=== PATIENT | female | born 1925 | race Caucasian/White ===

== ENCOUNTER 2016-03-25 05:05 | Emergency (ER) | payer MEDICARE, OTHER ==
[~2016-03-25 05:05] MED LIST: /ADVA50050; /ADVA50050 INH; /TIOT18INH; /TIOT18INH INH; ADV250INH INH; ALBU17IN2 INH; ASPI1TAB PO; ASPI1TAB5 PO; ASPI81TA83; ASPI81TA83 PO; BACT800T PO; CENTRUM SILVER PO; CETI10TA; FISH1000 PO; FLON0.05; HYDR-727 PO; HYDR25TA6; HYDR25TAB PO; IMOD2TAB16 PO; LIDO1DIS2 TOP; LIPI20TA; LIPI20TA PO; LISI20TA5 PO; LISI40TA; LOPR50TA; MAGN400C2 PO; METO25TAB PO; METOPROLOL TARTRATE PO; Metoprolol PO; NORV5TAB PO; OMEP20TA7 PO; OMEP40CA2 PO; PAIN325T; PAIN325T PO; PRED1TAB32 PO; PRED20TA PO; PREDPOW10 PO; SPIR1CAP INH; THERGRAN; TOPR25TA PO; TYLE325T5 PO; VITA10002 PO; VITA100066 PO; VITA500T88 PO; VITA50TA43 PO; [UNRECOGNIZED DRUG - OTHER]; doxycycline PO; meto; nasonex; singulair; vit c PO; vitamin b6 PO; vitamin d3 PO
[2016-03-25 05:53] LABS: BASO # 0.1 K/mm3 (0.0-0.2); BASO % 1.7 % (0.0-1.0); EOS # 0.6 K/mm3 (0.0-0.50); EOS % 7.9 % (0.0-3.0); LARGE UNSTAINED CELL # 0.1 K/mm3 (0.0-0.4); LARGE UNSTAINED CELL % 1.7 % (0.0-4.0); LYMPH # 1.6 K/mm3 (1.5-4.5); LYMPH % 20.9 % (24.0-44.0); MEAN CORPUSCULAR HEMOGLOBIN 30.5 pg (27.0-33.0); MEAN CORPUSCULAR HGB CONC 33.5 g/dl (32.0-36.5); MEAN CORPUSCULAR VOLUME 90.9 fl (80.0-96.0); MONO # 0.5 K/mm3 (0.0-0.8); MONO % 7.2 % (0.0-5.0); NEUTROPHILS # 4.4 K/mm3 (1.8-7.7); NEUTROPHILS % 60.5 % (36.0-66.0); PLATELET COUNT, AUTOMATED 226 k/mm3 (150-450); RED CELL DISTRIBUTION WIDTH 13.5 % (11.5-14.5); WHITE BLOOD COUNT 7.2 K/mm3 (4.0-10.0)
[2016-03-25 06:09] LABS: ALBUMIN 3.3 GM/DL (3.2-5.2); ALBUMIN/GLOBULIN RATIO 0.94 (1.00-1.93); ALKALINE PHOSPHATASE 85 U/L (45-117); ALT/SGPT 24 U/L (12-78); AMYLASE 33 U/L (25-115); ANION GAP 8 MEQ/L (8-16); AST/SGOT 18 U/L (15-37); BILIRUBIN,DIRECT < 0.1 MG/DL (0.0-0.2); BILIRUBIN,TOTAL 0.2 MG/DL (0.2-1.0); BLOOD UREA NITROGEN 25 MG/DL (7-18); CALCIUM LEVEL 8.8 MG/DL (8.8-10.2); CARBON DIOXIDE LEVEL 26 MEQ/L (21-32); CHLORIDE LEVEL 108 MEQ/L (98-107); CREATININE FOR GFR 1.01 MG/DL (0.55-1.02); GLOMERULAR FILTRATION RATE 55.1 (>32); GLUCOSE, FASTING 120 MG/DL (83-110); POTASSIUM SERUM 4.3 MEQ/L (3.5-5.1); SODIUM LEVEL 142 MEQ/L (136-145); TOTAL PROTEIN 6.8 GM/DL (6.4-8.2)
--- NOTE | 2016-03-25 06:28 | EDDOCDS ---
Physician Documentation [facility] Name: Nancy Nicolas Age: 89 yrs Sex: Female : 1925 Arrival Date: 03/25/2016 Time: 05:05 Bed 12 Private MD: Laura Posey DO Disposition: 03/25/16 06:12 Discharged to Home/Self Care. Impression: Other fecal abnormalities. - Condition is Stable. - Medication Reconciliation, Local Pharmacy Hours form. - Follow up: Laura Posey; When: Call to arrange an appointment; Reason: Recheck today's complaints. - Problem is new. - Symptoms are unchanged. Historical: - Allergies: Bees; PENICILLINS; seafood; - Home Meds: 1. Advair Diskus 250-50 mcg/dose Inhl dsdv 1 puff 2 times per day 2. Imodium A-D oral as needed 3. Norvasc 5 mg Oral tab 1 tab once daily 4. omeprazole 40 mg Oral cpDR 1 cap once daily 5. Spiriva with HandiHaler 18 mcg Inhl CpDv 1 cap once daily 6. Vitamin B6 Unknown daily 7. Vitamin C Oral 500 mg daily 8. Vitamin D3 1,000 unit oral tab daily - PMHx: Cancer, Colon; COPD; GERD; Gout; Hypertension; Lyme Disease; - PSHx: Appendectomy; Colonoscopy; Hysterectomy; Pacemaker Insertion; - Social history: Smoking status: Patient states former smoker of tobacco. No barriers to communication noted, The patient speaks fluent Yi, Speaks appropriately for age. - Family history: Not pertinent. - : The pt / caregiver states he / she is not on anticoagulants. Home medication list is obtained from [employer] import data. - Exposure Risk Screening:: None identified. Vital Signs: 03/25 05:16 Pulse 92; Resp 16; Temp 97.8; Pulse Ox 97% on R/A; Weight 56.7 kg / 125 lbs; Height 5 cz ft. 3 in. (160.02 cm); 05:25 BP 168 / 77 (auto/); mlc 05:28 Pulse 80 MON; Pulse Ox 97% ; mlc 05:34 BP 164 / 69 (auto/); mlc 05:35 Pulse 76 MON; Pulse Ox 97% ; mlc 05:41 BP 164 / 69; mlc 05:49 BP 151 / 71 (auto/); mlc 05:50 Pulse 74 MON; Pulse Ox 96% ; mlc 06:10 BP 181 / 79 Supine; Pulse 75; mlc 06:10 BP 180 / 84 Sitting; Pulse 76; mlc 06:10 BP 201 / 83 Standing; Pulse 83; mlc 06:26 BP 148 / 66; Pulse 73; Resp 18; Temp 99.6; Pulse Ox 97% ; Pain 0/10; mlc 05:16 Body Mass Index 22.14 (56.70 kg, 160.02 cm) cz MDM: 05:42 Undress patient appropriately for examination ordered. mar 05:42 IV Saline Lock ordered. mar 05:42 Mill Control Operator/Pulse Ox/q 15 min VS ordered. mar 05:42 Type & Screen Ordered. EDMS 05:42 NOTHING BY MOUTH+DIET ordered. EDMS 05:43 Amylase Ordered. EDMS 05:43 Basic Metabolic Profile Ordered. EDMS 05:43 CBC with Diff Ordered. EDMS 05:43 Lipase Ordered. EDMS 05:43 Liver Profile Ordered. EDMS 06:03 CBC with Diff Reviewed. cs11 06:03 Orthostatic VS ordered. cs11 Signatures: Dispatcher [employer] EDMS Angelina Rowan RN RN jan Zecher, Calvin, RN Edgar Hsu, DO DO cs11 Ana Cristina Marquis,[address] [facility] The chart was reviewed and I authenticate all verbal orders and agree with the evaluation and treatment provided.Corrections: (The following items were deleted from the chart) 06:23 05:43 URINALYSIS+LAB ordered. EDMS EDMS 06:24 05:43 URINE CULTURE+CIPRIANO ordered. EDMS EDMS MTDD
--- NOTE | 2016-03-25 06:28 | EDDOCDS ---
Nurse's Notes [facility] Name: Nancy Nicolas Age: 89 yrs Sex: Female : 1925 Arrival Date: 03/25/2016 Time: 05:05 Bed 12 Private MD: Laura Posey DO Diagnosis: Other fecal abnormalities Presentation: 03/25 05:09 Presenting complaint: Patient states: that around 0200 had 3 black tarry stools pt cz states has had same this past week. Adult Sepsis Screening: The patient does not have new or worsening altered mentation. Patient's respiratory rate is less than 22. Systolic blood pressure is greater than 100. Patient has a qSOFA score of 0- Negative Sepsis Screen. Suicide/Homicide risk assessment- the patient denies having any suicidal and/or homicidal ideations and does not present with any other emotional, behavioral or mental health complaints. Status: Patient is not a dental service technician or dependent. Transition of care: patient was not received from another setting of care. 05:09 Acuity: HARPER Level 3 cz 05:09 Method Of Arrival: Walkin/Carried/Asstd cz Triage Assessment: 05:16 General: Appears in no apparent distress. Pain: Denies pain. cz Historical: - Allergies: Bees; PENICILLINS; seafood; - Home Meds: 1. Advair Diskus 250-50 mcg/dose Inhl dsdv 1 puff 2 times per day 2. Imodium A-D oral as needed 3. Norvasc 5 mg Oral tab 1 tab once daily 4. omeprazole 40 mg Oral cpDR 1 cap once daily 5. Spiriva with HandiHaler 18 mcg Inhl CpDv 1 cap once daily 6. Vitamin B6 Unknown daily 7. Vitamin C Oral 500 mg daily 8. Vitamin D3 1,000 unit oral tab daily - PMHx: Cancer, Colon; COPD; GERD; Gout; Hypertension; Lyme Disease; - PSHx: Appendectomy; Colonoscopy; Hysterectomy; Pacemaker Insertion; - Social history: Smoking status: Patient states former smoker of tobacco. No barriers to communication noted, The patient speaks fluent Arabic, Speaks appropriately for age. - Family history: Not pertinent. - : The pt / caregiver states he / she is not on anticoagulants. Home medication list is obtained from [employer] import data. - Exposure Risk Screening:: None identified. Screenin:41 Screening information is obtained from the patient. Fall risk: No risks identified. mlc Assistance ADL's: requires no assistance with activities of daily living. Abuse/DV Screen: The patient / caregiver reports he/she is: not in a situation that causes fear, pain or injury. Nutritional screening: No deficits noted. Nutritional screening: No deficits noted. Advance Directives: Currently, there is a health care proxy, gentry Olvera . There is an active DNR order but there is no copy available at this time. There is an active Power of Amusement Park Entertainer, gentry Olvera. home support is adequate. Assessment: 05:41 General: Appears in no apparent distress, comfortable, Behavior is appropriate for age, mlc cooperative, pleasant. General: pt reports feeling "sore" in her abdomen. . Pain: Location: diaphragm. Neurological: Level of Consciousness is awake, alert, obeys commands, Oriented to person, place, time. Respiratory: Airway is patent Respiratory effort is even, unlabored, Respiratory pattern is regular. GI: Abdomen is non- distended Bowel sounds present X 4 quads. Abd is soft and non tender X 4 quads. Reports black stools nausea. Derm: Skin is normal. 06:10 Reassessment: orthostatic vital signs complete. pt reports dizziness while standing. pt mlc steady on feet, resp easy/unlabored. . 06:26 General: Appears in no apparent distress, comfortable, Behavior is cooperative. mlc Neurological: Level of Consciousness is awake, alert, Oriented to person, place, time. Respiratory: Airway is patent Respiratory effort is even, unlabored, Respiratory pattern is regular. Vital Signs: 05:16 Pulse 92; Resp 16; Temp 97.8; Pulse Ox 97% on R/A; Weight 56.7 kg; Height 5 ft. 3 in. cz (160.02 cm); 05:25 BP 168 / 77 (auto/); mlc 05:28 Pulse 80 MON; Pulse Ox 97% ; mlc 05:34 BP 164 / 69 (auto/); mlc 05:35 Pulse 76 MON; Pulse Ox 97% ; mlc 05:41 BP 164 / 69; mlc 05:49 BP 151 / 71 (auto/); mlc 05:50 Pulse 74 MON; Pulse Ox 96% ; mlc 06:10 BP 181 / 79 Supine; Pulse 75; mlc 06:10 BP 180 / 84 Sitting; Pulse 76; mlc 06:10 BP 201 / 83 Standing; Pulse 83; mlc 06:26 BP 148 / 66; Pulse 73; Resp 18; Temp 99.6; Pulse Ox 97% ; Pain 0/10; mlc 05:16 Body Mass Index 22.14 (56.70 kg, 160.02 cm) Vitals: 05:16 Log In Time: March 25, 2016 at 05:05. ED Course: 05:07 Patient visited by Sheng Davenport Reg. pm4 05:07 Laura Posey is Private Physician. pm4 05:07 Patient moved to Waiting pm4 05:13 Triage Initiated cz 05:18 Ana Cristina Marquis,LANE is Primary Nurse. cz 05:18 Patient moved to 12 cz 05:41 monitor tech on. Pulse ox on. NIBP on. mlc 05:41 Inserted saline lock: 20 gauge in left antecubital area and blood collected. The [facility] [place] patient tolerated the procedure well. 05:45 Amylase Sent. mlc 05:45 Basic Metabolic Profile Sent. mlc 05:45 CBC with Diff Sent. mlc 05:45 Lipase Sent. mlc 05:45 Liver Profile Sent. mlc 05:45 Type & Screen Sent. mlc 05:53 Edgar Nowak DO is Attending Physician. cs11 05:53 Patient visited by Edgar Nowak DO. cs11 06:11 Patient visited by Ana Cristina Marquis RN. mlc 06:11 Laura Posey is Referral Physician. cs11 06:26 The patient / caregiver is instructed regarding the plan of care and ED course. mlc 06:26 Discontinued IV lock intact, bleeding controlled, pressure dressing applied, No mlc redness/swelling at site. No procedures done that require assistance. Order Results: Lab Order: Amylase; SPEC'M 03/25/16 05:35 Test: AMYLASE; Value: 33; Range: 25-115; Units: U/L; Status: F Lab Order: Basic Metabolic Profile; SPEC'M 03/25/16 05:35 Test: GLUCOSE, FASTING; Value: 120; Range: 83-110; Abnormal: Above high normal; Units: MG/DL; Status: F Test: BLOOD UREA NITROGEN; Value: 25; Range: 7-18; Abnormal: Above high normal; Units: MG/DL; Status: F Test: CREATININE FOR GFR; Value: 1.01; Range: 0.55-1.02; Units: MG/DL; Status: F Test: GLOMERULAR FILTRATION RATE; Value: 55.1; Range: >32; Status: F Test: SODIUM LEVEL; Value: 142; Range: 136-145; Units: MEQ/L; Status: F Test: POTASSIUM SERUM; Value: 4.3; Range: 3.5-5.1; Units: MEQ/L; Status: F Test: CHLORIDE LEVEL; Value: 108; Range: 98-107; Abnormal: Above high normal; Units: MEQ/L; Status: F Test: CARBON DIOXIDE LEVEL; Value: 26; Range: 21-32; Units: MEQ/L; Status: F Test: ANION GAP; Value: 8; Range: 8-16; Units: MEQ/L; Status: F Test: CALCIUM LEVEL; Value: 8.8; Range: 8.8-10.2; Units: MG/DL; Status: F Test Note: ; Units are mL/min/1.73 m2 Chronic Kidney Disease Staging per NKF: Stage I & II GFR >=60 Normal to Mildly Decreased Stage III GFR 30-59 Moderately Decreased Stage IV GFR 15-29 Severely Decreased Stage V GFR <15 Very Little GFR Left ESRD GFR <15 on DRAWING HAND Lab Order: CBC with Diff; SPEC'M 03/25/16 05:35 Test: WHITE BLOOD COUNT; Value: 7.2; Range: 4.0-10.0; Units: K/mm3; Status: F Test: RED BLOOD COUNT; Value: 4.45; Range: 4.00-5.40; Units: M/mm3; Status: F Test: HEMOGLOBIN; Value: 13.6; Range: 12.0-16.0; Units: g/dl; Status: F Test: HEMATOCRIT; Value: 40.4; Range: 36.0-47.0; Units: %; Status: F Test: MEAN CORPUSCULAR VOLUME; Value: 90.9; Range: 80.0-96.0; Units: fl; Status: F Test: MEAN CORPUSCULAR HEMOGLOBIN; Value: 30.5; Range: 27.0-33.0; Units: pg; Status: F Test: MEAN CORPUSCULAR HGB CONC; Value: 33.5; Range: 32.0-36.5; Units: g/dl; Status: F Test: RED CELL DISTRIBUTION WIDTH; Value: 13.5; Range: 11.5-14.5; Units: %; Status: F Test: PLATELET COUNT, AUTOMATED; Value: 226; Range: 150-450; Units: k/mm3; Status: F Test: NEUTROPHILS %; Value: 60.5; Range: 36.0-66.0; Units: %; Status: F Test: LYMPH %; Value: 20.9; Range: 24.0-44.0; Abnormal: Below low normal; Units: %; Status: F Test: MONO %; Value: 7.2; Range: 0.0-5.0; Abnormal: Above high normal; Units: %; Status: F Test: EOS %; Value: 7.9; Range: 0.0-3.0; Abnormal: Above high normal; Units: %; Status: F Test: BASO %; Value: 1.7; Range: 0.0-1.0; Abnormal: Above high normal; Units: %; Status: F Test: LARGE UNSTAINED CELL %; Value: 1.7; Range: 0.0-4.0; Units: %; Status: F Test: NEUTROPHILS #; Value: 4.4; Range: 1.8-7.7; Units: K/mm3; Status: F Test: LYMPH #; Value: 1.6; Range: 1.5-4.5; Units: K/mm3; Status: F Test: MONO #; Value: 0.5; Range: 0.0-0.8; Units: K/mm3; Status: F Test: EOS #; Value: 0.6; Range: 0.0-0.50; Abnormal: Above high normal; Units: K/mm3; Status: F Test: BASO #; Value: 0.1; Range: 0.0-0.2; Units: K/mm3; Status: F Test: LARGE UNSTAINED CELL #; Value: 0.1; Range: 0.0-0.4; Units: K/mm3; Status: F Lab Order: Lipase; SPEC'M 03/25/16 05:35 Test: LIPASE; Value: 111; Range: 73-393; Units: U/L; Status: F Lab Order: Liver Profile; SPEC'M 03/25/16 05:35 Test: AST/SGOT; Value: 18; Range: 15-37; Units: U/L; Status: F Test: ALT/SGPT; Value: 24; Range: 12-78; Units: U/L; Status: F Test: ALKALINE PHOSPHATASE; Value: 85; Range: 45-117; Units: U/L; Status: F Test: BILIRUBIN,TOTAL; Value: 0.2; Range: 0.2-1.0; Units: MG/DL; Status: F Test: BILIRUBIN,DIRECT; Value: < 0.1; Range: 0.0-0.2; Units: MG/DL; Status: F Test: TOTAL PROTEIN; Value: 6.8; Range: 6.4-8.2; Units: GM/DL; Status: F Test: ALBUMIN; Value: 3.3; Range: 3.2-5.2; Units: GM/DL; Status: F Test: ALBUMIN/GLOBULIN RATIO; Value: 0.94; Range: 1.00-1.93; Abnormal: Below low normal; Status: F Lab Order: Type & Screen; SPEC'M 03/25/16 05:35 Test: BLOOD TYPE; Value: A POS; Status: F Test: AB SCREEN (INDIRECT MIRA)GEL; Value: NEGATIVE; Status: F Outcome: 06:12 Discharge ordered by Provider. cs11 06:26 Discharge Assessment: Patient awake, alert and oriented x 3. No cognitive and/or mlc functional deficits noted. Patient verbalized understanding of disposition instructions. patient administered narcotics - no. The following High Risk Discharge criteria are identified: None. Discharged to home ambulatory. Condition: good Condition: stable. Discharge instructions given to patient, Instructed on discharge instructions, Demonstrated understanding of instructions, Pt was receptive of discharge instructions/ teaching. No special radiology studies were completed. Property sent home with patient. 06:27 Patient left the ED. [facility] [place] Signatures: Unruly Solis RN RN cz Schiff, Craig, DO DO cs11 Ana Cristina Marquis RN RN mlc Montondo, Paul, Reg Reg pm4 MTDD
--- NOTE | 2016-03-27 07:28 | EDDOCDS ---
Physician Documentation [facility] Name: Nancy Nicolas Age: 89 yrs Sex: Female : 1925 Arrival Date: 03/25/2016 Time: 05:05 Bed 12 Private MD: Laura Posey DO Disposition: 03/25/16 06:12 Discharged to Home/Self Care. Impression: Other fecal abnormalities. - Condition is Stable. - Medication Reconciliation, Local Pharmacy Hours form. - Follow up: Laura Posey; When: Call to arrange an appointment; Reason: Recheck today's complaints. - Problem is new. - Symptoms are unchanged. Historical: - Allergies: Bees; PENICILLINS; seafood; - Home Meds: 1. Advair Diskus 250-50 mcg/dose Inhl dsdv 1 puff 2 times per day 2. Imodium A-D oral as needed 3. Norvasc 5 mg Oral tab 1 tab once daily 4. omeprazole 40 mg Oral cpDR 1 cap once daily 5. Spiriva with HandiHaler 18 mcg Inhl CpDv 1 cap once daily 6. Vitamin B6 Unknown daily 7. Vitamin C Oral 500 mg daily 8. Vitamin D3 1,000 unit oral tab daily - PMHx: Cancer, Colon; COPD; GERD; Gout; Hypertension; Lyme Disease; - PSHx: Appendectomy; Colonoscopy; Hysterectomy; Pacemaker Insertion; - Social history: Smoking status: Patient states former smoker of tobacco. No barriers to communication noted, The patient speaks fluent Upper Sorbian, Speaks appropriately for age. - Family history: Not pertinent. - : The pt / caregiver states he / she is not on anticoagulants. Home medication list is obtained from [employer] import data. - Exposure Risk Screening:: None identified. Vital Signs: 03/25 05:16 Pulse 92; Resp 16; Temp 97.8; Pulse Ox 97% on R/A; Weight 56.7 kg / 125 lbs; Height 5 cz ft. 3 in. (160.02 cm); 05:25 BP 168 / 77 (auto/); mlc 05:28 Pulse 80 MON; Pulse Ox 97% ; mlc 05:34 BP 164 / 69 (auto/); mlc 05:35 Pulse 76 MON; Pulse Ox 97% ; mlc 05:41 BP 164 / 69; mlc 05:49 BP 151 / 71 (auto/); mlc 05:50 Pulse 74 MON; Pulse Ox 96% ; mlc 06:10 BP 181 / 79 Supine; Pulse 75; mlc 06:10 BP 180 / 84 Sitting; Pulse 76; mlc 06:10 BP 201 / 83 Standing; Pulse 83; mlc 06:26 BP 148 / 66; Pulse 73; Resp 18; Temp 99.6; Pulse Ox 97% ; Pain 0/10; mlc 05:16 Body Mass Index 22.14 (56.70 kg, 160.02 cm) MDM: 05:42 Undress patient appropriately for examination ordered. mar 05:42 IV Saline Lock ordered. mar 05:42 Welfare Interviewer/Pulse Ox/q 15 min VS ordered. mar 05:42 Type & Screen Ordered. EDMS 05:42 NOTHING BY MOUTH+DIET ordered. EDMS 05:43 Amylase Ordered. EDMS 05:43 Basic Metabolic Profile Ordered. EDMS 05:43 CBC with Diff Ordered. EDMS 05:43 Lipase Ordered. EDMS 05:43 Liver Profile Ordered. EDMS 06:03 CBC with Diff Reviewed. cs11 06:03 Orthostatic VS ordered. cs11 06:50 [facility] [place] Payment Agreement was scanned into [employer] and attached to record. pm4 07:43 Financial registration complete. mm15 14:12 T-Sheet-- Draft Copy was scanned into [employer] and attached to record. gb Signatures: Dispatcher [employer] EDNH Angelina Rowan RN RN jan Zecher, Calvin, RN RN Bhargavi Jauregui, Reg Reg gb Edgar Nowak, DO cs11 Evonne Doherty mm15 Ana Cristina Marquis RN RN [facility] Sheng Davenport, Reg Reg pm4 The chart was reviewed and I authenticate all verbal orders and agree with the evaluation and treatment provided.Corrections: (The following items were deleted from the chart) 06:23 05:43 URINALYSIS+LAB ordered. EDMS EDMS 06:24 05:43 URINE CULTURE+CIPRIANO ordered. EDMS EDMS Attachments: 06:50 [facility] [place] Payment Agreement pm4 14:12 T-Sheet-- Draft Copy gb Chart Complete MTDD
--- NOTE | 2016-03-27 07:28 | EDDOCDS ---
Nurse's Notes [facility] Name: Nancy Nicolas Age: 89 yrs Sex: Female : 1925 Arrival Date: 03/25/2016 Time: 05:05 Bed 12 Private MD: Laura Posey DO Diagnosis: Other fecal abnormalities Presentation: 03/25 05:09 Presenting complaint: Patient states: that around 0200 had 3 black tarry stools pt cz states has had same this past week. Adult Sepsis Screening: The patient does not have new or worsening altered mentation. Patient's respiratory rate is less than 22. Systolic blood pressure is greater than 100. Patient has a qSOFA score of 0- Negative Sepsis Screen. Suicide/Homicide risk assessment- the patient denies having any suicidal and/or homicidal ideations and does not present with any other emotional, behavioral or mental health complaints. Status: Patient is not a fiscal services director or dependent. Transition of care: patient was not received from another setting of care. 05:09 Acuity: HARPER Level 3 cz 05:09 Method Of Arrival: Walkin/Carried/Asstd cz Triage Assessment: 05:16 General: Appears in no apparent distress. Pain: Denies pain. cz Historical: - Allergies: Bees; PENICILLINS; seafood; - Home Meds: 1. Advair Diskus 250-50 mcg/dose Inhl dsdv 1 puff 2 times per day 2. Imodium A-D oral as needed 3. Norvasc 5 mg Oral tab 1 tab once daily 4. omeprazole 40 mg Oral cpDR 1 cap once daily 5. Spiriva with HandiHaler 18 mcg Inhl CpDv 1 cap once daily 6. Vitamin B6 Unknown daily 7. Vitamin C Oral 500 mg daily 8. Vitamin D3 1,000 unit oral tab daily - PMHx: Cancer, Colon; COPD; GERD; Gout; Hypertension; Lyme Disease; - PSHx: Appendectomy; Colonoscopy; Hysterectomy; Pacemaker Insertion; - Social history: Smoking status: Patient states former smoker of tobacco. No barriers to communication noted, The patient speaks fluent Japanese, Speaks appropriately for age. - Family history: Not pertinent. - : The pt / caregiver states he / she is not on anticoagulants. Home medication list is obtained from [employer] import data. - Exposure Risk Screening:: None identified. Screenin:41 Screening information is obtained from the patient. Fall risk: No risks identified. mlc Assistance ADL's: requires no assistance with activities of daily living. Abuse/DV Screen: The patient / caregiver reports he/she is: not in a situation that causes fear, pain or injury. Nutritional screening: No deficits noted. Nutritional screening: No deficits noted. Advance Directives: Currently, there is a health care proxy, gentry Olvera . There is an active DNR order but there is no copy available at this time. There is an active Power of Petrophysicist, gentry Olvera. home support is adequate. Assessment: 05:41 General: Appears in no apparent distress, comfortable, Behavior is appropriate for age, mlc cooperative, pleasant. General: pt reports feeling "sore" in her abdomen. . Pain: Location: diaphragm. Neurological: Level of Consciousness is awake, alert, obeys commands, Oriented to person, place, time. Respiratory: Airway is patent Respiratory effort is even, unlabored, Respiratory pattern is regular. GI: Abdomen is non- distended Bowel sounds present X 4 quads. Abd is soft and non tender X 4 quads. Reports black stools nausea. Derm: Skin is normal. 06:10 Reassessment: orthostatic vital signs complete. pt reports dizziness while standing. pt mlc steady on feet, resp easy/unlabored. . 06:26 General: Appears in no apparent distress, comfortable, Behavior is cooperative. mlc Neurological: Level of Consciousness is awake, alert, Oriented to person, place, time. Respiratory: Airway is patent Respiratory effort is even, unlabored, Respiratory pattern is regular. Vital Signs: 05:16 Pulse 92; Resp 16; Temp 97.8; Pulse Ox 97% on R/A; Weight 56.7 kg; Height 5 ft. 3 in. cz (160.02 cm); 05:25 BP 168 / 77 (auto/); mlc 05:28 Pulse 80 MON; Pulse Ox 97% ; mlc 05:34 BP 164 / 69 (auto/); mlc 05:35 Pulse 76 MON; Pulse Ox 97% ; mlc 05:41 BP 164 / 69; mlc 05:49 BP 151 / 71 (auto/); mlc 05:50 Pulse 74 MON; Pulse Ox 96% ; mlc 06:10 BP 181 / 79 Supine; Pulse 75; mlc 06:10 BP 180 / 84 Sitting; Pulse 76; mlc 06:10 BP 201 / 83 Standing; Pulse 83; mlc 06:26 BP 148 / 66; Pulse 73; Resp 18; Temp 99.6; Pulse Ox 97% ; Pain 0/10; mlc 05:16 Body Mass Index 22.14 (56.70 kg, 160.02 cm) Vitals: 05:16 Log In Time: March 25, 2016 at 05:05. ED Course: 05:07 Patient visited by Sheng Davenport Reg. pm4 05:07 Laura Posey is Private Physician. pm4 05:07 Patient moved to Waiting pm4 05:13 Triage Initiated cz 05:18 Ana Cristina Marquis,LANE is Primary Nurse. cz 05:18 Patient moved to 12 cz 05:41 tightener on. Pulse ox on. NIBP on. mlc 05:41 Inserted saline lock: 20 gauge in left antecubital area and blood collected. The [facility] [place] patient tolerated the procedure well. 05:45 Amylase Sent. mlc 05:45 Basic Metabolic Profile Sent. mlc 05:45 CBC with Diff Sent. mlc 05:45 Lipase Sent. mlc 05:45 Liver Profile Sent. mlc 05:45 Type & Screen Sent. mlc 05:53 Edgar Nowak DO is Attending Physician. cs11 05:53 Patient visited by Edgar Nowak DO. cs11 06:11 Patient visited by Ana Cristina Marquis RN. mlc 06:11 Laura Posey is Referral Physician. cs11 06:26 The patient / caregiver is instructed regarding the plan of care and ED course. mlc 06:26 Discontinued IV lock intact, bleeding controlled, pressure dressing applied, No mlc redness/swelling at site. No procedures done that require assistance. 06:50 [facility] [place] Agreement was scanned into [employer] and attached to record. pm4 14:12 T-Sheet-- Draft Copy was scanned into [employer] and attached to record. gb Order Results: Lab Order: Amylase; SPEC'M 03/25/16 05:35 Test: AMYLASE; Value: 33; Range: 25-115; Units: U/L; Status: F Lab Order: Basic Metabolic Profile; SPEC'M 03/25/16 05:35 Test: GLUCOSE, FASTING; Value: 120; Range: 83-110; Abnormal: Above high normal; Units: MG/DL; Status: F Test: BLOOD UREA NITROGEN; Value: 25; Range: 7-18; Abnormal: Above high normal; Units: MG/DL; Status: F Test: CREATININE FOR GFR; Value: 1.01; Range: 0.55-1.02; Units: MG/DL; Status: F Test: GLOMERULAR FILTRATION RATE; Value: 55.1; Range: >32; Status: F Test: SODIUM LEVEL; Value: 142; Range: 136-145; Units: MEQ/L; Status: F Test: POTASSIUM SERUM; Value: 4.3; Range: 3.5-5.1; Units: MEQ/L; Status: F Test: CHLORIDE LEVEL; Value: 108; Range: 98-107; Abnormal: Above high normal; Units: MEQ/L; Status: F Test: CARBON DIOXIDE LEVEL; Value: 26; Range: 21-32; Units: MEQ/L; Status: F Test: ANION GAP; Value: 8; Range: 8-16; Units: MEQ/L; Status: F Test: CALCIUM LEVEL; Value: 8.8; Range: 8.8-10.2; Units: MG/DL; Status: F Test Note: ; Units are mL/min/1.73 m2 Chronic Kidney Disease Staging per NKF: Stage I & II GFR >=60 Normal to Mildly Decreased Stage III GFR 30-59 Moderately Decreased Stage IV GFR 15-29 Severely Decreased Stage V GFR <15 Very Little GFR Left ESRD GFR <15 on BILINGUAL NANNY Lab Order: CBC with Diff; SPEC'M 03/25/16 05:35 Test: WHITE BLOOD COUNT; Value: 7.2; Range: 4.0-10.0; Units: K/mm3; Status: F Test: RED BLOOD COUNT; Value: 4.45; Range: 4.00-5.40; Units: M/mm3; Status: F Test: HEMOGLOBIN; Value: 13.6; Range: 12.0-16.0; Units: g/dl; Status: F Test: HEMATOCRIT; Value: 40.4; Range: 36.0-47.0; Units: %; Status: F Test: MEAN CORPUSCULAR VOLUME; Value: 90.9; Range: 80.0-96.0; Units: fl; Status: F Test: MEAN CORPUSCULAR HEMOGLOBIN; Value: 30.5; Range: 27.0-33.0; Units: pg; Status: F Test: MEAN CORPUSCULAR HGB CONC; Value: 33.5; Range: 32.0-36.5; Units: g/dl; Status: F Test: RED CELL DISTRIBUTION WIDTH; Value: 13.5; Range: 11.5-14.5; Units: %; Status: F Test: PLATELET COUNT, AUTOMATED; Value: 226; Range: 150-450; Units: k/mm3; Status: F Test: NEUTROPHILS %; Value: 60.5; Range: 36.0-66.0; Units: %; Status: F Test: LYMPH %; Value: 20.9; Range: 24.0-44.0; Abnormal: Below low normal; Units: %; Status: F Test: MONO %; Value: 7.2; Range: 0.0-5.0; Abnormal: Above high normal; Units: %; Status: F Test: EOS %; Value: 7.9; Range: 0.0-3.0; Abnormal: Above high normal; Units: %; Status: F Test: BASO %; Value: 1.7; Range: 0.0-1.0; Abnormal: Above high normal; Units: %; Status: F Test: LARGE UNSTAINED CELL %; Value: 1.7; Range: 0.0-4.0; Units: %; Status: F Test: NEUTROPHILS #; Value: 4.4; Range: 1.8-7.7; Units: K/mm3; Status: F Test: LYMPH #; Value: 1.6; Range: 1.5-4.5; Units: K/mm3; Status: F Test: MONO #; Value: 0.5; Range: 0.0-0.8; Units: K/mm3; Status: F Test: EOS #; Value: 0.6; Range: 0.0-0.50; Abnormal: Above high normal; Units: K/mm3; Status: F Test: BASO #; Value: 0.1; Range: 0.0-0.2; Units: K/mm3; Status: F Test: LARGE UNSTAINED CELL #; Value: 0.1; Range: 0.0-0.4; Units: K/mm3; Status: F Lab Order: Lipase; SPEC'M 03/25/16 05:35 Test: LIPASE; Value: 111; Range: 73-393; Units: U/L; Status: F Lab Order: Liver Profile; SPEC'M 03/25/16 05:35 Test: AST/SGOT; Value: 18; Range: 15-37; Units: U/L; Status: F Test: ALT/SGPT; Value: 24; Range: 12-78; Units: U/L; Status: F Test: ALKALINE PHOSPHATASE; Value: 85; Range: 45-117; Units: U/L; Status: F Test: BILIRUBIN,TOTAL; Value: 0.2; Range: 0.2-1.0; Units: MG/DL; Status: F Test: BILIRUBIN,DIRECT; Value: < 0.1; Range: 0.0-0.2; Units: MG/DL; Status: F Test: TOTAL PROTEIN; Value: 6.8; Range: 6.4-8.2; Units: GM/DL; Status: F Test: ALBUMIN; Value: 3.3; Range: 3.2-5.2; Units: GM/DL; Status: F Test: ALBUMIN/GLOBULIN RATIO; Value: 0.94; Range: 1.00-1.93; Abnormal: Below low normal; Status: F Lab Order: Type & Screen; SPECM 03/25/16 05:35 Test: BLOOD TYPE; Value: A POS; Status: F Test: AB SCREEN (INDIRECT MIRA)GEL; Value: NEGATIVE; Status: F Outcome: 06:12 Discharge ordered by Provider. 11 06:26 Discharge Assessment: Patient awake, alert and oriented x 3. No cognitive and/or mlc functional deficits noted. Patient verbalized understanding of disposition instructions. patient administered narcotics - no. The following High Risk Discharge criteria are identified: None. Discharged to home ambulatory. Condition: good Condition: stable. Discharge instructions given to patient, Instructed on discharge instructions, Demonstrated understanding of instructions, Pt was receptive of discharge instructions/ teaching. No special radiology studies were completed. Property sent home with patient. 06:27 Patient left the ED. [facility] [place] Signatures: Unruly Solis RN RN Bhargavi Jauregui, Reg Reg gb Edgar Nowak, DO cs11 Ana Cristina Marquis RN RN [facility] [place] Sheng Davenport, Reg Reg pm4 Chart Complete MTDD
--- NOTE | 2016-03-27 07:28 | EDDOCDS ---
Physician Documentation [facility] Name: Nancy Nicolas Age: 89 yrs Sex: Female : 1925 Arrival Date: 03/25/2016 Time: 05:05 Bed 12 Private MD: Laura Posey DO Disposition: 03/25/16 06:12 Discharged to Home/Self Care. Impression: Other fecal abnormalities. - Condition is Stable. - Medication Reconciliation, Local Pharmacy Hours form. - Follow up: Laura Posey; When: Call to arrange an appointment; Reason: Recheck today's complaints. - Problem is new. - Symptoms are unchanged. Historical: - Allergies: Bees; PENICILLINS; seafood; - Home Meds: 1. Advair Diskus 250-50 mcg/dose Inhl dsdv 1 puff 2 times per day 2. Imodium A-D oral as needed 3. Norvasc 5 mg Oral tab 1 tab once daily 4. omeprazole 40 mg Oral cpDR 1 cap once daily 5. Spiriva with HandiHaler 18 mcg Inhl CpDv 1 cap once daily 6. Vitamin B6 Unknown daily 7. Vitamin C Oral 500 mg daily 8. Vitamin D3 1,000 unit oral tab daily - PMHx: Cancer, Colon; COPD; GERD; Gout; Hypertension; Lyme Disease; - PSHx: Appendectomy; Colonoscopy; Hysterectomy; Pacemaker Insertion; - Social history: Smoking status: Patient states former smoker of tobacco. No barriers to communication noted, The patient speaks fluent Bengali, Speaks appropriately for age. - Family history: Not pertinent. - : The pt / caregiver states he / she is not on anticoagulants. Home medication list is obtained from [employer] import data. - Exposure Risk Screening:: None identified. Vital Signs: 03/25 05:16 Pulse 92; Resp 16; Temp 97.8; Pulse Ox 97% on R/A; Weight 56.7 kg / 125 lbs; Height 5 cz ft. 3 in. (160.02 cm); 05:25 BP 168 / 77 (auto/); mlc 05:28 Pulse 80 MON; Pulse Ox 97% ; mlc 05:34 BP 164 / 69 (auto/); mlc 05:35 Pulse 76 MON; Pulse Ox 97% ; mlc 05:41 BP 164 / 69; mlc 05:49 BP 151 / 71 (auto/); mlc 05:50 Pulse 74 MON; Pulse Ox 96% ; mlc 06:10 BP 181 / 79 Supine; Pulse 75; mlc 06:10 BP 180 / 84 Sitting; Pulse 76; mlc 06:10 BP 201 / 83 Standing; Pulse 83; mlc 06:26 BP 148 / 66; Pulse 73; Resp 18; Temp 99.6; Pulse Ox 97% ; Pain 0/10; mlc 05:16 Body Mass Index 22.14 (56.70 kg, 160.02 cm) MDM: 05:42 Undress patient appropriately for examination ordered. mar 05:42 IV Saline Lock ordered. 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 mar 05:42 Type & Screen Ordered. EDMS 05:42 NOTHING BY MOUTH+DIET ordered. EDMS 05:43 Amylase Ordered. EDMS 05:43 Basic Metabolic Profile Ordered. EDMS 05:43 CBC with Diff Ordered. EDMS 05:43 Lipase Ordered. EDMS 05:43 Liver Profile Ordered. EDMS 06:03 CBC with Diff Reviewed. cs11 06:03 Orthostatic VS ordered. cs11 06:50 [facility] Agreement was scanned into [employer] and attached to record. pm4 07:43 Financial registration complete. mm15 14:12 T-Sheet-- Draft Copy was scanned into [employer] and attached to record. gb Signatures: Dispatcher [employer] EDUT Angelina Rowan RN RN jan Zecher, Calvin, RN RN Bhargavi Jauregui, Reg Reg gb Edgar Nowak, DO cs11 Evonne Doherty mm15 Ana Cristina Marquis RN RN [facility] [place] Sheng Davenport, Reg Reg pm4 The chart was reviewed and I authenticate all verbal orders and agree with the evaluation and treatment provided.Corrections: (The following items were deleted from the chart) 06:23 05:43 URINALYSIS+LAB ordered. EDMS EDMS 06:24 05:43 URINE CULTURE+CIPRIANO ordered. EDMS EDMS Attachments: 06:50 [facility] [place] Agreement pm4 14:12 T-Sheet-- Draft Copy gb Chart Complete MTDD
== END 2016-03-25 06:27 | disposition home or self-care (01) ==
LOC: M ED 05:05
DX: R19.5 Other fecal abnormalities (principal); J44.9 Chronic obstructive pulmonary disease, unspecified; K21.9 Gastro-esophageal reflux disease without esophagitis; M10.9 Gout, unspecified; I10 Essential (primary) hypertension; A69.20 Lyme disease, unspecified; Z85.038 Personal history of other malignant neoplasm of large intestine; Z79.899 Other long term (current) drug therapy; Z91.030 Bee allergy status; Z88.0 Allergy status to penicillin; Z91.013 Allergy to seafood; Z87.891 Personal history of nicotine dependence

== ENCOUNTER → 2016-03-29 | Outpatient (REF) | payer MEDICARE, OTHER | END | disposition home or self-care (01) | LOC: M LAB REF 16:22 | PROVIDERS: ATTEND Nurse Practitioner Adult Health | DX: R19.7 Diarrhea, unspecified (principal) ==

== ENCOUNTER 2016-04-17 10:09 | Emergency (ER) | payer MEDICARE, OTHER ==
[2016-04-17 10:50] LABS: BASO % 0.4 % (0.0-1.0); EOS # 0.1 K/mm3 (0.0-0.50); EOS % 0.9 % (0.0-3.0); LARGE UNSTAINED CELL # 0.1 K/mm3 (0.0-0.4); LARGE UNSTAINED CELL % 0.7 % (0.0-4.0); LYMPH # 1.5 K/mm3 (1.5-4.5); LYMPH % 14.9 % (24.0-44.0); MEAN CORPUSCULAR HEMOGLOBIN 30.7 pg (27.0-33.0); MEAN CORPUSCULAR HGB CONC 33.2 g/dl (32.0-36.5); MEAN CORPUSCULAR VOLUME 92.3 fl (80.0-96.0); MONO # 0.5 K/mm3 (0.0-0.8); MONO % 5.1 % (0.0-5.0); NEUTROPHILS # 7.7 K/mm3 (1.8-7.7); PLATELET COUNT, AUTOMATED 247 k/mm3 (150-450); RED CELL DISTRIBUTION WIDTH 12.8 % (11.5-14.5); WHITE BLOOD COUNT 9.9 K/mm3 (4.0-10.0)
[2016-04-17 11:13] LABS: ALBUMIN 3.5 GM/DL (3.2-5.2); ALBUMIN/GLOBULIN RATIO 1.21 (1.00-1.93); ALKALINE PHOSPHATASE 70 U/L (45-117); ALT/SGPT 27 U/L (12-78); AMYLASE 35 U/L (25-115); ANION GAP 12 MEQ/L (8-16); AST/SGOT 18 U/L (15-37); BILIRUBIN,DIRECT < 0.1 MG/DL (0.0-0.2); BILIRUBIN,TOTAL 0.3 MG/DL (0.2-1.0); BLOOD UREA NITROGEN 25 MG/DL (7-18); CALCIUM LEVEL 8.8 MG/DL (8.8-10.2); CARBON DIOXIDE LEVEL 26 MEQ/L (21-32); CHLORIDE LEVEL 102 MEQ/L (98-107); GLOMERULAR FILTRATION RATE 49.9 (>32); GLUCOSE, FASTING 122 MG/DL (83-110); POTASSIUM SERUM 4.4 MEQ/L (3.5-5.1); SODIUM LEVEL 140 MEQ/L (136-145); TOTAL PROTEIN 6.4 GM/DL (6.4-8.2)
[2016-04-17] MEDS ORDERED: ONDANSETRON 4MG/2ML VIAL (J2405) As Ordered ONE (11:16)
--- NOTE | 2016-04-17 12:45 | EDDOCDS ---
Nurse's Notes [facility] Name: Nancy Nicolas Age: 89 yrs Sex: Female : 1925 Arrival Date: 04/17/2016 Time: 10:09 Bed 8 Private MD: Tiffany Martell Diagnosis: Nausea Presentation: 04/17 10:14 Presenting complaint: Patient states: has not felt well for over 1 month. Reports PCP kr3 tested stool and patient was told had blood in stool, no further testing was done. Reports nausea and no appetite for several weeks. Denies pain but feels weak. Adult Sepsis Screening: The patient does not have new or worsening altered mentation. Patient's respiratory rate is less than 22. Systolic blood pressure is greater than 100. Patient has a qSOFA score of 0- Negative Sepsis Screen. Suicide/Homicide risk assessment- the patient denies having any suicidal and/or homicidal ideations and does not present with any other emotional, behavioral or mental health complaints. Status: Patient is not a director of rehabilitative services or dependent. Transition of care: patient was not received from another setting of care. 10:14 Acuity: HARPER Level 3 kr3 10:14 Method Of Arrival: Walkin/Carried/Asstd kr3 Triage Assessment: 10:20 General: Appears distressed, Behavior is anxious, cooperative. General: Reports feeling kr3 ill for. Pain: Denies pain. Neurological: Level of Consciousness is awake, alert. Respiratory: Respiratory effort is even, unlabored. GI: Reports anorexia, nausea, Denies vomiting. Derm: Skin is normal. Historical: - Allergies: Bees; PENICILLINS; seafood; - Home Meds: 1. Advair Diskus 250-50 mcg/dose Inhl dsdv 1 puff 2 times per day 2. Norvasc 5 mg Oral tab 1 tab once daily 3. Spiriva with HandiHaler 18 mcg Inhl CpDv 1 cap once daily 4. Vitamin B6 Unknown daily 5. Vitamin C Oral 500 mg daily 6. Vitamin D3 1,000 unit oral tab daily 7. omeprazole 40 mg Oral cpDR 1 cap once daily 8. Imodium A-D oral as needed (Last dose: 04/16/2016) 9. Vitamin B-12 Oral daily 10. sucralfate 1 gram Oral tab 4 times per day 11. budesonide 3 mg oral CECX 3 caps once daily - PMHx: Cancer, Colon; COPD; GERD; Hypertension; Gout; Lyme Disease; - PSHx: Hysterectomy; Colon Resection; Pacemaker Insertion (May 2015); - Social history: Smoking status: Patient states former smoker of tobacco. No barriers to communication noted, The patient speaks fluent [place], Speaks appropriately for age. - Family history: Not pertinent. - : The pt / caregiver states he / she is not on anticoagulants. Home medication list is obtained from the patient, pill bottles. - Exposure Risk Screening:: None identified. Screenin:47 Screening information is obtained from the patient. Fall risk: No risks identified. pml Assistance ADL's: requires no assistance with activities of daily living. Abuse/DV Screen: The patient / caregiver reports he/she is: not in a situation that causes fear, pain or injury. Nutritional screening: No deficits noted. Advance Directives: Currently, there is no health care proxy. home support is adequate. Assessment: 10:47 General: Appears in no apparent distress, comfortable, Behavior is appropriate for age, pml cooperative. Pain: Denies pain. Neurological: Level of Consciousness is awake, alert, Oriented to person, place, time. Neurological: Reports dizziness, when standing. Cardiovascular: Capillary refill < 3 seconds. Respiratory: Airway is patent Respiratory effort is even, unlabored. GI: Abdomen is non- distended Bowel sounds present X 4 quads. Abd is soft and non tender X 4 quads. Reports nausea. Derm: Skin is pink, warm & dry. 11:20 General: resting on stretcher, no apparent distress. resps easy and unlabored, skin pml p/w/d. sinus rhythm on monitor without ectopy. IV infusing as ordered. 12:17 General: tolerated 8oz PO fluids, reports nausea persists, no emesis noted. pml 12:42 General: Appears in no apparent distress, Behavior is appropriate for age, cooperative. pml Pain: Denies pain. Neurological: Level of Consciousness is awake, alert, Oriented to person, place, time. Cardiovascular: Capillary refill < 3 seconds. Respiratory: Airway is patent Respiratory effort is even, unlabored. GI: Abdomen is non- distended. Derm: Skin is pink, warm & dry. Vital Signs: 10:10 BP 195 / 94; Pulse 75; Resp 20; Temp 99.2; Pulse Ox 100% ; Weight 55.79 kg; Height 5 [facility] ft. 3 in. (160.02 cm); Pain 0/10; 10:35 BP 125 / 81 (auto/); pml 10:38 Pulse 70 MON; Pulse Ox 98% ; pml 10:50 Pulse 70 MON; Pulse Ox 99% ; pml 10:50 BP 121 / 83 (auto/); pml 11:05 Pulse 72 MON; Pulse Ox 99% ; pml 11:05 BP 114 / 68 (auto/); pml 11:20 Pulse 70 MON; Pulse Ox 99% ; pml 11:20 BP 125 / 66 (auto/); pml 11:35 Pulse 74 MON; Pulse Ox 99% ; pml 11:35 BP 129 / 77 (auto/); pml 11:50 BP 134 / 82 (auto/); pml 11:51 Pulse 72 MON; Pulse Ox 99% ; pml 12:05 Pulse 76 MON; Pulse Ox 98% ; pml 12:05 BP 130 / 72 (auto/); pml 12:20 BP 130 / 71 (auto/); pml 12:21 Pulse 78 MON; Pulse Ox 98% ; pml 12:35 BP 136 / 74 (auto/); pml 12:36 Pulse 80 MON; Pulse Ox 99% ; pml 12:42 BP 143 / 68; Pulse 78; Resp 18; Temp 98.6; Pulse Ox 99% on R/A; Pain 0/10; pml 10:10 Body Mass Index 21.79 (55.79 kg, 160.02 cm) [facility] Vitals: 10:10 Log In Time: April 17, 2016 at 10:07. [facility] ED Course: 10:10 Patient visited by Jamilah Campbell PCA. jlf 10:10 Tiffany Martell is Private Physician. jlf 10:10 Patient moved to Waiting jlf 10:12 Patient visited by Jamilah Campbell PCA. jlf 10:12 Patient moved to Pre RCE jlf 10:17 Triage Initiated kr3 10:21 Leslie Weaver,RN is Primary Nurse. kr3 10:21 Patient moved to 8 kr3 10:28 Lynsey Ozuna MD is Attending Physician. sd1 10:28 Patient visited by Lynsey Ozuna MD. sd1 10:35 Discontinued lock intact, bleeding controlled, pressure dressing applied, No pml redness/swelling at site. No procedures done that require assistance. 10:47 The patient / caregiver is instructed regarding the plan of care and ED course. Patient pml has correct armband on for positive identification. Placed in gown. Bed in low position. Call light in reach. Side rails up X2. 10:47 Inserted peripheral IV: 20gauge IV in right antecubital area and blood collected. pml Patient tolerated the procedure well. 10:48 Patient visited by Leslie Weaver RN. pml 11:05 [facility] Payment Agreement was scanned into [employer] and attached to record. lg 11:21 Patient visited by Leslie Weaver RN. pml 11:38 Patient visited by Debbi Thomas. lr2 11:38 PO fluids given. lr2 12:17 Patient visited by Leslie Weaver RN. pml 12:35 Tiffany Martell is Referral Physician. sd1 12:36 Evelio Hill MD is Referral Physician. sd1 Administered Medications: 11:19 Drug: Ondansetron 4 mg [ondansetron HCl 2 mg/mL intravenous solution (2 mL)] Route: pml IVP; Site: right antecubital; 11:20 Drug: NS 0.9% 1000 ml [sodium chloride 0.9 % injection solution] Route: IV; Rate: 250 pml mL/hr; Site: right antecubital; 12:43 Follow up: IV Status: Infusion discontinued; IV Intake: 300ml pml Intake: 11:38 PO: 240.00ml (Soft Drink); Total: 240.00ml. lr2 12:43 IV: 300.00ml; Total: 540.00ml. pml Order Results: Lab Order: Amylase; SPEC'M 04/17/16 10:42 Test: AMYLASE; Value: 35; Range: 25-115; Units: U/L; Status: F Lab Order: Basic Metabolic Profile; SPEC'M 04/17/16 10:42 Test: GLUCOSE, FASTING; Value: 122; Range: 83-110; Abnormal: Above high normal; Units: MG/DL; Status: F Test: BLOOD UREA NITROGEN; Value: 25; Range: 7-18; Abnormal: Above high normal; Units: MG/DL; Status: F Test: CREATININE FOR GFR; Value: 1.10; Range: 0.55-1.02; Abnormal: Above high normal; Units: MG/DL; Status: F Test: GLOMERULAR FILTRATION RATE; Value: 49.9; Range: >32; Status: F Test: SODIUM LEVEL; Value: 140; Range: 136-145; Units: MEQ/L; Status: F Test: POTASSIUM SERUM; Value: 4.4; Range: 3.5-5.1; Units: MEQ/L; Status: F Test: CHLORIDE LEVEL; Value: 102; Range: 98-107; Units: MEQ/L; Status: F Test: CARBON DIOXIDE LEVEL; Value: 26; Range: 21-32; Units: MEQ/L; Status: F Test: ANION GAP; Value: 12; Range: 8-16; Units: MEQ/L; Status: F Test: CALCIUM LEVEL; Value: 8.8; Range: 8.8-10.2; Units: MG/DL; Status: F Test Note: ; Units are mL/min/1.73 m2 Chronic Kidney Disease Staging per NKF: Stage I & II GFR >=60 Normal to Mildly Decreased Stage III GFR 30-59 Moderately Decreased Stage IV GFR 15-29 Severely Decreased Stage V GFR <15 Very Little GFR Left ESRD GFR <15 on TRANSFER PUMPER Lab Order: CBC with Diff; SPEC'M 04/17/16 10:42 Test: WHITE BLOOD COUNT; Value: 9.9; Range: 4.0-10.0; Units: K/mm3; Status: F Test: RED BLOOD COUNT; Value: 4.40; Range: 4.00-5.40; Units: M/mm3; Status: F Test: HEMOGLOBIN; Value: 13.5; Range: 12.0-16.0; Units: g/dl; Status: F Test: HEMATOCRIT; Value: 40.6; Range: 36.0-47.0; Units: %; Status: F Test: MEAN CORPUSCULAR VOLUME; Value: 92.3; Range: 80.0-96.0; Units: fl; Status: F Test: MEAN CORPUSCULAR HEMOGLOBIN; Value: 30.7; Range: 27.0-33.0; Units: pg; Status: F Test: MEAN CORPUSCULAR HGB CONC; Value: 33.2; Range: 32.0-36.5; Units: g/dl; Status: F Test: RED CELL DISTRIBUTION WIDTH; Value: 12.8; Range: 11.5-14.5; Units: %; Status: F Test: PLATELET COUNT, AUTOMATED; Value: 247; Range: 150-450; Units: k/mm3; Status: F Test: NEUTROPHILS %; Value: 78.0; Range: 36.0-66.0; Abnormal: Above high normal; Units: %; Status: F Test: LYMPH %; Value: 14.9; Range: 24.0-44.0; Abnormal: Below low normal; Units: %; Status: F Test: MONO %; Value: 5.1; Range: 0.0-5.0; Abnormal: Above high normal; Units: %; Status: F Test: EOS %; Value: 0.9; Range: 0.0-3.0; Units: %; Status: F Test: BASO %; Value: 0.4; Range: 0.0-1.0; Units: %; Status: F Test: LARGE UNSTAINED CELL %; Value: 0.7; Range: 0.0-4.0; Units: %; Status: F Test: NEUTROPHILS #; Value: 7.7; Range: 1.8-7.7; Units: K/mm3; Status: F Test: LYMPH #; Value: 1.5; Range: 1.5-4.5; Units: K/mm3; Status: F Test: MONO #; Value: 0.5; Range: 0.0-0.8; Units: K/mm3; Status: F Test: EOS #; Value: 0.1; Range: 0.0-0.50; Units: K/mm3; Status: F Test: BASO #; Value: 0.0; Range: 0.0-0.2; Units: K/mm3; Status: F Test: LARGE UNSTAINED CELL #; Value: 0.1; Range: 0.0-0.4; Units: K/mm3; Status: F Lab Order: Lipase; SPEC'M 04/17/16 10:42 Test: LIPASE; Value: 86; Range: 73-393; Units: U/L; Status: F Lab Order: Liver Profile; SPEC'M 04/17/16 10:42 Test: AST/SGOT; Value: 18; Range: 15-37; Units: U/L; Status: F Test: ALT/SGPT; Value: 27; Range: 12-78; Units: U/L; Status: F Test: ALKALINE PHOSPHATASE; Value: 70; Range: 45-117; Units: U/L; Status: F Test: BILIRUBIN,TOTAL; Value: 0.3; Range: 0.2-1.0; Units: MG/DL; Status: F Test: BILIRUBIN,DIRECT; Value: < 0.1; Range: 0.0-0.2; Units: MG/DL; Status: F Test: TOTAL PROTEIN; Value: 6.4; Range: 6.4-8.2; Units: GM/DL; Status: F Test: ALBUMIN; Value: 3.5; Range: 3.2-5.2; Units: GM/DL; Status: F Test: ALBUMIN/GLOBULIN RATIO; Value: 1.21; Range: 1.00-1.93; Status: F Outcome: 10:35 Discharge Assessment: Patient awake, alert and oriented x 3. No cognitive and/or pml functional deficits noted. Patient verbalized understanding of disposition instructions. patient administered narcotics - no. The following High Risk Discharge criteria are identified: None. Discharged to home ambulatory. Condition: good Condition: stable. Discharge instructions given to patient, Instructed on discharge instructions, follow up and referral plans. medication usage, Demonstrated understanding of instructions, medications, Pt was receptive of discharge instructions/ teaching. Prescriptions given X 1. No special radiology studies were completed. Property sent home with patient. 12:36 Discharge ordered by Provider. sd1 12:44 Patient left the ED. pml Signatures: Lynsey Ozuna MD MD sd1 Anna Nuñez Reg Reg lg Robie, Kathleen,RN RN kr3 Leslie Weaver,RN RN Jamilah Benton, JEANNETTE WHE[employer]IGNMENT [employer]CH[employer]IC Debbi Martines DIONISIOD
--- NOTE | 2016-04-17 12:45 | EDDOCDS ---
Physician Documentation [facility] Name: Nancy Nicolas Age: 89 yrs Sex: Female : 1925 Arrival Date: 04/17/2016 Time: 10:09 Bed 8 Private MD: Tiffany Martell Disposition: 04/17/16 12:36 Discharged to Home/Self Care. Impression: Nausea. - Condition is Stable. - Discharge Instructions: Nausea and Vomiting, Nausea, Adult, Nausea and Vomiting, [id number]. - Prescriptions for ZOFRAN ODT 4 mg - dissolve 1 tablet by ORAL route 4 times per day As needed do not chew, do not swallow whole; 10 tablet. - Medication Reconciliation, Local Pharmacy Hours form. - Follow up: Tiffany Martell; When: Call to arrange an appointment. Follow up: Evelio Hill MD; When: Call to arrange an appointment. - Problem is an ongoing problem. - Symptoms are unchanged. Historical: - Allergies: Bees; PENICILLINS; seafood; - Home Meds: 1. Advair Diskus 250-50 mcg/dose Inhl dsdv 1 puff 2 times per day 2. Norvasc 5 mg Oral tab 1 tab once daily 3. Spiriva with HandiHaler 18 mcg Inhl CpDv 1 cap once daily 4. Vitamin B6 Unknown daily 5. Vitamin C Oral 500 mg daily 6. Vitamin D3 1,000 unit oral tab daily 7. omeprazole 40 mg Oral cpDR 1 cap once daily 8. Imodium A-D oral as needed (Last dose: 04/16/2016) 9. Vitamin B-12 Oral daily 10. sucralfate 1 gram Oral tab 4 times per day 11. budesonide 3 mg oral CECX 3 caps once daily - PMHx: Cancer, Colon; COPD; GERD; Hypertension; Gout; Lyme Disease; - PSHx: Hysterectomy; Colon Resection; Pacemaker Insertion (May 2015); - Social history: Smoking status: Patient states former smoker of tobacco. No barriers to communication noted, The patient speaks fluent Bengali, Speaks appropriately for age. - Family history: Not pertinent. - : The pt / caregiver states he / she is not on anticoagulants. Home medication list is obtained from the patient, pill bottles. - Exposure Risk Screening:: None identified. Vital Signs: 04/17 10:10 BP 195 / 94; Pulse 75; Resp 20; Temp 99.2; Pulse Ox 100% ; Weight 55.79 kg / 123 lbs; jlf Height 5 ft. 3 in. (160.02 cm); Pain 0/10; 10:35 BP 125 / 81 (auto/); pml 10:38 Pulse 70 MON; Pulse Ox 98% ; pml 10:50 Pulse 70 MON; Pulse Ox 99% ; pml 10:50 BP 121 / 83 (auto/); pml 11:05 Pulse 72 MON; Pulse Ox 99% ; pml 11:05 BP 114 / 68 (auto/); pml 11:20 Pulse 70 MON; Pulse Ox 99% ; pml 11:20 BP 125 / 66 (auto/); pml 11:35 Pulse 74 MON; Pulse Ox 99% ; pml 11:35 BP 129 / 77 (auto/); pml 11:50 BP 134 / 82 (auto/); pml 11:51 Pulse 72 MON; Pulse Ox 99% ; pml 12:05 Pulse 76 MON; Pulse Ox 98% ; pml 12:05 BP 130 / 72 (auto/); pml 12:20 BP 130 / 71 (auto/); pml 12:21 Pulse 78 MON; Pulse Ox 98% ; pml 12:35 BP 136 / 74 (auto/); pml 12:36 Pulse 80 MON; Pulse Ox 99% ; pml 12:42 BP 143 / 68; Pulse 78; Resp 18; Temp 98.6; Pulse Ox 99% on R/A; Pain 0/10; pml 10:10 Body Mass Index 21.79 (55.79 kg, 160.02 cm) [facility] MDM: 10:25 Undress patient appropriately for examination ordered. sd1 10:25 IV Saline Lock ordered. sd1 10:26 Amylase Ordered. EDMS 10:26 Basic Metabolic Profile Ordered. EDMS 10:26 CBC with Diff Ordered. EDMS 10:26 Lipase Ordered. EDMS 10:26 Liver Profile Ordered. EDMS 10:26 NOTHING BY MOUTH+DIET ordered. EDMS 10:48 Financial registration complete. lg 11:05 [facility] Payment Agreement was scanned into [employer] and attached to record. lg 11:10 NS 0.9% 1000 ml IV at 250 mL/hr continuous ordered. sd1 11:10 Ondansetron 4 mg IVP once ordered. sd1 11:11 CBC with Diff Reviewed. sd1 11:14 Basic Metabolic Profile Reviewed. sd1 11:14 Amylase Reviewed. sd1 11:14 Lipase Reviewed. sd1 11:14 Liver Profile Reviewed. sd1 11:15 Fluid Challenge ordered. sd1 Administered Medications: 11:19 Drug: Ondansetron 4 mg [ondansetron HCl 2 mg/mL intravenous solution (2 mL)] Route: pml IVP; Site: right antecubital; 11:20 Drug: NS 0.9% 1000 ml [sodium chloride 0.9 % injection solution] Route: IV; Rate: 250 pml mL/hr; Site: right antecubital; 12:43 Follow up: IV Status: Infusion discontinued; IV Intake: 300ml pml Signatures: Dispatcher [employer] EDMS Lynsey Ozuna MD MD sd1 Anna Nuñez, Woodrow Reg lg Edel Dickinson,RN RN kr3 Leslie Weaver RN RN pml The chart was reviewed and I authenticate all verbal orders and agree with the evaluation and treatment provided.Attachments: 11:05 [facility] Payment Agreement lg MTDD
[2016-04-18 13:43] LABS: CONTROL LINE HPYORI INT CTR LINE PRESENT
--- NOTE | 2016-04-19 13:45 | EDDOCDS ---
Physician Documentation [facility] Name: Nancy Nicolas Age: 89 yrs Sex: Female : 1925 Arrival Date: 04/17/2016 Time: 10:09 Bed 8 Private MD: Tiffany Martell Disposition: 04/17/16 12:36 Discharged to Home/Self Care. Impression: Nausea. - Condition is Stable. - Discharge Instructions: Nausea and Vomiting, Nausea, Adult, Nausea and Vomiting, [id number]. - Prescriptions for ZOFRAN ODT 4 mg - dissolve 1 tablet by ORAL route 4 times per day As needed do not chew, do not swallow whole; 10 tablet. - Medication Reconciliation, Local Pharmacy Hours form. - Follow up: Tiffany Martell; When: Call to arrange an appointment. Follow up: Evelio Hill MD; When: Call to arrange an appointment. - Problem is an ongoing problem. - Symptoms are unchanged. Historical: - Allergies: Bees; PENICILLINS; seafood; - Home Meds: 1. Advair Diskus 250-50 mcg/dose Inhl dsdv 1 puff 2 times per day 2. Norvasc 5 mg Oral tab 1 tab once daily 3. Spiriva with HandiHaler 18 mcg Inhl CpDv 1 cap once daily 4. Vitamin B6 Unknown daily 5. Vitamin C Oral 500 mg daily 6. Vitamin D3 1,000 unit oral tab daily 7. omeprazole 40 mg Oral cpDR 1 cap once daily 8. Imodium A-D oral as needed (Last dose: 04/16/2016) 9. Vitamin B-12 Oral daily 10. sucralfate 1 gram Oral tab 4 times per day 11. budesonide 3 mg oral CECX 3 caps once daily - PMHx: Cancer, Colon; COPD; GERD; Hypertension; Gout; Lyme Disease; - PSHx: Hysterectomy; Colon Resection; Pacemaker Insertion (May 2015); - Social history: Smoking status: Patient states former smoker of tobacco. No barriers to communication noted, The patient speaks fluent Czech, Speaks appropriately for age. - Family history: Not pertinent. - : The pt / caregiver states he / she is not on anticoagulants. Home medication list is obtained from the patient, pill bottles. - Exposure Risk Screening:: None identified. Vital Signs: 04/17 10:10 BP 195 / 94; Pulse 75; Resp 20; Temp 99.2; Pulse Ox 100% ; Weight 55.79 kg / 123 lbs; jlf Height 5 ft. 3 in. (160.02 cm); Pain 0/10; 10:35 BP 125 / 81 (auto/); pml 10:38 Pulse 70 MON; Pulse Ox 98% ; pml 10:50 Pulse 70 MON; Pulse Ox 99% ; pml 10:50 BP 121 / 83 (auto/); pml 11:05 Pulse 72 MON; Pulse Ox 99% ; pml 11:05 BP 114 / 68 (auto/); pml 11:20 Pulse 70 MON; Pulse Ox 99% ; pml 11:20 BP 125 / 66 (auto/); pml 11:35 Pulse 74 MON; Pulse Ox 99% ; pml 11:35 BP 129 / 77 (auto/); pml 11:50 BP 134 / 82 (auto/); pml 11:51 Pulse 72 MON; Pulse Ox 99% ; pml 12:05 Pulse 76 MON; Pulse Ox 98% ; pml 12:05 BP 130 / 72 (auto/); pml 12:20 BP 130 / 71 (auto/); pml 12:21 Pulse 78 MON; Pulse Ox 98% ; pml 12:35 BP 136 / 74 (auto/); pml 12:36 Pulse 80 MON; Pulse Ox 99% ; pml 12:42 BP 143 / 68; Pulse 78; Resp 18; Temp 98.6; Pulse Ox 99% on R/A; Pain 0/10; pml 10:10 Body Mass Index 21.79 (55.79 kg, 160.02 cm) [facility] MDM: 10:25 Undress patient appropriately for examination ordered. sd1 10:25 IV Saline Lock ordered. sd1 10:26 Amylase Ordered. EDMS 10:26 Basic Metabolic Profile Ordered. EDMS 10:26 CBC with Diff Ordered. EDMS 10:26 Lipase Ordered. EDMS 10:26 Liver Profile Ordered. EDMS 10:26 NOTHING BY MOUTH+DIET ordered. EDMS 10:48 Financial registration complete. lg 11:05 [facility] Payment Agreement was scanned into [employer] and attached to record. lg 11:10 NS 0.9% 1000 ml IV at 250 mL/hr continuous ordered. sd1 11:10 Ondansetron 4 mg IVP once ordered. sd1 11:11 CBC with Diff Reviewed. sd1 11:14 Basic Metabolic Profile Reviewed. sd1 11:14 Amylase Reviewed. sd1 11:14 Lipase Reviewed. sd1 11:14 Liver Profile Reviewed. sd1 11:15 Fluid Challenge ordered. sd1 13:49 T-Sheet-- Draft Copy was scanned into [employer] and attached to record. klr 04/18 12:56 H PYLORIC QUALITATIVE IGG Ordered. EDMS Administered Medications: 04/17 11:19 Drug: Ondansetron 4 mg [ondansetron HCl 2 mg/mL intravenous solution (2 mL)] Route: pml IVP; Site: right antecubital; 11:20 Drug: NS 0.9% 1000 ml [sodium chloride 0.9 % injection solution] Route: IV; Rate: 250 pml mL/hr; Site: right antecubital; 12:43 Follow up: IV Status: Infusion discontinued; IV Intake: 300ml pml Signatures: Dispatcher [employer] EDMS Lynsey Ozuna MD MD sd1 Anna Nuñez, Woodrow Troy lg Edel Dickinson RN RN kr3 Leslie Weaver RN RN pml Redder, Kathie klr The chart was reviewed and I authenticate all verbal orders and agree with the evaluation and treatment provided.Attachments: 11:05 [facility] Payment Agreement lg 13:49 T-Sheet-- Draft Copy klr Chart Complete MTDD
--- NOTE | 2016-04-19 13:45 | EDDOCDS ---
Physician Documentation [facility] Name: Nancy Nicolas Age: 89 yrs Sex: Female : 1925 Arrival Date: 04/17/2016 Time: 10:09 Bed 8 Private MD: Tiffany Martell Disposition: 04/17/16 12:36 Discharged to Home/Self Care. Impression: Nausea. - Condition is Stable. - Discharge Instructions: Nausea and Vomiting, Nausea, Adult, Nausea and Vomiting, [id number]. - Prescriptions for ZOFRAN ODT 4 mg - dissolve 1 tablet by ORAL route 4 times per day As needed do not chew, do not swallow whole; 10 tablet. - Medication Reconciliation, Local Pharmacy Hours form. - Follow up: Tiffany Martell; When: Call to arrange an appointment. Follow up: Evelio Hill MD; When: Call to arrange an appointment. - Problem is an ongoing problem. - Symptoms are unchanged. Historical: - Allergies: Bees; PENICILLINS; seafood; - Home Meds: 1. Advair Diskus 250-50 mcg/dose Inhl dsdv 1 puff 2 times per day 2. Norvasc 5 mg Oral tab 1 tab once daily 3. Spiriva with HandiHaler 18 mcg Inhl CpDv 1 cap once daily 4. Vitamin B6 Unknown daily 5. Vitamin C Oral 500 mg daily 6. Vitamin D3 1,000 unit oral tab daily 7. omeprazole 40 mg Oral cpDR 1 cap once daily 8. Imodium A-D oral as needed (Last dose: 04/16/2016) 9. Vitamin B-12 Oral daily 10. sucralfate 1 gram Oral tab 4 times per day 11. budesonide 3 mg oral CECX 3 caps once daily - PMHx: Cancer, Colon; COPD; GERD; Hypertension; Gout; Lyme Disease; - PSHx: Hysterectomy; Colon Resection; Pacemaker Insertion (May 2015); - Social history: Smoking status: Patient states former smoker of tobacco. No barriers to communication noted, The patient speaks fluent Arabic, Speaks appropriately for age. - Family history: Not pertinent. - : The pt / caregiver states he / she is not on anticoagulants. Home medication list is obtained from the patient, pill bottles. - Exposure Risk Screening:: None identified. Vital Signs: 04/17 10:10 BP 195 / 94; Pulse 75; Resp 20; Temp 99.2; Pulse Ox 100% ; Weight 55.79 kg / 123 lbs; jlf Height 5 ft. 3 in. (160.02 cm); Pain 0/10; 10:35 BP 125 / 81 (auto/); pml 10:38 Pulse 70 MON; Pulse Ox 98% ; pml 10:50 Pulse 70 MON; Pulse Ox 99% ; pml 10:50 BP 121 / 83 (auto/); pml 11:05 Pulse 72 MON; Pulse Ox 99% ; pml 11:05 BP 114 / 68 (auto/); pml 11:20 Pulse 70 MON; Pulse Ox 99% ; pml 11:20 BP 125 / 66 (auto/); pml 11:35 Pulse 74 MON; Pulse Ox 99% ; pml 11:35 BP 129 / 77 (auto/); pml 11:50 BP 134 / 82 (auto/); pml 11:51 Pulse 72 MON; Pulse Ox 99% ; pml 12:05 Pulse 76 MON; Pulse Ox 98% ; pml 12:05 BP 130 / 72 (auto/); pml 12:20 BP 130 / 71 (auto/); pml 12:21 Pulse 78 MON; Pulse Ox 98% ; pml 12:35 BP 136 / 74 (auto/); pml 12:36 Pulse 80 MON; Pulse Ox 99% ; pml 12:42 BP 143 / 68; Pulse 78; Resp 18; Temp 98.6; Pulse Ox 99% on R/A; Pain 0/10; pml 10:10 Body Mass Index 21.79 (55.79 kg, 160.02 cm) [facility] MDM: 10:25 Undress patient appropriately for examination ordered. sd1 10:25 IV Saline Lock ordered. sd1 10:26 Amylase Ordered. EDMS 10:26 Basic Metabolic Profile Ordered. EDMS 10:26 CBC with Diff Ordered. EDMS 10:26 Lipase Ordered. EDMS 10:26 Liver Profile Ordered. EDMS 10:26 NOTHING BY MOUTH+DIET ordered. EDMS 10:48 Financial registration complete. lg 11:05 [facility] Payment Agreement was scanned into [employer] and attached to record. lg 11:10 NS 0.9% 1000 ml IV at 250 mL/hr continuous ordered. sd1 11:10 Ondansetron 4 mg IVP once ordered. sd1 11:11 CBC with Diff Reviewed. sd1 11:14 Basic Metabolic Profile Reviewed. sd1 11:14 Amylase Reviewed. sd1 11:14 Lipase Reviewed. sd1 11:14 Liver Profile Reviewed. sd1 11:15 Fluid Challenge ordered. sd1 13:49 T-Sheet-- Draft Copy was scanned into [employer] and attached to record. klr 04/18 12:56 H PYLORIC QUALITATIVE IGG Ordered. EDMS Administered Medications: 04/17 11:19 Drug: Ondansetron 4 mg [ondansetron HCl 2 mg/mL intravenous solution (2 mL)] Route: pml IVP; Site: right antecubital; 11:20 Drug: NS 0.9% 1000 ml [sodium chloride 0.9 % injection solution] Route: IV; Rate: 250 pml mL/hr; Site: right antecubital; 12:43 Follow up: IV Status: Infusion discontinued; IV Intake: 300ml pml Signatures: Dispatcher [employer] EDMS Lynsey Ozuna MD MD sd1 Anna Nuñez, Woodrow Troy lg Edel Dickinson RN RN kr3 Leslie Weaver RN RN pml Redder, Kathie klr The chart was reviewed and I authenticate all verbal orders and agree with the evaluation and treatment provided.Attachments: 11:05 [facility] Payment Agreement lg 13:49 T-Sheet-- Draft Copy klr Chart Complete MTDD
--- NOTE | 2016-04-19 13:46 | EDDOCDS ---
[facility] Name: Nancy Nicolas Age: 89 yrs Sex: Female : 1925 Arrival Date: 04/17/2016 Time: 10:09 Bed 8 Private MD: Tiffany Martell Diagnosis: Nausea Presentation: 04/17 10:14 Presenting complaint: Patient states: has not felt well for over 1 month. Reports PCP kr3 tested stool and patient was told had blood in stool, no further testing was done. Reports nausea and no appetite for several weeks. Denies pain but feels weak. Adult Sepsis Screening: The patient does not have new or worsening altered mentation. Patient's respiratory rate is less than 22. Systolic blood pressure is greater than 100. Patient has a qSOFA score of 0- Negative Sepsis Screen. Suicide/Homicide risk assessment- the patient denies having any suicidal and/or homicidal ideations and does not present with any other emotional, behavioral or mental health complaints. 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 Transition of care: patient was not received from another setting of care. 10:14 Acuity: HARPER Level 3 kr3 10:14 Method Of Arrival: Walkin/Carried/Asstd kr3 Triage Assessment: 10:20 General: Appears distressed, Behavior is anxious, cooperative. General: Reports feeling kr3 ill for. Pain: Denies pain. Neurological: Level of Consciousness is awake, alert. Respiratory: Respiratory effort is even, unlabored. GI: Reports anorexia, nausea, Denies vomiting. Derm: Skin is normal. Historical: - Allergies: Bees; PENICILLINS; seafood; - Home Meds: 1. Advair Diskus 250-50 mcg/dose Inhl dsdv 1 puff 2 times per day 2. Norvasc 5 mg Oral tab 1 tab once daily 3. Spiriva with HandiHaler 18 mcg Inhl CpDv 1 cap once daily 4. Vitamin B6 Unknown daily 5. Vitamin C Oral 500 mg daily 6. Vitamin D3 1,000 unit oral tab daily 7. omeprazole 40 mg Oral cpDR 1 cap once daily 8. Imodium A-D oral as needed (Last dose: 04/16/2016) 9. Vitamin B-12 Oral daily 10. sucralfate 1 gram Oral tab 4 times per day 11. budesonide 3 mg oral CECX 3 caps once daily - PMHx: Cancer, Colon; COPD; GERD; Hypertension; Gout; Lyme Disease; - PSHx: Hysterectomy; Colon Resection; Pacemaker Insertion (May 2015); - Social history: Smoking status: Patient states former smoker of tobacco. No barriers to communication noted, The patient speaks fluent Tristanian, Speaks appropriately for age. - Family history: Not pertinent. - : The pt / caregiver states he / she is not on anticoagulants. Home medication list is obtained from the patient, pill bottles. - Exposure Risk Screening:: None identified. Screenin:47 Screening information is obtained from the patient. Fall risk: No risks identified. pml Assistance ADL's: requires no assistance with activities of daily living. Abuse/DV Screen: The patient / caregiver reports he/she is: not in a situation that causes fear, pain or injury. Nutritional screening: No deficits noted. Advance Directives: Currently, there is no health care proxy. home support is adequate. Assessment: 10:47 General: Appears in no apparent distress, comfortable, Behavior is appropriate for age, pml cooperative. Pain: Denies pain. Neurological: Level of Consciousness is awake, alert, Oriented to person, place, time. Neurological: Reports dizziness, when standing. Cardiovascular: Capillary refill < 3 seconds. Respiratory: Airway is patent Respiratory effort is even, unlabored. GI: Abdomen is non- distended Bowel sounds present X 4 quads. Abd is soft and non tender X 4 quads. Reports nausea. Derm: Skin is pink, warm & dry. 11:20 General: resting on stretcher, no apparent distress. resps easy and unlabored, skin pml p/w/d. sinus rhythm on monitor without ectopy. IV infusing as ordered. 12:17 General: tolerated 8oz PO fluids, reports nausea persists, no emesis noted. pml 12:42 General: Appears in no apparent distress, Behavior is appropriate for age, cooperative. pml Pain: Denies pain. Neurological: Level of Consciousness is awake, alert, Oriented to person, place, time. Cardiovascular: Capillary refill < 3 seconds. Respiratory: Airway is patent Respiratory effort is even, unlabored. GI: Abdomen is non- distended. Derm: Skin is pink, warm & dry. Vital Signs: 10:10 BP 195 / 94; Pulse 75; Resp 20; Temp 99.2; Pulse Ox 100% ; Weight 55.79 kg; Height 5 [facility] ft. 3 in. (160.02 cm); Pain 0/10; 10:35 BP 125 / 81 (auto/); pml 10:38 Pulse 70 MON; Pulse Ox 98% ; pml 10:50 Pulse 70 MON; Pulse Ox 99% ; pml 10:50 BP 121 / 83 (auto/); pml 11:05 Pulse 72 MON; Pulse Ox 99% ; pml 11:05 BP 114 / 68 (auto/); pml 11:20 Pulse 70 MON; Pulse Ox 99% ; pml 11:20 BP 125 / 66 (auto/); pml 11:35 Pulse 74 MON; Pulse Ox 99% ; pml 11:35 BP 129 / 77 (auto/); pml 11:50 BP 134 / 82 (auto/); pml 11:51 Pulse 72 MON; Pulse Ox 99% ; pml 12:05 Pulse 76 MON; Pulse Ox 98% ; pml 12:05 BP 130 / 72 (auto/); pml 12:20 BP 130 / 71 (auto/); pml 12:21 Pulse 78 MON; Pulse Ox 98% ; pml 12:35 BP 136 / 74 (auto/); pml 12:36 Pulse 80 MON; Pulse Ox 99% ; pml 12:42 BP 143 / 68; Pulse 78; Resp 18; Temp 98.6; Pulse Ox 99% on R/A; Pain 0/10; pml 10:10 Body Mass Index 21.79 (55.79 kg, 160.02 cm) [facility] Vitals: 10:10 Log In Time: April 17, 2016 at 10:07. [facility] ED Course: 10:10 Patient visited by Jamilah Campbell PCA. jlf 10:10 Tiffany Martell is Private Physician. jlf 10:10 Patient moved to Waiting jlf 10:12 Patient visited by Jamilah Campbell PCA. jlf 10:12 Patient moved to Pre RCE jlf 10:17 Triage Initiated kr3 10:21 Leslie Weaver,RN is Primary Nurse. kr3 10:21 Patient moved to 8 kr3 10:28 Lynsey Ozuna MD is Attending Physician. sd1 10:28 Patient visited by Lynsey Ozuna MD. sd1 10:35 Discontinued lock intact, bleeding controlled, pressure dressing applied, No pml redness/swelling at site. No procedures done that require assistance. 10:47 The patient / caregiver is instructed regarding the plan of care and ED course. Patient pml has correct armband on for positive identification. Placed in gown. Bed in low position. Call light in reach. Side rails up X2. 10:47 Inserted peripheral IV: 20gauge IV in right antecubital area and blood collected. pml Patient tolerated the procedure well. 10:48 Patient visited by Leslie Weaver RN. pml 11:05 [facility] Payment Agreement was scanned into [employer] and attached to record. lg 11:21 Patient visited by Leslie Weaver RN. pml 11:38 Patient visited by Debbi Thomas. lr2 11:38 PO fluids given. lr2 12:17 Patient visited by Leslie Weaver RN. pml 12:35 Tiffany Martell is Referral Physician. sd1 12:36 Evelio Hill MD is Referral Physician. sd1 13:49 T-Sheet-- Draft Copy was scanned into [employer] and attached to record. klr Administered Medications: 11:19 Drug: Ondansetron 4 mg [ondansetron HCl 2 mg/mL intravenous solution (2 mL)] Route: pml IVP; Site: right antecubital; 11:20 Drug: NS 0.9% 1000 ml [sodium chloride 0.9 % injection solution] Route: IV; Rate: 250 pml mL/hr; Site: right antecubital; 12:43 Follow up: IV Status: Infusion discontinued; IV Intake: 300ml pml Intake: 11:38 PO: 240.00ml (Soft Drink); Total: 240.00ml. lr2 12:43 IV: 300.00ml; Total: 540.00ml. pml Order Results: Lab Order: Amylase; SPEC'M 04/17/16 10:42 Test: AMYLASE; Value: 35; Range: 25-115; Units: U/L; Status: F Lab Order: Basic Metabolic Profile; SPEC'M 04/17/16 10:42 Test: GLUCOSE, FASTING; Value: 122; Range: 83-110; Abnormal: Above high normal; Units: MG/DL; Status: F Test: BLOOD UREA NITROGEN; Value: 25; Range: 7-18; Abnormal: Above high normal; Units: MG/DL; Status: F Test: CREATININE FOR GFR; Value: 1.10; Range: 0.55-1.02; Abnormal: Above high normal; Units: MG/DL; Status: F Test: GLOMERULAR FILTRATION RATE; Value: 49.9; Range: >32; Status: F Test: SODIUM LEVEL; Value: 140; Range: 136-145; Units: MEQ/L; Status: F Test: POTASSIUM SERUM; Value: 4.4; Range: 3.5-5.1; Units: MEQ/L; Status: F Test: CHLORIDE LEVEL; Value: 102; Range: 98-107; Units: MEQ/L; Status: F Test: CARBON DIOXIDE LEVEL; Value: 26; Range: 21-32; Units: MEQ/L; Status: F Test: ANION GAP; Value: 12; Range: 8-16; Units: MEQ/L; Status: F Test: CALCIUM LEVEL; Value: 8.8; Range: 8.8-10.2; Units: MG/DL; Status: F Test Note: ; Units are mL/min/1.73 m2 Chronic Kidney Disease Staging per NKF: Stage I & II GFR >=60 Normal to Mildly Decreased Stage III GFR 30-59 Moderately Decreased Stage IV GFR 15-29 Severely Decreased Stage V GFR <15 Very Little GFR Left ESRD GFR <15 on LEGAL TECHNICIAN Lab Order: CBC with Diff; SPEC'M 04/17/16 10:42 Test: WHITE BLOOD COUNT; Value: 9.9; Range: 4.0-10.0; Units: K/mm3; Status: F Test: RED BLOOD COUNT; Value: 4.40; Range: 4.00-5.40; Units: M/mm3; Status: F Test: HEMOGLOBIN; Value: 13.5; Range: 12.0-16.0; Units: g/dl; Status: F Test: HEMATOCRIT; Value: 40.6; Range: 36.0-47.0; Units: %; Status: F Test: MEAN CORPUSCULAR VOLUME; Value: 92.3; Range: 80.0-96.0; Units: fl; Status: F Test: MEAN CORPUSCULAR HEMOGLOBIN; Value: 30.7; Range: 27.0-33.0; Units: pg; Status: F Test: MEAN CORPUSCULAR HGB CONC; Value: 33.2; Range: 32.0-36.5; Units: g/dl; Status: F Test: RED CELL DISTRIBUTION WIDTH; Value: 12.8; Range: 11.5-14.5; Units: %; Status: F Test: PLATELET COUNT, AUTOMATED; Value: 247; Range: 150-450; Units: k/mm3; Status: F Test: NEUTROPHILS %; Value: 78.0; Range: 36.0-66.0; Abnormal: Above high normal; Units: %; Status: F Test: LYMPH %; Value: 14.9; Range: 24.0-44.0; Abnormal: Below low normal; Units: %; Status: F Test: MONO %; Value: 5.1; Range: 0.0-5.0; Abnormal: Above high normal; Units: %; Status: F Test: EOS %; Value: 0.9; Range: 0.0-3.0; Units: %; Status: F Test: BASO %; Value: 0.4; Range: 0.0-1.0; Units: %; Status: F Test: LARGE UNSTAINED CELL %; Value: 0.7; Range: 0.0-4.0; Units: %; Status: F Test: NEUTROPHILS #; Value: 7.7; Range: 1.8-7.7; Units: K/mm3; Status: F Test: LYMPH #; Value: 1.5; Range: 1.5-4.5; Units: K/mm3; Status: F Test: MONO #; Value: 0.5; Range: 0.0-0.8; Units: K/mm3; Status: F Test: EOS #; Value: 0.1; Range: 0.0-0.50; Units: K/mm3; Status: F Test: BASO #; Value: 0.0; Range: 0.0-0.2; Units: K/mm3; Status: F Test: LARGE UNSTAINED CELL #; Value: 0.1; Range: 0.0-0.4; Units: K/mm3; Status: F Lab Order: Lipase; SPEC'M 04/17/16 10:42 Test: LIPASE; Value: 86; Range: 73-393; Units: U/L; Status: F Lab Order: Liver Profile; SPEC'M 02/05/17 10:42 Test: AST/SGOT; Value: 18; Range: 15-37; Units: U/L; Status: F Test: ALT/SGPT; Value: 27; Range: 12-78; Units: U/L; Status: F Test: ALKALINE PHOSPHATASE; Value: 70; Range: 45-117; Units: U/L; Status: F Test: BILIRUBIN,TOTAL; Value: 0.3; Range: 0.2-1.0; Units: MG/DL; Status: F Test: BILIRUBIN,DIRECT; Value: < 0.1; Range: 0.0-0.2; Units: MG/DL; Status: F Test: TOTAL PROTEIN; Value: 6.4; Range: 6.4-8.2; Units: GM/DL; Status: F Test: ALBUMIN; Value: 3.5; Range: 3.2-5.2; Units: GM/DL; Status: F Test: ALBUMIN/GLOBULIN RATIO; Value: 1.21; Range: 1.00-1.93; Status: F Lab Order: H PYLORIC QUALITATIVE IGG; SPEC'M 04/17/16 10:42 Test: H PYLORI QUALITATIVE IgG; Value: NEGATIVE; Range: NEGATIVE; Status: F Test Note: ; SERUM SAMPLES OBTAINED TOO EARLY DURING INFECTION MAY NOT CONTAIN DETECTABLE ANTIBODIES. IF H. PYLORI INFECTION IS SUSPECTED WITH A "NEGATIVE" SERUM RESULT, A FOLLOW UP SPECIMEN IS RECOMMENDED IN 2-7 WEEKS. Outcome: 10:35 Discharge Assessment: Patient awake, alert and oriented x 3. No cognitive and/or pml functional deficits noted. Patient verbalized understanding of disposition instructions. patient administered narcotics - no. The following High Risk Discharge criteria are identified: None. Discharged to home ambulatory. Condition: good Condition: stable. Discharge instructions given to patient, Instructed on discharge instructions, follow up and referral plans. medication usage, Demonstrated understanding of instructions, medications, Pt was receptive of discharge instructions/ teaching. Prescriptions given X 1. No special radiology studies were completed. Property sent home with patient. 12:36 Discharge ordered by Provider. sd1 12:44 Patient left the ED. pml Signatures: Lynsey Ozuna MD MD sd1 Anna Nuñez, Edel Zaldivar lg,RN RN kr3 Leslie Weaver RN RN pml Jamilah Campbell, SKOOG PATCHING MACHINE OPERATOR SKOOG PATCHING MACHINE OPERATOR jlf Brenna Cox, Debbi lr2 Chart Complete MTDD
== END 2016-04-17 12:44 | disposition home or self-care (01) ==
LOC: M ED 10:09
DX: R11.0 Nausea (principal); R42 Dizziness and giddiness; I10 Essential (primary) hypertension; J44.9 Chronic obstructive pulmonary disease, unspecified; K21.9 Gastro-esophageal reflux disease without esophagitis; M10.9 Gout, unspecified; Z85.038 Personal history of other malignant neoplasm of large intestine; Z79.899 Other long term (current) drug therapy; Z79.51 Long term (current) use of inhaled steroids; Z88.0 Allergy status to penicillin; Z91.030 Bee allergy status; Z91.013 Allergy to seafood
CPT/HCPCS: 36415; 80048; 80076; 82150; 83690; 85025; 86677; 96361; 96374; 99284; J2405

== ENCOUNTER → 2016-04-19 | Outpatient (CLI) | payer MEDICARE, OTHER ==
--- NOTE | 2016-04-19 08:20 | REP ---
Abdominal right upper quadrant ultrasound, stat request: Comparison is 01/21/2007. There is a negative Tillman's sign to transducer pressure. The visualized portion of the pancreatic head is unremarkable. There is a 1.2 cm polyp versus adherent calculus along the posterior wall of the gallbladder, non mobile. There are no other gallbladder calculi . There is no gallbladder wall thickening or pericholecystic fluid. There is no intrahepatic or extrahepatic biliary duct dilatation, the common duct is 5.1 mm diameter. There is a somewhat curvilinear hyperechoic focus near the ivonne hepatis measuring 4.2 cm length by 1.7 cm x 0.7 cm, of uncertain significance. Atypical hemangioma is a possibility, however, neoplasm is not entirely excluded. Hepatic MRI is recommended for follow up. There is no ascites. Impression: Possible hyperechoic mass near the ivonne hepatis having a somewhat curvilinear configuration, neoplasm is not entirely excluded, hepatic MRI follow-up is recommended. Adherent calculus versus polyp along the gallbladder wall measuring up to 1.2 cm. Signed by Dat More MD 04/19/2016 08:11 A
== END | disposition home or self-care (01) ==
LOC: M RAD 07:14
PROVIDERS: ATTEND Nurse Practitioner Adult Health
DX: K80.20 Calculus of gallbladder without cholecystitis without obstruction (principal); R93.3 Abnormal findings on diagnostic imaging of other parts of digestive tract

== ENCOUNTER 2016-04-22 08:36 | Emergency (ER) | payer MEDICARE, OTHER ==
[2016-04-22 09:22] LABS: BASO % 0.3 % (0.0-1.0); EOS # 0.1 K/mm3 (0.0-0.50); LARGE UNSTAINED CELL # 0.1 K/mm3 (0.0-0.4); LARGE UNSTAINED CELL % 0.9 % (0.0-4.0); LYMPH # 1.3 K/mm3 (1.5-4.5); MEAN CORPUSCULAR HEMOGLOBIN 30.4 pg (27.0-33.0); MEAN CORPUSCULAR HGB CONC 32.7 g/dl (32.0-36.5); MEAN CORPUSCULAR VOLUME 93.1 fl (80.0-96.0); MONO # 0.4 K/mm3 (0.0-0.8); MONO % 3.5 % (0.0-5.0); NEUTROPHILS # 9.1 K/mm3 (1.8-7.7); NEUTROPHILS % 82.2 % (36.0-66.0); PLATELET COUNT, AUTOMATED 275 k/mm3 (150-450); RED CELL DISTRIBUTION WIDTH 12.6 % (11.5-14.5); WHITE BLOOD COUNT 11.1 K/mm3 (4.0-10.0)
[2016-04-22] MEDS ORDERED: MORPHINE 2 MG/ML 1ML SYRINGE As Ordered ONE (09:30)
[2016-04-22] MEDS ORDERED: ONDANSETRON 4MG/2ML VIAL (J2405) As Ordered ONE (09:30)
[2016-04-22 09:40] LABS: ALBUMIN 3.4 GM/DL (3.2-5.2); ALBUMIN/GLOBULIN RATIO 1.03 (1.00-1.93); ALKALINE PHOSPHATASE 77 U/L (45-117); ALT/SGPT 30 U/L (12-78); AMYLASE 34 U/L (25-115); ANION GAP 10 MEQ/L (8-16); AST/SGOT 19 U/L (15-37); BILIRUBIN,DIRECT < 0.1 MG/DL (0.0-0.2); BILIRUBIN,TOTAL 0.3 MG/DL (0.2-1.0); BLOOD UREA NITROGEN 29 MG/DL (7-18); CALCIUM LEVEL 9.1 MG/DL (8.8-10.2); CARBON DIOXIDE LEVEL 27 MEQ/L (21-32); CHLORIDE LEVEL 102 MEQ/L (98-107); GLOMERULAR FILTRATION RATE 41.2 (>32); GLUCOSE, FASTING 123 MG/DL (83-110); POTASSIUM SERUM 4.5 MEQ/L (3.5-5.1); SODIUM LEVEL 139 MEQ/L (136-145); TOTAL PROTEIN 6.7 GM/DL (6.4-8.2)
[2016-04-22] MEDS ORDERED: ISOVUE-370 76% 100ML VIAL (Q9967) As Ordered ONE (09:43)
--- NOTE | 2016-04-22 10:14 | REP ---
CT abdomen and pelvis with IV but without oral contrast: History: Abdomen pain. Comparison study: October 31, 2015. CT contrast dose: 100 ml of Isovue [address] findings: Preliminary digital wool broker radiograph demonstrates an unremarkable bowel gas pattern. There are multiple scattered surgical clips in the right abdomen. Axial CT images demonstrate linear fibrosis in the left lower lobe and lingula. Lung bases are otherwise clear. No pleural effusion is seen. The liver and spleen are normal in size and homogeneous in texture. No pancreatic lesion is seen. No adrenal lesion is observed on either side. The gallbladder contains one small radiopaque calculus in its dependent portion. The kidneys enhance symmetrically and appear mildly atrophic. No hydronephrosis, mass, or cyst is seen. No retroperitoneal mass or adenopathy is seen. A small hiatal hernia is noted. Stomach is contracted. Small and large intestinal bowel loops show no significant abnormality. The patient is status post right colectomy with ileocolic anastomosis. There is a right pelvic calcification again noted consistent with lymph node calcification. This is 2.8 cm in diameter. It is unchanged. No urinary bladder abnormality is seen. No abdominal wall defect is observed. Bone window settings show no bony destructive lesion. Impression: 1. Cholelithiasis. 2. Status post right colon resection. 3. No acute intra-abdominal abnormality seen. Signed by Eloy Lucero MD 04/22/2016 10:05 A
--- NOTE | 2016-04-22 11:48 | REP ---
Right upper quadrant sonography: History: Right lower quadrant pain. Comparison CT study is from this date. Comparison sonography is from April 19, 2016. Findings: Scanning through the right upper quadrant of the abdomen show some tenderness to scanning over the gallbladder. Gallbladder contains a shadowing gallstone and a small polyp. At the fundus, there is evidence of a Phrygian cap morphology with a septation. There is mild gallbladder wall thickening. Common bile duct is normal measuring 0.4 cm in greatest diameter. There is a 1.4 x 0.9 x 2.0 cm slightly hyperechoic area near the ivonne hepatis of the liver similar to the prior sonogram. This is not visible on today's CT study. Possibilities include isodense hemangioma and perhaps an area of fatty liver change. There is no mass lesion visible by CT. There is no evidence of ascites. No pancreatic abnormality is seen on limited pancreatic images. No significant right renal abnormality is noted. Right kidney measures 9.2 x 3.2 x 3.6 cm. No free fluid noted. Impression: 1. Cholelithiasis, mild gallbladder wall thickening and tenderness to scanning. 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 2. Small hemangioma versus focal fatty infiltration of the liver near the ivonne. No mass lesion seen on today's CT study. 3. Otherwise unremarkable right upper quadrant sonography. Signed by Eloy Lucero MD 04/22/2016 12:53 P
--- NOTE | 2016-04-22 13:29 | EDDOCDS ---
Nurse's Notes [facility] Name: Nancy Nicolas Age: 89 yrs Sex: Female : 1925 Arrival Date: 04/22/2016 Time: 08:36 Bed 11 Private MD: Laura Posey DO Diagnosis: Abdominal and pelvic pain Presentation: 04/22 08:56 Presenting complaint: Patient states: patient states RLQ pain x 6 months. Adult Sepsis ml6 Screening: The patient does not have new or worsening altered mentation. Patient's respiratory rate is less than 22. Systolic blood pressure is greater than 100. Patient has a qSOFA score of 0- Negative Sepsis Screen. Suicide/Homicide risk assessment- the patient denies having any suicidal and/or homicidal ideations and does not present with any other emotional, behavioral or mental health complaints. Status: Patient is not a support services tech or dependent. Transition of care: patient was not received from another setting of care. 08:56 Acuity: HARPER Level 3 ml6 08:56 Method Of Arrival: Ambulance ml6 Triage Assessment: 08:58 General: Appears in no apparent distress, Behavior is appropriate for age, cooperative. ml6 Pain: Location: right lower quadrant Pain currently is 2 out of 10 on a pain scale. Pain does not radiate. Quality of pain is described as crampy, Pain began 6 months TUBULAR RIVETER Is continuous Alleviated by nothing. Aggravated by increased activity. The patient is triaged at the bedside. See Assessment in Nurses Notes section of ED record. Neurological: No deficits noted. Level of Consciousness is awake, alert, Oriented to person, place, time. Cardiovascular: No deficits noted. Capillary refill < 3 seconds is brisk in bilateral fingers toes Heart tones S1 S2 present Edema is absent. Pulses are all present. GI: Abdomen is obese, Bowel sounds present X 4 quads. Abd is soft X 4 quads Abd is tender to palpation in right lower quadrant. Historical: - Allergies: Bees; PENICILLINS; seafood; - Home Meds: 1. Advair Diskus 250-50 mcg/dose Inhl dsdv 1 puff 2 times per day (Last dose: 04/22/2016 07:00) 2. budesonide 3 mg oral CECX 3 caps once daily (Last dose: 04/22/2016 07:00) 3. Imodium A-D oral 2 tabs as needed (Last dose: 04/22/2016 07:00) 4. Norvasc 5 mg Oral tab 1 tab once daily (Last dose: 04/22/2016 07:00) 5. omeprazole 40 mg Oral cpDR 1 cap once daily (Last dose: 04/22/2016 07:00) 6. Spiriva with HandiHaler 18 mcg Inhl CpDv 1 cap once daily (Last dose: 04/22/2016 07:00) 7. sucralfate 1 gram Oral tab 4 times per day (Last dose: 04/22/2016 07:00) 8. Vitamin B-12 Oral daily (Last dose: 04/22/2016 07:00) 9. Vitamin B6 Unknown daily (Last dose: 04/22/2016 07:00) 10. Vitamin C Oral 500 mg daily (Last dose: 04/22/2016 07:00) 11. Vitamin D3 1,000 unit oral tab daily (Last dose: 04/22/2016 07:00) - PMHx: Cancer, Colon; COPD; GERD; Gout; Hypertension; Lyme Disease; - PSHx: Hysterectomy; Colon Resection; Pacemaker Insertion (May 2015); - Social history: Smoking status: Patient states was never smoker of tobacco. No barriers to communication noted, Speaks appropriately for age. - Family history: Not pertinent. - : The pt / caregiver states he / she is not on anticoagulants. Home medication list is obtained from the patient, Unable to Verify Home Med List with the patient / caregiver. - Exposure Risk Screening:: None identified. Screenin:00 Screening information is obtained from the patient. Fall risk: No risks identified. ml6 Assistance ADL's: requires no assistance with activities of daily living. Abuse/DV Screen: The patient / caregiver reports he/she is: not in a situation that causes fear, pain or injury. Nutritional screening: No deficits noted. Advance Directives: Currently, there is no health care proxy. home support is adequate. Assessment: 08:59 General: see triage assessment. GI: Abdomen is flat, non- distended Bowel sounds ml6 present X 4 quads. Abd is soft X 4 quads Abd is tender to palpation in right lower quadrant. 09:45 General: Appears in no apparent distress, comfortable, Behavior is appropriate for age, kc3 cooperative. Pain: Location: abdomen. Neurological: Level of Consciousness is awake, alert, obeys commands, Oriented to person, place, time. Respiratory: Airway is patent Respiratory effort is even, unlabored. GI: Reports upper abdominal pain. Derm: Skin is pink, warm & dry. 10:40 General: Appears in no apparent distress, comfortable, Behavior is appropriate for age, kc3 cooperative. Pain: Location: abdomen. Neurological: Level of Consciousness is awake, alert, obeys commands, Oriented to person, place, time. Respiratory: Respiratory effort is even, unlabored. Derm: Skin is pink, warm & dry. 11:13 General: Appears in no apparent distress, comfortable, Behavior is appropriate for age, kc3 cooperative. Pain: Location: abdomen. Neurological: Level of Consciousness is awake, alert, obeys commands, Oriented to person, place, time. Respiratory: Respiratory effort is even, unlabored. Derm: Skin is pink, warm & dry. 11:35 General: Pt assisted to bedside commode and back to bed with no distress. 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 . 12:30 General: Appears in no apparent distress, comfortable, Behavior is appropriate for age, kc3 cooperative. Pain: Location: right lower quadrant. Neurological: Level of Consciousness is awake, alert, obeys commands, Oriented to person, place, time. Respiratory: Airway is patent Respiratory effort is even, unlabored. Derm: Skin is pink, warm & dry. 13:26 General: Appears in no apparent distress, comfortable, Behavior is appropriate for age, kc3 cooperative. Pain: Location: right lower quadrant. Neurological: Level of Consciousness is awake, alert, obeys commands, Oriented to person, place, time. Respiratory: Respiratory effort is even, unlabored. Derm: Skin is pink, warm & dry. Vital Signs: 08:47 BP 177 / 79; Pulse 75; Resp 18; Temp 98.1(O); Pulse Ox 96% on R/A; Weight 55.34 kg (R); dem1 Height 5 ft. 3 in. (160.02 cm); Pain 0/10; 09:15 Pulse 76 MON; Pulse Ox 96% ; kc3 09:16 BP 185 / 84 (auto/); kc3 09:18 BP 173 / 73 (auto/); kc3 09:18 Pulse 76 MON; Pulse Ox 96% ; kc3 09:59 Pulse 76 MON; Pulse Ox 97% ; kc3 10:00 BP 184 / 80 (auto/); kc3 10:16 BP 161 / 69 (auto/); kc3 10:16 Pulse 78 MON; Pulse Ox 95% ; kc3 10:46 BP 190 / 84 (auto/); kc3 10:46 Pulse 82 MON; Pulse Ox 98% ; kc3 13:28 BP 143 / 71; Pulse 71; Resp 18; Temp 99.9(TE); Pulse Ox 97% on R/A; kc3 08:47 Body Mass Index 21.61 (55.34 kg, 160.02 cm) dem1 Vitals: 08:47 Log In Time N/A - ambulance arrival. dem1 ED Course: 08:37 Patient visited by Dolores Boyer, Eeler. lbd 08:37 Patient moved to Waiting lbd 08:38 Laura Posey is Private Physician. lbd 08:38 Patient moved to 11 lbd 08:40 Candi Gardner MD is Attending Physician. fg 08:40 Patient visited by Candi Gardner MD. fg 08:48 Patient visited by Eliecer Garcia. dem1 08:57 Triage Initiated ml6 09:00 Inserted peripheral IV: 18gauge IV in left antecubital area and blood collected. ml6 Patient tolerated the procedure well. Labs drawn. (by ED staff). Sent per order to lab. 09:02 Amylase Sent. ml6 09:02 Basic Metabolic Profile Sent. ml6 09:02 CBC with Diff Sent. ml6 09:02 Lipase Sent. ml6 09:02 Liver Profile Sent. ml6 09:02 Troponin Sent. ml6 09:06 Tori Olsen,LANE is Primary Nurse. kc3 09:16 [facility] Payment Agreement was scanned into [employer] and attached to record. lg 09:19 Patient visited by Cassie Cruz PCA. ct3 09:26 The patient / caregiver is instructed regarding the plan of care and ED course. kc3 09:42 Patient visited by Eliecer Garcia. dem1 09:42 Assisted to bedside commode. dem1 09:42 Urinalysis Sent. dem1 09:42 Urine Culture Sent. dem1 10:14 CT ABD & PELVIS: IV Contrast Only Returned. EDMS 10:44 Patient visited by Tori OlsenLANE. kc3 10:48 Patient moved to Ultrasound hgl 11:12 Patient moved to 11 hgl 11:14 Patient visited by Tori Olsen RN. kc3 11:55 Patient visited by Tori Olsen RN. kc3 12:34 US Gallbladder Returned. EDMS 12:42 Patient visited by Tori Olsen RN. kc3 12:59 Yenni Jimenez is Referral Physician. fg 12:59 Evelio Hill MD is Referral Physician. fg 13:27 Discontinued IV lock intact, bleeding controlled, pressure dressing applied, No kc3 redness/swelling at site. No procedures done that require assistance. Administered Medications: 09:40 Drug: NS 0.9% 500 ml [sodium chloride 0.9 % intravenous solution] Route: IV; Rate: kc3 bolus; Site: left antecubital; 09:40 Drug: morphine 2 mg [morphine 2 mg/mL intravenous cartridge (1 mL)] Route: IVP; Site: kc3 left antecubital; 09:40 Drug: Ondansetron 4 mg [ondansetron HCl 2 mg/mL intravenous solution (2 mL)] Route: kc3 IVP; Site: left antecubital; Order Results: Lab Order: Amylase; SPEC'M 04/22/16 08:52 Test: AMYLASE; Value: 34; Range: 25-115; Units: U/L; Status: F Lab Order: Basic Metabolic Profile; SPEC'M 04/22/16 08:52 Test: GLUCOSE, FASTING; Value: 123; Range: 83-110; Abnormal: Above high normal; Units: MG/DL; Status: F Test: BLOOD UREA NITROGEN; Value: 29; Range: 7-18; Abnormal: Above high normal; Units: MG/DL; Status: F Test: CREATININE FOR GFR; Value: 1.30; Range: 0.55-1.02; Abnormal: Above high normal; Units: MG/DL; Status: F Test: GLOMERULAR FILTRATION RATE; Value: 41.2; Range: >32; Status: F Test: SODIUM LEVEL; Value: 139; Range: 136-145; Units: MEQ/L; Status: F Test: POTASSIUM SERUM; Value: 4.5; Range: 3.5-5.1; Units: MEQ/L; Status: F Test: CHLORIDE LEVEL; Value: 102; Range: 98-107; Units: MEQ/L; Status: F Test: CARBON DIOXIDE LEVEL; Value: 27; Range: 21-32; Units: MEQ/L; Status: F Test: ANION GAP; Value: 10; Range: 8-16; Units: MEQ/L; Status: F Test: CALCIUM LEVEL; Value: 9.1; Range: 8.8-10.2; Units: MG/DL; Status: F Test Note: ; Units are mL/min/1.73 m2 Chronic Kidney Disease Staging per NKF: Stage I & II GFR >=60 Normal to Mildly Decreased Stage III GFR 30-59 Moderately Decreased Stage IV GFR 15-29 Severely Decreased Stage V GFR <15 Very Little GFR Left ESRD GFR <15 on PREPRESS TECHNICIAN Lab Order: CBC with Diff; SPEC'M 04/22/16 08:52 Test: WHITE BLOOD COUNT; Value: 11.1; Range: 4.0-10.0; Abnormal: Above high normal; Units: K/mm3; Status: F Test: RED BLOOD COUNT; Value: 4.83; Range: 4.00-5.40; Units: M/mm3; Status: F Test: HEMOGLOBIN; Value: 14.7; Range: 12.0-16.0; Units: g/dl; Status: F Test: HEMATOCRIT; Value: 45.0; Range: 36.0-47.0; Units: %; Status: F Test: MEAN CORPUSCULAR VOLUME; Value: 93.1; Range: 80.0-96.0; Units: fl; Status: F Test: MEAN CORPUSCULAR HEMOGLOBIN; Value: 30.4; Range: 27.0-33.0; Units: pg; Status: F Test: MEAN CORPUSCULAR HGB CONC; Value: 32.7; Range: 32.0-36.5; Units: g/dl; Status: F Test: RED CELL DISTRIBUTION WIDTH; Value: 12.6; Range: 11.5-14.5; Units: %; Status: F Test: PLATELET COUNT, AUTOMATED; Value: 275; Range: 150-450; Units: k/mm3; Status: F Test: NEUTROPHILS %; Value: 82.2; Range: 36.0-66.0; Abnormal: Above high normal; Units: %; Status: F Test: LYMPH %; Value: 12.0; Range: 24.0-44.0; Abnormal: Below low normal; Units: %; Status: F Test: MONO %; Value: 3.5; Range: 0.0-5.0; Units: %; Status: F Test: EOS %; Value: 1.0; Range: 0.0-3.0; Units: %; Status: F Test: BASO %; Value: 0.3; Range: 0.0-1.0; Units: %; Status: F Test: LARGE UNSTAINED CELL %; Value: 0.9; Range: 0.0-4.0; Units: %; Status: F Test: NEUTROPHILS #; Value: 9.1; Range: 1.8-7.7; Abnormal: Above high normal; Units: K/mm3; Status: F Test: LYMPH #; Value: 1.3; Range: 1.5-4.5; Abnormal: Below low normal; Units: K/mm3; Status: F Test: MONO #; Value: 0.4; Range: 0.0-0.8; Units: K/mm3; Status: F Test: EOS #; Value: 0.1; Range: 0.0-0.50; Units: K/mm3; Status: F Test: BASO #; Value: 0.0; Range: 0.0-0.2; Units: K/mm3; Status: F Test: LARGE UNSTAINED CELL #; Value: 0.1; Range: 0.0-0.4; Units: K/mm3; Status: F Lab Order: Lipase; SPEC'M 04/22/16 08:52 Test: LIPASE; Value: 114; Range: 73-393; Units: U/L; Status: F Lab Order: Liver Profile; SPEC'M 04/22/16 08:52 Test: AST/SGOT; Value: 19; Range: 15-37; Units: U/L; Status: F Test: ALT/SGPT; Value: 30; Range: 12-78; Units: U/L; Status: F Test: ALKALINE PHOSPHATASE; Value: 77; Range: 45-117; Units: U/L; Status: F Test: BILIRUBIN,TOTAL; Value: 0.3; Range: 0.2-1.0; Units: MG/DL; Status: F Test: BILIRUBIN,DIRECT; Value: < 0.1; Range: 0.0-0.2; Units: MG/DL; Status: F Test: TOTAL PROTEIN; Value: 6.7; Range: 6.4-8.2; Units: GM/DL; Status: F Test: ALBUMIN; Value: 3.4; Range: 3.2-5.2; Units: GM/DL; Status: F Test: ALBUMIN/GLOBULIN RATIO; Value: 1.03; Range: 1.00-1.93; Status: F Lab Order: Troponin; SPEC'M 04/22/16 08:52 Test: TROPONIN I; Value: < 0.02; Range: < 0.10; Units: NG/ML; Status: F Test Note: ; Troponin I Reference Interval for [employer] LOCI: 99th Percentile= 0.00-0.045 ng/ml Risk Stratification: <= 0.10 ng/ml Decreased Risk for Adverse Clinical Events. 0.10-1.50 ng/ml Increased Risk for Adverse Clinical Events. Evaluation of additional criterion and/or repeat testing in 2-6 hours is suggested to rule out myocardial damage. >= 1.50 ng/ml Indicative of Myocardial Injury. Lab Order: Urinalysis; SPEC'M 04/22/16 09:40 Test: APPEARANCE, URINE; Value: CLEAR; Range: CLEAR; Status: F Test: COLOR, URINE; Value: YELLOW; Range: YELLOW; Status: F Test: PH,URINE; Value: 7.0; Range: 5.0-9.0; Units: UNITS; Status: F Test: SPECIFIC GRAVITY URINE AUTO; Value: 1.010; Range: 1.002-1.035; Status: F Test: PROTEIN, URINE AUTO; Value: NEGATIVE; Range: NEGATIVE; Units: mg/dL; Status: F Test: GLUCOSE, URINE (UA) AUTO; Value: NEGATIVE; Range: NEGATIVE; Units: mg/dL; Status: F Test: KETONE, URINE AUTO; Value: NEGATIVE; Range: NEGATIVE; Units: mg/dL; Status: F Test: UROBILINOGEN, URINE AUTO; Value: 0.2; Range: 0.0-2.0; Units: mg/dL; Status: F Test: BILIRUBIN, URINE AUTO; Value: NEGATIVE; Range: NEGATIVE; Status: F Test: NITRITE, URINE AUTO; Value: NEGATIVE; Range: NEGATIVE; Status: F Test: LEUKOCYTE ESTERASE, URINE AUTO; Value: NEGATIVE; Range: NEGATIVE; Status: F Test: BLOOD, URINE BLOOD; Value: NEGATIVE; Range: NEGATIVE; Status: F Test: WBC, URINE AUTO; Value: 0; Range: 0-3; Units: /HPF; Status: F Test: RBC, URINE AUTO; Value: 1; Range: 0-3; Units: /HPF; Status: F Test: BACTERIA, URINE AUTO; Value: NEGATIVE; Range: NEGATIVE; Status: F Test: SQUAMOUS EPITHELIAL CELL UR AU; Value: 0; Range: 0-6; Units: /HPF; Status: F Test: HYALINE CAST, URINE AUTO; Value: 0; Range: 0-1; Units: /LPF; Status: F Lab Order: Lactic Acid (Maynard tube on ice); SPEC'M 04/22/16 08:52 Test: LACTIC ACID SEPSIS PROTOCOL; Value: 1.6; Range: 0.4-2.0; Units: MMOL/L; Status: F Radiology Order: CT ABD & PELVIS: IV Contrast Only Test: CT ABD & PELVIS: IV Contrast Only REASON FOR EXAMINATION: Abdomen Pain; CT abdomen and pelvis with IV but without oral contrast:; ; History: Abdomen pain.; ; Comparison study: October 31, 2015.; ; CT contrast dose: 100 ml of Isovue 370 is administered intravenously.; ; CT findings: Preliminary digital soil biology teacher radiograph demonstrates an unremarkable; bowel gas pattern. There are multiple scattered surgical clips in the right; abdomen.; ; Axial CT images demonstrate linear fibrosis in the left lower lobe and lingula.; Lung bases are otherwise clear. No pleural effusion is seen. The liver and; spleen are normal in size and homogeneous in texture. No pancreatic lesion is; seen. No adrenal lesion is observed on either side. The gallbladder contains; one small radiopaque calculus in its dependent portion. The kidneys enhance; symmetrically and appear mildly atrophic. No hydronephrosis, mass, or cyst is; seen. No retroperitoneal mass or adenopathy is seen. A small hiatal hernia is; noted. Stomach is contracted. Small and large intestinal bowel loops show no; significant abnormality. The patient is status post right colectomy with; ileocolic anastomosis. There is a right pelvic calcification again noted; consistent with lymph node calcification. This is 2.8 cm in diameter. It is; unchanged. No urinary bladder abnormality is seen. No abdominal wall defect is; observed. Bone window settings show no bony destructive lesion.; ; Impression:; ; ; 1. Cholelithiasis.; 2. Status post right colon resection.; 3. No acute intra-abdominal abnormality seen.; ; ; Signed by; Eloy Lucero MD 04/22/2016 10:05 A; Radiology Order: US Gallbladder Test: US Gallbladder REASON FOR EXAMINATION: Abdomen Pain; Right upper quadrant sonography:; ; History: Right lower quadrant pain.; ; Comparison CT study is from this date. Comparison sonography is from April 192016.; ; Findings: Scanning through the right upper quadrant of the abdomen show some; tenderness to scanning over the gallbladder. Gallbladder contains a shadowing; gallstone and a small polyp. At the fundus, there is evidence of a Phrygian cap; morphology with a septation. There is mild gallbladder wall thickening. Common; bile duct is normal measuring 0.4 cm in greatest diameter. There is a 1.4 x 0.9; x 2.0 cm slightly hyperechoic area near the ivonne hepatis of the liver similar to; the prior sonogram. This is not visible on today's CT study. Possibilities; include isodense hemangioma and perhaps an area of fatty liver change. There is; no mass lesion visible by CT.; ; There is no evidence of ascites. No pancreatic abnormality is seen on limited; pancreatic images. No significant right renal abnormality is noted. Right; kidney measures 9.2 x 3.2 x 3.6 cm. No free fluid noted.; ; Impression:; ; 1. 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 Small hemangioma versus focal fatty infiltration of the liver near the ivonne.; No mass lesion seen on today's CT study.; ; 3. Otherwise unremarkable right upper quadrant sonography.; ; ; Signed by; Eloy Lucero MD 04/22/2016 12:53 P; Outcome: 10:04 CT Study completed. kc3 12:59 Discharge ordered by Provider. fg 13:27 Discharge Assessment: Patient awake, alert and oriented x 3. No cognitive and/or kc3 functional deficits noted. Patient verbalized understanding of disposition instructions. patient administered narcotics - yes. Pt provided with safe discharge. The following High Risk Discharge criteria are identified: None. Discharged to home ambulatory. Condition: stable. Discharge instructions given to patient, Instructed on discharge instructions, follow up and referral plans. Demonstrated understanding of instructions, Pt was receptive of discharge instructions/ teaching. Property :Personal belongings accompany Pt. 13:28 Patient left the ED. kc3 Signatures: Dispatcher [employer] EDMS Dolores Boyer, Eeler Unit lbd Anna Nuñez, Reg Reg lg Rell Garcia, RN RN ml6 Cassie Cruz, AUTO BODY ESTIMATOR AUTO BODY ESTIMATOR ct3 Eliecer Garcia dem1 Ly, Rubin hgl Candi Gardner MD MD fg Crane, Kelsi,RN RN kc3 MTDD
--- NOTE | 2016-04-22 13:29 | EDDOCDS ---
Physician Documentation [facility] Name: Nancy Nicolas Age: 89 yrs Sex: Female : 1925 Arrival Date: 04/22/2016 Time: 08:36 Bed 11 Private MD: Laura Posey DO Disposition: 04/22/16 12:59 Discharged to Home/Self Care. Impression: Abdominal and pelvic pain. - Condition is Stable. - Discharge Instructions: Abdominal Pain, Adult. - Medication Reconciliation, Local Pharmacy Hours form. - Follow up: Yenni Jimenez; When: Call to arrange an appointment; Reason: Continuance of care. Follow up: Evelio Hill MD; When: Call to arrange an appointment; Reason: Continuance of care. - Problem is new. - Symptoms have improved. - Notes: As discussed, please return to repeat abdominal examination in 12-24 hour is you are not feeling better. Please call your pcp and Dr. Hill for follow up as an outpatient. Historical: - Allergies: Bees; PENICILLINS; seafood; - Home Meds: 1. Advair Diskus 250-50 mcg/dose Inhl dsdv 1 puff 2 times per day (Last dose: 04/22/2016 07:00) 2. budesonide 3 mg oral CECX 3 caps once daily (Last dose: 04/22/2016 07:00) 3. Imodium A-D oral 2 tabs as needed (Last dose: 04/22/2016 07:00) 4. Norvasc 5 mg Oral tab 1 tab once daily (Last dose: 04/22/2016 07:00) 5. omeprazole 40 mg Oral cpDR 1 cap once daily (Last dose: 04/22/2016 07:00) 6. Spiriva with HandiHaler 18 mcg Inhl CpDv 1 cap once daily (Last dose: 04/22/2016 07:00) 7. sucralfate 1 gram Oral tab 4 times per day (Last dose: 04/22/2016 07:00) 8. Vitamin B-12 Oral daily (Last dose: 04/22/2016 07:00) 9. Vitamin B6 Unknown daily (Last dose: 04/22/2016 07:00) 10. Vitamin C Oral 500 mg daily (Last dose: 04/22/2016 07:00) 11. Vitamin D3 1,000 unit oral tab daily (Last dose: 04/22/2016 07:00) - PMHx: Cancer, Colon; COPD; GERD; Gout; Hypertension; Lyme Disease; - PSHx: Hysterectomy; Colon Resection; Pacemaker Insertion (May 2015); - Social history: Smoking status: Patient states was never smoker of tobacco. No barriers to communication noted, Speaks appropriately for age. - Family history: Not pertinent. - : The pt / caregiver states he / she is not on anticoagulants. Home medication list is obtained from the patient, Unable to Verify Home Med List with the patient / caregiver. - Exposure Risk Screening:: None identified. Vital Signs: 04/22 08:47 BP 177 / 79; Pulse 75; Resp 18; Temp 98.1(O); Pulse Ox 96% on R/A; Weight 55.34 kg / dem1 122 lbs (R); Height 5 ft. 3 in. (160.02 cm); Pain 0/10; 09:15 Pulse 76 MON; Pulse Ox 96% ; kc3 09:16 BP 185 / 84 (auto/); kc3 09:18 BP 173 / 73 (auto/); kc3 09:18 Pulse 76 MON; Pulse Ox 96% ; kc3 09:59 Pulse 76 MON; Pulse Ox 97% ; kc3 10:00 BP 184 / 80 (auto/); kc3 10:16 BP 161 / 69 (auto/); kc3 10:16 Pulse 78 MON; Pulse Ox 95% ; kc3 10:46 BP 190 / 84 (auto/); kc3 10:46 Pulse 82 MON; Pulse Ox 98% ; kc3 13:28 BP 143 / 71; Pulse 71; Resp 18; Temp 99.9(TE); Pulse Ox 97% on R/A; kc3 08:47 Body Mass Index 21.61 (55.34 kg, 160.02 cm) dem1 MDM: 08:41 Undress patient appropriately for examination ordered. fg 08:42 Amylase Ordered. EDMS 08:42 Basic Metabolic Profile Ordered. EDMS 08:42 CBC with Diff Ordered. EDMS 08:42 Lipase Ordered. EDMS 08:42 Liver Profile Ordered. EDMS 08:42 Troponin Ordered. EDMS 08:42 Urinalysis Ordered. EDMS 08:42 Urine Culture Ordered. EDMS 08:42 NOTHING BY MOUTH+DIET ordered. EDMS 09:09 Financial registration complete. lg 09:16 [facility] Payment Agreement was scanned into [employer] and attached to record. lg 09:23 IV Saline Lock ordered. fg 09:23 NS 0.9% 500 ml IV at bolus once ordered. fg 09:23 morphine 2 mg IVP once ordered. fg 09:23 Ondansetron 4 mg IVP once ordered. fg 09:24 Lactic Acid (Maynard tube on ice) Ordered. EDMS 09:24 CT ABD & PELVIS: IV Contrast Only Ordered. EDMS 10:25 US Gallbladder Ordered. EDMS Administered Medications: 09:40 Drug: NS 0.9% 500 ml [sodium chloride 0.9 % intravenous solution] Route: IV; Rate: kc3 bolus; Site: left antecubital; 09:40 Drug: morphine 2 mg [morphine 2 mg/mL intravenous cartridge (1 mL)] Route: IVP; Site: kc3 left antecubital; 09:40 Drug: Ondansetron 4 mg [ondansetron HCl 2 mg/mL intravenous solution (2 mL)] Route: kc3 IVP; Site: left antecubital; Signatures: Dispatcher [employer] EDMS Anna Nuñez, Woodrow Reg lg Rell Garcia, RN RN ml6 Candi Gardner MD MD Tori Olsen RN RN kc3 The chart was reviewed and I authenticate all verbal orders and agree with the evaluation and treatment provided.Attachments: 09:16 [facility] Payment Agreement lg MTDD
--- NOTE | 2016-04-22 14:23 | CR ---
DATE OF CONSULTATION: 04/22/2016 REQUESTING PROVIDER: Dr. Neel Gardner from the emergency room. REASON FOR CONSULTATION: Abdominal pain, possible cholecystitis. HISTORY OF PRESENT ILLNESS: Ms. Nicolas is an 89-year-old female who was brought by emergency services from her house for complaints of multiple loose black stools associated with abdominal pain. She reports she has been having problems with her bowel movements being loose, multiple loose bowel movements frequently up to seven or eight times a day and at times accompanied with crampy abdominal pain. This has been ongoing since September last year. She has seen her medical doctor for this. She takes occasionally Imodium when she has multiple loose stools, up to two tablets every three to four days when she gets loose stools to address her loose bowel movements. She also reports loss of appetite. Occasionally, feeling nauseated with the sight of food, as well as associated weight loss. She has a history of a right colon cancer status post right hemicolectomy, and she has had surveillance colonoscopies, the latest one that I could see was in 2013 where she had a surveillance colonoscopy by Dr. Hill. In the emergency room, she was noted by Dr. Gardner to have generalized abdominal pain. Included in her present workup was a CT of the abdomen and pelvis. No acute abnormalities were found. Gallstone was found in her gallbladder. Looking back, she has had gallstones done before. She had a recent ultrasound three days ago showing similar gallstones in her gallbladder. I was asked by Dr. Gardner to assess the patient for possibility of cholecystitis. She has already been seen by Dr. Hill's nurse and she is scheduled for a colonoscopy in two weeks' time. ALLERGIES: PENICILLIN. HOME MEDICATIONS: Reviewed. She takes: - acetaminophen - amlodipine - ascorbic acid - vitamin D - vitamin B12 - loperamide - magnesium - omeprazole - prednisone - Pyridoxine - salmeterol/fluticasone - tiotropium bromide/Spiriva PAST MEDICAL HISTORY: Includes: 1. Colon cancer. 2. Chronic obstructive pulmonary disease (COPD). 3. Gastroesophageal reflux disease (GERD). 4. History of Dave's esophagus. 5. Hypertension. 6. Gout. 7. Lyme disease. PAST SURGICAL HISTORY: Includes: 1. Hysterectomy. 2. Right colectomy. 3. insertion. SOCIAL HISTORY: The patient denies smoking, alcohol use, or recreational drug use. FAMILY HISTORY: Not pertinent. REVIEW OF SYSTEMS: The patient reports her symptoms to be ongoing since September last year. Reports associated weight loss. Denies any fevers or chills. Denies problems with vision or hearing. Denies any ongoing chest pain. Has a pacemaker. Has a remote history of myocardial infarction. Denies chest pain on effort. Denies paroxysmal nocturnal dyspnea. The patient has history of chronic obstructive pulmonary disease (COPD), not oxygen-dependent. Reports mild shortness of breath on effort. Gastrointestinal symptoms enumerated in history of present illness. The patient denies any dysuria, hematuria, nocturia. Denies leg swelling. Denies any bleeding. Reports previous history of blood clots in her legs remotely. She is not on any blood thinner at the moment. PHYSICAL EXAMINATION: The patient was seen in the emergency room, appears relatively comfortable and not in any acute distress. Appears anxious. Awake, alert and oriented. Skin is warm and moist. Mildly pale palpebral conjunctivae. Anicteric sclerae. Lips appear dry. No jugular venous distension. Lung sounds are clear to auscultation bilaterally. No wheezing appreciated. Heart rate and rhythm sounds regular. Abdomen is round, soft, mildly distended and slightly tympanitic. Nontender on palpation throughout her abdomen. Extremities did not reveal any edema. LABORATORY: White cell count 11.1, hemoglobin 14.7, hematocrit 45, platelet count is 275. Chemistry: Sodium is 139, potassium is 4.5, chloride is 102, CO2 is 27, BUN of 29, creatinine 1.3, glucose is 123. Liver function tests are all normal. Albumin is 3.4, amylase 34, lipase of 114. IMAGING STUDIES: CT of the abdomen and pelvis shows cholelithiasis, status post right colon resection. No acute intra-abdominal abnormality. Gallbladder ultrasound shows cholelithiasis, mild gallbladder wall thickening and tenderness to scanning. Phrygian cap morphology of the gallbladder and fundus. Small hemangioma versus focal fatty infiltration of the liver near the ivonne. IMPRESSION 1. Chronic diarrhea, possible mild GI bleeding with reports of black stool. 2. Cholelithiasis, unclear if she is symptomatic from this. PLAN: The patient, when she came in, was reported to have generalized abdominal tenderness. At the time that I saw the patient, she was no longer having any discomfort and she is nontender on my examination. She got a dose of morphine. She seems stable now. It seems to me that the patient has been having continued problems for awhile now and this was some exacerbation of chronic problem. The patient is already scheduled to undergo a colonoscopy. I will speak to Dr. Hill to maybe include an upper endoscopy during that time too. I do not detect any evidence for any acute surgical abnormality at this point. She does have cholelithiasis. I am not sure if she is symptomatic from this. From what she tells me, the pain is related to the bowel movements. I reviewed the previous studies that are available in the hospital and they did send a stool sample that was positive for lactoferrin, which could be some colitis. On talking to her, she reports a remote history of colitis when she was a teenager. Certainly, this can be further clarified with a colonoscopy. As to whether she had a gallbladder attack, it is unclear as her description of the occurrence of her pain seems more related to the bowel movement and the reason for her coming to the hospital through the ambulance was because she just feels her diarrhea has been going on for so long. I have also discussed with her that the Imodium may not be helping her as she thinks it does and it may be provoking the abdominal cramping if she continues to take it. She will think about not taking any more. She will followup with a primary care doctor regarding her chronic problems. I discussed the case with Dr. Gardner.
--- NOTE | 2016-04-24 14:30 | EDDOCDS ---
Physician Documentation [facility] Name: Nancy Nicolas Age: 89 yrs Sex: Female : 1925 Arrival Date: 04/22/2016 Time: 08:36 Bed 11 Private MD: Laura Posey DO Disposition: 04/22/16 12:59 Discharged to Home/Self Care. Impression: Abdominal and pelvic pain. - Condition is Stable. - Discharge Instructions: Abdominal Pain, Adult. - Medication Reconciliation, Local Pharmacy Hours form. - Follow up: Yenni Jimenez; When: Call to arrange an appointment; Reason: Continuance of care. Follow up: Evelio Hill MD; When: Call to arrange an appointment; Reason: Continuance of care. - Problem is new. - Symptoms have improved. - Notes: As discussed, please return to repeat abdominal examination in 12-24 hour is you are not feeling better. Please call your pcp and Dr. Hill for follow up as an outpatient. Historical: - Allergies: Bees; PENICILLINS; seafood; - Home Meds: 1. Advair Diskus 250-50 mcg/dose Inhl dsdv 1 puff 2 times per day (Last dose: 04/22/2016 07:00) 2. budesonide 3 mg oral CECX 3 caps once daily (Last dose: 04/22/2016 07:00) 3. Imodium A-D oral 2 tabs as needed (Last dose: 04/22/2016 07:00) 4. Norvasc 5 mg Oral tab 1 tab once daily (Last dose: 04/22/2016 07:00) 5. omeprazole 40 mg Oral cpDR 1 cap once daily (Last dose: 04/22/2016 07:00) 6. Spiriva with HandiHaler 18 mcg Inhl CpDv 1 cap once daily (Last dose: 04/22/2016 07:00) 7. sucralfate 1 gram Oral tab 4 times per day (Last dose: 04/22/2016 07:00) 8. Vitamin B-12 Oral daily (Last dose: 04/22/2016 07:00) 9. Vitamin B6 Unknown daily (Last dose: 04/22/2016 07:00) 10. Vitamin C Oral 500 mg daily (Last dose: 04/22/2016 07:00) 11. Vitamin D3 1,000 unit oral tab daily (Last dose: 04/22/2016 07:00) - PMHx: Cancer, Colon; COPD; GERD; Gout; Hypertension; Lyme Disease; - PSHx: Hysterectomy; Colon Resection; Pacemaker Insertion (May 2015); - Social history: Smoking status: Patient states was never smoker of tobacco. No barriers to communication noted, Speaks appropriately for age. - Family history: Not pertinent. - : The pt / caregiver states he / she is not on anticoagulants. Home medication list is obtained from the patient, Unable to Verify Home Med List with the patient / caregiver. - Exposure Risk Screening:: None identified. Vital Signs: 04/22 08:47 BP 177 / 79; Pulse 75; Resp 18; Temp 98.1(O); Pulse Ox 96% on R/A; Weight 55.34 kg / dem1 122 lbs (R); Height 5 ft. 3 in. (160.02 cm); Pain 0/10; 09:15 Pulse 76 MON; Pulse Ox 96% ; kc3 09:16 BP 185 / 84 (auto/); kc3 09:18 BP 173 / 73 (auto/); kc3 09:18 Pulse 76 MON; Pulse Ox 96% ; kc3 09:59 Pulse 76 MON; Pulse Ox 97% ; kc3 10:00 BP 184 / 80 (auto/); kc3 10:16 BP 161 / 69 (auto/); kc3 10:16 Pulse 78 MON; Pulse Ox 95% ; kc3 10:46 BP 190 / 84 (auto/); kc3 10:46 Pulse 82 MON; Pulse Ox 98% ; kc3 13:28 BP 143 / 71; Pulse 71; Resp 18; Temp 99.9(TE); Pulse Ox 97% on R/A; kc3 08:47 Body Mass Index 21.61 (55.34 kg, 160.02 cm) dem1 MDM: 08:41 Undress patient appropriately for examination ordered. fg 08:42 Amylase Ordered. EDMS 08:42 Basic Metabolic Profile Ordered. EDMS 08:42 CBC with Diff Ordered. EDMS 08:42 Lipase Ordered. EDMS 08:42 Liver Profile Ordered. EDMS 08:42 Troponin Ordered. EDMS 08:42 Urinalysis Ordered. EDMS 08:42 Urine Culture Ordered. EDMS 08:42 NOTHING BY MOUTH+DIET ordered. EDMS 09:09 Financial registration complete. lg 09:16 [facility] [place] was scanned into [employer] and attached to record. lg 09:23 IV Saline Lock ordered. fg 09:23 NS 0.9% 500 ml IV at bolus once ordered. fg 09:23 morphine 2 mg IVP once ordered. fg 09:23 Ondansetron 4 mg IVP once ordered. fg 09:24 Lactic Acid (Maynard tube on ice) Ordered. EDMS 09:24 CT ABD & PELVIS: IV Contrast Only Ordered. EDMS 10:25 US Gallbladder Ordered. EDMS 15:02 T-Sheet-- Draft Copy was scanned into [employer] and attached to record. gb 15:02 Radiology Report was scanned into [employer] and attached to record. gb 15:03 PCR was scanned into [employer] and attached to record. gb Administered Medications: 09:40 Drug: NS 0.9% 500 ml [sodium chloride 0.9 % intravenous solution] Route: IV; Rate: kc3 bolus; Site: left antecubital; 09:40 Drug: morphine 2 mg [morphine 2 mg/mL intravenous cartridge (1 mL)] Route: IVP; Site: kc3 left antecubital; 09:40 Drug: Ondansetron 4 mg [ondansetron HCl 2 mg/mL intravenous solution (2 mL)] Route: kc3 IVP; Site: left antecubital; Signatures: Dispatcher [employer] EDMS Bhargavi Jauregui, Reg Reg gb Anna Nuñez, Reg Reg lg Rell Garcia, RN RN ml6 Candi Gardner MD MD fg Crane, Kelsi,RN RN kc3 The chart was reviewed and I authenticate all verbal orders and agree with the evaluation and treatment provided.Attachments: 09:16 [facility] Payment Agreement lg 15:02 T-Sheet-- Draft Copy gb Chart Complete MTDD
--- NOTE | 2016-04-24 14:30 | EDDOCDS ---
Nurse's Notes [facility] Name: Nancy Nicolas Age: 89 yrs Sex: Female : 1925 Arrival Date: 04/22/2016 Time: 08:36 Bed 11 Private MD: Laura Posey DO Diagnosis: Abdominal and pelvic pain Presentation: 04/22 08:56 Presenting complaint: Patient states: patient states RLQ pain x 6 months. Adult Sepsis ml6 Screening: The patient does not have new or worsening altered mentation. Patient's respiratory rate is less than 22. Systolic blood pressure is greater than 100. Patient has a qSOFA score of 0- Negative Sepsis Screen. Suicide/Homicide risk assessment- the patient denies having any suicidal and/or homicidal ideations and does not present with any other emotional, behavioral or mental health complaints. Status: Patient is not a special services coordinator or dependent. Transition of care: patient was not received from another setting of care. 08:56 Acuity: HARPER Level 3 ml6 08:56 Method Of Arrival: Ambulance ml6 Triage Assessment: 08:58 General: Appears in no apparent distress, Behavior is appropriate for age, cooperative. ml6 Pain: Location: right lower quadrant Pain currently is 2 out of 10 on a pain scale. Pain does not radiate. 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 Aggravated by increased activity. The patient is triaged at the bedside. See Assessment in Nurses Notes section of ED record. Neurological: No deficits noted. Level of Consciousness is awake, alert, Oriented to person, place, time. Cardiovascular: No deficits noted. Capillary refill < 3 seconds is brisk in bilateral fingers toes Heart tones S1 S2 present Edema is absent. Pulses are all present. GI: Abdomen is obese, Bowel sounds present X 4 quads. Abd is soft X 4 quads Abd is tender to palpation in right lower quadrant. Historical: - Allergies: Bees; PENICILLINS; seafood; - Home Meds: 1. Advair Diskus 250-50 mcg/dose Inhl dsdv 1 puff 2 times per day (Last dose: 04/22/2016 07:00) 2. budesonide 3 mg oral CECX 3 caps once daily (Last dose: 04/22/2016 07:00) 3. Imodium A-D oral 2 tabs as needed (Last dose: 04/22/2016 07:00) 4. Norvasc 5 mg Oral tab 1 tab once daily (Last dose: 04/22/2016 07:00) 5. omeprazole 40 mg Oral cpDR 1 cap once daily (Last dose: 04/22/2016 07:00) 6. Spiriva with HandiHaler 18 mcg Inhl CpDv 1 cap once daily (Last dose: 04/22/2016 07:00) 7. sucralfate 1 gram Oral tab 4 times per day (Last dose: 04/22/2016 07:00) 8. Vitamin B-12 Oral daily (Last dose: 04/22/2016 07:00) 9. Vitamin B6 Unknown daily (Last dose: 04/22/2016 07:00) 10. Vitamin C Oral 500 mg daily (Last dose: 04/22/2016 07:00) 11. Vitamin D3 1,000 unit oral tab daily (Last dose: 04/22/2016 07:00) - PMHx: Cancer, Colon; COPD; GERD; Gout; Hypertension; Lyme Disease; - PSHx: Hysterectomy; Colon Resection; Pacemaker Insertion (May 2015); - Social history: Smoking status: Patient states was never smoker of tobacco. No barriers to communication noted, Speaks appropriately for age. - Family history: Not pertinent. - : The pt / caregiver states he / she is not on anticoagulants. Home medication list is obtained from the patient, Unable to Verify Home Med List with the patient / caregiver. - Exposure Risk Screening:: None identified. Screenin:00 Screening information is obtained from the patient. Fall risk: No risks identified. ml6 Assistance ADL's: requires no assistance with activities of daily living. Abuse/DV Screen: The patient / caregiver reports he/she is: not in a situation that causes fear, pain or injury. Nutritional screening: No deficits noted. Advance Directives: Currently, there is no health care proxy. home support is adequate. Assessment: 08:59 General: see triage assessment. GI: Abdomen is flat, non- distended Bowel sounds ml6 present X 4 quads. Abd is soft X 4 quads Abd is tender to palpation in right lower quadrant. 09:45 General: Appears in no apparent distress, comfortable, Behavior is appropriate for age, kc3 cooperative. Pain: Location: abdomen. Neurological: Level of Consciousness is awake, alert, obeys commands, Oriented to person, place, time. Respiratory: Airway is patent Respiratory effort is even, unlabored. GI: Reports upper abdominal pain. Derm: Skin is pink, warm & dry. 10:40 General: Appears in no apparent distress, comfortable, Behavior is appropriate for age, kc3 cooperative. Pain: Location: abdomen. Neurological: Level of Consciousness is awake, alert, obeys commands, Oriented to person, place, time. Respiratory: Respiratory effort is even, unlabored. Derm: Skin is pink, warm & dry. 11:13 General: Appears in no apparent distress, comfortable, Behavior is appropriate for age, kc3 cooperative. Pain: Location: abdomen. Neurological: Level of Consciousness is awake, alert, obeys commands, Oriented to person, place, time. Respiratory: Respiratory effort is even, unlabored. Derm: Skin is pink, warm & dry. 11:35 General: Pt assisted to bedside commode and back to bed with no distress. Denominational kc3 funnel setter at bedside. . 12:30 General: Appears in no apparent distress, comfortable, Behavior is appropriate for age, kc3 cooperative. Pain: Location: right lower quadrant. Neurological: Level of Consciousness is awake, alert, obeys commands, Oriented to person, place, time. Respiratory: Airway is patent Respiratory effort is even, unlabored. Derm: Skin is pink, warm & dry. 13:26 General: Appears in no apparent distress, comfortable, Behavior is appropriate for age, kc3 cooperative. Pain: Location: right lower quadrant. Neurological: Level of Consciousness is awake, alert, obeys commands, Oriented to person, place, time. Respiratory: Respiratory effort is even, unlabored. Derm: Skin is pink, warm & dry. Vital Signs: 08:47 BP 177 / 79; Pulse 75; Resp 18; Temp 98.1(O); Pulse Ox 96% on R/A; Weight 55.34 kg (R); dem1 Height 5 ft. 3 in. (160.02 cm); Pain 0/10; 09:15 Pulse 76 MON; Pulse Ox 96% ; kc3 09:16 BP 185 / 84 (auto/); kc3 09:18 BP 173 / 73 (auto/); kc3 09:18 Pulse 76 MON; Pulse Ox 96% ; kc3 09:59 Pulse 76 MON; Pulse Ox 97% ; kc3 10:00 BP 184 / 80 (auto/); kc3 10:16 BP 161 / 69 (auto/); kc3 10:16 Pulse 78 MON; Pulse Ox 95% ; kc3 10:46 BP 190 / 84 (auto/); kc3 10:46 Pulse 82 MON; Pulse Ox 98% ; kc3 13:28 BP 143 / 71; Pulse 71; Resp 18; Temp 99.9(TE); Pulse Ox 97% on R/A; kc3 08:47 Body Mass Index 21.61 (55.34 kg, 160.02 cm) dem1 Vitals: 08:47 Log In Time N/A - ambulance arrival. dem1 ED Course: 08:37 Patient visited by Dolores Boyer, Venetian Blind Cleaner And Repairer. lbd 08:37 Patient moved to Waiting lbd 08:38 Laura Posey is Private Physician. lbd 08:38 Patient moved to 11 lbd 08:40 Candi Gardner MD is Attending Physician. fg 08:40 Patient visited by Candi Gardner MD. fg 08:48 Patient visited by Eliecer Garica. dem1 08:57 Triage Initiated ml6 09:00 Inserted peripheral IV: 18gauge IV in left antecubital area and blood collected. ml6 Patient tolerated the procedure well. Labs drawn. (by ED staff). Sent per order to lab. 09:02 Amylase Sent. ml6 09:02 Basic Metabolic Profile Sent. ml6 09:02 CBC with Diff Sent. ml6 09:02 Lipase Sent. ml6 09:02 Liver Profile Sent. ml6 09:02 Troponin Sent. ml6 09:06 Tori Olsen,LANE is Primary Nurse. kc3 09:16 [facility] Payment Agreement was scanned into [employer] and attached to record. lg 09:19 Patient visited by Cassie Cruz PCA. ct3 09:26 The patient / caregiver is instructed regarding the plan of care and ED course. kc3 09:42 Patient visited by Eliecer Garcia. dem1 09:42 Assisted to bedside commode. dem1 09:42 Urinalysis Sent. dem1 09:42 Urine Culture Sent. dem1 10:14 CT ABD & PELVIS: IV Contrast Only Returned. EDMS 10:44 Patient visited by Tori OlsenLANE. kc3 10:48 Patient moved to Ultrasound hgl 11:12 Patient moved to 11 hgl 11:14 Patient visited by Tori Olsen RN. kc3 11:55 Patient visited by Tori Olsen RN. kc3 12:34 US Gallbladder Returned. EDMS 12:42 Patient visited by Tori Olsen RN. kc3 12:59 Yenni Jimenez is Referral Physician. fg 12:59 Evelio Hill MD is Referral Physician. fg 13:27 Discontinued IV lock intact, bleeding controlled, pressure dressing applied, No kc3 redness/swelling at site. No procedures done that require assistance. 15:02 T-Sheet-- Draft Copy was scanned into [employer] and attached to record. gb 15:02 Radiology Report was scanned into [employer] and attached to record. gb 15:03 PCR was scanned into [employer] and attached to record. gb Administered Medications: 09:40 Drug: NS 0.9% 500 ml [sodium chloride 0.9 % intravenous solution] Route: IV; Rate: kc3 bolus; Site: left antecubital; 09:40 Drug: morphine 2 mg [morphine 2 mg/mL intravenous cartridge (1 mL)] Route: IVP; Site: kc3 left antecubital; 09:40 Drug: Ondansetron 4 mg [ondansetron HCl 2 mg/mL intravenous solution (2 mL)] Route: kc3 IVP; Site: left antecubital; Order Results: Lab Order: Amylase; SPEC'M 04/22/16 08:52 Test: AMYLASE; Value: 34; Range: 25-115; Units: U/L; Status: F Lab Order: Basic Metabolic Profile; SPEC'M 04/22/16 08:52 Test: GLUCOSE, FASTING; Value: 123; Range: 83-110; Abnormal: Above high normal; Units: MG/DL; Status: F Test: BLOOD UREA NITROGEN; Value: 29; Range: 7-18; Abnormal: Above high normal; Units: MG/DL; Status: F Test: CREATININE FOR GFR; Value: 1.30; Range: 0.55-1.02; Abnormal: Above high normal; Units: MG/DL; Status: F Test: GLOMERULAR FILTRATION RATE; Value: 41.2; Range: >32; Status: F Test: SODIUM LEVEL; Value: 139; Range: 136-145; Units: MEQ/L; Status: F Test: POTASSIUM SERUM; Value: 4.5; Range: 3.5-5.1; Units: MEQ/L; Status: F Test: CHLORIDE LEVEL; Value: 102; Range: 98-107; Units: MEQ/L; Status: F Test: CARBON DIOXIDE LEVEL; Value: 27; Range: 21-32; Units: MEQ/L; Status: F Test: ANION GAP; Value: 10; Range: 8-16; Units: MEQ/L; Status: F Test: CALCIUM LEVEL; Value: 9.1; Range: 8.8-10.2; Units: MG/DL; Status: F Test Note: ; Units are mL/min/1.73 m2 Chronic Kidney Disease Staging per NKF: Stage I & II GFR >=60 Normal to Mildly Decreased Stage III GFR 30-59 Moderately Decreased Stage IV GFR 15-29 Severely Decreased Stage V GFR <15 Very Little GFR Left ESRD GFR <15 on CARE TAKER Lab Order: CBC with Diff; SPEC'M 04/22/16 08:52 Test: WHITE BLOOD COUNT; Value: 11.1; Range: 4.0-10.0; Abnormal: Above high normal; Units: K/mm3; Status: F Test: RED BLOOD COUNT; Value: 4.83; Range: 4.00-5.40; Units: M/mm3; Status: F Test: HEMOGLOBIN; Value: 14.7; Range: 12.0-16.0; Units: g/dl; Status: F Test: HEMATOCRIT; Value: 45.0; Range: 36.0-47.0; Units: %; Status: F Test: MEAN CORPUSCULAR VOLUME; Value: 93.1; Range: 80.0-96.0; Units: fl; Status: F Test: MEAN CORPUSCULAR HEMOGLOBIN; Value: 30.4; Range: 27.0-33.0; Units: pg; Status: F Test: MEAN CORPUSCULAR HGB CONC; Value: 32.7; Range: 32.0-36.5; Units: g/dl; Status: F Test: RED CELL DISTRIBUTION WIDTH; Value: 12.6; Range: 11.5-14.5; Units: %; Status: F Test: PLATELET COUNT, AUTOMATED; Value: 275; Range: 150-450; Units: k/mm3; Status: F Test: NEUTROPHILS %; Value: 82.2; Range: 36.0-66.0; Abnormal: Above high normal; Units: %; Status: F Test: LYMPH %; Value: 12.0; Range: 24.0-44.0; Abnormal: Below low normal; Units: %; Status: F Test: MONO %; Value: 3.5; Range: 0.0-5.0; Units: %; Status: F Test: EOS %; Value: 1.0; Range: 0.0-3.0; Units: %; Status: F Test: BASO %; Value: 0.3; Range: 0.0-1.0; Units: %; Status: F Test: LARGE UNSTAINED CELL %; Value: 0.9; Range: 0.0-4.0; Units: %; Status: F Test: NEUTROPHILS #; Value: 9.1; Range: 1.8-7.7; Abnormal: Above high normal; Units: K/mm3; Status: F Test: LYMPH #; Value: 1.3; Range: 1.5-4.5; Abnormal: Below low normal; Units: K/mm3; Status: F Test: MONO #; Value: 0.4; Range: 0.0-0.8; Units: K/mm3; Status: F Test: EOS #; Value: 0.1; Range: 0.0-0.50; Units: K/mm3; Status: F Test: BASO #; Value: 0.0; Range: 0.0-0.2; Units: K/mm3; Status: F Test: LARGE UNSTAINED CELL #; Value: 0.1; Range: 0.0-0.4; Units: K/mm3; Status: F Lab Order: Lipase; SPEC'M 04/22/16 08:52 Test: LIPASE; Value: 114; Range: 73-393; Units: U/L; Status: F Lab Order: Liver Profile; SPEC'04/22/16 08:52 Test: AST/SGOT; Value: 19; Range: 15-37; Units: U/L; Status: F Test: ALT/SGPT; Value: 30; Range: 12-78; Units: U/L; Status: F Test: ALKALINE PHOSPHATASE; Value: 77; Range: 45-117; Units: U/L; Status: F Test: BILIRUBIN,TOTAL; Value: 0.3; Range: 0.2-1.0; Units: MG/DL; Status: F Test: BILIRUBIN,DIRECT; Value: < 0.1; Range: 0.0-0.2; Units: MG/DL; Status: F Test: TOTAL PROTEIN; Value: 6.7; Range: 6.4-8.2; Units: GM/DL; Status: F Test: ALBUMIN; Value: 3.4; Range: 3.2-5.2; Units: GM/DL; Status: F Test: ALBUMIN/GLOBULIN RATIO; Value: 1.03; Range: 1.00-1.93; Status: F Lab Order: Troponin; SPEC'M 04/22/16 08:52 Test: TROPONIN I; Value: < 0.02; Range: < 0.10; Units: NG/ML; Status: F Test Note: ; Troponin I Reference Interval for [place] LOCI: 99th Percentile= 0.00-0.045 ng/ml Risk Stratification: <= 0.10 ng/ml Decreased Risk for Adverse Clinical Events. 0.10-1.50 ng/ml Increased Risk for Adverse Clinical Events. Evaluation of additional criterion and/or repeat testing in 2-6 hours is suggested to rule out myocardial damage. >= 1.50 ng/ml Indicative of Myocardial Injury. Lab Order: Urinalysis; SPEC'M 04/22/16 09:40 Test: APPEARANCE, URINE; Value: CLEAR; Range: CLEAR; Status: F Test: COLOR, URINE; Value: YELLOW; Range: YELLOW; Status: F Test: PH,URINE; Value: 7.0; Range: 5.0-9.0; Units: UNITS; Status: F Test: SPECIFIC GRAVITY URINE AUTO; Value: 1.010; Range: 1.002-1.035; Status: F Test: PROTEIN, URINE AUTO; Value: NEGATIVE; Range: NEGATIVE; Units: mg/dL; Status: F Test: GLUCOSE, URINE (UA) AUTO; Value: NEGATIVE; Range: NEGATIVE; Units: mg/dL; Status: F Test: KETONE, URINE AUTO; Value: NEGATIVE; Range: NEGATIVE; Units: mg/dL; Status: F Test: UROBILINOGEN, URINE AUTO; Value: 0.2; Range: 0.0-2.0; Units: mg/dL; Status: F Test: BILIRUBIN, URINE AUTO; Value: NEGATIVE; Range: NEGATIVE; Status: F Test: NITRITE, URINE AUTO; Value: NEGATIVE; Range: NEGATIVE; Status: F Test: LEUKOCYTE ESTERASE, URINE AUTO; Value: NEGATIVE; Range: NEGATIVE; Status: F Test: BLOOD, URINE BLOOD; Value: NEGATIVE; Range: NEGATIVE; Status: F Test: WBC, URINE AUTO; Value: 0; Range: 0-3; Units: /HPF; Status: F Test: RBC, URINE AUTO; Value: 1; Range: 0-3; Units: /HPF; Status: F Test: BACTERIA, URINE AUTO; Value: NEGATIVE; Range: NEGATIVE; Status: F Test: SQUAMOUS EPITHELIAL CELL UR AU; Value: 0; Range: 0-6; Units: /HPF; Status: F Test: HYALINE CAST, URINE AUTO; Value: 0; Range: 0-1; Units: /LPF; Status: F Lab Order: Urine Culture; SPEC'M 04/22/16 09:40 Test: URINE CULTURE; Value: <EXTERNAL COMMENT eCWMed> FULL REPORT IN LAB NOTES (eCW and Medent).; Status: F Test: URINE CULTURE; Value: URINE CULTURE RESULT; Status: F Test: URINE CULTURE; Value: NO GROWTH CLINICAL SIGNIFICANCE 2 OR MORE ORGANISMS; Status: F Lab Order: Lactic Acid (Maynard tube on ice); SPEC'M 04/22/16 08:52 Test: LACTIC ACID SEPSIS PROTOCOL; Value: 1.6; Range: 0.4-2.0; Units: MMOL/L; Status: F Radiology Order: CT ABD & PELVIS: IV Contrast Only Test: CT ABD & PELVIS: IV Contrast Only REASON FOR EXAMINATION: Abdomen Pain; CT abdomen and pelvis with IV but without oral contrast:; ; History: Abdomen pain.; ; Comparison study: October 31, 2015.; ; CT contrast dose: 100 ml of Isovue 370 is administered intravenously.; ; CT findings: Preliminary digital head machine feeder radiograph demonstrates an unremarkable; bowel gas pattern. There are multiple scattered surgical clips in the right; abdomen.; ; Axial CT images demonstrate linear fibrosis in the left lower lobe and lingula.; Lung bases are otherwise clear. No pleural effusion is seen. The liver and; spleen are normal in size and homogeneous in texture. No pancreatic lesion is; seen. No adrenal lesion is observed on either side. The gallbladder contains; one small radiopaque calculus in its dependent portion. The kidneys enhance; symmetrically and appear mildly atrophic. No hydronephrosis, mass, or cyst is; seen. No retroperitoneal mass or adenopathy is seen. A small hiatal hernia is; noted. Stomach is contracted. Small and large intestinal bowel loops show no; significant abnormality. The patient is status post right colectomy with; ileocolic anastomosis. There is a right pelvic calcification again noted; consistent with lymph node calcification. This is 2.8 cm in diameter. It is; unchanged. No urinary bladder abnormality is seen. No abdominal wall defect is; observed. Bone window settings show no bony destructive lesion.; ; Impression:; ; ; 1. Cholelithiasis.; 2. Status post right colon resection.; 3. No acute intra-abdominal abnormality seen.; ; ; Signed by; Eloy Lucero MD 04/22/2016 10:05 A; Radiology Order: US Gallbladder Test: US Gallbladder REASON FOR EXAMINATION: Abdomen Pain; Right upper quadrant sonography:; ; History: Right lower quadrant pain.; ; Comparison CT study is from this date. Comparison sonography is from April 192016.; ; Findings: Scanning through the right upper quadrant of the abdomen show some; tenderness to scanning over the gallbladder. Gallbladder contains a shadowing; gallstone and a small polyp. At the fundus, there is evidence of a Phrygian cap; morphology with a septation. There is mild gallbladder wall thickening. Common; bile duct is normal measuring 0.4 cm in greatest diameter. There is a 1.4 x 0.9; x 2.0 cm slightly hyperechoic area near the ivonne hepatis of the liver similar to; the prior sonogram. This is not visible on today's CT study. Possibilities; include isodense hemangioma and perhaps an area of fatty liver change. There is; no mass lesion visible by CT.; ; There is no evidence of ascites. No pancreatic abnormality is seen on limited; pancreatic images. No significant right renal abnormality is noted. Right; kidney measures 9.2 x 3.2 x 3.6 cm. No free fluid noted.; ; Impression:; ; 1. 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 Small hemangioma versus focal fatty infiltration of the liver near the ivonne.; No mass lesion seen on today's CT study.; ; 3. Otherwise unremarkable right upper quadrant sonography.; ; ; Signed by; Eloy Lucero MD 04/22/2016 12:53 P; Outcome: 10:04 CT Study completed. kc3 12:59 Discharge ordered by Provider. fg 13:27 Discharge Assessment: Patient awake, alert and oriented x 3. No cognitive and/or kc3 functional deficits noted. Patient verbalized understanding of disposition instructions. patient administered narcotics - yes. Pt provided with safe discharge. The following High Risk Discharge criteria are identified: None. Discharged to home ambulatory. Condition: stable. Discharge instructions given to patient, Instructed on discharge instructions, follow up and referral plans. Demonstrated understanding of instructions, Pt was receptive of discharge instructions/ teaching. Property :Personal belongings accompany Pt. 13:28 Patient left the ED. kc3 Signatures: Dispatcher [employer] EDMS Dolores Boyer, Venetian Blind Cleaner And Repairer Unit lbd Bhargavi Jauregui, Reg Reg gb Anna Nuñez, Reg Reg lg Rell Garcia, RN RN ml6 Cassie Cruz, WATCH GUARD GATE WATCH GUARD GATE ct3 Eliecer Garcia1 Rubin Alvarado Frances, MD MD fg Crane, Kelsi,RN RN kc3 Chart Complete MTDD
--- NOTE | 2016-04-24 14:30 | EDDOCDS ---
Physician Documentation [facility] Name: Nancy Nicolas Age: 89 yrs Sex: Female : 1925 Arrival Date: 04/22/2016 Time: 08:36 Bed 11 Private MD: Laura Posey DO Disposition: 04/22/16 12:59 Discharged to Home/Self Care. Impression: Abdominal and pelvic pain. - Condition is Stable. - Discharge Instructions: Abdominal Pain, Adult. - Medication Reconciliation, Local Pharmacy Hours form. - Follow up: Yenni Jimenez; When: Call to arrange an appointment; Reason: Continuance of care. Follow up: Evelio Hill MD; When: Call to arrange an appointment; Reason: Continuance of care. - Problem is new. - Symptoms have improved. - Notes: As discussed, please return to repeat abdominal examination in 12-24 hour is you are not feeling better. Please call your pcp and Dr. Hill for follow up as an outpatient. Historical: - Allergies: Bees; PENICILLINS; seafood; - Home Meds: 1. Advair Diskus 250-50 mcg/dose Inhl dsdv 1 puff 2 times per day (Last dose: 04/22/2016 07:00) 2. budesonide 3 mg oral CECX 3 caps once daily (Last dose: 04/22/2016 07:00) 3. Imodium A-D oral 2 tabs as needed (Last dose: 04/22/2016 07:00) 4. Norvasc 5 mg Oral tab 1 tab once daily (Last dose: 04/22/2016 07:00) 5. omeprazole 40 mg Oral cpDR 1 cap once daily (Last dose: 04/22/2016 07:00) 6. Spiriva with HandiHaler 18 mcg Inhl CpDv 1 cap once daily (Last dose: 04/22/2016 07:00) 7. sucralfate 1 gram Oral tab 4 times per day (Last dose: 04/22/2016 07:00) 8. Vitamin B-12 Oral daily (Last dose: 04/22/2016 07:00) 9. Vitamin B6 Unknown daily (Last dose: 04/22/2016 07:00) 10. Vitamin C Oral 500 mg daily (Last dose: 04/22/2016 07:00) 11. Vitamin D3 1,000 unit oral tab daily (Last dose: 04/22/2016 07:00) - PMHx: Cancer, Colon; COPD; GERD; Gout; Hypertension; Lyme Disease; - PSHx: Hysterectomy; Colon Resection; Pacemaker Insertion (May 2015); - Social history: Smoking status: Patient states was never smoker of tobacco. No barriers to communication noted, Speaks appropriately for age. - Family history: Not pertinent. - : The pt / caregiver states he / she is not on anticoagulants. Home medication list is obtained from the patient, Unable to Verify Home Med List with the patient / caregiver. - Exposure Risk Screening:: None identified. Vital Signs: 04/22 08:47 BP 177 / 79; Pulse 75; Resp 18; Temp 98.1(O); Pulse Ox 96% on R/A; Weight 55.34 kg / dem1 122 lbs (R); Height 5 ft. 3 in. (160.02 cm); Pain 0/10; 09:15 Pulse 76 MON; Pulse Ox 96% ; kc3 09:16 BP 185 / 84 (auto/); kc3 09:18 BP 173 / 73 (auto/); kc3 09:18 Pulse 76 MON; Pulse Ox 96% ; kc3 09:59 Pulse 76 MON; Pulse Ox 97% ; kc3 10:00 BP 184 / 80 (auto/); kc3 10:16 BP 161 / 69 (auto/); kc3 10:16 Pulse 78 MON; Pulse Ox 95% ; kc3 10:46 BP 190 / 84 (auto/); kc3 10:46 Pulse 82 MON; Pulse Ox 98% ; kc3 13:28 BP 143 / 71; Pulse 71; Resp 18; Temp 99.9(TE); Pulse Ox 97% on R/A; kc3 08:47 Body Mass Index 21.61 (55.34 kg, 160.02 cm) dem1 MDM: 08:41 Undress patient appropriately for examination ordered. fg 08:42 Amylase Ordered. EDMS 08:42 Basic Metabolic Profile Ordered. EDMS 08:42 CBC with Diff Ordered. EDMS 08:42 Lipase Ordered. EDMS 08:42 Liver Profile Ordered. EDMS 08:42 Troponin Ordered. EDMS 08:42 Urinalysis Ordered. EDMS 08:42 Urine Culture Ordered. EDMS 08:42 NOTHING BY MOUTH+DIET ordered. EDMS 09:09 Financial registration complete. lg 09:16 [facility] Payment Agreement was scanned into Jymob and attached to record. lg 09:23 IV Saline Lock ordered. fg 09:23 NS 0.9% 500 ml IV at bolus once ordered. fg 09:23 morphine 2 mg IVP once ordered. fg 09:23 Ondansetron 4 mg IVP once ordered. fg 09:24 Lactic Acid (Maynard tube on ice) Ordered. EDMS 09:24 CT ABD & PELVIS: IV Contrast Only Ordered. EDMS 10:25 US Gallbladder Ordered. EDMS 15:02 T-Sheet-- Draft Copy was scanned into Jymob and attached to record. gb 15:02 Radiology Report was scanned into Jymob and attached to record. gb 15:03 PCR was scanned into Jymob and attached to record. gb Administered Medications: 09:40 Drug: NS 0.9% 500 ml [sodium chloride 0.9 % intravenous solution] Route: IV; Rate: kc3 bolus; Site: left antecubital; 09:40 Drug: morphine 2 mg [morphine 2 mg/mL intravenous cartridge (1 mL)] Route: IVP; Site: kc3 left antecubital; 09:40 Drug: Ondansetron 4 mg [ondansetron HCl 2 mg/mL intravenous solution (2 mL)] Route: kc3 IVP; Site: left antecubital; Signatures: Dispatcher MedHost EDMS Bhargavi Jauregui, Reg Reg gb Anna Nuñez, Reg Reg lg Rell Garcia, RN RN ml6 Candi Gardner MD MD fg Crane, Kelsi,RN RN kc3 The chart was reviewed and I authenticate all verbal orders and agree with the evaluation and treatment provided.Attachments: 09:16 [facility] Payment Agreement lg 15:02 T-Sheet-- Draft Copy gb Chart Complete MTDD
[2016-04-27] MEDS ORDERED: HYDR12.55 PO (19:04)
== END 2016-04-22 13:28 | disposition home or self-care (01) ==
LOC: M ED 08:36
DX: R10.9 Unspecified abdominal pain (principal); R11.0 Nausea; J44.9 Chronic obstructive pulmonary disease, unspecified; K21.9 Gastro-esophageal reflux disease without esophagitis; M10.9 Gout, unspecified; I10 Essential (primary) hypertension; Z85.038 Personal history of other malignant neoplasm of large intestine; Z95.0 Presence of cardiac pacemaker; Z79.899 Other long term (current) drug therapy; Z88.0 Allergy status to penicillin; Z91.013 Allergy to seafood; Z91.030 Bee allergy status
CPT/HCPCS: 36415; 74177; 76705; 80048; 80076; 81001; 82150; 83605; 83690; 84484; 85025; 87086; 96374; 96375; 99284; J2405; Q9967

== ENCOUNTER 2016-04-23 17:06 | Emergency (ER) | payer MEDICARE, OTHER ==
[2016-04-23] MEDS ORDERED: ONDANSETRON 4MG/2ML VIAL (J2405) As Ordered ONE (17:37)
[2016-04-23] MEDS ORDERED: MORPHINE 2 MG/ML 1ML SYRINGE As Ordered ONE (17:37)
[2016-04-23 17:53] LABS: BASO # 0.1 K/mm3 (0.0-0.2); BASO % 0.7 % (0.0-1.0); EOS # 0.4 K/mm3 (0.0-0.50); EOS % 3.7 % (0.0-3.0); LARGE UNSTAINED CELL # 0.2 K/mm3 (0.0-0.4); LARGE UNSTAINED CELL % 2.1 % (0.0-4.0); LYMPH # 2.4 K/mm3 (1.5-4.5); MEAN CORPUSCULAR HEMOGLOBIN 30.7 pg (27.0-33.0); MEAN CORPUSCULAR HGB CONC 32.8 g/dl (32.0-36.5); MEAN CORPUSCULAR VOLUME 93.4 fl (80.0-96.0); MONO # 0.6 K/mm3 (0.0-0.8); MONO % 5.8 % (0.0-5.0); NEUTROPHILS # 6.2 K/mm3 (1.8-7.7); NEUTROPHILS % 63.8 % (36.0-66.0); PLATELET COUNT, AUTOMATED 280 k/mm3 (150-450); RED CELL DISTRIBUTION WIDTH 12.5 % (11.5-14.5); WHITE BLOOD COUNT 9.8 K/mm3 (4.0-10.0)
[2016-04-23 18:15] LABS: ALBUMIN 3.5 GM/DL (3.2-5.2); ALBUMIN/GLOBULIN RATIO 1.17 (1.00-1.93); ALKALINE PHOSPHATASE 77 U/L (45-117); ALT/SGPT 24 U/L (12-78); AMYLASE 34 U/L (25-115); ANION GAP 7 MEQ/L (8-16); AST/SGOT 17 U/L (15-37); BILIRUBIN,DIRECT < 0.1 MG/DL (0.0-0.2); BILIRUBIN,TOTAL 0.4 MG/DL (0.2-1.0); BLOOD UREA NITROGEN 26 MG/DL (7-18); CALCIUM LEVEL 9.1 MG/DL (8.8-10.2); CARBON DIOXIDE LEVEL 29 MEQ/L (21-32); CHLORIDE LEVEL 104 MEQ/L (98-107); GLOMERULAR FILTRATION RATE 41.2 (>32); GLUCOSE, FASTING 104 MG/DL (83-110); POTASSIUM SERUM 4.5 MEQ/L (3.5-5.1); SODIUM LEVEL 140 MEQ/L (136-145); TOTAL PROTEIN 6.5 GM/DL (6.4-8.2)
[2016-04-23] MEDS ORDERED: OXYCODONE/APAP 5MG/325MG(BULK) 1 TAB TAB As Ordered ONE (18:30)
--- NOTE | 2016-04-23 18:42 | EDDOCDS ---
Physician Documentation [facility] Name: Nancy Nicolas Age: 89 yrs Sex: Female : 1925 Arrival Date: 04/23/2016 Time: 17:06 Bed 10 Private MD: Tiffany Martell Disposition: 04/23/16 18:25 Discharged to Home/Self Care. Impression: Generalized abdominal pain, Cholelithiasis. - Condition is Stable. - Discharge Instructions: Abdominal Pain, Adult, Cholelithiasis. - Prescriptions for Percocet 5- 325 mg Oral Tablet - take 1 tablet by ORAL route every 8 hours As needed MDD: 4 tabs; 20 tablet. - Medication Reconciliation, Local Pharmacy Hours form. - Follow up: Tiffany Martell; When: 1 - 2 days. Follow up: Evelio Hill MD; When: 2 - 3 days. - Problem is new. - Symptoms have improved. - Notes: follow up wiht Drs. Hill and Tiffany Martell. Return if worsening symptoms Historical: - Allergies: Bees; PENICILLINS; seafood; - Home Meds: 1. Advair Diskus 250-50 mcg/dose Inhl dsdv 1 puff 2 times per day 2. budesonide 3 mg oral CECX 3 caps once daily 3. Imodium A-D oral 2 tabs as needed 4. Norvasc 5 mg Oral tab 1 tab once daily 5. omeprazole 40 mg Oral cpDR 1 cap once daily 6. Spiriva with HandiHaler 18 mcg Inhl CpDv 1 cap once daily 7. sucralfate 1 gram Oral tab 4 times per day 8. Vitamin B-12 Oral daily 9. Vitamin B6 Unknown daily 10. Vitamin C Oral 500 mg daily 11. Vitamin D3 1,000 unit oral tab daily - PMHx: Cancer, Colon; COPD; GERD; Gout; Hypertension; Lyme Disease; - PSHx: Hysterectomy; Colon Resection; Pacemaker Insertion (May 2015); - Social history: Smoking status: Patient states former smoker of tobacco. No barriers to communication noted, The patient speaks fluent Uzbek, Speaks appropriately for age. - Family history: Not pertinent. - : The pt / caregiver states he / she is not on anticoagulants. Home medication list is obtained from [employer] import data. - Exposure Risk Screening:: None identified. Vital Signs: 04/23 17:07 BP 173 / 85; Pulse 70; Resp 18; Temp 96.9(O); Pulse Ox 99% on R/A; Weight 55.34 kg / elp 122 lbs (R); Height 5 ft. 3 in. (160.02 cm) (R); 18:00 Pain 0/10; pml 18:40 BP 120 / 59; Pulse 66; Resp 18; Temp 97.2; Pulse Ox 96% on R/A; Pain 0/10; pml 17:07 Body Mass Index 21.61 (55.34 kg, 160.02 cm) elp MDM: 17:28 IV Saline Lock ordered. ml 17:28 Ondansetron 4 mg IVP once ordered. ml 17:29 morphine 2 mg IVP once ordered. ml 17:29 CBC with Diff Ordered. EDMS 17:29 MED Profile Ordered. EDMS 17:29 Liver Profile Ordered. EDMS 17:29 Lipase Ordered. EDMS 17:29 Amylase Ordered. EDMS 17:42 Financial registration complete. [facility] 18:21 [facility] Payment Agreement was scanned into [employer] and attached to record. [email or web address] 18:22 CBC with Diff Reviewed. ml 18:22 MED Profile Reviewed. ml 18:22 Liver Profile Reviewed. ml 18:22 Lipase Reviewed. ml 18:22 Amylase Reviewed. ml 18:24 oxyCODONE-acetaminophen 4 pack 5 mg-325 mg 1 packets PO once; Dispense with pt, take as ml per instruction on package ordered. Administered Medications: 17:41 Drug: Ondansetron 4 mg [ondansetron HCl 2 mg/mL intravenous solution (2 mL)] Route: pml IVP; Site: right antecubital; 18:00 Follow up: Pain 0/10 Adult; Response: Pain is decreased pml 17:41 Drug: morphine 2 mg [morphine 2 mg/mL intravenous cartridge (1 mL)] Route: IVP; Site: pml right antecubital; 18:39 Drug: oxyCODONE-acetaminophen 4 pack 1 packets [oxycodone-acetaminophen 5 mg-325 mg pml tablet (1 tabs)] {Co-Signature: kc3 (Tori Olsen RN).} Route: PO; 18:41 Follow up: Response: Med's dispensed home pml Signatures: Dispatcher [employer] EDMS Mitch Mcfarlane MD MD ml Barney, Michael B, RN RN mlb1 Leslie WeaverRN RN pml Karla Palm, Reg Reg [email or web address] Tori Olsen RN kc3 The chart was reviewed and I authenticate all verbal orders and agree with the evaluation and treatment provided.Attachments: 18:21 [facility] Payment Agreement [email or web address] MTDD
--- NOTE | 2016-04-23 18:43 | EDDOCDS ---
Nurse's Notes [facility] Name: Nancy Nicolas Age: 89 yrs Sex: Female : 1925 Arrival Date: 04/23/2016 Time: 17:06 Bed 10 Private MD: Tiffany Martell Diagnosis: Generalized abdominal pain;Cholelithiasis Presentation: 04/23 17:10 Presenting complaint: Presenting complaint: Patient states: RUQ pain began several mlb1 months ago worse in the last few days seen here last night for same. Adult Sepsis Screening: The patient does not have new or worsening altered mentation. Patient's respiratory rate is less than 22. Systolic blood pressure is greater than 100. Patient has a qSOFA score of 0- Negative Sepsis Screen. Suicide/Homicide risk assessment- the patient denies having any suicidal and/or homicidal ideations and does not present with any other emotional, behavioral or mental health complaints. 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 Transition of care: patient was not received from another setting of care. 17:10 Acuity: HARPER Level 3 mlb1 17:10 Method Of Arrival: Walkin/Carried/Asstd mlb1 Triage Assessment: 17:13 General: Appears distressed, Behavior is appropriate for age, cooperative. Pain: mlb1 Location: right upper quadrant Pain currently is 8 out of 10 on a pain scale. Historical: - Allergies: Bees; PENICILLINS; seafood; - Home Meds: 1. Advair Diskus 250-50 mcg/dose Inhl dsdv 1 puff 2 times per day 2. budesonide 3 mg oral CECX 3 caps once daily 3. Imodium A-D oral 2 tabs as needed 4. Norvasc 5 mg Oral tab 1 tab once daily 5. omeprazole 40 mg Oral cpDR 1 cap once daily 6. Spiriva with HandiHaler 18 mcg Inhl CpDv 1 cap once daily 7. sucralfate 1 gram Oral tab 4 times per day 8. Vitamin B-12 Oral daily 9. Vitamin B6 Unknown daily 10. Vitamin C Oral 500 mg daily 11. Vitamin D3 1,000 unit oral tab daily - PMHx: Cancer, Colon; COPD; GERD; Gout; Hypertension; Lyme Disease; - PSHx: Hysterectomy; Colon Resection; Pacemaker Insertion (May 2015); - Social history: Smoking status: Patient states former smoker of tobacco. No barriers to communication noted, The patient speaks fluent New Zealander, Speaks appropriately for age. - Family history: Not pertinent. - : The pt / caregiver states he / she is not on anticoagulants. Home medication list is obtained from [employer] import data. - Exposure Risk Screening:: None identified. Screenin:41 Screening information is obtained from the patient. Fall risk: No risks identified. pml Assistance ADL's: requires no assistance with activities of daily living. Abuse/DV Screen: The patient / caregiver reports he/she is: not in a situation that causes fear, pain or injury. Nutritional screening: No deficits noted. Advance Directives: Currently, there is no health care proxy. home support is adequate. Assessment: 17:41 General: Appears in no apparent distress, comfortable, Behavior is appropriate for age, pml cooperative. Pain: Location: right upper quadrant Pain currently is 7 out of 10 on a pain scale. Neurological: Level of Consciousness is awake, alert, Oriented to person, place, time. Cardiovascular: Capillary refill < 3 seconds. Respiratory: Airway is patent Respiratory effort is even, unlabored. GI: GI: Abdomen is non- distended Bowel sounds present X 4 quads. Abd is soft X 4 quads. Derm: Skin is pink, warm & dry. 18:40 General: Appears in no apparent distress, Behavior is appropriate for age, cooperative. pml Pain: Denies pain. Neurological: Level of Consciousness is awake, alert, Oriented to person, place, time. Cardiovascular: Capillary refill < 3 seconds. Respiratory: Airway is patent Respiratory effort is even, unlabored. Derm: Skin is pink, warm & dry. Vital Signs: 17:07 BP 173 / 85; Pulse 70; Resp 18; Temp 96.9(O); Pulse Ox 99% on R/A; Weight 55.34 kg (R); elp Height 5 ft. 3 in. (160.02 cm) (R); 18:00 Pain 0/10; pml 18:40 BP 120 / 59; Pulse 66; Resp 18; Temp 97.2; Pulse Ox 96% on R/A; Pain 0/10; pml 17:07 Body Mass Index 21.61 (55.34 kg, 160.02 cm) [facility] Vitals: 17:07 Log In Time: April 23, 2016 at 17:05. elp ED Course: 17:07 Patient visited by Ammy Jaimes PCA. elp 17:07 Tiffany Martell is Private Physician. elp 17:07 Patient moved to Waiting elp 17:08 Patient visited by Ammy Jaimes PCA. elp 17:08 Patient moved to Pre RCE elp 17:12 Triage Initiated mlb1 17:13 Patient visited by John Paul Basurto, LANE. mlb1 17:14 Leslie Weaver,LANE is Primary Nurse. mlb1 17:14 Patient moved to 10 mlb1 17:15 Mitch Mcfarlane MD is Attending Physician. ml 17:15 Patient visited by Mitch Mcfarlane MD. ml 17:41 The patient / caregiver is instructed regarding the plan of care and ED course. Patient pml has correct armband on for positive identification. Placed in gown. Bed in low position. Call light in reach. 17:41 Inserted peripheral IV: 20gauge IV in right antecubital area and blood collected. pml Patient tolerated the procedure well. 17:45 Patient visited by Leslie Weaver RN. pml 18:21 [facility] Payment Agreement was scanned into [employer] and attached to record. [email or web address] 18:24 Tiffany Martell is Referral Physician. ml 18:24 Evelio Hill MD is Referral Physician. ml 18:40 Discontinued lock intact, bleeding controlled, pressure dressing applied, No pml redness/swelling at site. No procedures done that require assistance. Administered Medications: 17:41 Drug: Ondansetron 4 mg [ondansetron HCl 2 mg/mL intravenous solution (2 mL)] Route: pml IVP; Site: right antecubital; 18:00 Follow up: Pain 0/10 Adult; Response: Pain is decreased pml 17:41 Drug: morphine 2 mg [morphine 2 mg/mL intravenous cartridge (1 mL)] Route: IVP; Site: pml right antecubital; 18:39 Drug: oxyCODONE-acetaminophen 4 pack 1 packets [oxycodone-acetaminophen 5 mg-325 mg pml tablet (1 tabs)] {Co-Signature: kc3 (Tori Olsen RN).} Route: PO; 18:41 Follow up: Response: Med's dispensed home pml Order Results: Lab Order: CBC with Diff; SPEC'M 04/23/16 17:34 Test: WHITE BLOOD COUNT; Value: 9.8; Range: 4.0-10.0; Units: K/mm3; Status: F Test: RED BLOOD COUNT; Value: 4.81; Range: 4.00-5.40; Units: M/mm3; Status: F Test: HEMOGLOBIN; Value: 14.7; Range: 12.0-16.0; Units: g/dl; Status: F Test: HEMATOCRIT; Value: 44.9; Range: 36.0-47.0; Units: %; Status: F Test: MEAN CORPUSCULAR VOLUME; Value: 93.4; Range: 80.0-96.0; Units: fl; Status: F Test: MEAN CORPUSCULAR HEMOGLOBIN; Value: 30.7; Range: 27.0-33.0; Units: pg; Status: F Test: MEAN CORPUSCULAR HGB CONC; Value: 32.8; Range: 32.0-36.5; Units: g/dl; Status: F Test: RED CELL DISTRIBUTION WIDTH; Value: 12.5; Range: 11.5-14.5; Units: %; Status: F Test: PLATELET COUNT, AUTOMATED; Value: 280; Range: 150-450; Units: k/mm3; Status: F Test: NEUTROPHILS %; Value: 63.8; Range: 36.0-66.0; Units: %; Status: F Test: LYMPH %; Value: 24.0; Range: 24.0-44.0; Units: %; Status: F Test: MONO %; Value: 5.8; Range: 0.0-5.0; Abnormal: Above high normal; Units: %; Status: F Test: EOS %; Value: 3.7; Range: 0.0-3.0; Abnormal: Above high normal; Units: %; Status: F Test: BASO %; Value: 0.7; Range: 0.0-1.0; Units: %; Status: F Test: LARGE UNSTAINED CELL %; Value: 2.1; Range: 0.0-4.0; Units: %; Status: F Test: NEUTROPHILS #; Value: 6.2; Range: 1.8-7.7; Units: K/mm3; Status: F Test: LYMPH #; Value: 2.4; Range: 1.5-4.5; Units: K/mm3; Status: F Test: MONO #; Value: 0.6; Range: 0.0-0.8; Units: K/mm3; Status: F Test: EOS #; Value: 0.4; Range: 0.0-0.50; Units: K/mm3; Status: F Test: BASO #; Value: 0.1; Range: 0.0-0.2; Units: K/mm3; Status: F Test: LARGE UNSTAINED CELL #; Value: 0.2; Range: 0.0-0.4; Units: K/mm3; Status: F Lab Order: MED Profile; SPEC'M 04/23/16 17:34 Test: GLUCOSE, FASTING; Value: 104; Range: 83-110; Units: MG/DL; Status: F Test: BLOOD UREA NITROGEN; Value: 26; Range: 7-18; Abnormal: Above high normal; Units: MG/DL; Status: F Test: CREATININE FOR GFR; Value: 1.30; Range: 0.55-1.02; Abnormal: Above high normal; Units: MG/DL; Status: F Test: GLOMERULAR FILTRATION RATE; Value: 41.2; Range: >32; Status: F Test: SODIUM LEVEL; Value: 140; Range: 136-145; Units: MEQ/L; Status: F Test: POTASSIUM SERUM; Value: 4.5; Range: 3.5-5.1; Units: MEQ/L; Status: F Test: CHLORIDE LEVEL; Value: 104; Range: 98-107; Units: MEQ/L; Status: F Test: CARBON DIOXIDE LEVEL; Value: 29; Range: 21-32; Units: MEQ/L; Status: F Test: ANION GAP; Value: 7; Range: 8-16; Abnormal: Below low normal; Units: MEQ/L; Status: F Test: CALCIUM LEVEL; Value: 9.1; Range: 8.8-10.2; Units: MG/DL; Status: F Test Note: ; Units are mL/min/1.73 m2 Chronic Kidney Disease Staging per NKF: Stage I & II GFR >=60 Normal to Mildly Decreased Stage III GFR 30-59 Moderately Decreased Stage IV GFR 15-29 Severely Decreased Stage V GFR <15 Very Little GFR Left ESRD GFR <15 on WELT RANDER Lab Order: Liver Profile; SPEC'M 04/23/16 17:34 Test: AST/SGOT; Value: 17; Range: 15-37; Units: U/L; Status: F Test: ALT/SGPT; Value: 24; Range: 12-78; Units: U/L; Status: F Test: ALKALINE PHOSPHATASE; Value: 77; Range: 45-117; Units: U/L; Status: F Test: BILIRUBIN,TOTAL; Value: 0.4; Range: 0.2-1.0; Units: MG/DL; Status: F Test: BILIRUBIN,DIRECT; Value: < 0.1; Range: 0.0-0.2; Units: MG/DL; Status: F Test: TOTAL PROTEIN; Value: 6.5; Range: 6.4-8.2; Units: GM/DL; Status: F Test: ALBUMIN; Value: 3.5; Range: 3.2-5.2; Units: GM/DL; Status: F Test: ALBUMIN/GLOBULIN RATIO; Value: 1.17; Range: 1.00-1.93; Status: F Lab Order: Lipase; SPEC'M 04/23/16 17:34 Test: LIPASE; Value: 92; Range: 73-393; Units: U/L; Status: F Lab Order: Amylase; SPEC'M 04/23/16 17:34 Test: AMYLASE; Value: 34; Range: 25-115; Units: U/L; Status: F Outcome: 18:25 Discharge ordered by Provider. ml 18:40 Discharge Assessment: Patient awake, alert and oriented x 3. No cognitive and/or pml functional deficits noted. Patient verbalized understanding of disposition instructions. patient administered narcotics - yes. Pt provided with safe discharge. The following High Risk Discharge criteria are identified: None. Discharged to home ambulatory, with friend. Condition: good Condition: stable. Discharge instructions given to patient, Instructed on discharge instructions, follow up and referral plans. medication usage, no driving heavy equipment, Demonstrated understanding of instructions, medications, Pt was receptive of discharge instructions/ teaching. Prescriptions given X 1. No special radiology studies were completed. Property sent home with patient. 18:42 Patient left the ED. pml Signatures: Mitch Mcfarlane MD MD John Paul Basurto RN RN mlLeslie Watson,RN RN pml Ammy Jaimes, STEEL [employer] FORM PLACING SUPERVISOR [employer] FORM PLACING SUPERVISOR aliciap Karla Palm, Reg Reg [email or web address] Tori Olsen RN kc3 MTDD
--- NOTE | 2016-04-25 19:43 | EDDOCDS ---
Nurse's Notes [facility] Name: Nancy Nicolas Age: 89 yrs Sex: Female : 1925 Arrival Date: 04/23/2016 Time: 17:06 Bed 10 Private MD: Tiffany Martell Diagnosis: Generalized abdominal pain;Cholelithiasis Presentation: 04/23 17:10 Presenting complaint: Presenting complaint: Patient states: RUQ pain began several mlb1 months ago worse in the last few days seen here last night for same. Adult Sepsis Screening: The patient does not have new or worsening altered mentation. Patient's respiratory rate is less than 22. Systolic blood pressure is greater than 100. Patient has a qSOFA score of 0- Negative Sepsis Screen. Suicide/Homicide risk assessment- the patient denies having any suicidal and/or homicidal ideations and does not present with any other emotional, behavioral or mental health complaints. Status: Patient is not a financial service representative or dependent. Transition of care: patient was not received from another setting of care. 17:10 Acuity: HARPER Level 3 mlb1 17:10 Method Of Arrival: Walkin/Carried/Asstd mlb1 Triage Assessment: 17:13 General: Appears distressed, Behavior is appropriate for age, cooperative. Pain: mlb1 Location: right upper quadrant Pain currently is 8 out of 10 on a pain scale. Historical: - Allergies: Bees; PENICILLINS; seafood; - Home Meds: 1. Advair Diskus 250-50 mcg/dose Inhl dsdv 1 puff 2 times per day 2. budesonide 3 mg oral CECX 3 caps once daily 3. Imodium A-D oral 2 tabs as needed 4. Norvasc 5 mg Oral tab 1 tab once daily 5. omeprazole 40 mg Oral cpDR 1 cap once daily 6. Spiriva with HandiHaler 18 mcg Inhl CpDv 1 cap once daily 7. sucralfate 1 gram Oral tab 4 times per day 8. Vitamin B-12 Oral daily 9. Vitamin B6 Unknown daily 10. Vitamin C Oral 500 mg daily 11. Vitamin D3 1,000 unit oral tab daily - PMHx: Cancer, Colon; COPD; GERD; Gout; Hypertension; Lyme Disease; - PSHx: Hysterectomy; Colon Resection; Pacemaker Insertion (May 2015); - Social history: Smoking status: Patient states former smoker of tobacco. No barriers to communication noted, The patient speaks fluent Brazilian, Speaks appropriately for age. - Family history: Not pertinent. - : The pt / caregiver states he / she is not on anticoagulants. Home medication list is obtained from [employer] import data. - Exposure Risk Screening:: None identified. Screenin:41 Screening information is obtained from the patient. Fall risk: No risks identified. pml Assistance ADL's: requires no assistance with activities of daily living. Abuse/DV Screen: The patient / caregiver reports he/she is: not in a situation that causes fear, pain or injury. Nutritional screening: No deficits noted. Advance Directives: Currently, there is no health care proxy. home support is adequate. Assessment: 17:41 General: Appears in no apparent distress, comfortable, Behavior is appropriate for age, pml cooperative. Pain: Location: right upper quadrant Pain currently is 7 out of 10 on a pain scale. Neurological: Level of Consciousness is awake, alert, Oriented to person, place, time. Cardiovascular: Capillary refill < 3 seconds. Respiratory: Airway is patent Respiratory effort is even, unlabored. GI: GI: Abdomen is non- distended Bowel sounds present X 4 quads. Abd is soft X 4 quads. Derm: Skin is pink, warm & dry. 18:40 General: Appears in no apparent distress, Behavior is appropriate for age, cooperative. pml Pain: Denies pain. Neurological: Level of Consciousness is awake, alert, Oriented to person, place, time. Cardiovascular: Capillary refill < 3 seconds. Respiratory: Airway is patent Respiratory effort is even, unlabored. Derm: Skin is pink, warm & dry. Vital Signs: 17:07 BP 173 / 85; Pulse 70; Resp 18; Temp 96.9(O); Pulse Ox 99% on R/A; Weight 55.34 kg (R); elp Height 5 ft. 3 in. (160.02 cm) (R); 18:00 Pain 0/10; pml 18:40 BP 120 / 59; Pulse 66; Resp 18; Temp 97.2; Pulse Ox 96% on R/A; Pain 0/10; pml 17:07 Body Mass Index 21.61 (55.34 kg, 160.02 cm) [facility] Vitals: 17:07 Log In Time: April 23, 2016 at 17:05. elp ED Course: 17:07 Patient visited by Ammy Jaimes PCA. elp 17:07 Tiffany Martell is Private Physician. elp 17:07 Patient moved to Waiting elp 17:08 Patient visited by Ammy Jaimes PCA. elp 17:08 Patient moved to Pre RCE elp 17:12 Triage Initiated mlb1 17:13 Patient visited by John Paul Basurto RN. mlb1 17:14 Leslie Weaver,LANE is Primary Nurse. mlb1 17:14 Patient moved to 10 mlb1 17:15 Mitch Mcfarlane MD is Attending Physician. ml 17:15 Patient visited by Mitch Mcfarlane MD. ml 17:41 The patient / caregiver is instructed regarding the plan of care and ED course. Patient pml has correct armband on for positive identification. Placed in gown. Bed in low position. Call light in reach. 17:41 Inserted peripheral IV: 20gauge IV in right antecubital area and blood collected. pml Patient tolerated the procedure well. 17:45 Patient visited by Leslie Weaver RN. pml 18:21 [facility] Payment Agreement was scanned into [employer] and attached to record. [email or web address] 18:24 Tiffany Martell is Referral Physician. ml 18:24 Evelio Hill MD is Referral Physician. ml 18:40 Discontinued lock intact, bleeding controlled, pressure dressing applied, No pml redness/swelling at site. No procedures done that require assistance. 21:26 T-Sheet-- Draft Copy was scanned into [employer] and attached to record. klr 04/25 15:29 PCR was scanned into [employer] and attached to record. gb Administered Medications: 04/23 17:41 Drug: Ondansetron 4 mg [ondansetron HCl 2 mg/mL intravenous solution (2 mL)] Route: pml IVP; Site: right antecubital; 18:00 Follow up: Pain 0/10 Adult; Response: Pain is decreased [facility] 17:41 Drug: morphine 2 mg [morphine 2 mg/mL intravenous cartridge (1 mL)] Route: IVP; Site: pml right antecubital; 18:39 Drug: oxyCODONE-acetaminophen 4 pack 1 packets [oxycodone-acetaminophen 5 mg-325 mg pml tablet (1 tabs)] {Co-Signature: kc3 (Tori Olsen RN).} Route: PO; 18:41 Follow up: Response: Med's dispensed home pml Order Results: Lab Order: CBC with Diff; SPEC'M 04/23/16 17:34 Test: WHITE BLOOD COUNT; Value: 9.8; Range: 4.0-10.0; Units: K/mm3; Status: F Test: RED BLOOD COUNT; Value: 4.81; Range: 4.00-5.40; Units: M/mm3; Status: F Test: HEMOGLOBIN; Value: 14.7; Range: 12.0-16.0; Units: g/dl; Status: F Test: HEMATOCRIT; Value: 44.9; Range: 36.0-47.0; Units: %; Status: F Test: MEAN CORPUSCULAR VOLUME; Value: 93.4; Range: 80.0-96.0; Units: fl; Status: F Test: MEAN CORPUSCULAR HEMOGLOBIN; Value: 30.7; Range: 27.0-33.0; Units: pg; Status: F Test: MEAN CORPUSCULAR HGB CONC; Value: 32.8; Range: 32.0-36.5; Units: g/dl; Status: F Test: RED CELL DISTRIBUTION WIDTH; Value: 12.5; Range: 11.5-14.5; Units: %; Status: F Test: PLATELET COUNT, AUTOMATED; Value: 280; Range: 150-450; Units: k/mm3; Status: F Test: NEUTROPHILS %; Value: 63.8; Range: 36.0-66.0; Units: %; Status: F Test: LYMPH %; Value: 24.0; Range: 24.0-44.0; Units: %; Status: F Test: MONO %; Value: 5.8; Range: 0.0-5.0; Abnormal: Above high normal; Units: %; Status: F Test: EOS %; Value: 3.7; Range: 0.0-3.0; Abnormal: Above high normal; Units: %; Status: F Test: BASO %; Value: 0.7; Range: 0.0-1.0; Units: %; Status: F Test: LARGE UNSTAINED CELL %; Value: 2.1; Range: 0.0-4.0; Units: %; Status: F Test: NEUTROPHILS #; Value: 6.2; Range: 1.8-7.7; Units: K/mm3; Status: F Test: LYMPH #; Value: 2.4; Range: 1.5-4.5; Units: K/mm3; Status: F Test: MONO #; Value: 0.6; Range: 0.0-0.8; Units: K/mm3; Status: F Test: EOS #; Value: 0.4; Range: 0.0-0.50; Units: K/mm3; Status: F Test: BASO #; Value: 0.1; Range: 0.0-0.2; Units: K/mm3; Status: F Test: LARGE UNSTAINED CELL #; Value: 0.2; Range: 0.0-0.4; Units: K/mm3; Status: F Lab Order: MED Profile; [facility] 04/23/16 17:34 Test: GLUCOSE, FASTING; Value: 104; Range: 83-110; Units: MG/DL; Status: F Test: BLOOD UREA NITROGEN; Value: 26; Range: 7-18; Abnormal: Above high normal; Units: MG/DL; Status: F Test: CREATININE FOR GFR; Value: 1.30; Range: 0.55-1.02; Abnormal: Above high normal; Units: MG/DL; Status: F Test: GLOMERULAR FILTRATION RATE; Value: 41.2; Range: >32; Status: F Test: SODIUM LEVEL; Value: 140; Range: 136-145; Units: MEQ/L; Status: F Test: POTASSIUM SERUM; Value: 4.5; Range: 3.5-5.1; Units: MEQ/L; Status: F Test: CHLORIDE LEVEL; Value: 104; Range: 98-107; Units: MEQ/L; Status: F Test: CARBON DIOXIDE LEVEL; Value: 29; Range: 21-32; Units: MEQ/L; Status: F Test: ANION GAP; Value: 7; Range: 8-16; Abnormal: Below low normal; Units: MEQ/L; Status: F Test: CALCIUM LEVEL; Value: 9.1; Range: 8.8-10.2; Units: MG/DL; Status: F Test Note: ; Units are mL/min/1.73 m2 Chronic Kidney Disease Staging per NKF: Stage I & II GFR >=60 Normal to Mildly Decreased Stage III GFR 30-59 Moderately Decreased Stage IV GFR 15-29 Severely Decreased Stage V GFR <15 Very Little GFR Left ESRD GFR <15 on IC DESIGN ENGINEER Lab Order: Liver Profile; [facility]' 04/23/16 17:34 Test: AST/SGOT; Value: 17; Range: 15-37; Units: U/L; Status: F Test: ALT/SGPT; Value: 24; Range: 12-78; Units: U/L; Status: F Test: ALKALINE PHOSPHATASE; Value: 77; Range: 45-117; Units: U/L; Status: F Test: BILIRUBIN,TOTAL; Value: 0.4; Range: 0.2-1.0; Units: MG/DL; Status: F Test: BILIRUBIN,DIRECT; Value: < 0.1; Range: 0.0-0.2; Units: MG/DL; Status: F Test: TOTAL PROTEIN; Value: 6.5; Range: 6.4-8.2; Units: GM/DL; Status: F Test: ALBUMIN; Value: 3.5; Range: 3.2-5.2; Units: GM/DL; Status: F Test: ALBUMIN/GLOBULIN RATIO; Value: 1.17; Range: 1.00-1.93; Status: F Lab Order: Lipase; [facility] 04/23/16 17:34 Test: LIPASE; Value: 92; Range: 73-393; Units: U/L; Status: F Lab Order: Amylase; [facility]' 04/23/16 17:34 Test: AMYLASE; Value: 34; Range: 25-115; Units: U/L; Status: F Outcome: 18:25 Discharge ordered by Provider. ml 18:40 Discharge Assessment: Patient awake, alert and oriented x 3. No cognitive and/or pml functional deficits noted. Patient verbalized understanding of disposition instructions. patient administered narcotics - yes. Pt provided with safe discharge. The following High Risk Discharge criteria are identified: None. Discharged to home ambulatory, with friend. Condition: good Condition: stable. Discharge instructions given to patient, Instructed on discharge instructions, follow up and referral plans. medication usage, no driving heavy equipment, Demonstrated understanding of instructions, medications, Pt was receptive of discharge instructions/ teaching. Prescriptions given X 1. No special radiology studies were completed. Property sent home with patient. 18:42 Patient left the ED. pml Signatures: Mitch Mcfarlane MD MD ml Bhargavi Jauregui, Reg Reg gb John Paul Basurto RN RN mlb1 Leslie WeaverRN RN pml Ammy Jaimes, Karla Escobedo, Reg Reg ks16 Brenna Cox RN kc3 Chart Complete MTDD
--- NOTE | 2016-04-25 19:43 | EDDOCDS ---
Physician Documentation [facility] Name: Nancy Nicolas Age: 89 yrs Sex: Female : 1925 Arrival Date: 04/23/2016 Time: 17:06 Bed 10 Private MD: Tiffany Martell Disposition: 04/23/16 18:25 Discharged to Home/Self Care. Impression: Generalized abdominal pain, Cholelithiasis. - Condition is Stable. - Discharge Instructions: Abdominal Pain, Adult, Cholelithiasis. - Prescriptions for Percocet 5- 325 mg Oral Tablet - take 1 tablet by ORAL route every 8 hours As needed MDD: 4 tabs; 20 tablet. - Medication Reconciliation, Local Pharmacy Hours form. - Follow up: Tiffany Martell; When: 1 - 2 days. Follow up: Evelio Hill MD; When: 2 - 3 days. - Problem is new. - Symptoms have improved. - Notes: follow up wiht Drs. Hill and Tiffany Martell. Return if worsening symptoms Historical: - Allergies: Bees; PENICILLINS; seafood; - Home Meds: 1. Advair Diskus 250-50 mcg/dose Inhl dsdv 1 puff 2 times per day 2. budesonide 3 mg oral CECX 3 caps once daily 3. Imodium A-D oral 2 tabs as needed 4. Norvasc 5 mg Oral tab 1 tab once daily 5. omeprazole 40 mg Oral cpDR 1 cap once daily 6. Spiriva with HandiHaler 18 mcg Inhl CpDv 1 cap once daily 7. sucralfate 1 gram Oral tab 4 times per day 8. Vitamin B-12 Oral daily 9. Vitamin B6 Unknown daily 10. Vitamin C Oral 500 mg daily 11. Vitamin D3 1,000 unit oral tab daily - PMHx: Cancer, Colon; COPD; GERD; Gout; Hypertension; Lyme Disease; - PSHx: Hysterectomy; Colon Resection; Pacemaker Insertion (May 2015); - Social history: Smoking status: Patient states former smoker of tobacco. No barriers to communication noted, The patient speaks fluent Occitan, Speaks appropriately for age. - Family history: Not pertinent. - : The pt / caregiver states he / she is not on anticoagulants. Home medication list is obtained from [employer] import data. - Exposure Risk Screening:: None identified. Vital Signs: 04/23 17:07 BP 173 / 85; Pulse 70; Resp 18; Temp 96.9(O); Pulse Ox 99% on R/A; Weight 55.34 kg / elp 122 lbs (R); Height 5 ft. 3 in. (160.02 cm) (R); 18:00 Pain 0/10; pml 18:40 BP 120 / 59; Pulse 66; Resp 18; Temp 97.2; Pulse Ox 96% on R/A; Pain 0/10; pml 17:07 Body Mass Index 21.61 (55.34 kg, 160.02 cm) elp MDM: 17:28 IV Saline Lock ordered. ml 17:28 Ondansetron 4 mg IVP once ordered. ml 17:29 morphine 2 mg IVP once ordered. ml 17:29 CBC with Diff Ordered. EDMS 17:29 MED Profile Ordered. EDMS 17:29 Liver Profile Ordered. EDMS 17:29 Lipase Ordered. EDMS 17:29 Amylase Ordered. EDMS 17:42 Financial registration complete. [facility] 18:21 [facility] Payment Agreement was scanned into [employer] and attached to record. [email or web address] 18:22 CBC with Diff Reviewed. ml 18:22 MED Profile Reviewed. ml 18:22 Liver Profile Reviewed. ml 18:22 Lipase Reviewed. ml 18:22 Amylase Reviewed. ml 18:24 oxyCODONE-acetaminophen 4 pack 5 mg-325 mg 1 packets PO once; Dispense with pt, take as ml per instruction on package ordered. 21:26 T-Sheet-- Draft Copy was scanned into [employer] and attached to record. klr 04/25 15:29 PCR was scanned into [employer] and attached to record. gb Administered Medications: 04/23 17:41 Drug: Ondansetron 4 mg [ondansetron HCl 2 mg/mL intravenous solution (2 mL)] Route: pml IVP; Site: right antecubital; 18:00 Follow up: Pain 0/10 Adult; Response: Pain is decreased pml 17:41 Drug: morphine 2 mg [morphine 2 mg/mL intravenous cartridge (1 mL)] Route: IVP; Site: pml right antecubital; 18:39 Drug: oxyCODONE-acetaminophen 4 pack 1 packets [oxycodone-acetaminophen 5 mg-325 mg pml tablet (1 tabs)] {Co-Signature: kc3 (Tori Olsen RN).} Route: PO; 18:41 Follow up: Response: Med's dispensed home pml Signatures: Dispatcher [employer] EDMitch Batres MD MD ml Bhargavi Jauregui, Reg Reg gb John Paul Basurto RN RN mlb1 Leslie Weaver RN RN Karla Thayer, Reg Reg ks16 Brenna Cox klr Tori Olsen RN kc3 The chart was reviewed and I authenticate all verbal orders and agree with the evaluation and treatment provided.Attachments: 18:21 [facility] Payment Agreement [email or web address] 21:26 T-Sheet-- Draft Copy klr Chart Complete MTDD
--- NOTE | 2016-04-25 19:43 | EDDOCDS ---
Physician Documentation [facility] Name: Nancy Nicolas Age: 89 yrs Sex: Female : 1925 Arrival Date: 04/23/2016 Time: 17:06 Bed 10 Private MD: Tiffany Martell Disposition: 04/23/16 18:25 Discharged to Home/Self Care. Impression: Generalized abdominal pain, Cholelithiasis. - Condition is Stable. - Discharge Instructions: Abdominal Pain, Adult, Cholelithiasis. - Prescriptions for Percocet 5- 325 mg Oral Tablet - take 1 tablet by ORAL route every 8 hours As needed MDD: 4 tabs; 20 tablet. - Medication Reconciliation, Local Pharmacy Hours form. - Follow up: Tiffany Martell; When: 1 - 2 days. Follow up: Evelio Hill MD; When: 2 - 3 days. - Problem is new. - Symptoms have improved. - Notes: follow up wiht Drs. Hill and Tiffany Martell. Return if worsening symptoms Historical: - Allergies: Bees; PENICILLINS; seafood; - Home Meds: 1. Advair Diskus 250-50 mcg/dose Inhl dsdv 1 puff 2 times per day 2. budesonide 3 mg oral CECX 3 caps once daily 3. Imodium A-D oral 2 tabs as needed 4. Norvasc 5 mg Oral tab 1 tab once daily 5. omeprazole 40 mg Oral cpDR 1 cap once daily 6. Spiriva with HandiHaler 18 mcg Inhl CpDv 1 cap once daily 7. sucralfate 1 gram Oral tab 4 times per day 8. Vitamin B-12 Oral daily 9. Vitamin B6 Unknown daily 10. Vitamin C Oral 500 mg daily 11. Vitamin D3 1,000 unit oral tab daily - PMHx: Cancer, Colon; COPD; GERD; Gout; Hypertension; Lyme Disease; - PSHx: Hysterectomy; Colon Resection; Pacemaker Insertion (May 2015); - Social history: Smoking status: Patient states former smoker of tobacco. No barriers to communication noted, The patient speaks fluent Icelandic, Speaks appropriately for age. - Family history: Not pertinent. - : The pt / caregiver states he / she is not on anticoagulants. Home medication list is obtained from [employer] import data. - Exposure Risk Screening:: None identified. Vital Signs: 04/23 17:07 BP 173 / 85; Pulse 70; Resp 18; Temp 96.9(O); Pulse Ox 99% on R/A; Weight 55.34 kg / elp 122 lbs (R); Height 5 ft. 3 in. (160.02 cm) (R); 18:00 Pain 0/10; pml 18:40 BP 120 / 59; Pulse 66; Resp 18; Temp 97.2; Pulse Ox 96% on R/A; Pain 0/10; pml 17:07 Body Mass Index 21.61 (55.34 kg, 160.02 cm) elp MDM: 17:28 IV Saline Lock ordered. ml 17:28 Ondansetron 4 mg IVP once ordered. ml 17:29 morphine 2 mg IVP once ordered. ml 17:29 CBC with Diff Ordered. EDMS 17:29 MED Profile Ordered. EDMS 17:29 Liver Profile Ordered. EDMS 17:29 Lipase Ordered. EDMS 17:29 Amylase Ordered. EDMS 17:42 Financial registration complete. [facility] 18:21 [facility] Payment Agreement was scanned into [employer] and attached to record. [email or web address] 18:22 CBC with Diff Reviewed. ml 18:22 MED Profile Reviewed. ml 18:22 Liver Profile Reviewed. ml 18:22 Lipase Reviewed. ml 18:22 Amylase Reviewed. ml 18:24 oxyCODONE-acetaminophen 4 pack 5 mg-325 mg 1 packets PO once; Dispense with pt, take as ml per instruction on package ordered. 21:26 T-Sheet-- Draft Copy was scanned into [employer] and attached to record. klr 04/25 15:29 PCR was scanned into [employer] and attached to record. gb Administered Medications: 04/23 17:41 Drug: Ondansetron 4 mg [ondansetron HCl 2 mg/mL intravenous solution (2 mL)] Route: pml IVP; Site: right antecubital; 18:00 Follow up: Pain 0/10 Adult; Response: Pain is decreased pml 17:41 Drug: morphine 2 mg [morphine 2 mg/mL intravenous cartridge (1 mL)] Route: IVP; Site: pml right antecubital; 18:39 Drug: oxyCODONE-acetaminophen 4 pack 1 packets [oxycodone-acetaminophen 5 mg-325 mg pml tablet (1 tabs)] {Co-Signature: kc3 (Tori Olsen RN).} Route: PO; 18:41 Follow up: Response: Med's dispensed home pml Signatures: Dispatcher [employer] EDMitch Batres MD MD ml Bhargavi Jauregui, Reg Reg gb John Paul Basurto RN RN mlb1 Leslie Weaver RN RN Karla Thayer, Reg Reg ks16 Brenna Cox klr Tori Olsen RN kc3 The chart was reviewed and I authenticate all verbal orders and agree with the evaluation and treatment provided.Attachments: 18:21 [facility] Payment Agreement [email or web address] 21:26 T-Sheet-- Draft Copy klr Chart Complete MTDD
[2016-04-27] MEDS ORDERED: HYDR12.55 PO (19:04)
== END 2016-04-23 18:42 | disposition home or self-care (01) ==
LOC: M ED 17:06
DX: K80.20 Calculus of gallbladder without cholecystitis without obstruction (principal); R10.84 Generalized abdominal pain; J44.9 Chronic obstructive pulmonary disease, unspecified; K21.9 Gastro-esophageal reflux disease without esophagitis; M10.9 Gout, unspecified; I10 Essential (primary) hypertension; A69.20 Lyme disease, unspecified; Z85.038 Personal history of other malignant neoplasm of large intestine; Z87.891 Personal history of nicotine dependence; Z79.899 Other long term (current) drug therapy; Z91.030 Bee allergy status; Z88.0 Allergy status to penicillin; Z91.013 Allergy to seafood; Z95.0 Presence of cardiac pacemaker
CPT/HCPCS: 36415; 80048; 80076; 82150; 83690; 85025; 96374; 96375; 99284; J2405

== ENCOUNTER 2016-04-25 10:15 | Emergency (ER) | payer MEDICARE, OTHER ==
[2016-04-25 10:53] LABS: BASO # 0.1 K/mm3 (0.0-0.2); BASO % 0.7 % (0.0-1.0); EOS # 0.4 K/mm3 (0.0-0.50); EOS % 4.2 % (0.0-3.0); LARGE UNSTAINED CELL # 0.1 K/mm3 (0.0-0.4); LARGE UNSTAINED CELL % 1.1 % (0.0-4.0); LYMPH # 2.5 K/mm3 (1.5-4.5); LYMPH % 25.1 % (24.0-44.0); MEAN CORPUSCULAR HGB CONC 33.5 g/dl (32.0-36.5); MEAN CORPUSCULAR VOLUME 92.5 fl (80.0-96.0); MONO # 0.6 K/mm3 (0.0-0.8); MONO % 6.5 % (0.0-5.0); NEUTROPHILS % 62.4 % (36.0-66.0); PLATELET COUNT, AUTOMATED 269 k/mm3 (150-450); RED CELL DISTRIBUTION WIDTH 12.8 % (11.5-14.5); WHITE BLOOD COUNT 9.6 K/mm3 (4.0-10.0)
[2016-04-25] MEDS ORDERED: ACETAMINOPHEN 325 MG TAB As Ordered ONE (11:09)
--- NOTE | 2016-04-25 11:11 | REP ---
SINGLE-VIEW CHEST: Single, portable view of the chest is performed and compared to prior study of 06/26/2015. There is mild interstitial fibrosis bilaterally which appears stable. I see no evidence of acute infiltrate or pulmonary edema. Heart is upper limits of normal in size. There is calcification and tortuosity of the thoracic aorta. The mediastinal silhouette is unchanged. Left dual-lead pacemaker is noted. IMPRESSION: Stable chronic findings without evidence of acute pulmonary disease. Signed by Dat Maynard MD 04/25/2016 02:17 P
[2016-04-25 11:15] LABS: ALBUMIN/GLOBULIN RATIO 0.94 (1.00-1.93); ALKALINE PHOSPHATASE 64 U/L (45-117); ALT/SGPT 20 U/L (12-78); ANION GAP 11 MEQ/L (8-16); AST/SGOT 18 U/L (15-37); BILIRUBIN,DIRECT < 0.1 MG/DL (0.0-0.2); BILIRUBIN,TOTAL 0.5 MG/DL (0.2-1.0); BLOOD UREA NITROGEN 26 MG/DL (7-18); CALCIUM LEVEL 8.3 MG/DL (8.8-10.2); CARBON DIOXIDE LEVEL 26 MEQ/L (21-32); CHLORIDE LEVEL 105 MEQ/L (98-107); CREATININE FOR GFR 1.23 MG/DL (0.55-1.02); GLOMERULAR FILTRATION RATE 43.9 (>32); GLUCOSE, FASTING 101 MG/DL (83-110); POTASSIUM SERUM 4.1 MEQ/L (3.5-5.1); SODIUM LEVEL 142 MEQ/L (136-145); TOTAL PROTEIN 6.2 GM/DL (6.4-8.2)
[2016-04-25] MEDS ORDERED: ISOVUE-370 76% 100ML VIAL (Q9967) As Ordered ONE (11:40)
--- NOTE | 2016-04-25 12:49 | REP ---
Clinical: Acute chest pain. Technique: Axial contrast enhanced images from the thoracic inlet to the upper abdomen using 100 ml Isovue 370 intravenous contrast material with coronal and sagittal re-formations. Findings: Satisfactory enhancement of the pulmonary vasculature is achieved and no filling defects are identified to suggest pulmonary embolus. Moderate atherosclerotic changes to the thoracic aorta and coronary arteries noted with mild cardiomegaly. No pericardial effusion is appreciated. Bilateral lung key demonstrate chronic age-related interstitial changes and mild emphysematous disease. Trace basilar atelectasis is suggested (left greater than right) no effusion. No pneumothorax. No adenopathy. Moderate hiatal hernia noted. Cholelithiasis. Normal bilateral adrenal glands. Musculoskeletal structures demonstrate age-related degenerative changes. Impression: No evidence for pulmonary embolus. Chronic interstitial changes with mild emphysematous changes. Mild basilar atelectasis (left greater than right). Hiatal hernia. Signed by Stephen Pandya MD 04/25/2016 12:41 P
--- NOTE | 2016-04-25 14:19 | EDDOCDS ---
Physician Documentation [facility] Name: Nancy Nicolas Age: 89 yrs Sex: Female : 1925 Arrival Date: 04/25/2016 Time: 10:15 Bed 13 Private MD: Laura Posey DO Disposition: 04/25/16 13:46 Discharged to Home/Self Care. Impression: Chest pain, unspecified, Abdominal and pelvic pain. - Condition is Stable. - Discharge Instructions: Abdominal Pain, Adult, Nonspecific Chest Pain, Diarrhea. - Prescriptions for ZOFRAN ODT 4 mg - dissolve 1 tablet by ORAL route 4 times per day As needed do not chew, do not swallow whole; 10 tablet. - Medication Reconciliation, Local Pharmacy Hours form. - Follow up: Laura Posey; When: 2 - 3 days. Follow up: Casper Joshi; When: Call to arrange an appointment. Follow up: Evelio Hill MD; When: Call to arrange an appointment. - Problem is new. - Symptoms have improved. - Notes: follow up with Shraddha Hill and Dr Joshi. Return if worsening symptoms Historical: - Allergies: Bees; PENICILLINS; seafood; - Home Meds: 1. Advair Diskus 250-50 mcg/dose Inhl dsdv 1 puff 2 times per day 2. budesonide 3 mg oral CECX 3 caps once daily 3. Imodium A-D oral 2 tabs as needed 4. Norvasc 5 mg Oral tab 1 tab once daily 5. omeprazole 40 mg Oral cpDR 1 cap once daily 6. Spiriva with HandiHaler 18 mcg Inhl CpDv 1 cap once daily 7. sucralfate 1 gram Oral tab 4 times per day 8. Vitamin B-12 Oral daily 9. Vitamin B6 Unknown daily 10. Vitamin C Oral 500 mg daily 11. Vitamin D3 1,000 unit oral tab daily - PMHx: Cancer, Colon; COPD; GERD; Gout; Hypertension; Lyme Disease; - PSHx: Hysterectomy; Colon Resection; Pacemaker Insertion (May 2015); - Social history: Smoking status: Patient states former smoker of tobacco. No barriers to communication noted. - Family history: Not pertinent. - : The pt / caregiver states he / she is not on anticoagulants. Home medication list is obtained from the patient. - Exposure Risk Screening:: None identified. Vital Signs: 04/25 10:32 BP 101 / 69 (auto/); mk4 10:34 Pulse 74 MON; Resp 20; Pulse Ox 100% ; mk4 10:52 Temp 97.3(O); mk4 11:31 Pulse 74 MON; Pulse Ox 100% ; cjh 11:32 BP 99 / 64 (auto/); cjh 12:01 Pulse 70 MON; Pulse Ox 99% ; cjh 12:02 BP 105 / 67 (auto/); cjh 12:31 Pulse 68 MON; Pulse Ox 99% ; cjh 12:32 BP 118 / 73 (auto/); cjh 13:01 Pulse 68 MON; Pulse Ox 99% ; cjh 13:02 BP 117 / 73 (auto/); cjh 13:31 Pulse 74 MON; Pulse Ox 98% ; cjh 13:32 BP 146 / 76 (auto/); cjh 13:55 BP 135 / 78 (auto/); cjh 13:55 BP 135 / 78; Pulse 72 MON; Resp 18; Temp 97.6; Pulse Ox 99% ; Pain 0/10; cjh MDM: 10:22 ECG WITH READING ER PHYS+CARDIAG ordered. EDMS 10:31 IV Saline Lock ordered. ml 10:31 Vegetable Scullion/Pulse Ox/q 15 min VS ordered. ml 10:31 Rhythm Strip to chart ordered. ml 10:32 CBC with Diff Ordered. EDMS 10:32 MED Profile Ordered. EDMS 10:32 CIP Ordered. EDMS 10:32 Troponin Ordered. EDMS 10:32 Liver Profile Ordered. EDMS 10:32 Lipase Ordered. EDMS 10:33 Chest, 1 View Ordered. EDMS 11:06 Acetaminophen Tablet 650 mg PO once ordered. ml 11:26 CBC with Diff Reviewed. ml 11:26 MED Profile Reviewed. ml 11:26 CIP Reviewed. ml 11:26 Liver Profile Reviewed. ml 11:26 Troponin Reviewed. ml 11:26 Lipase Reviewed. ml 11:26 Chest, 1 View Reviewed. ml 11:27 CT Chest Angio R/O PE Ordered. EDMS 11:29 Financial registration complete. mm15 11:31 [facility] Payment Agreement was scanned into [employer] and attached to record. mm15 Administered Medications: 11:12 Drug: Acetaminophen 650 mg [acetaminophen 325 mg tablet (2 tabs)] Route: PO; kr3 Signatures: Dispatcher MedHost EDMS Lundborg-Maynard, Maja, MD MD ml Karely AvilaRN RN [facility] Evonne Doherty mm15 Yomaira Ortega RN RN mk4 Edel Dickinson RN kr3 The chart was reviewed and I authenticate all verbal orders and agree with the evaluation and treatment provided.Attachments: 11:31 [facility] Payment Agreement mm15 MTDD
--- NOTE | 2016-04-25 14:20 | EDDOCDS ---
Nurse's Notes [facility] Name: Nancy Nicolas Age: 89 yrs Sex: Female : 1925 Arrival Date: 04/25/2016 Time: 10:15 Bed 13 Private MD: Laura Posey DO Diagnosis: Chest pain, unspecified;Abdominal and pelvic pain Presentation: 04/25 10:26 Presenting complaint: Patient states: pt states she had chest pain an hour ago which is mk4 gone now ( pt had 2 nitros by EMS) however she has a terrible pounding in her right ear which started yesterday. Aspirin was not taken prior to arrival. recent gi bleed. Adult Sepsis Screening: The patient does not have new or worsening altered mentation. Patient's respiratory rate is less than 22. Systolic blood pressure is greater than 100. Patient has a qSOFA score of 0- Negative Sepsis Screen. Suicide/Homicide risk assessment- the patient denies having any suicidal and/or homicidal ideations and does not present with any other emotional, behavioral or mental health complaints. Status: Patient is not a media services coordinator or dependent. Transition of care: patient was not received from another setting of care. 10:26 Acuity: HARPER Level 3 mk4 10:26 Method Of Arrival: Ambulance mk4 Triage Assessment: 10:26 General: Appears uncomfortable. Pain: Location: right ear. mk4 10:26 Cardiovascular: Chest pain is denied. mk4 Historical: - Allergies: Bees; PENICILLINS; seafood; - Home Meds: 1. Advair Diskus 250-50 mcg/dose Inhl dsdv 1 puff 2 times per day 2. budesonide 3 mg oral CECX 3 caps once daily 3. Imodium A-D oral 2 tabs as needed 4. Norvasc 5 mg Oral tab 1 tab once daily 5. omeprazole 40 mg Oral cpDR 1 cap once daily 6. Spiriva with HandiHaler 18 mcg Inhl CpDv 1 cap once daily 7. sucralfate 1 gram Oral tab 4 times per day 8. Vitamin B-12 Oral daily 9. Vitamin B6 Unknown daily 10. Vitamin C Oral 500 mg daily 11. Vitamin D3 1,000 unit oral tab daily - PMHx: Cancer, Colon; COPD; GERD; Gout; Hypertension; Lyme Disease; - PSHx: Hysterectomy; Colon Resection; Pacemaker Insertion (May 2015); - Social history: Smoking status: Patient states former smoker of tobacco. No barriers to communication noted. - Family history: Not pertinent. - : The pt / caregiver states he / she is not on anticoagulants. Home medication list is obtained from the patient. - Exposure Risk Screening:: None identified. Screenin:43 Screening information is obtained from the patient. Fall risk: At risk due to age, gait mk4 disturbance, The following interventions are performed due to a positive Fall Risk Screen: Fall Risk is added to Special Handling on the patient Summary Screen. A Fall Risk Bracelet was applied to the patient. Side Rails are placed in the up position. A Call Iniguez is given with instruction to call for help when getting out of bed. Fall Alert bracelet is placed on the patient. Abuse/DV Screen: The patient / caregiver reports he/she is: not in a situation that causes fear, pain or injury. 13:55 Assistance ADL's: requires no assistance with activities of daily living. Nutritional [facility] screening: No deficits noted. Advance Directives: There is no active DNR order. home support is adequate. Assessment: 10:43 General: Appears in no apparent distress, pt states on arrival she has no chest pain, mk4 states her right ear is pounding badly though . Neurological: Level of Consciousness is awake, alert, Oriented to person, place, time. Cardiovascular: Rhythm is regular. Respiratory: Airway is patent Respiratory effort is even, unlabored, Respiratory pattern is regular, Breath sounds are diminished bilaterally. Derm: Skin is intact, is healthy with good turgor, Skin is pink, warm & dry. 10:52 General: Appears in no apparent distress, comfortable, pt reports that she is having mk4 some left upper abd pain just now .. 11:55 General: transported to CT via tech. [facility] 12:22 General: returned from CT, reports nausea and belly rumbling that's been going on for a [facility] month, denies chest pain, at bedside. Pain: Denies pain. Neurological: Level of Consciousness is awake, alert, Oriented to person, place, time. Cardiovascular: Rhythm is sinus rhythm. Respiratory: Airway is patent Respiratory effort is even, unlabored, Respiratory pattern is regular, symmetrical. GI: Abdomen is non- distended Bowel sounds hyperactive in right upper quadrant, left upper quadrant, right lower quadrant and left lower quadrant Abd is soft and non tender X 4 quads. Reports nausea. Derm: Skin is pink, warm & dry. 13:30 General: son at bedside, denies pain or other needs at present, awaiting dispo, will cjh continue to monitor. 14:10 Reassessment: Patient appears in no apparent distress at this time. Patient denies pain cjh at this time. General: Appears in no apparent distress, comfortable, Behavior is appropriate for age, cooperative, reviewed discharge instructions, relayed concerns to provider, reinforced follow up care and recommendations and provided information regarding where she could potato picker prescription for Zofran which she requested. Vital Signs: 10:32 BP 101 / 69 (auto/); mk4 10:34 Pulse 74 MON; Resp 20; Pulse Ox 100% ; mk4 10:52 Temp 97.3(O); mk4 11:31 Pulse 74 MON; Pulse Ox 100% ; cjh 11:32 BP 99 / 64 (auto/); cjh 12:01 Pulse 70 MON; Pulse Ox 99% ; cjh 12:02 BP 105 / 67 (auto/); cjh 12:31 Pulse 68 MON; Pulse Ox 99% ; cjh 12:32 BP 118 / 73 (auto/); cjh 13:01 Pulse 68 MON; Pulse Ox 99% ; cjh 13:02 BP 117 / 73 (auto/); cjh 13:31 Pulse 74 MON; Pulse Ox 98% ; cjh 13:32 BP 146 / 76 (auto/); cjh 13:55 BP 135 / 78 (auto/); cjh 13:55 BP 135 / 78; Pulse 72 MON; Resp 18; Temp 97.6; Pulse Ox 99% ; Pain 0/10; cjh Vitals: 10:26 Log In Time N/A - ambulance arrival. mk4 ED Course: 10:16 Patient visited by Gudelia Valera PCA. rs6 10:16 Laura Posey is Private Physician. rs6 10:16 Patient moved to Waiting rs6 10:16 Patient moved to 13 rs6 10:30 Triage Initiated mk4 10:41 Lipase Sent. mk4 10:41 Liver Profile Sent. mk4 10:41 Troponin Sent. mk4 10:41 CIP Sent. mk4 10:42 MED Profile Sent. mk4 10:42 CBC with Diff Sent. mk4 10:43 The patient / caregiver is instructed regarding the plan of care and ED course. Cardiac mk4 monitor on. Pulse ox on. NIBP on. 10:43 Maintain field IV. Dressing intact. Good blood return noted. Site clean & dry. Gauge & mk4 site: 20 jelco right ac. 10:51 Patient visited by Yomaira Ortega RN. mk4 10:58 Mitch Mcfarlane MD is Attending Physician. ml 10:58 Patient visited by Mitch Mcfarlane MD. ml 11:16 Chest, 1 View Returned. EDMS 11:31 [facility] Payment Agreement was scanned into [employer] and attached to record. mm15 12:09 Patient visited by Rajwinder Valdivia PCA. ar3 12:45 Patient visited by Karely Avila RN. [facility] 13:17 CT Chest Angio R/O PE Returned. EDMS 13:44 Patient visited by Rajwinder Valdivia PCA. ar3 13:45 Laura Posey is Referral Physician. ml 13:45 Casper Joshi is Referral Physician. ml 13:45 Evelio Hill MD is Referral Physician. ml 13:55 Discontinued lock intact, bleeding controlled, pressure dressing applied, No [facility] redness/swelling at site. No procedures done that require assistance. Administered Medications: 11:12 Drug: Acetaminophen 650 mg [acetaminophen 325 mg tablet (2 tabs)] Route: PO; kr3 Order Results: Lab Order: CBC with Diff; SPEC'M 04/25/16 10:38 Test: WHITE BLOOD COUNT; Value: 9.6; Range: 4.0-10.0; Units: K/mm3; Status: F Test: RED BLOOD COUNT; Value: 4.32; Range: 4.00-5.40; Units: M/mm3; Status: F Test: HEMOGLOBIN; Value: 13.4; Range: 12.0-16.0; Units: g/dl; Status: F Test: HEMATOCRIT; Value: 40.0; Range: 36.0-47.0; Units: %; Status: F Test: MEAN CORPUSCULAR VOLUME; Value: 92.5; Range: 80.0-96.0; Units: fl; Status: F Test: MEAN CORPUSCULAR HEMOGLOBIN; Value: 31.0; Range: 27.0-33.0; Units: pg; Status: F Test: MEAN CORPUSCULAR HGB CONC; Value: 33.5; Range: 32.0-36.5; Units: g/dl; Status: F Test: RED CELL DISTRIBUTION WIDTH; Value: 12.8; Range: 11.5-14.5; Units: %; Status: F Test: PLATELET COUNT, AUTOMATED; Value: 269; Range: 150-450; Units: k/mm3; Status: F Test: NEUTROPHILS %; Value: 62.4; Range: 36.0-66.0; Units: %; Status: F Test: LYMPH %; Value: 25.1; Range: 24.0-44.0; Units: %; Status: F Test: MONO %; Value: 6.5; Range: 0.0-5.0; Abnormal: Above high normal; Units: %; Status: F Test: EOS %; Value: 4.2; Range: 0.0-3.0; Abnormal: Above high normal; Units: %; Status: F Test: BASO %; Value: 0.7; Range: 0.0-1.0; Units: %; Status: F Test: LARGE UNSTAINED CELL %; Value: 1.1; Range: 0.0-4.0; Units: %; Status: F Test: NEUTROPHILS #; Value: 6.0; Range: 1.8-7.7; Units: K/mm3; Status: F Test: LYMPH #; Value: 2.5; Range: 1.5-4.5; Units: K/mm3; Status: F Test: MONO #; Value: 0.6; Range: 0.0-0.8; Units: K/mm3; Status: F Test: EOS #; Value: 0.4; Range: 0.0-0.50; Units: K/mm3; Status: F Test: BASO #; Value: 0.1; Range: 0.0-0.2; Units: K/mm3; Status: F Test: LARGE UNSTAINED CELL #; Value: 0.1; Range: 0.0-0.4; Units: K/mm3; Status: F Lab Order: MED Profile; SPEC'M 04/25/16 10:38 Test: GLUCOSE, FASTING; Value: 101; Range: 83-110; Units: MG/DL; Status: F Test: BLOOD UREA NITROGEN; Value: 26; Range: 7-18; Abnormal: Above high normal; Units: MG/DL; Status: F Test: CREATININE FOR GFR; Value: 1.23; Range: 0.55-1.02; Abnormal: Above high normal; Units: MG/DL; Status: F Test: GLOMERULAR FILTRATION RATE; Value: 43.9; Range: >32; Status: F Test: SODIUM LEVEL; Value: 142; Range: 136-145; Units: MEQ/L; Status: F Test: POTASSIUM SERUM; Value: 4.1; Range: 3.5-5.1; Units: MEQ/L; Status: F Test: CHLORIDE LEVEL; Value: 105; Range: 98-107; Units: MEQ/L; Status: F Test: CARBON DIOXIDE LEVEL; Value: 26; Range: 21-32; Units: MEQ/L; Status: F Test: ANION GAP; Value: 11; Range: 8-16; Units: MEQ/L; Status: F Test: CALCIUM LEVEL; Value: 8.3; Range: 8.8-10.2; Abnormal: Below low normal; Units: MG/DL; Status: F Test Note: ; Units are mL/min/1.73 m2 Chronic Kidney Disease Staging per NKF: Stage I & II GFR >=60 Normal to Mildly Decreased Stage III GFR 30-59 Moderately Decreased Stage IV GFR 15-29 Severely Decreased Stage V GFR <15 Very Little GFR Left ESRD GFR <15 on WATCH AND CLOCK [employer]KER AND REPAIRER Lab Order: CIP; SPEC'M 04/25/16 10:38 Test: CPK CREATINE PHOSPHOKINASE; Value: 64; Range: 26-192; Units: U/L; Status: F Test: CK-MB VALUE MASS; Value: 3.0; Range: 0.0-3.6; Units: NG/ML; Status: F Test: MB/CK RELATIVE INDEX; Value: 4.68; Range: < OR =4; Abnormal: Above high normal; Status: F Test Note: ; DIAGNOSIS CRITERIA MMB ng/ml Relative Index (RI) NON-AMI < or = 5 N/A CHAVEZ ZONE > 5 < or = 4 AMI > 5 > 4 Lab Order: Troponin; SPEC'M 04/25/16 10:38 Test: TROPONIN I; Value: < 0.02; Range: < 0.10; Units: NG/ML; Status: F Test Note: ; Troponin I Reference Interval for Siemens [place] LOCI: 99th Percentile= 0.00-0.045 ng/ml Risk Stratification: <= 0.10 ng/ml Decreased Risk for Adverse Clinical Events. 0.10-1.50 ng/ml Increased Risk for Adverse Clinical Events. Evaluation of additional criterion and/or repeat testing in 2-6 hours is suggested to rule out myocardial damage. >= 1.50 ng/ml Indicative of Myocardial Injury. Lab Order: Liver Profile; SPEC'M 04/25/16 10:38 Test: AST/SGOT; Value: 18; Range: 15-37; Units: U/L; Status: F Test: ALT/SGPT; Value: 20; Range: 12-78; Units: U/L; Status: F Test: ALKALINE PHOSPHATASE; Value: 64; Range: 45-117; Units: U/L; Status: F Test: BILIRUBIN,TOTAL; Value: 0.5; Range: 0.2-1.0; Units: MG/DL; Status: F Test: BILIRUBIN,DIRECT; Value: < 0.1; Range: 0.0-0.2; Units: MG/DL; Status: F Test: TOTAL PROTEIN; Value: 6.2; Range: 6.4-8.2; Abnormal: Below low normal; Units: GM/DL; Status: F Test: ALBUMIN; Value: 3.0; Range: 3.2-5.2; Abnormal: Below low normal; Units: GM/DL; Status: F Test: ALBUMIN/GLOBULIN RATIO; Value: 0.94; Range: 1.00-1.93; Abnormal: Below low normal; Status: F Lab Order: Lipase; SPEC'M 04/25/16 10:38 Test: LIPASE; Value: 95; Range: 73-393; Units: U/L; Status: F Radiology Order: Chest, 1 View Test: Chest, 1 View REASON FOR EXAMINATION: cp; ; SINGLE-VIEW CHEST:; ; Single, portable view of the chest is performed and compared to prior study of; 06/26/2015.; ; There is mild interstitial fibrosis bilaterally which appears stable. I see no; evidence of acute infiltrate or pulmonary edema. Heart is upper limits of normal; in size. There is calcification and tortuosity of the thoracic aorta. The; mediastinal silhouette is unchanged. Left dual-lead pacemaker is noted.; ; IMPRESSION:; Stable chronic findings without evidence of acute pulmonary disease.; ; ; ; Unreviewed; Radiology Order: CT Chest Angio R/O PE Test: CT Chest Angio R/O PE REASON FOR EXAMINATION: Chest Pain; Clinical: Acute chest pain.; ; Technique: Axial contrast enhanced images from the thoracic inlet to the upper; abdomen using 100 ml Isovue 370 intravenous contrast material with coronal and; sagittal re-formations.; ; Findings: Satisfactory enhancement of the pulmonary vasculature is achieved and; no filling defects are identified to suggest pulmonary embolus. Moderate; atherosclerotic changes to the thoracic aorta and coronary arteries noted with; mild cardiomegaly. No pericardial effusion is appreciated. Bilateral lung; key demonstrate chronic age-related interstitial changes and mild; emphysematous disease. Trace basilar atelectasis is suggested (left greater than; right) no effusion. No pneumothorax. No adenopathy.; ; Moderate hiatal hernia noted. Cholelithiasis. 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 ml 13:55 Discharge Assessment: Patient awake, alert and oriented x 3. No cognitive and/or cjh functional deficits noted. Patient verbalized understanding of disposition instructions. patient administered narcotics - no. The following High Risk Discharge criteria are identified: None. Discharged to home ambulatory, with family, assisted via staff to waiting area where son will meet her at curb, ambulates with steady gait and no assist required. Condition: good Condition: stable Condition: improved. Discharge instructions given to patient, Instructed on discharge instructions, follow up and referral plans. medication usage, Demonstrated understanding of instructions, medications, Pt was receptive of discharge instructions/ teaching. Prescriptions given X 1. No special radiology studies were completed. Property :Personal belongings accompany Pt. 14:18 Patient left the ED. [facility] Signatures: Dispatcher [employer] EDMN Mitch Mcfarlane MD MD ml Robie, Kathleen,RN RN kr3 Rajwinder Valdivia, RELATIONSHIP SPECIALIST RELATIONSHIP SPECIALIST ar3 Karely Avila RN RN [facility] Evonne Doherty mm15 Yomaira Ortega RN RN mk4 Valera, Gudelia, RELATIONSHIP SPECIALIST RELATIONSHIP SPECIALIST rs6 MTDD
[2016-04-26] MEDS ORDERED: METAL LOCK LOOP XX ONE ×2 (02:07→02:08)
--- NOTE | 2016-04-26 07:50 | ECGEPIP ---
Stationary ECG Study [facility] - ED Test Date: 2016-04-25 Pat Name: JOHNNY LOZADA Department: Room: - Gender: F [employer] [place] Yarder: : 1925 Requested By: Mitch Mcfarlane Order Number: [id number] Reading MD: Lynsey Ozuna Measurements Intervals [place] Rate: 78 P: 58 GA: 157 QRS: -64 QRSD: 133 T: 38 QT: 414 QTc: 472 Interpretive Statements SINUS RHYTHM WITH FREQUENT VENTRICULAR PREMATURE COMPLEXES INDETERMINATE AXIS RIGHT BUNDLE BRANCH BLOCK LEFT ANTERIOR FASCICULAR BLOCK INFERIOR INFARCT ?AGE PRIOR VENTRICULAR PACING 05/27/15 Electronically Signed On 04-26-2016 7:49:56 EST by Lynsey Ozuna
--- NOTE | 2016-04-27 15:19 | EDDOCDS ---
Physician Documentation [facility] Name: Nancy Nicolas Age: 89 yrs Sex: Female : 1925 Arrival Date: 04/25/2016 Time: 10:15 Bed 13 Private MD: Laura Posey DO Disposition: 04/25/16 13:46 Discharged to Home/Self Care. Impression: Chest pain, unspecified, Abdominal and pelvic pain. - Condition is Stable. - Discharge Instructions: Abdominal Pain, Adult, Nonspecific Chest Pain, Diarrhea. - Prescriptions for ZOFRAN ODT 4 mg - dissolve 1 tablet by ORAL route 4 times per day As needed do not chew, do not swallow whole; 10 tablet. - Medication Reconciliation, Local Pharmacy Hours form. - Follow up: Laura Posey; When: 2 - 3 days. Follow up: Casper Joshi; When: Call to arrange an appointment. Follow up: Evelio Hill MD; When: Call to arrange an appointment. - Problem is new. - Symptoms have improved. - Notes: follow up with Shraddha Hill and Dr Joshi. Return if worsening symptoms Historical: - Allergies: Bees; PENICILLINS; seafood; - Home Meds: 1. Advair Diskus 250-50 mcg/dose Inhl dsdv 1 puff 2 times per day 2. budesonide 3 mg oral CECX 3 caps once daily 3. Imodium A-D oral 2 tabs as needed 4. Norvasc 5 mg Oral tab 1 tab once daily 5. omeprazole 40 mg Oral cpDR 1 cap once daily 6. Spiriva with HandiHaler 18 mcg Inhl CpDv 1 cap once daily 7. sucralfate 1 gram Oral tab 4 times per day 8. Vitamin B-12 Oral daily 9. Vitamin B6 Unknown daily 10. Vitamin C Oral 500 mg daily 11. Vitamin D3 1,000 unit oral tab daily - PMHx: Cancer, Colon; COPD; GERD; Gout; Hypertension; Lyme Disease; - PSHx: Hysterectomy; Colon Resection; Pacemaker Insertion (May 2015); - Social history: Smoking status: Patient states former smoker of tobacco. No barriers to communication noted. - Family history: Not pertinent. - : The pt / caregiver states he / she is not on anticoagulants. Home medication list is obtained from the patient. - Exposure Risk Screening:: None identified. Vital Signs: 04/25 10:32 BP 101 / 69 (auto/); mk4 10:34 Pulse 74 MON; Resp 20; Pulse Ox 100% ; mk4 10:52 Temp 97.3(O); mk4 11:31 Pulse 74 MON; Pulse Ox 100% ; cjh 11:32 BP 99 / 64 (auto/); cjh 12:01 Pulse 70 MON; Pulse Ox 99% ; cjh 12:02 BP 105 / 67 (auto/); cjh 12:31 Pulse 68 MON; Pulse Ox 99% ; cjh 12:32 BP 118 / 73 (auto/); cjh 13:01 Pulse 68 MON; Pulse Ox 99% ; cjh 13:02 BP 117 / 73 (auto/); cjh 13:31 Pulse 74 MON; Pulse Ox 98% ; cjh 13:32 BP 146 / 76 (auto/); cjh 13:55 BP 135 / 78 (auto/); cjh 13:55 BP 135 / 78; Pulse 72 MON; Resp 18; Temp 97.6; Pulse Ox 99% ; Pain 0/10; cjh MDM: 10:22 ECG WITH READING ER PHYS+CARDIAG ordered. EDMS 10:31 IV Saline Lock ordered. ml 10:31 Disbursement Clerk/Pulse Ox/q 15 min VS ordered. ml 10:31 Rhythm Strip to chart ordered. ml 10:32 CBC with Diff Ordered. EDMS 10:32 MED Profile Ordered. EDMS 10:32 CIP Ordered. EDMS 10:32 Troponin Ordered. EDMS 10:32 Liver Profile Ordered. EDMS 10:32 Lipase Ordered. EDMS 10:33 Chest, 1 View Ordered. EDMS 11:06 Acetaminophen Tablet 650 mg PO once ordered. ml 11:26 CBC with Diff Reviewed. ml 11:26 MED Profile Reviewed. ml 11:26 CIP Reviewed. ml 11:26 Liver Profile Reviewed. ml 11:26 Troponin Reviewed. ml 11:26 Lipase Reviewed. ml 11:26 Chest, 1 View Reviewed. ml 11:27 CT Chest Angio R/O PE Ordered. EDMS 11:29 Financial registration complete. mm15 11:31 [facility] Payment Agreement was scanned into [employer] and attached to record. mm15 04/26 09:12 ECG/EKG was scanned into [employer] and attached to record. 09:13 Rhythm Strip was scanned into [employer] and attached to record. gb Administered Medications: 04/25 11:12 Drug: Acetaminophen 650 mg [acetaminophen 325 mg tablet (2 tabs)] Route: PO; kr3 Signatures: Dispatcher [employer] EDMitch Batres MD MD Bhargavi Jauregui, Reg Reg Karely AvilaRN RN [facility] Evonne Doherty mm15 Yomaira Ortega RN RN 4 Edel Dickinson RN kr3 The chart was reviewed and I authenticate all verbal orders and agree with the evaluation and treatment provided.Attachments: 11:31 [facility] Payment Agreement [email or web address] 04/26 09:12 ECG/EKG gb Chart Complete MTDD
--- NOTE | 2016-04-27 15:19 | EDDOCDS ---
Nurse's Notes [facility] Name: Johnny Lozada Age: 89 yrs Sex: Female : 1925 Arrival Date: 04/25/2016 Time: 10:15 Bed 13 Private MD: Laura Posey DO Diagnosis: Chest pain, unspecified;Abdominal and pelvic pain Presentation: 04/25 10:26 Presenting complaint: Patient states: pt states she had chest pain an hour ago which is mk4 gone now ( pt had 2 nitros by EMS) however she has a terrible pounding in her right ear which started yesterday. Aspirin was not taken prior to arrival. recent gi bleed. Adult Sepsis Screening: The patient does not have new or worsening altered mentation. Patient's respiratory rate is less than 22. Systolic blood pressure is greater than 100. Patient has a qSOFA score of 0- Negative Sepsis Screen. Suicide/Homicide risk assessment- the patient denies having any suicidal and/or homicidal ideations and does not present with any other emotional, behavioral or mental health complaints. 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 Transition of care: patient was not received from another setting of care. 10:26 Acuity: HARPER Level 3 mk4 10:26 Method Of Arrival: Ambulance mk4 Triage Assessment: 10:26 General: Appears uncomfortable. Pain: Location: right ear. mk4 10:26 Cardiovascular: Chest pain is denied. mk4 Historical: - Allergies: Bees; PENICILLINS; seafood; - Home Meds: 1. Advair Diskus 250-50 mcg/dose Inhl dsdv 1 puff 2 times per day 2. budesonide 3 mg oral CECX 3 caps once daily 3. Imodium A-D oral 2 tabs as needed 4. Norvasc 5 mg Oral tab 1 tab once daily 5. omeprazole 40 mg Oral cpDR 1 cap once daily 6. Spiriva with HandiHaler 18 mcg Inhl CpDv 1 cap once daily 7. sucralfate 1 gram Oral tab 4 times per day 8. Vitamin B-12 Oral daily 9. Vitamin B6 Unknown daily 10. Vitamin C Oral 500 mg daily 11. Vitamin D3 1,000 unit oral tab daily - PMHx: Cancer, Colon; COPD; GERD; Gout; Hypertension; Lyme Disease; - PSHx: Hysterectomy; Colon Resection; Pacemaker Insertion (May 2015); - Social history: Smoking status: Patient states former smoker of tobacco. No barriers to communication noted. - Family history: Not pertinent. - : The pt / caregiver states he / she is not on anticoagulants. Home medication list is obtained from the patient. - Exposure Risk Screening:: None identified. Screenin:43 Screening information is obtained from the patient. Fall risk: At risk due to age, gait mk4 disturbance, The following interventions are performed due to a positive Fall Risk Screen: Fall Risk is added to Special Handling on the patient Summary Screen. A Fall Risk Bracelet was applied to the patient. Side Rails are placed in the up position. A Call Iniguez is given with instruction to call for help when getting out of bed. Fall Alert bracelet is placed on the patient. Abuse/DV Screen: The patient / caregiver reports he/she is: not in a situation that causes fear, pain or injury. 13:55 Assistance ADL's: requires no assistance with activities of daily living. Nutritional [facility] screening: No deficits noted. Advance Directives: There is no active DNR order. home support is adequate. Assessment: 10:43 General: Appears in no apparent distress, pt states on arrival she has no chest pain, mk4 states her right ear is pounding badly though . Neurological: Level of Consciousness is awake, alert, Oriented to person, place, time. Cardiovascular: Rhythm is regular. Respiratory: Airway is patent Respiratory effort is even, unlabored, Respiratory pattern is regular, Breath sounds are diminished bilaterally. Derm: Skin is intact, is healthy with good turgor, Skin is pink, warm & dry. 10:52 General: Appears in no apparent distress, comfortable, pt reports that she is having mk4 some left upper abd pain just now .. 11:55 General: transported to CT via tech. [facility] 12:22 General: returned from CT, reports nausea and belly rumbling that's been going on for a [facility] month, denies chest pain, at bedside. Pain: Denies pain. Neurological: Level of Consciousness is awake, alert, Oriented to person, place, time. Cardiovascular: Rhythm is sinus rhythm. Respiratory: Airway is patent Respiratory effort is even, unlabored, Respiratory pattern is regular, symmetrical. GI: Abdomen is non- distended Bowel sounds hyperactive in right upper quadrant, left upper quadrant, right lower quadrant and left lower quadrant Abd is soft and non tender X 4 quads. Reports nausea. Derm: Skin is pink, warm & dry. 13:30 General: son at bedside, denies pain or other needs at present, awaiting dispo, will cjh continue to monitor. 14:10 Reassessment: Patient appears in no apparent distress at this time. Patient denies pain cjh at this time. General: Appears in no apparent distress, comfortable, Behavior is appropriate for age, cooperative, reviewed discharge instructions, relayed concerns to provider, reinforced follow up care and recommendations and provided information regarding where she could pickle maker prescription for Zofran which she requested. Vital Signs: 10:32 BP 101 / 69 (auto/); mk4 10:34 Pulse 74 MON; Resp 20; Pulse Ox 100% ; mk4 10:52 Temp 97.3(O); mk4 11:31 Pulse 74 MON; Pulse Ox 100% ; cjh 11:32 BP 99 / 64 (auto/); cjh 12:01 Pulse 70 MON; Pulse Ox 99% ; cjh 12:02 BP 105 / 67 (auto/); cjh 12:31 Pulse 68 MON; Pulse Ox 99% ; cjh 12:32 BP 118 / 73 (auto/); cjh 13:01 Pulse 68 MON; Pulse Ox 99% ; cjh 13:02 BP 117 / 73 (auto/); cjh 13:31 Pulse 74 MON; Pulse Ox 98% ; cjh 13:32 BP 146 / 76 (auto/); cjh 13:55 BP 135 / 78 (auto/); cjh 13:55 BP 135 / 78; Pulse 72 MON; Resp 18; Temp 97.6; Pulse Ox 99% ; Pain 0/10; cjh Vitals: 10:26 Log In Time N/A - ambulance arrival. mk4 ED Course: 10:16 Patient visited by Gudelia Valera PCA. rs6 10:16 Laura Posey is Private Physician. rs6 10:16 Patient moved to Waiting rs6 10:16 Patient moved to 13 rs6 10:30 Triage Initiated mk4 10:41 Lipase Sent. mk4 10:41 Liver Profile Sent. mk4 10:41 Troponin Sent. mk4 10:41 CIP Sent. mk4 10:42 MED Profile Sent. mk4 10:42 CBC with Diff Sent. mk4 10:43 The patient / caregiver is instructed regarding the plan of care and ED course. Cardiac mk4 monitor on. Pulse ox on. NIBP on. 10:43 Maintain field IV. Dressing intact. Good blood return noted. Site clean & dry. Gauge & mk4 site: 20 jelco right ac. 10:51 Patient visited by Yomaira Ortega RN. mk4 10:58 Mitch Mcfarlane MD is Attending Physician. ml 10:58 Patient visited by Mitch Mcfarlane MD. ml 11:16 Chest, 1 View Returned. EDMS 11:31 [facility] Payment Agreement was scanned into [employer] and attached to record. mm15 12:09 Patient visited by Rajwinder Valdivia PCA. ar3 12:45 Patient visited by Karely Avila RN. [facility] 13:17 CT Chest Angio R/O PE Returned. EDMS 13:44 Patient visited by Rajwinder Valdivia PCA. ar3 13:45 Laura Posey is Referral Physician. ml 13:45 Casper Joshi is Referral Physician. ml 13:45 Evelio Hill MD is Referral Physician. ml 13:55 Discontinued lock intact, bleeding controlled, pressure dressing applied, No [facility] redness/swelling at site. No procedures done that require assistance. 14:22 Chest, 1 View Returned. EDMS 0214 08:04 EKG-ADULT Returned. EDMS 09:12 ECG/EKG was scanned into [employer] and attached to record. gb 09:13 Rhythm Strip was scanned into [employer] and attached to record. gb Administered Medications: 04/25 11:12 Drug: Acetaminophen 650 mg [acetaminophen 325 mg tablet (2 tabs)] Route: PO; kr3 Attachments: 09:13 Rhythm Strip gb Order Results: Lab Order: CBC with Diff; SPEC'M 04/25/16 10:38 Test: WHITE BLOOD COUNT; Value: 9.6; Range: 4.0-10.0; Units: K/mm3; Status: F Test: RED BLOOD COUNT; Value: 4.32; Range: 4.00-5.40; Units: M/mm3; Status: F Test: HEMOGLOBIN; Value: 13.4; Range: 12.0-16.0; Units: g/dl; Status: F Test: HEMATOCRIT; Value: 40.0; Range: 36.0-47.0; Units: %; Status: F Test: MEAN CORPUSCULAR VOLUME; Value: 92.5; Range: 80.0-96.0; Units: fl; Status: F Test: MEAN CORPUSCULAR HEMOGLOBIN; Value: 31.0; Range: 27.0-33.0; Units: pg; Status: F Test: MEAN CORPUSCULAR HGB CONC; Value: 33.5; Range: 32.0-36.5; Units: g/dl; Status: F Test: RED CELL DISTRIBUTION WIDTH; Value: 12.8; Range: 11.5-14.5; Units: %; Status: F Test: PLATELET COUNT, AUTOMATED; Value: 269; Range: 150-450; Units: k/mm3; Status: F Test: NEUTROPHILS %; Value: 62.4; Range: 36.0-66.0; Units: %; Status: F Test: LYMPH %; Value: 25.1; Range: 24.0-44.0; Units: %; Status: F Test: MONO %; Value: 6.5; Range: 0.0-5.0; Abnormal: Above high normal; Units: %; Status: F Test: EOS %; Value: 4.2; Range: 0.0-3.0; Abnormal: Above high normal; Units: %; Status: F Test: BASO %; Value: 0.7; Range: 0.0-1.0; Units: %; Status: F Test: LARGE UNSTAINED CELL %; Value: 1.1; Range: 0.0-4.0; Units: %; Status: F Test: NEUTROPHILS #; Value: 6.0; Range: 1.8-7.7; Units: K/mm3; Status: F Test: LYMPH #; Value: 2.5; Range: 1.5-4.5; Units: K/mm3; Status: F Test: MONO #; Value: 0.6; Range: 0.0-0.8; Units: K/mm3; Status: F Test: EOS #; Value: 0.4; Range: 0.0-0.50; Units: K/mm3; Status: F Test: BASO #; Value: 0.1; Range: 0.0-0.2; Units: K/mm3; Status: F Test: LARGE UNSTAINED CELL #; Value: 0.1; Range: 0.0-0.4; Units: K/mm3; Status: F Lab Order: MED Profile; [facility] 04/25/16 10:38 Test: GLUCOSE, FASTING; Value: 101; Range: 83-110; Units: MG/DL; Status: F Test: BLOOD UREA NITROGEN; Value: 26; Range: 7-18; Abnormal: Above high normal; Units: MG/DL; Status: F Test: CREATININE FOR GFR; Value: 1.23; Range: 0.55-1.02; Abnormal: Above high normal; Units: MG/DL; Status: F Test: GLOMERULAR FILTRATION RATE; Value: 43.9; Range: >32; Status: F Test: SODIUM LEVEL; Value: 142; Range: 136-145; Units: MEQ/L; Status: F Test: POTASSIUM SERUM; Value: 4.1; Range: 3.5-5.1; Units: MEQ/L; Status: F Test: CHLORIDE LEVEL; Value: 105; Range: 98-107; Units: MEQ/L; Status: F Test: CARBON DIOXIDE LEVEL; Value: 26; Range: 21-32; Units: MEQ/L; Status: F Test: ANION GAP; Value: 11; Range: 8-16; Units: MEQ/L; Status: F Test: CALCIUM LEVEL; Value: 8.3; Range: 8.8-10.2; Abnormal: Below low normal; Units: MG/DL; Status: F Test Note: ; Units are mL/min/1.73 m2 Chronic Kidney Disease Staging per NKF: Stage I & II GFR >=60 Normal to Mildly Decreased Stage III GFR 30-59 Moderately Decreased Stage IV GFR 15-29 Severely Decreased Stage V GFR <15 Very Little GFR Left ESRD GFR <15 on NURSES SUPERVISOR Lab Order: CIP; SPEC'04/25/16 10:38 Test: CPK CREATINE PHOSPHOKINASE; Value: 64; Range: 26-192; Units: U/L; Status: F Test: CK-MB VALUE MASS; Value: 3.0; Range: 0.0-3.6; Units: NG/ML; Status: F Test: MB/CK RELATIVE INDEX; Value: 4.68; Range: < OR =4; Abnormal: Above high normal; Status: F Test Note: ; DIAGNOSIS CRITERIA MMB ng/ml Relative Index (RI) NON-AMI < or = 5 N/A [place]ONE > 5 < or = 4 AMI > 5 > 4 Lab Order: Troponin; [facility]' 04/25/16 10:38 Test: TROPONIN I; Value: < 0.02; Range: < 0.10; Units: NG/ML; Status: F Test Note: ; Troponin I Reference Interval for KVK TEAM LOCI: 99th Percentile= 0.00-0.045 ng/ml Risk Stratification: <= 0.10 ng/ml Decreased Risk for Adverse Clinical Events. 0.10-1.50 ng/ml Increased Risk for Adverse Clinical Events. Evaluation of additional criterion and/or repeat testing in 2-6 hours is suggested to rule out myocardial damage. >= 1.50 ng/ml Indicative of Myocardial Injury. Lab Order: Liver Profile; [facility]' 04/25/16 10:38 Test: AST/SGOT; Value: 18; Range: 15-37; Units: U/L; Status: F Test: ALT/SGPT; Value: 20; Range: 12-78; Units: U/L; Status: F Test: ALKALINE PHOSPHATASE; Value: 64; Range: 45-117; Units: U/L; Status: F Test: BILIRUBIN,TOTAL; Value: 0.5; Range: 0.2-1.0; Units: MG/DL; Status: F Test: BILIRUBIN,DIRECT; Value: < 0.1; Range: 0.0-0.2; Units: MG/DL; Status: F Test: TOTAL PROTEIN; Value: 6.2; Range: 6.4-8.2; Abnormal: Below low normal; Units: GM/DL; Status: F Test: ALBUMIN; Value: 3.0; Range: 3.2-5.2; Abnormal: Below low normal; Units: GM/DL; Status: F Test: ALBUMIN/GLOBULIN RATIO; Value: 0.94; Range: 1.00-1.93; Abnormal: Below low normal; Status: F Lab Order: Lipase; 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:; : 1925 Requested By: Mitch Mcfarlane; Order Number: [id number] Reading MD: Lynsey Ozuna; Measurements; Intervals [place]; Rate: 78 P: 58; CT: 157 QRS: -64; QRSD: 133 T: 38; QT: 414; QTc: 472; Interpretive Statements; SINUS RHYTHM WITH FREQUENT VENTRICULAR PREMATURE COMPLEXES; INDETERMINATE AXIS; RIGHT BUNDLE BRANCH BLOCK; LEFT ANTERIOR FASCICULAR BLOCK; INFERIOR INFARCT ?AGE; PRIOR VENTRICULAR PACING 05/27/15; Electronically Signed On 04-26-2016 7:49:56 EST by Lynsey Ozuna; Radiology Order: Chest, 1 View Test: Chest, 1 View REASON FOR EXAMINATION: cp; SINGLE-VIEW CHEST:; ; Single, portable view of the chest is performed and compared to prior study of; 06/26/2015.; ; There is mild interstitial fibrosis bilaterally which appears stable. I see no; evidence of acute infiltrate or pulmonary edema. Heart is upper limits of normal; in size. There is calcification and tortuosity of the thoracic aorta. The; mediastinal silhouette is unchanged. Left dual-lead pacemaker is noted.; ; IMPRESSION:; ; Stable chronic findings without evidence of acute pulmonary disease.; ; ; Signed by; Dat Maynard MD 04/25/2016 02:17 P; Radiology Order: CT Chest Angio R/O PE Test: CT Chest Angio R/O PE REASON FOR EXAMINATION: Chest Pain; Clinical: Acute chest pain.; ; Technique: Axial contrast enhanced images from the thoracic inlet to the upper; abdomen using 100 ml Isovue 370 intravenous contrast material with coronal and; sagittal re-formations.; ; Findings: Satisfactory enhancement of the pulmonary vasculature is achieved and; no filling defects are identified to suggest pulmonary embolus. Moderate; atherosclerotic changes to the thoracic aorta and coronary arteries noted with; mild cardiomegaly. No pericardial effusion is appreciated. Bilateral lung; key demonstrate chronic age-related interstitial changes and mild; emphysematous disease. Trace basilar atelectasis is suggested (left greater than; right) no effusion. No pneumothorax. No adenopathy.; ; Moderate hiatal hernia noted. Cholelithiasis. 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 13:55 Discharge Assessment: Patient awake, alert and oriented x 3. No cognitive and/or [facility] functional deficits noted. Patient verbalized understanding of disposition instructions. patient administered narcotics - no. The following High Risk Discharge criteria are identified: None. Discharged to home ambulatory, with family, assisted via staff to waiting area where son will meet her at curb, ambulates with steady gait and no assist required. Condition: good Condition: stable Condition: improved. Discharge instructions given to patient, Instructed on discharge instructions, follow up and referral plans. medication usage, Demonstrated understanding of instructions, medications, Pt was receptive of discharge instructions/ teaching. Prescriptions given X 1. No special radiology studies were completed. Property :Personal belongings accompany Pt. 14:18 Patient left the ED. [facility] Signatures: Dispatcher [employer] EDMS Mitch Mcfarlane MD MD Bhargavi Jauregui, Reg Reg Edel Dickinson,RN RN kr3 Rajwinder Valdivia, CUTTER OPERATOR CUTTER OPERATOR ar3 Karely Avila RN RN [facility] Evonne Doherty mm15 Yomaira Ortega RN RN 4 Gudelia Valera, CUTTER OPERATOR CUTTER OPERATOR rs6 Chart Complete MTDD
--- NOTE | 2016-04-27 15:19 | EDDOCDS ---
Physician Documentation [facility] Name: Nancy Nicolas Age: 89 yrs Sex: Female : 1925 Arrival Date: 04/25/2016 Time: 10:15 Bed 13 Private MD: Laura Posey DO Disposition: 04/25/16 13:46 Discharged to Home/Self Care. Impression: Chest pain, unspecified, Abdominal and pelvic pain. - Condition is Stable. - Discharge Instructions: Abdominal Pain, Adult, Nonspecific Chest Pain, Diarrhea. - Prescriptions for ZOFRAN ODT 4 mg - dissolve 1 tablet by ORAL route 4 times per day As needed do not chew, do not swallow whole; 10 tablet. - Medication Reconciliation, Local Pharmacy Hours form. - Follow up: Laura Posey; When: 2 - 3 days. Follow up: Casper Joshi; When: Call to arrange an appointment. Follow up: Evelio Hill MD; When: Call to arrange an appointment. - Problem is new. - Symptoms have improved. - Notes: follow up with Shraddha Hill and Dr Joshi. Return if worsening symptoms Historical: - Allergies: Bees; PENICILLINS; seafood; - Home Meds: 1. Advair Diskus 250-50 mcg/dose Inhl dsdv 1 puff 2 times per day 2. budesonide 3 mg oral CECX 3 caps once daily 3. Imodium A-D oral 2 tabs as needed 4. Norvasc 5 mg Oral tab 1 tab once daily 5. omeprazole 40 mg Oral cpDR 1 cap once daily 6. Spiriva with HandiHaler 18 mcg Inhl CpDv 1 cap once daily 7. sucralfate 1 gram Oral tab 4 times per day 8. Vitamin B-12 Oral daily 9. Vitamin B6 Unknown daily 10. Vitamin C Oral 500 mg daily 11. Vitamin D3 1,000 unit oral tab daily - PMHx: Cancer, Colon; COPD; GERD; Gout; Hypertension; Lyme Disease; - PSHx: Hysterectomy; Colon Resection; Pacemaker Insertion (May 2015); - Social history: Smoking status: Patient states former smoker of tobacco. No barriers to communication noted. - Family history: Not pertinent. - : The pt / caregiver states he / she is not on anticoagulants. Home medication list is obtained from the patient. - Exposure Risk Screening:: None identified. Vital Signs: 04/25 10:32 BP 101 / 69 (auto/); mk4 10:34 Pulse 74 MON; Resp 20; Pulse Ox 100% ; mk4 10:52 Temp 97.3(O); mk4 11:31 Pulse 74 MON; Pulse Ox 100% ; cjh 11:32 BP 99 / 64 (auto/); cjh 12:01 Pulse 70 MON; Pulse Ox 99% ; cjh 12:02 BP 105 / 67 (auto/); cjh 12:31 Pulse 68 MON; Pulse Ox 99% ; cjh 12:32 BP 118 / 73 (auto/); cjh 13:01 Pulse 68 MON; Pulse Ox 99% ; cjh 13:02 BP 117 / 73 (auto/); cjh 13:31 Pulse 74 MON; Pulse Ox 98% ; cjh 13:32 BP 146 / 76 (auto/); cjh 13:55 BP 135 / 78 (auto/); cjh 13:55 BP 135 / 78; Pulse 72 MON; Resp 18; Temp 97.6; Pulse Ox 99% ; Pain 0/10; cjh MDM: 10:22 ECG WITH READING ER PHYS+CARDIAG ordered. EDMS 10:31 IV Saline Lock ordered. ml 10:31 Quill Worker/Pulse Ox/q 15 min VS ordered. ml 10:31 Rhythm Strip to chart ordered. ml 10:32 CBC with Diff Ordered. EDMS 10:32 MED Profile Ordered. EDMS 10:32 CIP Ordered. EDMS 10:32 Troponin Ordered. EDMS 10:32 Liver Profile Ordered. EDMS 10:32 Lipase Ordered. EDMS 10:33 Chest, 1 View Ordered. EDMS 11:06 Acetaminophen Tablet 650 mg PO once ordered. ml 11:26 CBC with Diff Reviewed. ml 11:26 MED Profile Reviewed. ml 11:26 CIP Reviewed. ml 11:26 Liver Profile Reviewed. ml 11:26 Troponin Reviewed. ml 11:26 Lipase Reviewed. ml 11:26 Chest, 1 View Reviewed. ml 11:27 CT Chest Angio R/O PE Ordered. EDMS 11:29 Financial registration complete. mm15 11:31 [facility] Payment Agreement was scanned into [employer] and attached to record. mm15 04/26 09:12 ECG/EKG was scanned into [employer] and attached to record. 09:13 Rhythm Strip was scanned into [employer] and attached to record. gb Administered Medications: 04/25 11:12 Drug: Acetaminophen 650 mg [acetaminophen 325 mg tablet (2 tabs)] Route: PO; kr3 Signatures: Dispatcher [employer] EDMitch Batres MD MD Bhargavi Jauregui, Reg Reg Karely AvilaRN RN [facility] Evonne Doherty mm15 Yomaira Ortega RN RN 4 Edel Dickinson RN kr3 The chart was reviewed and I authenticate all verbal orders and agree with the evaluation and treatment provided.Attachments: 11:31 [facility] Payment Agreement mm15 04/26 09:12 ECG/EKG gb Chart Complete MTDD
[2016-04-27] MEDS ORDERED: HYDR12.55 PO (19:04)
--- NOTE | 2016-04-29 13:44 | EDDOCDS ---
Nurse's Notes [facility] Name: Johnny Lozada Age: 89 yrs Sex: Female : 1925 Arrival Date: 04/25/2016 Time: 10:15 Bed 13 Private MD: Laura Posey DO Diagnosis: Chest pain, unspecified;Abdominal and pelvic pain Presentation: 04/25 10:26 Presenting complaint: Patient states: pt states she had chest pain an hour ago which is mk4 gone now ( pt had 2 nitros by EMS) however she has a terrible pounding in her right ear which started yesterday. Aspirin was not taken prior to arrival. recent gi bleed. Adult Sepsis Screening: The patient does not have new or worsening altered mentation. Patient's respiratory rate is less than 22. Systolic blood pressure is greater than 100. Patient has a qSOFA score of 0- Negative Sepsis Screen. Suicide/Homicide risk assessment- the patient denies having any suicidal and/or homicidal ideations and does not present with any other emotional, behavioral or mental health complaints. 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 Transition of care: patient was not received from another setting of care. 10:26 Acuity: HARPER Level 3 mk4 10:26 Method Of Arrival: Ambulance mk4 Triage Assessment: 10:26 General: Appears uncomfortable. Pain: Location: right ear. mk4 10:26 Cardiovascular: Chest pain is denied. mk4 Historical: - Allergies: Bees; PENICILLINS; seafood; - Home Meds: 1. Advair Diskus 250-50 mcg/dose Inhl dsdv 1 puff 2 times per day 2. budesonide 3 mg oral CECX 3 caps once daily 3. Imodium A-D oral 2 tabs as needed 4. Norvasc 5 mg Oral tab 1 tab once daily 5. omeprazole 40 mg Oral cpDR 1 cap once daily 6. Spiriva with HandiHaler 18 mcg Inhl CpDv 1 cap once daily 7. sucralfate 1 gram Oral tab 4 times per day 8. Vitamin B-12 Oral daily 9. Vitamin B6 Unknown daily 10. Vitamin C Oral 500 mg daily 11. Vitamin D3 1,000 unit oral tab daily - PMHx: Cancer, Colon; COPD; GERD; Gout; Hypertension; Lyme Disease; - PSHx: Hysterectomy; Colon Resection; Pacemaker Insertion (May 2015); - Social history: Smoking status: Patient states former smoker of tobacco. No barriers to communication noted. - Family history: Not pertinent. - : The pt / caregiver states he / she is not on anticoagulants. Home medication list is obtained from the patient. - Exposure Risk Screening:: None identified. Screenin:43 Screening information is obtained from the patient. Fall risk: At risk due to age, gait mk4 disturbance, The following interventions are performed due to a positive Fall Risk Screen: Fall Risk is added to Special Handling on the patient Summary Screen. A Fall Risk Bracelet was applied to the patient. Side Rails are placed in the up position. A Call Iniguez is given with instruction to call for help when getting out of bed. Fall Alert bracelet is placed on the patient. Abuse/DV Screen: The patient / caregiver reports he/she is: not in a situation that causes fear, pain or injury. 13:55 Assistance ADL's: requires no assistance with activities of daily living. Nutritional [facility] screening: No deficits noted. Advance Directives: There is no active DNR order. home support is adequate. Assessment: 10:43 General: Appears in no apparent distress, pt states on arrival she has no chest pain, mk4 states her right ear is pounding badly though . Neurological: Level of Consciousness is awake, alert, Oriented to person, place, time. Cardiovascular: Rhythm is regular. Respiratory: Airway is patent Respiratory effort is even, unlabored, Respiratory pattern is regular, Breath sounds are diminished bilaterally. Derm: Skin is intact, is healthy with good turgor, Skin is pink, warm & dry. 10:52 General: Appears in no apparent distress, comfortable, pt reports that she is having mk4 some left upper abd pain just now .. 11:55 General: transported to CT via tech. [facility] 12:22 General: returned from CT, reports nausea and belly rumbling that's been going on for a [facility] month, denies chest pain, at bedside. Pain: Denies pain. Neurological: Level of Consciousness is awake, alert, Oriented to person, place, time. Cardiovascular: Rhythm is sinus rhythm. Respiratory: Airway is patent Respiratory effort is even, unlabored, Respiratory pattern is regular, symmetrical. GI: Abdomen is non- distended Bowel sounds hyperactive in right upper quadrant, left upper quadrant, right lower quadrant and left lower quadrant Abd is soft and non tender X 4 quads. Reports nausea. Derm: Skin is pink, warm & dry. 13:30 General: son at bedside, denies pain or other needs at present, awaiting dispo, will cjh continue to monitor. 14:10 Reassessment: Patient appears in no apparent distress at this time. Patient denies pain cjh at this time. 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 Vital Signs: 10:32 BP 101 / 69 (auto/); mk4 10:34 Pulse 74 MON; Resp 20; Pulse Ox 100% ; mk4 10:52 Temp 97.3(O); mk4 11:31 Pulse 74 MON; Pulse Ox 100% ; cjh 11:32 BP 99 / 64 (auto/); cjh 12:01 Pulse 70 MON; Pulse Ox 99% ; cjh 12:02 BP 105 / 67 (auto/); cjh 12:31 Pulse 68 MON; Pulse Ox 99% ; cjh 12:32 BP 118 / 73 (auto/); cjh 13:01 Pulse 68 MON; Pulse Ox 99% ; cjh 13:02 BP 117 / 73 (auto/); cjh 13:31 Pulse 74 MON; Pulse Ox 98% ; cjh 13:32 BP 146 / 76 (auto/); cjh 13:55 BP 135 / 78 (auto/); cjh 13:55 BP 135 / 78; Pulse 72 MON; Resp 18; Temp 97.6; Pulse Ox 99% ; Pain 0/10; cjh Vitals: 10:26 Log In Time N/A - ambulance arrival. mk4 ED Course: 10:16 Patient visited by Gudelia Valera PCA. rs6 10:16 Laura Posey is Private Physician. rs6 10:16 Patient moved to Waiting rs6 10:16 Patient moved to 13 rs6 10:30 Triage Initiated mk4 10:41 Lipase Sent. mk4 10:41 Liver Profile Sent. mk4 10:41 Troponin Sent. mk4 10:41 CIP Sent. mk4 10:42 MED Profile Sent. mk4 10:42 CBC with Diff Sent. mk4 10:43 The patient / caregiver is instructed regarding the plan of care and ED course. Cardiac mk4 monitor on. Pulse ox on. NIBP on. 10:43 Maintain field IV. Dressing intact. Good blood return noted. Site clean & dry. Gauge & mk4 site: 20 jelco right ac. 10:51 Patient visited by Yomaira Ortega RN. mk4 10:58 Mitch Mcfarlane MD is Attending Physician. ml 10:58 Patient visited by Mitch Mcfarlane MD. ml 11:16 Chest, 1 View Returned. EDMS 11:31 [facility] Payment Agreement was scanned into [email or web address] and attached to record. mm15 12:09 Patient visited by Rajwinder Valdivia PCA. ar3 12:45 Patient visited by Karely Avila RN. [facility] 13:17 CT Chest Angio R/O PE Returned. EDMS 13:44 Patient visited by Rajwinder Valdivia PCA. ar3 13:45 Laura Posey is Referral Physician. ml 13:45 Casper Joshi is Referral Physician. ml 13:45 Evelio Hill MD is Referral Physician. ml 13:55 Discontinued lock intact, bleeding controlled, pressure dressing applied, No [facility] redness/swelling at site. No procedures done that require assistance. 14:22 Chest, 1 View Returned. EDMS 0214 08:04 EKG-ADULT Returned. EDMS 09:12 ECG/EKG was scanned into [email or web address] and attached to record. gb 09:13 Rhythm Strip was scanned into [email or web address] and attached to record. gb Administered Medications: 04/25 11:12 Drug: Acetaminophen 650 mg [acetaminophen 325 mg tablet (2 tabs)] Route: PO; kr3 Attachments: 09:13 Rhythm Strip gb Order Results: Lab Order: CBC with Diff; SPEC'M 04/25/16 10:38 Test: WHITE BLOOD COUNT; Value: 9.6; Range: 4.0-10.0; Units: K/mm3; Status: F Test: RED BLOOD COUNT; Value: 4.32; Range: 4.00-5.40; Units: M/mm3; Status: F Test: HEMOGLOBIN; Value: 13.4; Range: 12.0-16.0; Units: g/dl; Status: F Test: HEMATOCRIT; Value: 40.0; Range: 36.0-47.0; Units: %; Status: F Test: MEAN CORPUSCULAR VOLUME; Value: 92.5; Range: 80.0-96.0; Units: fl; Status: F Test: MEAN CORPUSCULAR HEMOGLOBIN; Value: 31.0; Range: 27.0-33.0; Units: pg; Status: F Test: MEAN CORPUSCULAR HGB CONC; Value: 33.5; Range: 32.0-36.5; Units: g/dl; Status: F Test: RED CELL DISTRIBUTION WIDTH; Value: 12.8; Range: 11.5-14.5; Units: %; Status: F Test: PLATELET COUNT, AUTOMATED; Value: 269; Range: 150-450; Units: k/mm3; Status: F Test: NEUTROPHILS %; Value: 62.4; Range: 36.0-66.0; Units: %; Status: F Test: LYMPH %; Value: 25.1; Range: 24.0-44.0; Units: %; Status: F Test: MONO %; Value: 6.5; Range: 0.0-5.0; Abnormal: Above high normal; Units: %; Status: F Test: EOS %; Value: 4.2; Range: 0.0-3.0; Abnormal: Above high normal; Units: %; Status: F Test: BASO %; Value: 0.7; Range: 0.0-1.0; Units: %; Status: F Test: LARGE UNSTAINED CELL %; Value: 1.1; Range: 0.0-4.0; Units: %; Status: F Test: NEUTROPHILS #; Value: 6.0; Range: 1.8-7.7; Units: K/mm3; Status: F Test: LYMPH #; Value: 2.5; Range: 1.5-4.5; Units: K/mm3; Status: F Test: MONO #; Value: 0.6; Range: 0.0-0.8; Units: K/mm3; Status: F Test: EOS #; Value: 0.4; Range: 0.0-0.50; Units: K/mm3; Status: F Test: BASO #; Value: 0.1; Range: 0.0-0.2; Units: K/mm3; Status: F Test: LARGE UNSTAINED CELL #; Value: 0.1; Range: 0.0-0.4; Units: K/mm3; Status: F Lab Order: MED Profile; [facility] 04/25/16 10:38 Test: GLUCOSE, FASTING; Value: 101; Range: 83-110; Units: MG/DL; Status: F Test: BLOOD UREA NITROGEN; Value: 26; Range: 7-18; Abnormal: Above high normal; Units: MG/DL; Status: F Test: CREATININE FOR GFR; Value: 1.23; Range: 0.55-1.02; Abnormal: Above high normal; Units: MG/DL; Status: F Test: GLOMERULAR FILTRATION RATE; Value: 43.9; Range: >32; Status: F Test: SODIUM LEVEL; Value: 142; Range: 136-145; Units: MEQ/L; Status: F Test: POTASSIUM SERUM; Value: 4.1; Range: 3.5-5.1; Units: MEQ/L; Status: F Test: CHLORIDE LEVEL; Value: 105; Range: 98-107; Units: MEQ/L; Status: F Test: CARBON DIOXIDE LEVEL; Value: 26; Range: 21-32; Units: MEQ/L; Status: F Test: ANION GAP; Value: 11; Range: 8-16; Units: MEQ/L; Status: F Test: CALCIUM LEVEL; Value: 8.3; Range: 8.8-10.2; Abnormal: Below low normal; Units: MG/DL; Status: F Test Note: ; Units are mL/min/1.73 m2 Chronic Kidney Disease Staging per NKF: Stage I & II GFR >=60 Normal to Mildly Decreased Stage III GFR 30-59 Moderately Decreased Stage IV GFR 15-29 Severely Decreased Stage V GFR <15 Very Little GFR Left ESRD GFR <15 on EDITOR CONTINUITY AND SCRIPT Lab Order: CIP; SPEC'04/25/16 10:38 Test: CPK CREATINE PHOSPHOKINASE; Value: 64; Range: 26-192; Units: U/L; Status: F Test: CK-MB VALUE MASS; Value: 3.0; Range: 0.0-3.6; Units: NG/ML; Status: F Test: MB/CK RELATIVE INDEX; Value: 4.68; Range: < OR =4; Abnormal: Above high normal; Status: F Test Note: ; DIAGNOSIS CRITERIA MMB ng/ml Relative Index (RI) NON-AMI < or = 5 N/A [place] > 5 < or = 4 AMI > 5 > 4 Lab Order: Troponin; [facility]' 04/25/16 10:38 Test: TROPONIN I; Value: < 0.02; Range: < 0.10; Units: NG/ML; Status: F Test Note: ; Troponin I Reference Interval for Live[employer] LOCI: 99th Percentile= 0.00-0.045 ng/ml Risk Stratification: <= 0.10 ng/ml Decreased Risk for Adverse Clinical Events. 0.10-1.50 ng/ml Increased Risk for Adverse Clinical Events. Evaluation of additional criterion and/or repeat testing in 2-6 hours is suggested to rule out myocardial damage. >= 1.50 ng/ml Indicative of Myocardial Injury. Lab Order: Liver Profile; [facility]' 04/25/16 10:38 Test: AST/SGOT; Value: 18; Range: 15-37; Units: U/L; Status: F Test: ALT/SGPT; Value: 20; Range: 12-78; Units: U/L; Status: F Test: ALKALINE PHOSPHATASE; Value: 64; Range: 45-117; Units: U/L; Status: F Test: BILIRUBIN,TOTAL; Value: 0.5; Range: 0.2-1.0; Units: MG/DL; Status: F Test: BILIRUBIN,DIRECT; Value: < 0.1; Range: 0.0-0.2; Units: MG/DL; Status: F Test: TOTAL PROTEIN; Value: 6.2; Range: 6.4-8.2; Abnormal: Below low normal; Units: GM/DL; Status: F Test: ALBUMIN; Value: 3.0; Range: 3.2-5.2; Abnormal: Below low normal; Units: GM/DL; Status: F Test: ALBUMIN/GLOBULIN RATIO; Value: 0.94; Range: 1.00-1.93; Abnormal: Below low normal; Status: F Lab Order: Lipase; [facility]' 04/25/16 10:38 Test: LIPASE; Value: 95; Range: 73-393; Units: U/L; Status: F Radiology Order: EKG-ADULT Test: EKG-ADULT REASON FOR EXAMINATION: Chest Pain; Stationary ECG Study; [facility] - ED; ; Test Date: 2016-04-25; Pat Name: JOHNNY LOZADA Department:; Room: -; Gender: 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:; : 1925 Requested By: Mitch Mcfarlane; Order Number: [id number] Reading MD: Lynsey Ozuna; Measurements; Intervals [place]; Rate: 78 P: 58; W[place]: 157 QRS: -64; QRSD: 133 T: 38; QT: 414; QTc: 472; Interpretive Statements; SINUS RHYTHM WITH FREQUENT VENTRICULAR PREMATURE COMPLEXES; INDETERMINATE AXIS; RIGHT BUNDLE BRANCH BLOCK; LEFT ANTERIOR FASCICULAR BLOCK; INFERIOR INFARCT ?AGE; PRIOR VENTRICULAR PACING 05/27/15; Electronically Signed On 04-26-2016 7:49:56 EST by Lynsey Ozuna; Radiology Order: Chest, 1 View Test: Chest, 1 View REASON FOR EXAMINATION: cp; SINGLE-VIEW CHEST:; ; Single, portable view of the chest is performed and compared to prior study of; 06/26/2015.; ; There is mild interstitial fibrosis bilaterally which appears stable. I see no; evidence of acute infiltrate or pulmonary edema. Heart is upper limits of normal; in size. There is calcification and tortuosity of the thoracic aorta. The; mediastinal silhouette is unchanged. Left dual-lead pacemaker is noted.; ; IMPRESSION:; ; Stable chronic findings without evidence of acute pulmonary disease.; ; ; Signed by; Dat Maynard MD 04/25/2016 02:17 P; Radiology Order: CT Chest Angio R/O PE Test: CT Chest Angio R/O PE REASON FOR EXAMINATION: Chest Pain; Clinical: Acute chest pain.; ; Technique: Axial contrast enhanced images from the thoracic inlet to the upper; abdomen using 100 ml Isovue 370 intravenous contrast material with coronal and; sagittal re-formations.; ; Findings: Satisfactory enhancement of the pulmonary vasculature is achieved and; no filling defects are identified to suggest pulmonary embolus. Moderate; atherosclerotic changes to the thoracic aorta and coronary arteries noted with; mild cardiomegaly. No pericardial effusion is appreciated. Bilateral lung; key demonstrate chronic age-related interstitial changes and mild; emphysematous disease. Trace basilar atelectasis is suggested (left greater than; right) no effusion. No pneumothorax. No adenopathy.; ; Moderate hiatal hernia noted. Cholelithiasis. 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 13:55 Discharge Assessment: Patient awake, alert and oriented x 3. No cognitive and/or [facility] functional deficits noted. Patient verbalized understanding of disposition instructions. patient administered narcotics - no. The following High Risk Discharge criteria are identified: None. Discharged to home ambulatory, with family, assisted via staff to waiting area where son will meet her at curb, ambulates with steady gait and no assist required. Condition: good Condition: stable Condition: improved. Discharge instructions given to patient, Instructed on discharge instructions, follow up and referral plans. medication usage, Demonstrated understanding of instructions, medications, Pt was receptive of discharge instructions/ teaching. Prescriptions given X 1. No special radiology studies were completed. Property :Personal belongings accompany Pt. 14:18 Patient left the ED. [facility] Signatures: Dispatcher [employer] EDMS Mitch Mcfarlane MD MD Bhargavi Jauregui, Reg Reg Edel Dickinson,RN RN kr3 Rajwinder Valdivia, SKEIN STRAIGHTENER SKEIN STRAIGHTENER ar3 Karely Avila RN RN [facility] Evonne Doherty mm15 Yomaira Ortega RN RN 4 Gudelia Valera, SKEIN STRAIGHTENER SKEIN STRAIGHTENER rs6 Chart Complete MTDD
--- NOTE | 2016-04-29 13:44 | EDDOCDS ---
Physician Documentation [facility] Name: Nancy Nicolas Age: 89 yrs Sex: Female : 1925 Arrival Date: 04/25/2016 Time: 10:15 Bed 13 Private MD: Laura Posey DO Disposition: 04/25/16 13:46 Discharged to Home/Self Care. Impression: Chest pain, unspecified, Abdominal and pelvic pain. - Condition is Stable. - Discharge Instructions: Abdominal Pain, Adult, Nonspecific Chest Pain, Diarrhea. - Prescriptions for ZOFRAN ODT 4 mg - dissolve 1 tablet by ORAL route 4 times per day As needed do not chew, do not swallow whole; 10 tablet. - Medication Reconciliation, Local Pharmacy Hours form. - Follow up: Laura Posey; When: 2 - 3 days. Follow up: Casper Joshi; When: Call to arrange an appointment. Follow up: Evelio Hill MD; When: Call to arrange an appointment. - Problem is new. - Symptoms have improved. - Notes: follow up with Shraddha Hill and Dr Joshi. Return if worsening symptoms Historical: - Allergies: Bees; PENICILLINS; seafood; - Home Meds: 1. Advair Diskus 250-50 mcg/dose Inhl dsdv 1 puff 2 times per day 2. budesonide 3 mg oral CECX 3 caps once daily 3. Imodium A-D oral 2 tabs as needed 4. Norvasc 5 mg Oral tab 1 tab once daily 5. omeprazole 40 mg Oral cpDR 1 cap once daily 6. Spiriva with HandiHaler 18 mcg Inhl CpDv 1 cap once daily 7. sucralfate 1 gram Oral tab 4 times per day 8. Vitamin B-12 Oral daily 9. Vitamin B6 Unknown daily 10. Vitamin C Oral 500 mg daily 11. Vitamin D3 1,000 unit oral tab daily - PMHx: Cancer, Colon; COPD; GERD; Gout; Hypertension; Lyme Disease; - PSHx: Hysterectomy; Colon Resection; Pacemaker Insertion (May 2015); - Social history: Smoking status: Patient states former smoker of tobacco. No barriers to communication noted. - Family history: Not pertinent. - : The pt / caregiver states he / she is not on anticoagulants. Home medication list is obtained from the patient. - Exposure Risk Screening:: None identified. Vital Signs: 04/25 10:32 BP 101 / 69 (auto/); mk4 10:34 Pulse 74 MON; Resp 20; Pulse Ox 100% ; mk4 10:52 Temp 97.3(O); mk4 11:31 Pulse 74 MON; Pulse Ox 100% ; cjh 11:32 BP 99 / 64 (auto/); cjh 12:01 Pulse 70 MON; Pulse Ox 99% ; cjh 12:02 BP 105 / 67 (auto/); cjh 12:31 Pulse 68 MON; Pulse Ox 99% ; cjh 12:32 BP 118 / 73 (auto/); cjh 13:01 Pulse 68 MON; Pulse Ox 99% ; cjh 13:02 BP 117 / 73 (auto/); cjh 13:31 Pulse 74 MON; Pulse Ox 98% ; cjh 13:32 BP 146 / 76 (auto/); cjh 13:55 BP 135 / 78 (auto/); cjh 13:55 BP 135 / 78; Pulse 72 MON; Resp 18; Temp 97.6; Pulse Ox 99% ; Pain 0/10; cjh MDM: 10:22 ECG WITH READING ER PHYS+CARDIAG ordered. EDMS 10:31 IV Saline Lock ordered. ml 10:31 Tree Worker/Pulse Ox/q 15 min VS ordered. ml 10:31 Rhythm Strip to chart ordered. ml 10:32 CBC with Diff Ordered. EDMS 10:32 MED Profile Ordered. EDMS 10:32 CIP Ordered. EDMS 10:32 Troponin Ordered. EDMS 10:32 Liver Profile Ordered. EDMS 10:32 Lipase Ordered. EDMS 10:33 Chest, 1 View Ordered. EDMS 11:06 Acetaminophen Tablet 650 mg PO once ordered. ml 11:26 CBC with Diff Reviewed. ml 11:26 MED Profile Reviewed. ml 11:26 CIP Reviewed. ml 11:26 Liver Profile Reviewed. ml 11:26 Troponin Reviewed. ml 11:26 Lipase Reviewed. ml 11:26 Chest, 1 View Reviewed. ml 11:27 CT Chest Angio R/O PE Ordered. EDMS 11:29 Financial registration complete. mm15 11:31 [facility] Payment Agreement was scanned into [employer] and attached to record. mm15 04/26 09:12 ECG/EKG was scanned into [employer] and attached to record. 09:13 Rhythm Strip was scanned into [employer] and attached to record. gb Administered Medications: 04/25 11:12 Drug: Acetaminophen 650 mg [acetaminophen 325 mg tablet (2 tabs)] Route: PO; kr3 Signatures: Dispatcher [employer] EDMitch Batres MD MD Bhargavi Jauregui, Reg Reg Karely AvilaRN RN [facility] Evonne Doherty mm15 Yomaira Ortega RN RN 4 Edel Dickinson RN kr3 The chart was reviewed and I authenticate all verbal orders and agree with the evaluation and treatment provided.Attachments: 11:31 [facility] Payment Agreement mm15 04/26 09:12 ECG/EKG gb Chart Complete MTDD
--- NOTE | 2016-04-29 13:44 | EDDOCDS ---
Physician Documentation [facility] Name: Nancy Nicolas Age: 89 yrs Sex: Female : 1925 Arrival Date: 04/25/2016 Time: 10:15 Bed 13 Private MD: Laura Posey DO Disposition: 04/25/16 13:46 Discharged to Home/Self Care. Impression: Chest pain, unspecified, Abdominal and pelvic pain. - Condition is Stable. - Discharge Instructions: Abdominal Pain, Adult, Nonspecific Chest Pain, Diarrhea. - Prescriptions for ZOFRAN ODT 4 mg - dissolve 1 tablet by ORAL route 4 times per day As needed do not chew, do not swallow whole; 10 tablet. - Medication Reconciliation, Local Pharmacy Hours form. - Follow up: Laura Posey; When: 2 - 3 days. Follow up: Casper Joshi; When: Call to arrange an appointment. Follow up: Evelio Hill MD; When: Call to arrange an appointment. - Problem is new. - Symptoms have improved. - Notes: follow up with Shraddha Hill and Dr Joshi. Return if worsening symptoms Historical: - Allergies: Bees; PENICILLINS; seafood; - Home Meds: 1. Advair Diskus 250-50 mcg/dose Inhl dsdv 1 puff 2 times per day 2. budesonide 3 mg oral CECX 3 caps once daily 3. Imodium A-D oral 2 tabs as needed 4. Norvasc 5 mg Oral tab 1 tab once daily 5. omeprazole 40 mg Oral cpDR 1 cap once daily 6. Spiriva with HandiHaler 18 mcg Inhl CpDv 1 cap once daily 7. sucralfate 1 gram Oral tab 4 times per day 8. Vitamin B-12 Oral daily 9. Vitamin B6 Unknown daily 10. Vitamin C Oral 500 mg daily 11. Vitamin D3 1,000 unit oral tab daily - PMHx: Cancer, Colon; COPD; GERD; Gout; Hypertension; Lyme Disease; - PSHx: Hysterectomy; Colon Resection; Pacemaker Insertion (May 2015); - Social history: Smoking status: Patient states former smoker of tobacco. No barriers to communication noted. - Family history: Not pertinent. - : The pt / caregiver states he / she is not on anticoagulants. Home medication list is obtained from the patient. - Exposure Risk Screening:: None identified. Vital Signs: 04/25 10:32 BP 101 / 69 (auto/); mk4 10:34 Pulse 74 MON; Resp 20; Pulse Ox 100% ; mk4 10:52 Temp 97.3(O); mk4 11:31 Pulse 74 MON; Pulse Ox 100% ; cjh 11:32 BP 99 / 64 (auto/); cjh 12:01 Pulse 70 MON; Pulse Ox 99% ; cjh 12:02 BP 105 / 67 (auto/); cjh 12:31 Pulse 68 MON; Pulse Ox 99% ; cjh 12:32 BP 118 / 73 (auto/); cjh 13:01 Pulse 68 MON; Pulse Ox 99% ; cjh 13:02 BP 117 / 73 (auto/); cjh 13:31 Pulse 74 MON; Pulse Ox 98% ; cjh 13:32 BP 146 / 76 (auto/); cjh 13:55 BP 135 / 78 (auto/); cjh 13:55 BP 135 / 78; Pulse 72 MON; Resp 18; Temp 97.6; Pulse Ox 99% ; Pain 0/10; cjh MDM: 10:22 ECG WITH READING ER PHYS+CARDIAG ordered. EDMS 10:31 IV Saline Lock ordered. ml 10:31 Shop Lead/Pulse Ox/q 15 min VS ordered. ml 10:31 Rhythm Strip to chart ordered. ml 10:32 CBC with Diff Ordered. EDMS 10:32 MED Profile Ordered. EDMS 10:32 CIP Ordered. EDMS 10:32 Troponin Ordered. EDMS 10:32 Liver Profile Ordered. EDMS 10:32 Lipase Ordered. EDMS 10:33 Chest, 1 View Ordered. EDMS 11:06 Acetaminophen Tablet 650 mg PO once ordered. ml 11:26 CBC with Diff Reviewed. ml 11:26 MED Profile Reviewed. ml 11:26 CIP Reviewed. ml 11:26 Liver Profile Reviewed. ml 11:26 Troponin Reviewed. ml 11:26 Lipase Reviewed. ml 11:26 Chest, 1 View Reviewed. ml 11:27 CT Chest Angio R/O PE Ordered. EDMS 11:29 Financial registration complete. mm15 11:31 [facility] Payment Agreement was scanned into VeedMe and attached to record. mm15 04/26 09:12 ECG/EKG was scanned into VeedMe and attached to record. 09:13 Rhythm Strip was scanned into VeedMe and attached to record. gb Administered Medications: 04/25 11:12 Drug: Acetaminophen 650 mg [acetaminophen 325 mg tablet (2 tabs)] Route: PO; kr3 Signatures: Dispatcher MedHost EDMitch Batres MD MD Bhargavi Jauregui, Reg Reg Karely AvilaRN RN [facility] Evonne Doherty mm15 Yomaira Ortega RN RN 4 Edel Dickinson RN kr3 The chart was reviewed and I authenticate all verbal orders and agree with the evaluation and treatment provided.Attachments: 11:31 COUNT INCLUDES THE [facility] Payment Agreement mm15 04/26 09:12 ECG/EKG gb Chart Complete MTDD
== END 2016-04-25 14:18 | disposition home or self-care (01) ==
LOC: M ED 10:15
DX: R07.9 Chest pain, unspecified (principal); R10.9 Unspecified abdominal pain; R19.7 Diarrhea, unspecified; J44.9 Chronic obstructive pulmonary disease, unspecified; I10 Essential (primary) hypertension; K21.9 Gastro-esophageal reflux disease without esophagitis; M10.9 Gout, unspecified; A69.20 Lyme disease, unspecified; Z85.038 Personal history of other malignant neoplasm of large intestine; Z95.0 Presence of cardiac pacemaker; Z79.899 Other long term (current) drug therapy; Z79.51 Long term (current) use of inhaled steroids; Z91.013 Allergy to seafood; Z91.030 Bee allergy status; Z88.0 Allergy status to penicillin; Z87.891 Personal history of nicotine dependence
CPT/HCPCS: 36415; 71010; 71275; 80048; 80076; 82550; 82553; 83690; 84484; 85025; 93005; 93041; 99284; Q9967

== ENCOUNTER → 2016-04-28 | Outpatient (CLI) | payer MEDICARE, OTHER ==
[~2016-04-28] VITALS: Ht 160 cm; Wt 54.4 kg
[~2016-04-28] MED LIST changes: +HYDR12.55 PO; +LIDOCAINE 2% INJ 100 MG/5 ML SDV (FOR ANES.) As Ordered ONE; +NS 1,000 ML IV SCH; +PHENYLephrine HCL 500 MCG/5 ML (100MCG/ML) SYRINGE (J2370) As Ordered ONE; +PROPOFOL 200 MG/20 ML VIAL As Ordered ONE
--- NOTE | 2016-04-28 13:39 | ROOR ---
Patient Name: Nancy Nicolas Procedure Date: 04/28/2016 1:20 PM Date of : 1925 Age: 89 Room: [facility] Gender: Female Note Status: Finalized Procedure: Upper GI endoscopy Indications: Epigastric abdominal pain Providers: Evelio Hill Jr, MD Referring MD: Tiffany Davis NP Requesting Provider: Medicines: Propofol per Anesthesia Complications: No immediate complications. Procedure: Pre-Anesthesia Assessment: - Prior to the procedure, a History and Physical was performed, and patient medications and allergies were reviewed. The patient is competent. The risks and benefits of the procedure and the sedation options and risks were discussed with the patient. All questions were answered and informed consent was obtained. Patient identification and proposed procedure were verified by the physician and the nurse in the pre-procedure area and in the procedure room. Mental Status Examination: alert and oriented. Airway Examination: normal oropharyngeal airway and neck mobility. Respiratory Examination: clear to auscultation. CV Examination: normal. ASA Grade Assessment: II - A patient with mild systemic disease. After reviewing the risks and benefits, the patient was deemed in satisfactory condition to undergo the procedure. The anesthesia plan was to use moderate sedation / analgesia (conscious sedation). Immediately prior to administration of medications, the patient was re-assessed for adequacy to receive sedatives. The heart rate, respiratory rate, oxygen saturations, blood pressure, adequacy of pulmonary ventilation, and response to care were monitored throughout the procedure. The physical status of the patient was re-assessed after the procedure. The Endoscope was introduced through the mouth, and advanced to the second part of duodenum. The upper GI endoscopy was accomplished without difficulty. The patient tolerated the procedure well. Findings: The upper third of the esophagus, middle third of the esophagus and lower third of the esophagus were normal. A medium-sized hiatal hernia was present. Patchy moderate inflammation characterized by congestion (edema), erythema, friability and granularity was found in the gastric antrum. The duodenal bulb and first portion of the duodenum were normal. There was a medium-sized lipoma in the second portion of the duodenum. Impression: - Normal upper third of esophagus, middle third of esophagus and lower third of esophagus. - Medium-sized hiatal hernia. - Gastritis. - Normal duodenal bulb and first portion of the duodenum. - Duodenal lipoma. - No specimens collected. Recommendation: - Discharge patient to home (ambulatory). - Return to my office in 1 week. Evelio Hill MD Evelio Hill Jr, MD 04/28/2016 1:39:15 PM This report has been signed electronically. Number of Addenda: 0 Note Initiated On: 04/28/2016 1:20 PM Estimated Blood Loss: Estimated blood loss: none.
--- NOTE | 2016-04-28 14:02 | ROOR ---
Patient Name: Nancy Nicolas Procedure Date: 04/28/2016 1:21 PM Date of : 1925 Age: 89 Room: [facility] Gender: Female Note Status: Finalized Procedure: Colonoscopy Indications: Clinically significant diarrhea of unexplained origin Providers: Evelio Hill Jr, MD Referring MD: Tiffany Davis NP Requesting Provider: Medicines: Propofol per Anesthesia Complications: No immediate complications. Procedure: Pre-Anesthesia Assessment: - Prior to the procedure, a History and Physical was performed, and patient medications and allergies were reviewed. The patient is competent. The risks and benefits of the procedure and the sedation options and risks were discussed with the patient. All questions were answered and informed consent was obtained. Patient identification and proposed procedure were verified by the physician and the nurse in the pre-procedure area and in the procedure room. Mental Status Examination: alert and oriented. Airway Examination: normal oropharyngeal airway and neck mobility. Respiratory Examination: clear to auscultation. CV Examination: normal. ASA Grade Assessment: II - A patient with mild systemic disease. After reviewing the risks and benefits, the patient was deemed in satisfactory condition to undergo the procedure. The anesthesia plan was to use moderate sedation / analgesia (conscious sedation). Immediately prior to administration of medications, the patient was re-assessed for adequacy to receive sedatives. The heart rate, respiratory rate, oxygen saturations, blood pressure, adequacy of pulmonary ventilation, and response to care were monitored throughout the procedure. The physical status of the patient was re-assessed after the procedure. The Colonoscope was introduced through the anus and advanced to the ileocolonic anastomosis. The colonoscopy was performed without difficulty. The patient tolerated the procedure well. The quality of the bowel preparation was adequate and good. Findings: The perianal and digital rectal examinations were normal. Pertinent negatives include normal sphincter tone, no palpable rectal lesions and no anal lesion or abnormality was detected. A small polyp was found in the transverse colon. The polyp was removed with a hot snare. Resection and retrieval were complete. The rectum, recto-sigmoid colon, sigmoid colon and descending colon appeared normal. Multiple small and large-mouthed diverticula were found in the sigmoid colon. Impression: - One small polyp in the transverse colon, removed with a hot snare. Resected and retrieved. - The rectum, recto-sigmoid colon, sigmoid colon and descending colon are normal. - Diverticulosis in the sigmoid colon. Recommendation: - Discharge patient to home (ambulatory). - Repeat colonoscopy in 3 - 5 years for surveillance based on pathology results. Evelio Hill MD Evelio Hill Jr, MD 04/28/2016 2:02:24 PM This report has been signed electronically. Number of Addenda: 0 Note Initiated On: 04/28/2016 1:21 PM Estimated Blood Loss: Estimated blood loss: none.
[2016-04-28 14:25] VITALS: BP 88/53
== END | disposition home or self-care (01) ==
LOC: M OPP 11:56
PROVIDERS: ATTEND Surgery
DX: R19.7 Diarrhea, unspecified (principal); D12.3 Benign neoplasm of transverse colon; K57.30 Diverticulosis of large intestine without perforation or abscess without bleeding; R10.13 Epigastric pain; K44.9 Diaphragmatic hernia without obstruction or gangrene; K29.70 Gastritis, unspecified, without bleeding; D17.5 Benign lipomatous neoplasm of intra-abdominal organs; R12 Heartburn; D64.9 Anemia, unspecified; M19.90 Unspecified osteoarthritis, unspecified site; N18.3 Chronic kidney disease, stage 3 (moderate); J44.9 Chronic obstructive pulmonary disease, unspecified; J45.909 Unspecified asthma, uncomplicated; I44.1 Atrioventricular block, second degree; M10.9 Gout, unspecified; Z85.00 Personal history of malignant neoplasm of unspecified digestive organ; Z95.0 Presence of cardiac pacemaker; Z87.891 Personal history of nicotine dependence; Z86.718 Personal history of other venous thrombosis and embolism; Z79.899 Other long term (current) drug therapy; Z79.51 Long term (current) use of inhaled steroids; Z79.52 Long term (current) use of systemic steroids; Z88.0 Allergy status to penicillin; Z91.030 Bee allergy status; Z91.013 Allergy to seafood
CPT/HCPCS: 43235; 45385; 88305; 99156; 99157; J2370

== ENCOUNTER 2016-05-03 06:26 | Emergency (ER) | payer MEDICARE, OTHER ==
[~2016-05-03 06:26] MED LIST changes: -LIDOCAINE 2% INJ 100 MG/5 ML SDV (FOR ANES.) As Ordered ONE; -NS 1,000 ML IV SCH; -PHENYLephrine HCL 500 MCG/5 ML (100MCG/ML) SYRINGE (J2370) As Ordered ONE; -PROPOFOL 200 MG/20 ML VIAL As Ordered ONE
[2016-05-03] MEDS ORDERED: NORCO, ANEXSIA 5/325MG TABLET (HYDROcodone/ACETAMINOPHEN) As Ordered ONE (07:37)
[2016-05-03 08:03] LABS: ALBUMIN 3.3 GM/DL (3.2-5.2); ALBUMIN/GLOBULIN RATIO 1.03 (1.00-1.93); ALKALINE PHOSPHATASE 70 U/L (45-117); ALT/SGPT 20 U/L (12-78); ANION GAP 9 MEQ/L (8-16); AST/SGOT 15 U/L (15-37); BILIRUBIN,DIRECT < 0.1 MG/DL (0.0-0.2); BILIRUBIN,TOTAL 0.3 MG/DL (0.2-1.0); BLOOD UREA NITROGEN 26 MG/DL (7-18); CALCIUM LEVEL 9.3 MG/DL (8.8-10.2); CARBON DIOXIDE LEVEL 28 MEQ/L (21-32); CHLORIDE LEVEL 102 MEQ/L (98-107); CREATININE FOR GFR 1.19 MG/DL (0.55-1.02); GLOMERULAR FILTRATION RATE 45.6 (>32); GLUCOSE, FASTING 111 MG/DL (83-110); POTASSIUM SERUM 4.1 MEQ/L (3.5-5.1); SODIUM LEVEL 139 MEQ/L (136-145); TOTAL PROTEIN 6.5 GM/DL (6.4-8.2)
--- NOTE | 2016-05-03 08:08 | REP ---
Clinical: Headache . Comparison: 03/29/2011 . Findings: The ventricles, sulci, and cisterns are normal in position and appearance. Maynard-white differentiation is maintained. 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 No acute intracranial hemorrhage, mass/mass effect, pathology or trauma/injury. No evidence for acute infarction. No extra-axial fluid collection. Calvarium is intact. Paranasal sinuses and mastoid air cells are clear. Impression: No evidence for acute intracranial pathology or trauma/injury. Signed by Stephen Pandya MD 05/03/2016 07:59 A
[2016-05-03 08:20] LABS: BASO % 0.4 % (0.0-1.0); EOS # 0.1 K/mm3 (0.0-0.50); EOS % 1.4 % (0.0-3.0); LARGE UNSTAINED CELL # 0.1 K/mm3 (0.0-0.4); LARGE UNSTAINED CELL % 1.1 % (0.0-4.0); LYMPH % 22.9 % (24.0-44.0); MEAN CORPUSCULAR HEMOGLOBIN 31.7 pg (27.0-33.0); MEAN CORPUSCULAR HGB CONC 34.5 g/dl (32.0-36.5); MEAN CORPUSCULAR VOLUME 91.9 fl (80.0-96.0); MONO # 0.5 K/mm3 (0.0-0.8); MONO % 5.6 % (0.0-5.0); NEUTROPHILS # 5.7 K/mm3 (1.8-7.7); NEUTROPHILS % 68.6 % (36.0-66.0); PLATELET COUNT, AUTOMATED 267 k/mm3 (150-450); RED CELL DISTRIBUTION WIDTH 12.6 % (11.5-14.5); WHITE BLOOD COUNT 8.2 K/mm3 (4.0-10.0)
[2016-05-03 08:47] LABS: ERYTHROCYTE SEDIMENTATION RATE 30 mm/hr (0-42)
[2016-05-03] MEDS ORDERED: ALPRAZolam 0.25 MG TAB As Ordered ONE (09:25)
[2016-05-03] MEDS ORDERED: MECLIZINE 12.5 MG TAB As Ordered ONE (10:39)
--- NOTE | 2016-05-03 13:06 | EDDOCDS ---
Nurse's Notes [facility] Name: Nancy Nicolas Age: 89 yrs Sex: Female : 1925 Arrival Date: 05/03/2016 Time: 06:26 Bed 9 Private MD: Diagnosis: Atypical facial pain;Other peripheral vertigo-chronic Presentation: 05/03 06:38 Presenting complaint: Patient states: head injury back in December, was not seen for af2 injury. now reports severe pain to right side of head, nausea. reports concerns about dark stools progressing to blood in stool. This patient has no additional risk factors. Mechanism of Injury: resulted from a fall. Adult Sepsis Screening: The patient does not have new or worsening altered mentation. Patient's respiratory rate is less than 22. Systolic blood pressure is greater than 100. Patient has a qSOFA score of 0- Negative Sepsis Screen. Suicide/Homicide risk assessment- the patient denies having any suicidal and/or homicidal ideations and does not present with any other emotional, behavioral or mental health complaints. Status: Patient is not a route service representative or dependent. Transition of care: patient was not received from another setting of care. 06:38 Acuity: HARPER Level 3 af2 06:38 Method Of Arrival: Walkin/Carried/Asstd af2 Triage Assessment: 06:42 General: Appears in no apparent distress, Behavior is cooperative. Pain: Location: head af2 Pain currently is 10 out of 10 on a pain scale. Neurological: Level of Consciousness is awake, alert, Reports headache. Respiratory: Airway is patent Respiratory effort is even, unlabored. Derm: Skin is normal. Historical: - Allergies: seafood; PENICILLINS; Bees; - Home Meds: 1. Advair Diskus 250-50 mcg/dose Inhl dsdv 1 puff 2 times per day 2. Vitamin D3 1,000 unit oral tab daily 3. Vitamin B6 Unknown daily 4. Vitamin C Oral 500 mg daily 5. Vitamin B-12 Oral daily 6. sucralfate 1 gram Oral tab 4 times per day 7. Spiriva with HandiHaler 18 mcg Inhl CpDv 1 cap once daily 8. omeprazole 40 mg Oral cpDR 1 cap once daily 9. Norvasc 5 mg Oral tab 1 tab once daily 10. Imodium A-D oral 2 tabs as needed 11. budesonide 3 mg oral CECX 3 caps once daily - PMHx: Cancer, Colon; COPD; GERD; Gout; Hypertension; Lyme Disease; - PSHx: Hysterectomy; Colon Resection; Pacemaker Insertion (May 2015); - Social history: Smoking status: Patient states former smoker of tobacco. No barriers to communication noted, The patient speaks fluent Syriac. - Family history: Not pertinent. - : The pt / caregiver states he / she is not on anticoagulants. Home medication list is obtained from the patient. - Exposure Risk Screening:: None identified. Screenin:45 Screening information is obtained from the patient. Fall risk: No risks identified. kas2 Assistance ADL's: requires no assistance with activities of daily living. Abuse/DV Screen: The patient / caregiver reports he/she is: not in a situation that causes fear, pain or injury. Abuse/DV Screen: The patient / caregiver reports he/she is:. Nutritional screening: No deficits noted. Advance Directives: Currently, there is no health care proxy. There is no active DNR order. There is no living will. There is no Power of Black Topper. home support is adequate. Assessment: 06:44 General: Appears in no apparent distress, uncomfortable, well nourished, well groomed, kas2 Behavior is appropriate for age, cooperative. Pain: Location: head Pain currently is 7 out of 10 on a pain scale. Neurological: Level of Consciousness is awake, alert, Oriented to person, place, time, Moves all extremities. Speech is normal, Facial symmetry appears normal, Pupils are PERRLA. Cardiovascular: Rhythm is regular. Cardiovascular: Capillary refill < 3 seconds Heart tones S1 S2 present. Respiratory: Airway is patent Respiratory effort is even, unlabored, Respiratory pattern is regular, symmetrical, Breath sounds are clear. Derm: Skin is intact, Skin is dry, Skin is pink, warm & dry. Skin temperature is warm. 07:12 General: Appears in no apparent distress, Behavior is anxious, cooperative. Pain: mlb1 Location: right frontal area, right temporal area, right occipital area and right ear Pain currently is 10 out of 10 on a pain scale. Neurological: Level of Consciousness is awake, alert, Oriented to person, place, time, Reports photophobia. Respiratory: No deficits noted. 08:21 General: Appears in no apparent distress, Behavior is anxious, cooperative. Pain: mlb1 Location: right occipital area and right temporal area and right frontal area Pain currently is 10 out of 10 on a pain scale. 08:30 General: Appears in no apparent distress, Behavior is anxious. Neurological: Level of mlb1 Consciousness is awake, alert, Oriented to person, place, time, Electric Motorman are equal bilaterally Moves all extremities. Full function Speech is normal, Facial symmetry appears normal, Facial symmetry: tongue is midline, Reports numbness right hand and right foot numbness. Respiratory: No deficits noted. 09:28 General: Appears in no apparent distress, Behavior is anxious, cooperative. Pain: mlb1 Location: right occipital area and right temporal area and right frontal area Pain currently is 10 out of 10 on a pain scale. Neurological: No deficits noted. Respiratory: No deficits noted. Derm: No deficits noted. Musculoskeletal: No deficits noted. 10:24 General: Appears in no apparent distress, comfortable, Behavior is appropriate for age, mlb1 cooperative. Pain: Denies pain. Neurological: No deficits noted. 11:19 General: Appears in no apparent distress, comfortable, Behavior is appropriate for age, mlb1 cooperative. Pain: Denies pain. 12:15 General: Appears in no apparent distress, comfortable, Behavior is appropriate for age, mlb1 cooperative. Pain: Denies pain. 13:04 General: Appears in no apparent distress, comfortable, Behavior is appropriate for age, mlb1 cooperative. Pain: Denies pain. Neurological: Level of Consciousness is awake, alert, Oriented to person, place, time, Speech is normal. Respiratory: No deficits noted. Vital Signs: 06:37 BP 129 / 82; Pulse 72; Resp 18 S; Temp 97.9(TE); Pulse Ox 100% on R/A; af2 08:20 BP 125 / 72; Pulse 68; Resp 16; Pulse Ox 99% on R/A; Pain 10/10; mlb1 12:59 BP 127 / 60; Pulse 72; Resp 16; Temp 98.1(O); Pulse Ox 97% on R/A; Pain 0/10; mlb1 Vitals: 06:37 Log In Time: May 03, 2016 at 06:29. af2 Mikala Coma Score: 06:38 Eye Response: spontaneous(4). Verbal Response: oriented(5). Motor Response: obeys af2 commands(6). Total: 15. ED Course: 06:28 Patient visited by Romo, Polina, Reg. hs2 06:28 Patient moved to Waiting hs2 06:37 Ashley Carcamo RN is Primary Nurse. af2 06:37 Patient moved to 9 af2 06:40 Triage Initiated af2 06:43 Patient visited by Roselyn Quarles RN. af2 06:45 Patient visited by Ashley Carcamo RN. kas2 07:13 Patient visited by John Paul Basurto, LANE. mlb1 07:13 The patient / caregiver is instructed regarding the plan of care and ED course. Bed in mlb1 low position. Call light in reach. Side rails up X2. 07:16 Lynsey Ozuna MD is Attending Physician. sd1 07:16 Patient visited by Lynsey Ozuna MD. sd1 07:35 Basic Metabolic Profile Sent. mlb1 07:35 CBC with Diff Sent. mlb1 07:35 Liver Profile Sent. mlb1 07:35 Sed Rate Sent. mlb1 07:40 No procedures done that require assistance. Labs drawn. (by ED staff). Sent per order mlb1 to lab. 08:04 [facility] Payment Agreement was scanned into Mimvi and attached to record. mm15 08:22 Patient visited by John Paul Basurto, LANE. mlb1 08:31 Patient visited by John Paul Basurto, LANE. mlb1 08:47 CT Head Without Contrast Returned. EDMS 09:29 Patient visited by John Paul Basurto, LANE. mlb1 10:24 Patient visited by John Paul Basurto, LANE. mlb1 11:19 Patient visited by John Paul Basurto, LANE. mlb1 11:54 Tiffany Davis is Referral Physician. sd1 13:05 No IV's were initiated during this patient's visit. mlb1 Administered Medications: 07:40 Drug: HYDROcodone-acetaminophen 1 tabs [hydrocodone 5 mg-acetaminophen 325 mg tablet (1 mlb1 tabs)] Route: PO; 08:20 Follow up: BP 125 / 72; Pulse 68 bpm; Resp 16 bpm; Pulse Ox 99% RA; Pain 10 Adult; mlb1 Response: Pain is unchanged, physician notified 09:29 Drug: ALPRAZolam 0.25 mg [alprazolam 0.25 mg tablet (1 tabs)] Route: PO; mlb1 10:43 Drug: Meclizine 50 mg [meclizine 12.5 mg tablet (4 tabs)] Route: PO; mlb1 Order Results: Lab Order: Sed Rate; 05/03/16 07:34 Test: ERYTHROCYTE SEDIMENTATION RATE; Value: 30; Range: 0-42; Units: mm/hr; Status: F Lab Order: Basic Metabolic Profile; 05/03/16 07:34 Test: GLUCOSE, FASTING; Value: 111; Range: 83-110; Abnormal: Above high normal; Units: MG/DL; Status: F Test: BLOOD UREA NITROGEN; Value: 26; Range: 7-18; Abnormal: Above high normal; Units: MG/DL; Status: F Test: CREATININE FOR GFR; Value: 1.19; Range: 0.55-1.02; Abnormal: Above high normal; Units: MG/DL; Status: F Test: GLOMERULAR FILTRATION RATE; Value: 45.6; Range: >32; Status: F Test: SODIUM LEVEL; Value: 139; Range: 136-145; Units: MEQ/L; Status: F Test: POTASSIUM SERUM; Value: 4.1; Range: 3.5-5.1; Units: MEQ/L; Status: F Test: CHLORIDE LEVEL; Value: 102; Range: 98-107; Units: MEQ/L; Status: F Test: CARBON DIOXIDE LEVEL; Value: 28; Range: 21-32; Units: MEQ/L; Status: F Test: ANION GAP; Value: 9; Range: 8-16; Units: MEQ/L; Status: F Test: CALCIUM LEVEL; Value: 9.3; Range: 8.8-10.2; Units: MG/DL; Status: F Test Note: ; Units are mL/min/1.73 m2 Chronic Kidney Disease Staging per NKF: Stage I & II GFR >=60 Normal to Mildly Decreased Stage III GFR 30-59 Moderately Decreased Stage IV GFR 15-29 Severely Decreased Stage V GFR <15 Very Little GFR Left ESRD GFR <15 on TOP [employer]PA[employer]ER Lab Order: CBC with Diff; 05/03/16 07:34 Test: WHITE BLOOD COUNT; Value: 8.2; Range: 4.0-10.0; Units: K/mm3; Status: F Test: RED BLOOD COUNT; Value: 4.33; Range: 4.00-5.40; Units: M/mm3; Status: F Test: HEMOGLOBIN; Value: 13.7; Range: 12.0-16.0; Units: g/dl; Status: F Test: HEMATOCRIT; Value: 39.8; Range: 36.0-47.0; Units: %; Status: F Test: MEAN CORPUSCULAR VOLUME; Value: 91.9; Range: 80.0-96.0; Units: fl; Status: F Test: MEAN CORPUSCULAR HEMOGLOBIN; Value: 31.7; Range: 27.0-33.0; Units: pg; Status: F Test: MEAN CORPUSCULAR HGB CONC; Value: 34.5; Range: 32.0-36.5; Units: g/dl; Status: F Test: RED CELL DISTRIBUTION WIDTH; Value: 12.6; Range: 11.5-14.5; Units: %; Status: F Test: PLATELET COUNT, AUTOMATED; Value: 267; Range: 150-450; Units: k/mm3; Status: F Test: NEUTROPHILS %; Value: 68.6; Range: 36.0-66.0; Abnormal: Above high normal; Units: %; Status: F Test: LYMPH %; Value: 22.9; Range: 24.0-44.0; Abnormal: Below low normal; Units: %; Status: F Test: MONO %; Value: 5.6; Range: 0.0-5.0; Abnormal: Above high normal; Units: %; Status: F Test: EOS %; Value: 1.4; Range: 0.0-3.0; Units: %; Status: F Test: BASO %; Value: 0.4; Range: 0.0-1.0; Units: %; Status: F Test: LARGE UNSTAINED CELL %; Value: 1.1; Range: 0.0-4.0; Units: %; Status: F Test: NEUTROPHILS #; Value: 5.7; Range: 1.8-7.7; Units: K/mm3; Status: F Test: LYMPH #; Value: 2.0; Range: 1.5-4.5; Units: K/mm3; Status: F Test: MONO #; Value: 0.5; Range: 0.0-0.8; Units: K/mm3; Status: F Test: EOS #; Value: 0.1; Range: 0.0-0.50; Units: K/mm3; Status: F Test: BASO #; Value: 0.0; Range: 0.0-0.2; Units: K/mm3; Status: F Test: LARGE UNSTAINED CELL #; Value: 0.1; Range: 0.0-0.4; Units: K/mm3; Status: F Lab Order: Liver Profile; SPEC'M 05/03/16 07:34 Test: AST/SGOT; Value: 15; Range: 15-37; Units: U/L; Status: F Test: ALT/SGPT; Value: 20; Range: 12-78; Units: U/L; Status: F Test: ALKALINE PHOSPHATASE; Value: 70; Range: 45-117; Units: U/L; Status: F Test: BILIRUBIN,TOTAL; Value: 0.3; Range: 0.2-1.0; Units: MG/DL; Status: F Test: BILIRUBIN,DIRECT; Value: < 0.1; Range: 0.0-0.2; Units: MG/DL; Status: F Test: TOTAL PROTEIN; Value: 6.5; Range: 6.4-8.2; Units: GM/DL; Status: F Test: ALBUMIN; Value: 3.3; Range: 3.2-5.2; Units: GM/DL; Status: F Test: ALBUMIN/GLOBULIN RATIO; Value: 1.03; Range: 1.00-1.93; Status: F Radiology Order: CT Head Without Contrast Test: CT Head Without Contrast REASON FOR EXAMINATION: headache remote trauma; Clinical: Headache .; ; Comparison: 03/29/2011 .; ; Findings:; The ventricles, sulci, and cisterns are normal in position and appearance.; Maynard-white differentiation is maintained. Age-related periventricular; leukomalacia mild atrophy and microvascular ischemic changes noted. No acute; intracranial hemorrhage, mass/mass effect, pathology or trauma/injury. No; evidence for acute infarction. No extra-axial fluid collection. Calvarium is; intact. Paranasal sinuses and mastoid air cells are clear.; ; Impression:; ; No evidence for acute intracranial pathology or trauma/injury.; ; ; Signed by; Stephen Pandya MD 05/03/2016 07:59 A; Outcome: 09:29 CT Study completed. mlb1 11:55 Discharge ordered by Provider. sd1 13:04 Discharge Assessment: Patient awake, alert and oriented x 3. No cognitive and/or mlb1 functional deficits noted. Patient verbalized understanding of disposition instructions. patient administered narcotics - no. The following High Risk Discharge criteria are identified: None. Discharged to home ambulatory. Condition: good. Discharge instructions given to patient, Instructed on discharge instructions, follow up and referral plans. medication usage, Demonstrated understanding of instructions, medications, Pt was receptive of discharge instructions/ teaching. Prescriptions given X 1. Property sent home with patient. 13:05 Patient left the ED. mlb1 Signatures: Dispatcher MedHost EDMS Lynsey Ozuna MD MD sd1 John Paul Basurto RN RN mlb1 Evonne Doherty mm15 Roselyn Quarles,RN RN af2 Polina Romo, Reg Reg hs2 Ashley Carcamo,RN RN kas2 MTDD
--- NOTE | 2016-05-03 13:06 | EDDOCDS ---
Physician Documentation [facility] Name: Nancy Nicolas Age: 89 yrs Sex: Female : 1925 Arrival Date: 05/03/2016 Time: 06:26 Bed 9 Private MD: Disposition: 05/03/16 11:55 Discharged to Home/Self Care. Impression: Atypical facial pain, Other peripheral vertigo - chronic. - Condition is Stable. - Discharge Instructions: Benign Positional Vertigo, General Headache Without Cause. - Prescriptions for Xanax 0.25 mg Oral Tablet - take 1 tablet by ORAL route every 8 hours As needed MDD: 3 tabs; 20 tablet. - Medication Reconciliation, Local Pharmacy Hours form. - Follow up: Tiffany Davis; When: tomorrow at 3pm. - Problem is new. - Symptoms are resolved. Historical: - Allergies: seafood; PENICILLINS; Bees; - Home Meds: 1. Advair Diskus 250-50 mcg/dose Inhl dsdv 1 puff 2 times per day 2. Vitamin D3 1,000 unit oral tab daily 3. Vitamin B6 Unknown daily 4. Vitamin C Oral 500 mg daily 5. Vitamin B-12 Oral daily 6. sucralfate 1 gram Oral tab 4 times per day 7. Spiriva with HandiHaler 18 mcg Inhl CpDv 1 cap once daily 8. omeprazole 40 mg Oral cpDR 1 cap once daily 9. Norvasc 5 mg Oral tab 1 tab once daily 10. Imodium A-D oral 2 tabs as needed 11. budesonide 3 mg oral CECX 3 caps once daily - PMHx: Cancer, Colon; COPD; GERD; Gout; Hypertension; Lyme Disease; - PSHx: Hysterectomy; Colon Resection; Pacemaker Insertion (May 2015); - Social history: Smoking status: Patient states former smoker of tobacco. No barriers to communication noted, The patient speaks fluent French. - Family history: Not pertinent. - : The pt / caregiver states he / she is not on anticoagulants. Home medication list is obtained from the patient. - Exposure Risk Screening:: None identified. Vital Signs: 05/03 06:37 BP 129 / 82; Pulse 72; Resp 18 S; Temp 97.9(TE); Pulse Ox 100% on R/A; af2 08:20 BP 125 / 72; Pulse 68; Resp 16; Pulse Ox 99% on R/A; Pain 10/10; mlb1 12:59 BP 127 / 60; Pulse 72; Resp 16; Temp 98.1(O); Pulse Ox 97% on R/A; Pain 0/10; mlb1 [place] Coma Score: 06:38 Eye Response: spontaneous(4). Verbal Response: oriented(5). Motor Response: obeys af2 commands(6). Total: 15. MDM: 07:27 HYDROcodone-acetaminophen 5 mg-325 mg 1 tabs PO once ordered. sd1 07:28 CT Head Without Contrast Ordered. EDMS 07:28 Sed Rate Ordered. EDMS 07:28 Basic Metabolic Profile Ordered. EDMS 07:28 CBC with Diff Ordered. EDMS 07:28 Liver Profile Ordered. EDMS 07:38 Financial registration complete. mm15 08:04 [facility] Payment Agreement was scanned into Khush and attached to record. mm15 08:23 Basic Metabolic Profile Reviewed. sd1 08:23 CBC with Diff Reviewed. sd1 08:23 Liver Profile Reviewed. sd1 08:26 REGULAR+DIET ordered. EDMS 08:58 CBC with Diff Reviewed. sd1 08:58 Sed Rate Reviewed. sd1 08:58 CT Head Without Contrast Reviewed. sd1 09:23 ALPRAZolam Tablet 0.25 mg PO once ordered. sd1 10:22 Misc. Nursing Order ordered. sd1 10:35 Meclizine 50 mg PO once ordered. sd1 11:01 REGULAR+DIET ordered. EDMS Administered Medications: 07:40 Drug: HYDROcodone-acetaminophen 1 tabs [hydrocodone 5 mg-acetaminophen 325 mg tablet (1 mlb1 tabs)] Route: PO; 08:20 Follow up: BP 125 / 72; Pulse 68 bpm; Resp 16 bpm; Pulse Ox 99% RA; Pain 10/10 Adult; mlb1 Response: Pain is unchanged, physician notified 09:29 Drug: ALPRAZolam 0.25 mg [alprazolam 0.25 mg tablet (1 tabs)] Route: PO; mlb1 10:43 Drug: Meclizine 50 mg [meclizine 12.5 mg tablet (4 tabs)] Route: PO; mlb1 Signatures: Dispatcher MedHost EDMS Lynsey Ozuna MD MD sd1 John Paul Basurto RN RN mlb1 Evonne Doherty mm15 Roselyn Quarles,RN RN af2 The chart was reviewed and I authenticate all verbal orders and agree with the evaluation and treatment provided.Corrections: (The following items were deleted from the chart) 10:22 10:[address] [facility]. Nursing Order ordered. sd1 sd1 Attachments: 08:04 [facility] Payment Agreement mm15 MTDD
--- NOTE | 2016-05-05 14:06 | EDDOCDS ---
Physician Documentation [facility] Name: Nancy Nicolas Age: 89 yrs Sex: Female : 1925 Arrival Date: 05/03/2016 Time: 06:26 Bed 9 Private MD: Disposition: 05/03/16 11:55 Discharged to Home/Self Care. Impression: Atypical facial pain, Other peripheral vertigo - chronic. - Condition is Stable. - Discharge Instructions: Benign Positional Vertigo, General Headache Without Cause. - Prescriptions for Xanax 0.25 mg Oral Tablet - take 1 tablet by ORAL route every 8 hours As needed MDD: 3 tabs; 20 tablet. ZOFRAN ODT 4 mg - dissolve 1 tablet by ORAL route 4 times per day As needed do not chew, do not swallow whole; 10 tablet. - Medication Reconciliation, Local Pharmacy Hours form. - Follow up: Tiffany Davis; When: tomorrow at 3pm. - Problem is new. - Symptoms are resolved. Historical: - Allergies: seafood; PENICILLINS; Bees; - Home Meds: 1. Advair Diskus 250-50 mcg/dose Inhl dsdv 1 puff 2 times per day 2. Vitamin D3 1,000 unit oral tab daily 3. Vitamin B6 Unknown daily 4. Vitamin C Oral 500 mg daily 5. Vitamin B-12 Oral daily 6. sucralfate 1 gram Oral tab 4 times per day 7. Spiriva with HandiHaler 18 mcg Inhl CpDv 1 cap once daily 8. omeprazole 40 mg Oral cpDR 1 cap once daily 9. Norvasc 5 mg Oral tab 1 tab once daily 10. Imodium A-D oral 2 tabs as needed 11. budesonide 3 mg oral CECX 3 caps once daily - PMHx: Cancer, Colon; COPD; GERD; Gout; Hypertension; Lyme Disease; - PSHx: Hysterectomy; Colon Resection; Pacemaker Insertion (May 2015); - Social history: Smoking status: Patient states former smoker of tobacco. No barriers to communication noted, The patient speaks fluent [place]. - Family history: Not pertinent. - : The pt / caregiver states he / she is not on anticoagulants. Home medication list is obtained from the patient. - Exposure Risk Screening:: None identified. Vital Signs: 05/03 06:37 BP 129 / 82; Pulse 72; Resp 18 S; Temp 97.9(TE); Pulse Ox 100% on R/A; af2 08:20 BP 125 / 72; Pulse 68; Resp 16; Pulse Ox 99% on R/A; Pain 10/10; mlb1 12:59 BP 127 / 60; Pulse 72; Resp 16; Temp 98.1(O); Pulse Ox 97% on R/A; Pain 0/10; mlb1 Mikala Coma Score: 06:38 Eye Response: spontaneous(4). Verbal Response: oriented(5). Motor Response: obeys af2 commands(6). Total: 15. MDM: 07:27 HYDROcodone-acetaminophen 5 mg-325 mg 1 tabs PO once ordered. sd1 07:28 CT Head Without Contrast Ordered. EDMS 07:28 Sed Rate Ordered. EDMS 07:28 Basic Metabolic Profile Ordered. EDMS 07:28 CBC with Diff Ordered. EDMS 07:28 Liver Profile Ordered. EDMS 07:38 Financial registration complete. mm15 08:04 [facility] Payment Agreement was scanned into [employer] and attached to record. mm15 08:23 Basic Metabolic Profile Reviewed. sd1 08:23 CBC with Diff Reviewed. sd1 08:23 Liver Profile Reviewed. sd1 08:26 REGULAR+DIET ordered. EDMS 08:58 CBC with Diff Reviewed. sd1 08:58 Sed Rate Reviewed. sd1 08:58 CT Head Without Contrast Reviewed. sd1 09:23 ALPRAZolam Tablet 0.25 mg PO once ordered. sd1 10:22 [facility]. Nursing Order ordered. sd1 10:35 Meclizine 50 mg PO once ordered. sd1 11:01 REGULAR+DIET ordered. EDMS 05/04 10:32 T-Sheet-- Draft Copy was scanned into [employer] and attached to record. gb Administered Medications: 05/03 07:40 Drug: HYDROcodone-acetaminophen 1 tabs [hydrocodone 5 mg-acetaminophen 325 mg tablet (1 mlb1 tabs)] Route: PO; 08:20 Follow up: BP 125 / 72; Pulse 68 bpm; Resp 16 bpm; Pulse Ox 99% RA; Pain 10/10 Adult; mlb1 Response: Pain is unchanged, physician notified 09:29 Drug: ALPRAZolam 0.25 mg [alprazolam 0.25 mg tablet (1 tabs)] Route: PO; mlb1 10:43 Drug: Meclizine 50 mg [meclizine 12.5 mg tablet (4 tabs)] Route: PO; mlb1 Signatures: Dispatcher [employer] Lynsey Parham MD MD sd1 Bhargavi Jauregui, Reg Reg gb John Paul Basurto RN RN mlb1 Evonne Doherty mm15 Roselyn QuarlesRN RN af2 The chart was reviewed and I authenticate all verbal orders and agree with the evaluation and treatment provided.Corrections: (The following items were deleted from the chart) 10:22 [facility]. Nursing Order ordered. sd1 sd1 Attachments: 08:04 [facility] Payment Agreement mm15 05/04 10:32 T-Sheet-- Draft Copy gb Chart Complete MTDD
--- NOTE | 2016-05-05 14:06 | EDDOCDS ---
Nurse's Notes [facility] Name: Nancy Nicolas Age: 89 yrs Sex: Female : 1925 Arrival Date: 05/03/2016 Time: 06:26 Bed 9 Private MD: Diagnosis: Atypical facial pain;Other peripheral vertigo-chronic Presentation: 05/03 06:38 Presenting complaint: Patient states: head injury back in December, was not seen for af2 injury. now reports severe pain to right side of head, nausea. reports concerns about dark stools progressing to blood in stool. This patient has no additional risk factors. Mechanism of Injury: resulted from a fall. Adult Sepsis Screening: The patient does not have new or worsening altered mentation. Patient's respiratory rate is less than 22. Systolic blood pressure is greater than 100. Patient has a qSOFA score of 0- Negative Sepsis Screen. Suicide/Homicide risk assessment- the patient denies having any suicidal and/or homicidal ideations and does not present with any other emotional, behavioral or mental health complaints. Status: Patient is not a appliance servicer or dependent. Transition of care: patient was not received from another setting of care. 06:38 Acuity: HARPER Level 3 af2 06:38 Method Of Arrival: Walkin/Carried/Asstd af2 Triage Assessment: 06:42 General: Appears in no apparent distress, Behavior is cooperative. Pain: Location: head af2 Pain currently is 10 out of 10 on a pain scale. Neurological: Level of Consciousness is awake, alert, Reports headache. Respiratory: Airway is patent Respiratory effort is even, unlabored. Derm: Skin is normal. Historical: - Allergies: seafood; PENICILLINS; Bees; - Home Meds: 1. Advair Diskus 250-50 mcg/dose Inhl dsdv 1 puff 2 times per day 2. Vitamin D3 1,000 unit oral tab daily 3. Vitamin B6 Unknown daily 4. Vitamin C Oral 500 mg daily 5. Vitamin B-12 Oral daily 6. sucralfate 1 gram Oral tab 4 times per day 7. Spiriva with HandiHaler 18 mcg Inhl CpDv 1 cap once daily 8. omeprazole 40 mg Oral cpDR 1 cap once daily 9. Norvasc 5 mg Oral tab 1 tab once daily 10. Imodium A-D oral 2 tabs as needed 11. budesonide 3 mg oral CECX 3 caps once daily - PMHx: Cancer, Colon; COPD; GERD; Gout; Hypertension; Lyme Disease; - PSHx: Hysterectomy; Colon Resection; Pacemaker Insertion (May 2015); - Social history: Smoking status: Patient states former smoker of tobacco. No barriers to communication noted, The patient speaks fluent Greek. - Family history: Not pertinent. - : The pt / caregiver states he / she is not on anticoagulants. Home medication list is obtained from the patient. - Exposure Risk Screening:: None identified. Screenin:45 Screening information is obtained from the patient. Fall risk: No risks identified. kas2 Assistance ADL's: requires no assistance with activities of daily living. Abuse/DV Screen: The patient / caregiver reports he/she is: not in a situation that causes fear, pain or injury. Abuse/DV Screen: The patient / caregiver reports he/she is:. Nutritional screening: No deficits noted. Advance Directives: Currently, there is no health care proxy. There is no active DNR order. There is no living will. There is no Power of Industrial Eng. home support is adequate. Assessment: 06:44 General: Appears in no apparent distress, uncomfortable, well nourished, well groomed, kas2 Behavior is appropriate for age, cooperative. Pain: Location: head Pain currently is 7 out of 10 on a pain scale. Neurological: Level of Consciousness is awake, alert, Oriented to person, place, time, Moves all extremities. Speech is normal, Facial symmetry appears normal, Pupils are PERRLA. Cardiovascular: Rhythm is regular. Cardiovascular: Capillary refill < 3 seconds Heart tones S1 S2 present. Respiratory: Airway is patent Respiratory effort is even, unlabored, Respiratory pattern is regular, symmetrical, Breath sounds are clear. Derm: Skin is intact, Skin is dry, Skin is pink, warm & dry. Skin temperature is warm. 07:12 General: Appears in no apparent distress, Behavior is anxious, cooperative. Pain: mlb1 Location: right frontal area, right temporal area, right occipital area and right ear Pain currently is 10 out of 10 on a pain scale. Neurological: Level of Consciousness is awake, alert, Oriented to person, place, time, Reports photophobia. Respiratory: No deficits noted. 08:21 General: Appears in no apparent distress, Behavior is anxious, cooperative. Pain: mlb1 Location: right occipital area and right temporal area and right frontal area Pain currently is 10 out of 10 on a pain scale. 08:30 General: Appears in no apparent distress, Behavior is anxious. Neurological: Level of mlb1 Consciousness is awake, alert, Oriented to person, place, time, Vamp Marker are equal bilaterally Moves all extremities. Full function Speech is normal, Facial symmetry appears normal, Facial symmetry: tongue is midline, Reports numbness right hand and right foot numbness. Respiratory: No deficits noted. 09:28 General: Appears in no apparent distress, Behavior is anxious, cooperative. Pain: mlb1 Location: right occipital area and right temporal area and right frontal area Pain currently is 10 out of 10 on a pain scale. Neurological: No deficits noted. Respiratory: No deficits noted. Derm: No deficits noted. Musculoskeletal: No deficits noted. 10:24 General: Appears in no apparent distress, comfortable, Behavior is appropriate for age, mlb1 cooperative. Pain: Denies pain. Neurological: No deficits noted. 11:19 General: Appears in no apparent distress, comfortable, Behavior is appropriate for age, mlb1 cooperative. Pain: Denies pain. 12:15 General: Appears in no apparent distress, comfortable, Behavior is appropriate for age, mlb1 cooperative. Pain: Denies pain. 13:04 General: Appears in no apparent distress, comfortable, Behavior is appropriate for age, mlb1 cooperative. Pain: Denies pain. Neurological: Level of Consciousness is awake, alert, Oriented to person, place, time, Speech is normal. Respiratory: No deficits noted. Vital Signs: 06:37 BP 129 / 82; Pulse 72; Resp 18 S; Temp 97.9(TE); Pulse Ox 100% on R/A; af2 08:20 BP 125 / 72; Pulse 68; Resp 16; Pulse Ox 99% on R/A; Pain 10/10; mlb1 12:59 BP 127 / 60; Pulse 72; Resp 16; Temp 98.1(O); Pulse Ox 97% on R/A; Pain 0/10; mlb1 Vitals: 06:37 Log In Time: May 03, 2016 at 06:29. af2 Mikala Coma Score: 06:38 Eye Response: spontaneous(4). Verbal Response: oriented(5). Motor Response: obeys af2 commands(6). Total: 15. ED Course: 06:28 Patient visited by Romo, Polina, Reg. hs2 06:28 Patient moved to Waiting hs2 06:37 Ashley Carcamo,LANE is Primary Nurse. af2 06:37 Patient moved to 9 af2 06:40 Triage Initiated af2 06:43 Patient visited by Roselyn Quarles RN. af2 06:45 Patient visited by Ashley Carcamo RN. kas2 07:13 Patient visited by John Paul Basurto, LANE. mlb1 07:13 The patient / caregiver is instructed regarding the plan of care and ED course. Bed in mlb1 low position. Call light in reach. Side rails up X2. 07:16 Lynsey Ozuna MD is Attending Physician. sd1 07:16 Patient visited by Lynsey Ozuna MD. sd1 07:35 Basic Metabolic Profile Sent. mlb1 07:35 CBC with Diff Sent. mlb1 07:35 Liver Profile Sent. mlb1 07:35 Sed Rate Sent. mlb1 07:40 No procedures done that require assistance. Labs drawn. (by ED staff). Sent per order mlb1 to lab. 08:04 [facility] Payment Agreement was scanned into [employer] and attached to record. mm15 08:22 Patient visited by John Paul Basurto, LANE. mlb1 08:31 Patient visited by John Paul Basurto, LANE. mlb1 08:47 CT Head Without Contrast Returned. EDMS 09:29 Patient visited by John Paul Basurto, LANE. mlb1 10:24 Patient visited by John Paul Basurto, LANE. mlb1 11:19 Patient visited by John Paul Basurto, LANE. mlb1 11:54 Tiffany Davis is Referral Physician. sd1 13:05 No IV's were initiated during this patient's visit. mlb1 05/04 10:32 T-Sheet-- Draft Copy was scanned into [employer] and attached to record. gb Administered Medications: 05/03 07:40 Drug: HYDROcodone-acetaminophen 1 tabs [hydrocodone 5 mg-acetaminophen 325 mg tablet (1 mlb1 tabs)] Route: PO; 08:20 Follow up: BP 125 / 72; Pulse 68 bpm; Resp 16 bpm; Pulse Ox 99% RA; Pain 10/10 Adult; mlb1 Response: Pain is unchanged, physician notified 09:29 Drug: ALPRAZolam 0.25 mg [alprazolam 0.25 mg tablet (1 tabs)] Route: PO; mlb1 10:43 Drug: Meclizine 50 mg [meclizine 12.5 mg tablet (4 tabs)] Route: PO; mlb1 Order Results: Lab Order: Sed Rate; SPEC'05/03/16 07:34 Test: ERYTHROCYTE SEDIMENTATION RATE; Value: 30; Range: 0-42; Units: mm/hr; Status: F Lab Order: Basic Metabolic Profile; SPEC05/03/16 07:34 Test: GLUCOSE, FASTING; Value: 111; Range: 83-110; Abnormal: Above high normal; Units: MG/DL; Status: F Test: BLOOD UREA NITROGEN; Value: 26; Range: 7-18; Abnormal: Above high normal; Units: MG/DL; Status: F Test: CREATININE FOR GFR; Value: 1.19; Range: 0.55-1.02; Abnormal: Above high normal; Units: MG/DL; Status: F Test: GLOMERULAR FILTRATION RATE; Value: 45.6; Range: >32; Status: F Test: SODIUM LEVEL; Value: 139; Range: 136-145; Units: MEQ/L; Status: F Test: POTASSIUM SERUM; Value: 4.1; Range: 3.5-5.1; Units: MEQ/L; Status: F Test: CHLORIDE LEVEL; Value: 102; Range: 98-107; Units: MEQ/L; Status: F Test: CARBON DIOXIDE LEVEL; Value: 28; Range: 21-32; Units: MEQ/L; Status: F Test: ANION GAP; Value: 9; Range: 8-16; Units: MEQ/L; Status: F Test: CALCIUM LEVEL; Value: 9.3; Range: 8.8-10.2; Units: MG/DL; Status: F Test Note: ; Units are mL/min/1.73 m2 Chronic Kidney Disease Staging per NKF: Stage I & II GFR >=60 Normal to Mildly Decreased Stage III GFR 30-59 Moderately Decreased Stage IV GFR 15-29 Severely Decreased Stage V GFR <15 Very Little GFR Left ESRD GFR <15 on MANAGER CODING Lab Order: CBC with Diff; SPEC05/03/16 07:34 Test: WHITE BLOOD COUNT; Value: 8.2; Range: 4.0-10.0; Units: K/mm3; Status: F Test: RED BLOOD COUNT; Value: 4.33; Range: 4.00-5.40; Units: M/mm3; Status: F Test: HEMOGLOBIN; Value: 13.7; Range: 12.0-16.0; Units: g/dl; Status: F Test: HEMATOCRIT; Value: 39.8; Range: 36.0-47.0; Units: %; Status: F Test: MEAN CORPUSCULAR VOLUME; Value: 91.9; Range: 80.0-96.0; Units: fl; Status: F Test: MEAN CORPUSCULAR HEMOGLOBIN; Value: 31.7; Range: 27.0-33.0; Units: pg; Status: F Test: MEAN CORPUSCULAR HGB CONC; Value: 34.5; Range: 32.0-36.5; Units: g/dl; Status: F Test: RED CELL DISTRIBUTION WIDTH; Value: 12.6; Range: 11.5-14.5; Units: %; Status: F Test: PLATELET COUNT, AUTOMATED; Value: 267; Range: 150-450; Units: k/mm3; Status: F Test: NEUTROPHILS %; Value: 68.6; Range: 36.0-66.0; Abnormal: Above high normal; Units: %; Status: F Test: LYMPH %; Value: 22.9; Range: 24.0-44.0; Abnormal: Below low normal; Units: %; Status: F Test: MONO %; Value: 5.6; Range: 0.0-5.0; Abnormal: Above high normal; Units: %; Status: F Test: EOS %; Value: 1.4; Range: 0.0-3.0; Units: %; Status: F Test: BASO %; Value: 0.4; Range: 0.0-1.0; Units: %; Status: F Test: LARGE UNSTAINED CELL %; Value: 1.1; Range: 0.0-4.0; Units: %; Status: F Test: NEUTROPHILS #; Value: 5.7; Range: 1.8-7.7; Units: K/mm3; Status: F Test: LYMPH #; Value: 2.0; Range: 1.5-4.5; Units: K/mm3; Status: F Test: MONO #; Value: 0.5; Range: 0.0-0.8; Units: K/mm3; Status: F Test: EOS #; Value: 0.1; Range: 0.0-0.50; Units: K/mm3; Status: F Test: BASO #; Value: 0.0; Range: 0.0-0.2; Units: K/mm3; Status: F Test: LARGE UNSTAINED CELL #; Value: 0.1; Range: 0.0-0.4; Units: K/mm3; Status: F Lab Order: Liver Profile; SPEC'M 05/03/16 07:34 Test: AST/SGOT; Value: 15; Range: 15-37; Units: U/L; Status: F Test: ALT/SGPT; Value: 20; Range: 12-78; Units: U/L; Status: F Test: ALKALINE PHOSPHATASE; Value: 70; Range: 45-117; Units: U/L; Status: F Test: BILIRUBIN,TOTAL; Value: 0.3; Range: 0.2-1.0; Units: MG/DL; Status: F Test: BILIRUBIN,DIRECT; Value: < 0.1; Range: 0.0-0.2; Units: MG/DL; Status: F Test: TOTAL PROTEIN; Value: 6.5; Range: 6.4-8.2; Units: GM/DL; Status: F Test: ALBUMIN; Value: 3.3; Range: 3.2-5.2; Units: GM/DL; Status: F Test: ALBUMIN/GLOBULIN RATIO; Value: 1.03; Range: 1.00-1.93; Status: F Radiology Order: CT Head Without Contrast Test: CT Head Without Contrast REASON FOR EXAMINATION: headache remote trauma; Clinical: Headache .; ; Comparison: 03/29/2011 .; ; Findings:; The ventricles, sulci, and cisterns are normal in position and appearance.; Maynard-white differentiation is maintained. Age-related periventricular; leukomalacia mild atrophy and microvascular ischemic changes noted. No acute; intracranial hemorrhage, mass/mass effect, pathology or trauma/injury. No; evidence for acute infarction. No extra-axial fluid collection. Calvarium is; intact. Paranasal sinuses and mastoid air cells are clear.; ; Impression:; ; No evidence for acute intracranial pathology or trauma/injury.; ; ; Signed by; Stephen Pandya MD 05/03/2016 07:59 A; Outcome: 09:29 CT Study completed. mlb1 11:55 Discharge ordered by Provider. sd1 13:04 Discharge Assessment: Patient awake, alert and oriented x 3. No cognitive and/or mlb1 functional deficits noted. Patient verbalized understanding of disposition instructions. patient administered narcotics - no. The following High Risk Discharge criteria are identified: None. Discharged to home ambulatory. Condition: good. Discharge instructions given to patient, Instructed on discharge instructions, follow up and referral plans. medication usage, Demonstrated understanding of instructions, medications, Pt was receptive of discharge instructions/ teaching. Prescriptions given X 1. Property sent home with patient. 13:05 Patient left the ED. mlb1 Signatures: Dispatcher [employer] EDMS Lynsey Ozuna MD MD sd1 Bhargavi Jauregui, Reg Reg gb John Paul Basurto RN RN mlb1 Evonne Doherty mm15 Roselyn Quarles,RN RN af2 Polina Romo, Reg Reg hs2 Ashley Carcamo,RN RN kas2 Chart Complete MTDD
--- NOTE | 2016-05-05 14:06 | EDDOCDS ---
Physician Documentation [facility] Name: Nancy Nicolas Age: 89 yrs Sex: Female : 1925 Arrival Date: 05/03/2016 Time: 06:26 Bed 9 Private MD: Disposition: 05/03/16 11:55 Discharged to Home/Self Care. Impression: Atypical facial pain, Other peripheral vertigo - chronic. - Condition is Stable. - Discharge Instructions: Benign Positional Vertigo, General Headache Without Cause. - Prescriptions for Xanax 0.25 mg Oral Tablet - take 1 tablet by ORAL route every 8 hours As needed MDD: 3 tabs; 20 tablet. ZOFRAN ODT 4 mg - dissolve 1 tablet by ORAL route 4 times per day As needed do not chew, do not swallow whole; 10 tablet. - Medication Reconciliation, Local Pharmacy Hours form. - Follow up: Tiffany Davis; When: tomorrow at 3pm. - Problem is new. - Symptoms are resolved. Historical: - Allergies: seafood; PENICILLINS; Bees; - Home Meds: 1. Advair Diskus 250-50 mcg/dose Inhl dsdv 1 puff 2 times per day 2. Vitamin D3 1,000 unit oral tab daily 3. Vitamin B6 Unknown daily 4. Vitamin C Oral 500 mg daily 5. Vitamin B-12 Oral daily 6. sucralfate 1 gram Oral tab 4 times per day 7. Spiriva with HandiHaler 18 mcg Inhl CpDv 1 cap once daily 8. omeprazole 40 mg Oral cpDR 1 cap once daily 9. Norvasc 5 mg Oral tab 1 tab once daily 10. Imodium A-D oral 2 tabs as needed 11. budesonide 3 mg oral CECX 3 caps once daily - PMHx: Cancer, Colon; COPD; GERD; Gout; Hypertension; Lyme Disease; - PSHx: Hysterectomy; Colon Resection; Pacemaker Insertion (May 2015); - Social history: Smoking status: Patient states former smoker of tobacco. No barriers to communication noted, The patient speaks fluent Niuean. - Family history: Not pertinent. - : The pt / caregiver states he / she is not on anticoagulants. Home medication list is obtained from the patient. - Exposure Risk Screening:: None identified. Vital Signs: 05/03 06:37 BP 129 / 82; Pulse 72; Resp 18 S; Temp 97.9(TE); Pulse Ox 100% on R/A; af2 08:20 BP 125 / 72; Pulse 68; Resp 16; Pulse Ox 99% on R/A; Pain 10/10; mlb1 12:59 BP 127 / 60; Pulse 72; Resp 16; Temp 98.1(O); Pulse Ox 97% on R/A; Pain 0/10; mlb1 Mikala Coma Score: 06:38 Eye Response: spontaneous(4). Verbal Response: oriented(5). Motor Response: obeys af2 commands(6). Total: 15. MDM: 07:27 HYDROcodone-acetaminophen 5 mg-325 mg 1 tabs PO once ordered. sd1 07:28 CT Head Without Contrast Ordered. EDMS 07:28 Sed Rate Ordered. EDMS 07:28 Basic Metabolic Profile Ordered. EDMS 07:28 CBC with Diff Ordered. EDMS 07:28 Liver Profile Ordered. EDMS 07:38 Financial registration complete. mm15 08:04 [facility] Payment Agreement was scanned into [employer] and attached to record. mm15 08:23 Basic Metabolic Profile Reviewed. sd1 08:23 CBC with Diff Reviewed. sd1 08:23 Liver Profile Reviewed. sd1 08:26 REGULAR+DIET ordered. EDMS 08:58 CBC with Diff Reviewed. sd1 08:58 Sed Rate Reviewed. sd1 08:58 CT Head Without Contrast Reviewed. sd1 09:23 ALPRAZolam Tablet 0.25 mg PO once ordered. sd1 10:22 [facility]. Nursing Order ordered. sd1 10:35 Meclizine 50 mg PO once ordered. sd1 11:01 REGULAR+DIET ordered. EDMS 05/04 10:32 T-Sheet-- Draft Copy was scanned into [employer] and attached to record. gb Administered Medications: 05/03 07:40 Drug: HYDROcodone-acetaminophen 1 tabs [hydrocodone 5 mg-acetaminophen 325 mg tablet (1 mlb1 tabs)] Route: PO; 08:20 Follow up: BP 125 / 72; Pulse 68 bpm; Resp 16 bpm; Pulse Ox 99% RA; Pain 10/10 Adult; mlb1 Response: Pain is unchanged, physician notified 09:29 Drug: ALPRAZolam 0.25 mg [alprazolam 0.25 mg tablet (1 tabs)] Route: PO; mlb1 10:43 Drug: Meclizine 50 mg [meclizine 12.5 mg tablet (4 tabs)] Route: PO; mlb1 Signatures: Dispatcher [employer] Lynsey Parham MD MD sd1 Bhargavi Jauregui, Reg Reg gb John Paul Basurto RN RN mlb1 Evonne Doherty mm15 Roselyn QuarlesRN RN af2 The chart was reviewed and I authenticate all verbal orders and agree with the evaluation and treatment provided.Corrections: (The following items were deleted from the chart) 10:22 [facility]. Nursing Order ordered. sd1 sd1 Attachments: 08:04 [facility] Payment Agreement mm15 05/04 10:32 T-Sheet-- Draft Copy gb Chart Complete MTDD
== END 2016-05-03 13:05 | disposition home or self-care (01) ==
LOC: M ED 06:26
DX: R51 Headache (principal); R42 Dizziness and giddiness; J44.9 Chronic obstructive pulmonary disease, unspecified; K21.9 Gastro-esophageal reflux disease without esophagitis; M10.9 Gout, unspecified; I10 Essential (primary) hypertension; Z87.891 Personal history of nicotine dependence; Z85.038 Personal history of other malignant neoplasm of large intestine; Z95.0 Presence of cardiac pacemaker; Z79.899 Other long term (current) drug therapy; Z88.0 Allergy status to penicillin; Z91.030 Bee allergy status; Z91.013 Allergy to seafood

== ENCOUNTER 2016-05-09 10:15 | Observation (INO) | payer MEDICARE, OTHER ==
[~2016-05-09] VITALS: Ht 160 cm; Wt 56.5 kg
[2016-05-09] MEDS ORDERED: MECLIZINE 12.5 MG TAB As Ordered ONE (11:07)
[2016-05-09 11:35] LABS: BASO % 0.3 % (0.0-1.0); EOS % 0.3 % (0.0-3.0); LARGE UNSTAINED CELL % 0.5 % (0.0-4.0); LYMPH # 1.5 K/mm3 (1.5-4.5); LYMPH % 16.7 % (24.0-44.0); MEAN CORPUSCULAR HEMOGLOBIN 31.7 pg (27.0-33.0); MEAN CORPUSCULAR HGB CONC 34.8 g/dl (32.0-36.5); MEAN CORPUSCULAR VOLUME 91.1 fl (80.0-96.0); MONO # 0.4 K/mm3 (0.0-0.8); MONO % 4.1 % (0.0-5.0); NEUTROPHILS # 6.7 K/mm3 (1.8-7.7); NEUTROPHILS % 78.1 % (36.0-66.0); PLATELET COUNT, AUTOMATED 290 k/mm3 (150-450); RED CELL DISTRIBUTION WIDTH 12.9 % (11.5-14.5); WHITE BLOOD COUNT 8.6 K/mm3 (4.0-10.0)
[2016-05-09 11:48] LABS: ANION GAP 12 MEQ/L (8-16); BLOOD UREA NITROGEN 16 MG/DL (7-18); CALCIUM LEVEL 8.9 MG/DL (8.8-10.2); CARBON DIOXIDE LEVEL 23 MEQ/L (21-32); CHLORIDE LEVEL 105 MEQ/L (98-107); CREATININE FOR GFR 0.97 MG/DL (0.55-1.02); GLOMERULAR FILTRATION RATE 57.7 (>32); GLUCOSE, FASTING 107 MG/DL (83-110); SODIUM LEVEL 140 MEQ/L (136-145)
--- NOTE | 2016-05-09 12:49 | REP ---
CHEST, TWO VIEWS: Two views of the chest are performed. There is no acute infiltrate. There is mild bibasilar fibrotic change. Fissural thickening anteriorly on the lateral view is unchanged. The heart is not enlarged. There is mild calcification and tortuosity of the thoracic aorta. Mediastinal silhouette is unchanged. Left dual lead pacemaker is noted. There are mild degenerative changes of the spine. IMPRESSION: Stable chronic findings without evidence of acute pulmonary disease. Signed by Dat Maynard MD 05/09/2016 04:58 P
--- NOTE | 2016-05-09 12:49 | REP ---
CT HEAD WITHOUT CONTRAST: HISTORY: Infarction. COMPARISON: 05/05/2016 Areas of decreased attenuation are present in the periventricular and subcortical white matter. This represents small vessel ischemic disease. There is no intraparenchymal hemorrhage, mass, or midline shift. The ventricular system and cortical sulci are dilated consistent with mild volume loss. There is no extracerebral collection. The visualized sinuses are clear. IMPRESSION: 1. Small vessel ischemic disease. 2. Mild volume loss. Signed by Karlo Lacy MD 05/09/2016 01:06 P
[2016-05-09] MEDS ORDERED: SUCR1TAB56 PO (14:47)
[2016-05-09] MEDS ORDERED: MECL-86 PO (14:53)
[2016-05-09] MEDS ORDERED: ALPR0.25 PO (14:53)
[2016-05-09] MEDS ORDERED: ONDANSETRON 4MG/2ML VIAL (J2405) IV PRN (16:15)
[2016-05-09] MEDS: SUCRALFATE 1 GM TAB PO SCH ×2 (17:30→21:25)
[2016-05-09 18:05] VITALS: BP 141/79
--- NOTE | 2016-05-09 18:07 | HPE ---
DATE OF ADMISSION: 05/09/2016 PRIMARY CARE PROVIDER: Tiffany Martell NP CHIEF COMPLAINT: Dizziness off-and-on for two weeks with pounding and fullness of the right ear for the same duration. PAST MEDICAL HISTORY: 1. Hypertension. 2. Chronic obstructive pulmonary disease (COPD). 3. Gastroesophageal reflux disease (GERD). 4. Vertigo. 5. 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 6. History of colon cancer, status post partial colectomy. 7. Gout. 8. History of Lyme disease. 9. History of Dave's Esophagus. 10. Diverticulosis of the sigmoid colon. 11. Colonic polyp. 12. Hiatal hernia. 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 14. Gastritis. 15. Hyperlipidemia. 16. Lung nodules. HISTORY OF PRESENT ILLNESS: This is an 89-year-old female who was recently seen in the emergency room on 04/22/2016, for abdominal pain, mild gastrointestinal (GI) tract bleeding, and cholelithiasis. The patient was discharged from the emergency room. The patient had an outpatient esophagogastroduodenoscopy (EGD) and colonoscopy done on 04/28/2016. Today, she went to Dr. Hill's office for results of her EGD and colonoscopy, was sitting on a wheelchair with her eyes closed. The wheelchair was not in motion. However, she felt that the room was spinning and someone was moving her and so she was sent to the emergency room. In the emergency department (ED), she said that for the past two weeks she has been having intermittent episodes of extreme dizziness and nausea and she would feel the room spinning even with her eyes closed. It is worse when she sits up or stands, though she still is not completely normal when she is laying down. She would have severe episodes for one or two days and then feel a little better for a day and then again the symptoms coming back. Since March 2016, she has had six emergency room (ER) visits for different complaints. Last she was here was on 05/03/2016 for vertigo, when she had a CT head done which did not show any acute abnormality. She was also here on 04/25/2016 for chest pain. She had a CT angiogram done which showed chronic interstitial and emphysematous changes, hiatal hernia, basilar atelectasis, no pulmonary embolism. Before that, she had come on 04/22/2016 for abdominal pain and GI bleed. She was also here on 04/19/2016, so in fact she has been in and out of the hospital for the past one month for different complaints. Today, she is unable to sit up or stand up. She is extremely dizzy and unbalanced. She had a repeat head CT done which showed only small vessel ischemic disease and mild volume loss. We could not do an MRI to rule out cerebellar stroke as the patient has a pacemaker. The patient did have her orthostatic blood pressures checked in the emergency room which was 108/55 on laying down and 113/61 on standing up and her pulse was 71 and 72 respectively, so there were no orthostatic blood pressure changes. However, because of her vertigo, she is unable to ambulate and so is being admitted to the hospitalist service. PAST SURGICAL HISTORY: 1. Hysterectomy. 2. Colon resection. 3. Pacemaker insertion. 4. Appendectomy. 5. Breast biopsy. SOCIAL HISTORY: The patient is a former smoker. She quit many years ago. She does not abuse alcohol or recreational drugs. ALLERGIES: BEES, PENICILLIN, and SEAFOOD. FAMILY HISTORY: Not pertinent. HOME MEDICATIONS: - Tylenol 650 mg by mouth every four hours as needed for pain or fever - Xanax 0.25 mg by mouth three times a day as needed for vertigo or dizziness - amlodipine 5 mg by mouth daily - vitamin C 500 mg by mouth daily - colecalciferol 1000 units by mouth daily - cyanocobalamin 1000 mcg by mouth daily - Imodium AD 2 mg by mouth as needed - magnesium 400 mg by mouth daily - meclizine 25 mg by mouth twice a day - omeprazole 40 mg by mouth daily - pyridoxine 50 mg by mouth daily - Advair 250/50 one puff inhalation twice a day - sucralfate 1 gram by mouth before meals and at bedtime - Spiriva one inhalation by mouth daily REVIEW OF SYSTEMS: All 10-point review of systems are negative except those mentioned in the history of present illness (HPI). PHYSICAL EXAMINATION: VITAL SIGNS: Blood pressure 100/55, pulse 74, respiratory rate 18, temperature 98.4, pulse oximetry 96% on room air. GENERAL: Patient awake, alert, and oriented times three, laying down in bed in no acute distress. HEENT: Normocephalic, atraumatic. Moist mucous membranes. Anicteric eyes. CHEST: Clear to auscultation. CARDIOVASCULAR: S1, S2, regular. No rub, murmur, or gallop. ABDOMEN: Soft, nontender. Bowel sounds present. EXTREMITIES: No edema. NEUROLOGIC: There is no nystagmus noted. Her igvzoa-un-ixyp test is normal and her tjed-xv-ztco test is normal. She does not have any tremors. Power is 5/5 and symmetrical in all four extremities. There is no sensory abnormality noted. LABORATORY DATA: WBC 8.6, hemoglobin 14.3, platelets 290. Sodium 140, potassium 4, chloride 105, bicarbonate 23, BUN 16, creatinine 0.9, glucose 107, calcium 8.9. Cardiac enzymes are negative. ASSESSMENT AND PLAN: This is an 89-year-old female admitted for vertigo. 1. Vertigo seems to be peripheral because of her ear symptoms. We will treat with meclizine. We will also ask physical therapy to evaluate for benign paroxysmal positional vertigo (BPPV). If vertigo continues then we may have to do an MRI with pacemaker accompanying person in-house to rule out any cerebellar. Patient's blood pressure has been running on the lower side, so we will hold amlodipine. Also, we will ask ears, nose and throat (ENT) to evaluate if her symptoms do not resolve. Patient is most probably having vestibular neuronitis or labyrinthitis causing her symptoms. We will also put the patient on antiemetics for her recurrent nausea. 2. Hypertension. Blood pressures are very well-controlled at this point. We will hold amlodipine. 3. Dave's esophagus, gastroesophageal reflux disease (GERD), and hiatal hernia. We will continue with proton pump inhibitor (PPI) and sucralfate. 4. Chronic obstructive pulmonary disease (COPD). We will continue with Advair and Spiriva. 5. Deep vein thrombosis (DVT) prophylaxis has been ordered.
[2016-05-09 20:30] VITALS: BP 147/70
[2016-05-09 20:35] VITALS: BP 177/77
--- NOTE | 2016-05-09 20:37 | EDDOCDS ---
Nurse's Notes [facility], [place] Name: Nancy Nicolas Age: 89 yrs Sex: Female : 1925 Arrival Date: 05/09/2016 Time: 10:15 Bed 8 Private MD: Tiffany Martell Diagnosis: Other peripheral vertigo-Intractable Vertigo Presentation: 05/09 10:22 Presenting complaint: Patient states: sent over from Dr. beltran office for dizziness. dsf Pt reports dizziness started 5 days ago. Pt does have a HX of vertigo. Pt reports she had chest pain last night no chest pain now. Adult Sepsis Screening: The patient does not have new or worsening altered mentation. Patient's respiratory rate is less than 22. Systolic blood pressure is greater than 100. Patient has a qSOFA score of 0- Negative Sepsis Screen. Suicide/Homicide risk assessment- the patient denies having any suicidal and/or homicidal ideations and does not present with any other emotional, behavioral or mental health complaints. 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 Transition of care: patient was received from Dr. beltran . 10:22 Acuity: HARPER Level 2 dsf 10:22 Method Of Arrival: Wheelchair dsf 10:22 Red Flag criteria, patient assessed and taken directly to a bed. dsf Triage Assessment: 10:28 General: Appears in no apparent distress, Behavior is crying. Pain: Denies pain. dsf Neurological: Level of Consciousness is awake, alert, Reports dizziness. GI: Reports nausea. Historical: - Allergies: Bees; PENICILLINS; seafood; - Home Meds: 1. Advair Diskus 250-50 mcg/dose Inhl dsdv 1 puff 2 times per day (Last dose: 05/09/2016 02:00) 2. Norvasc 5 mg Oral tab 1 tab once daily (Last dose: 05/09/2016 02:00) 3. omeprazole 40 mg Oral cpDR 1 cap once daily (Last dose: 05/08/2016) 4. Spiriva with HandiHaler 18 mcg Inhl CpDv 1 cap once daily (Last dose: 05/09/2016 02:00) 5. sucralfate 1 gram Oral tab 4 times per day (Last dose: 05/08/2016) 6. Zofran (as hydrochloride) 4 mg Oral tab 3 times per day (Last dose: 05/08/2016) 7. meclizine 25 mg Oral tab 1 tab twice a day (Last dose: 05/09/2016 08:00) 8. Xanax 0.25 mg Oral tab 1 tab 3 times per day (Last dose: 05/09/2016 08:10) - PMHx: Cancer, Colon; COPD; Lyme Disease; Hypertension; GERD; Gout; - PSHx: Hysterectomy; Colon Resection; Pacemaker Insertion (May 2015); - Social history: Smoking status: Patient states former smoker of tobacco. No barriers to communication noted, The patient speaks fluent Bulgarian, Speaks appropriately for age. - Family history: Not pertinent. - : The pt / caregiver states he / she is not on anticoagulants. Home medication list is obtained from the patient. - Exposure Risk Screening:: None identified. Screenin:19 Screening information is obtained from the patient. Fall risk: At risk due to age, The bcj following interventions are performed due to a positive Fall Risk Screen: Fall Risk is added to Special Handling on the patient Summary Screen. A Fall Risk Bracelet was applied to the patient. Side Rails are placed in the up position. A Call Iniguez is given with instruction to call for help when getting out of bed. Fall Alert bracelet is placed on the patient. Assistance ADL's: Requires assistance with housework, assistance is provided by. Abuse/DV Screen: The patient / caregiver reports he/she is: not in a situation that causes fear, pain or injury. Nutritional screening: No deficits noted. Advance Directives: Currently, there is a health care proxy. home support is adequate. Assessment: 11:19 General: Appears in no apparent distress, comfortable, Behavior is cooperative. Pain: bcj Denies pain. Neurological: Level of Consciousness is awake, alert, Oriented to person, place, time. Cardiovascular: Rhythm is sinus rhythm. Respiratory: Airway is patent Respiratory effort is even, unlabored. Derm: Skin is pink, warm & dry. 13:08 General: Appears in no apparent distress, comfortable, Behavior is cooperative. Pain: bcj Denies pain. Neurological: Level of Consciousness is awake, alert. Cardiovascular: Rhythm is sinus rhythm. Derm: Skin is pink, warm & dry. 14:28 General: Appears in no apparent distress, comfortable, Behavior is cooperative. Pain: bcj Denies pain. Cardiovascular: Rhythm is sinus rhythm. Derm: Skin is pink, warm & dry. 15:47 General: Appears in no apparent distress, comfortable, Behavior is cooperative. Pain: bcj Denies pain. 18:41 General: Appears in no apparent distress, comfortable, Behavior is cooperative. Pain: bcj Denies pain. Neurological: Level of Consciousness is awake, alert, Oriented to person, place, time. Derm: Skin is pink, warm & dry. 19:12 General: Appears in no apparent distress, comfortable, Behavior is cooperative. Pain: ko2 Denies pain. Neurological: Level of Consciousness is awake, alert. Cardiovascular: Heart tones S1 S2 present Rhythm is sinus rhythm. Respiratory: Airway is patent Respiratory effort is even, unlabored, Breath sounds are clear bilaterally. Derm: Skin is normal. Vital Signs: 10:18 BP 138 / 82; Pulse 69; Resp 18; Temp 98.4(TE); Pulse Ox 100% on R/A; Weight 55.34 kg nb2 (R); Height 5 ft. 3 in. (160.02 cm) (R); 10:32 BP 130 / 68 (auto/); bcj 10:34 Pulse 66 MON; Pulse Ox 100% ; bcj 10:47 BP 123 / 67 (auto/); bcj 10:47 Pulse 66 MON; Pulse Ox 100% ; bcj 11:02 BP 127 / 82 (auto/); bcj 11:02 Pulse 66 MON; Pulse Ox 100% ; bcj 11:26 BP 108 / 55 Supine; Pulse 71; bcj 11:26 BP 113 / 61 Sitting; Pulse 72; bcj 11:32 BP 114 / 67 (auto/); bcj 11:32 Pulse 74 MON; Pulse Ox 100% ; bcj 11:48 BP 119 / 87 (auto/); bcj 11:48 Pulse 68 MON; Pulse Ox 100% ; bcj 12:30 BP 110 / 71 (auto/); bcj 12:30 Pulse 70 MON; Pulse Ox 96% ; bcj 13:00 BP 100 / 55 (auto/); bcj 13:00 Pulse 74 MON; Pulse Ox 96% ; bcj 17:47 BP 128 / 80; Pulse 88; Resp 16; Temp 98; Pulse Ox 95% on R/A; Pain 0/10; bcj 18:41 BP 141 / 79; Pulse 65; Resp 20; Temp 96.3(O); Pulse Ox 98% on R/A; Pain 0/10; bcj 19:07 Weight 65.6 kg (M); ko2 19:07 Body Mass Index 25.62 (65.60 kg, 160.02 cm) ko2 Vitals: 10:18 Log In Time: May 09, 2016 at 10:10. nb2 11:19 Refer to monitor trend for complete vital signs trends. [facility] ED Course: 10:17 Patient visited by Marilou Beaver. nb2 10:17 Evelio Beltran MD is Private Physician. nb2 10:17 Tiffany Martell is Private Physician. nb2 10:17 Vero Dave is Private Physician. nb2 10:17 Patient moved to Waiting nb2 10:19 Patient visited by Marilou Beaver. nb2 10:19 Patient moved to 8 nb2 10:24 Triage Initiated dsf 10:34 No apparent distress. Resting quietly. awaiting re-evaluation by ER physician. bcj 10:34 IV is intact. bcj 10:44 Brandon Ortiz MD is Attending Physician. br1 10:44 EKG done. (by ED staff). Reviewed by Brandon Ortiz MD. rn1 10:58 Patient visited by Brandon Ortiz MD. br1 11:19 No apparent distress. Resting quietly. awaiting re-evaluation by ER physician. bcj 11:19 The patient / caregiver is instructed regarding the plan of care and ED course. bcj 11:19 Basic Metabolic Profile Sent. bcj 11:19 CBC with Diff Sent. bcj 11:19 Cardiac Injury Profile Sent. bcj 11:19 Troponin Sent. bcj 11:19 Inserted saline lock: 20 gauge in right antecubital area. Labs drawn. (by ED staff). bcj Sent per order to lab. 11:22 Patient visited by Josafat Horne RN. bcj 11:28 Patient visited by Josafat Horne, LANE. bcj 12:08 Patient visited by Josafat Horne, LANE. bcj 12:19 [facility] Payment Agreement was scanned into [employer] and attached to record. mm15 13:11 Patient visited by Josafat Horne RN. bcj 13:14 Chest, 2 View (pa\E\lat) Returned. EDMS 13:14 CT Head Without Contrast Returned. EDMS 14:28 Patient visited by Brandon Ortiz MD. br1 14:28 No apparent distress. Resting quietly. Awaiting disposition. bcj 14:28 IV is intact. bcj 14:29 Patient visited by Josafat Horne, LANE. bcj 15:04 JamesJenna is Hospitalizing Provider. br1 15:47 No apparent distress. Resting quietly. Awaiting disposition. bcj 15:47 IV. bcj 15:49 Patient visited by Josafat Horne RN. bcj 17:06 Chest, 2 View (pa\E\lat) Returned. EDMS 17:50 Patient visited by Josafat Horne RN. bcj 18:41 Resting quietly. Awaiting bed assignment. bcj 18:41 IV is intact. bcj 18:43 Patient visited by Josafat Horne RN. bcj 19:07 Joyce Anna,LANE is Primary Nurse. ko2 19:13 No procedures done that require assistance. ko2 19:14 Patient visited by Joyce Anna RN. ko2 Administered Medications: 11:10 Drug: Meclizine 25 mg [meclizine 12.5 mg tablet (2 tabs)] Route: PO; srm Order Results: Lab Order: Basic Metabolic Profile; SPEC'M 05/09/16 11:16 Test: GLUCOSE, FASTING; Value: 107; Range: 83-110; Units: MG/DL; Status: F Test: BLOOD UREA NITROGEN; Value: 16; Range: 7-18; Units: MG/DL; Status: F Test: CREATININE FOR GFR; Value: 0.97; Range: 0.55-1.02; Units: MG/DL; Status: F Test: GLOMERULAR FILTRATION RATE; Value: 57.7; Range: >32; Status: F Test: SODIUM LEVEL; Value: 140; Range: 136-145; Units: MEQ/L; Status: F Test: POTASSIUM SERUM; Value: 4.0; Range: 3.5-5.1; Units: MEQ/L; Status: F Test: CHLORIDE LEVEL; Value: 105; Range: 98-107; Units: MEQ/L; Status: F Test: CARBON DIOXIDE LEVEL; Value: 23; Range: 21-32; Units: MEQ/L; Status: F Test: ANION GAP; Value: 12; Range: 8-16; Units: MEQ/L; Status: F Test: CALCIUM LEVEL; Value: 8.9; Range: 8.8-10.2; Units: MG/DL; Status: F Test Note: ; Units are mL/min/1.73 m2 Chronic Kidney Disease Staging per NKF: Stage I & II GFR >=60 Normal to Mildly Decreased Stage III GFR 30-59 Moderately Decreased Stage IV GFR 15-29 Severely Decreased Stage V GFR <15 Very Little GFR Left ESRD GFR <15 on SECURITY SALES CONSULTANT Lab Order: CBC with Diff; SPEC'M 05/09/16 11:16 Test: WHITE BLOOD COUNT; Value: 8.6; Range: 4.0-10.0; Units: K/mm3; Status: F Test: RED BLOOD COUNT; Value: 4.52; Range: 4.00-5.40; Units: M/mm3; Status: F Test: HEMOGLOBIN; Value: 14.3; Range: 12.0-16.0; Units: g/dl; Status: F Test: HEMATOCRIT; Value: 41.2; Range: 36.0-47.0; Units: %; Status: F Test: MEAN CORPUSCULAR VOLUME; Value: 91.1; Range: 80.0-96.0; Units: fl; Status: F Test: MEAN CORPUSCULAR HEMOGLOBIN; Value: 31.7; Range: 27.0-33.0; Units: pg; Status: F Test: MEAN CORPUSCULAR HGB CONC; Value: 34.8; Range: 32.0-36.5; Units: g/dl; Status: F Test: RED CELL DISTRIBUTION WIDTH; Value: 12.9; Range: 11.5-14.5; Units: %; Status: F Test: PLATELET COUNT, AUTOMATED; Value: 290; Range: 150-450; Units: k/mm3; Status: F Test: NEUTROPHILS %; Value: 78.1; Range: 36.0-66.0; Abnormal: Above high normal; Units: %; Status: F Test: LYMPH %; Value: 16.7; Range: 24.0-44.0; Abnormal: Below low normal; Units: %; Status: F Test: MONO %; Value: 4.1; Range: 0.0-5.0; Units: %; Status: F Test: EOS %; Value: 0.3; Range: 0.0-3.0; Units: %; Status: F Test: BASO %; Value: 0.3; Range: 0.0-1.0; Units: %; Status: F Test: LARGE UNSTAINED CELL %; Value: 0.5; Range: 0.0-4.0; Units: %; Status: F Test: NEUTROPHILS #; Value: 6.7; Range: 1.8-7.7; Units: K/mm3; Status: F Test: LYMPH #; Value: 1.5; Range: 1.5-4.5; Units: K/mm3; Status: F Test: MONO #; Value: 0.4; Range: 0.0-0.8; Units: K/mm3; Status: F Test: EOS #; Value: 0.0; Range: 0.0-0.50; Units: K/mm3; Status: F Test: BASO #; Value: 0.0; Range: 0.0-0.2; Units: K/mm3; Status: F Test: LARGE UNSTAINED CELL #; Value: 0.0; Range: 0.0-0.4; Units: K/mm3; Status: F Lab Order: Cardiac Injury Profile; [facility] 05/09/16 11:16 Test: CPK CREATINE PHOSPHOKINASE; Value: 53; Range: 26-192; Units: U/L; Status: F Test: CK-MB VALUE MASS; Value: 2.2; Range: 0.0-3.6; Units: NG/ML; Status: F Test: MB/CK RELATIVE INDEX; Value: 4.15; Range: < OR =4; Abnormal: Above high normal; Status: F Test Note: ; DIAGNOSIS CRITERIA MMB ng/ml Relative Index (RI) NON-AMI < or = 5 N/A [place] > 5 < or = 4 AMI > 5 > 4 Lab Order: Troponin; [facility] 05/09/16 11:16 Test: TROPONIN I; Value: < 0.02; Range: < 0.10; Units: NG/ML; Status: F Test Note: ; Troponin I Reference Interval for [place] LOCI: 99th Percentile= 0.00-0.045 ng/ml Risk Stratification: <= 0.10 ng/ml Decreased Risk for Adverse Clinical Events. 0.10-1.50 ng/ml Increased Risk for Adverse Clinical Events. Evaluation of additional criterion and/or repeat testing in 2-6 hours is suggested to rule out myocardial damage. >= 1.50 ng/ml Indicative of Myocardial Injury. Radiology Order: CT Head Without Contrast Test: CT Head Without Contrast REASON FOR EXAMINATION: dizzy, eval for CVA; CT HEAD WITHOUT CONTRAST:; ; HISTORY: Infarction.; ; COMPARISON: 05/05/2016; ; Areas of decreased attenuation are present in the periventricular and subcortical; white matter. This represents small vessel ischemic disease. There is no; intraparenchymal hemorrhage, mass, or midline shift. The ventricular system and; cortical sulci are dilated consistent with mild volume loss. There is no; extracerebral collection. The visualized sinuses are clear.; ; IMPRESSION:; ; 1. Small vessel ischemic disease.; ; 2. Mild volume loss.; ; ; Signed by; Karlo Lacy MD 05/09/2016 01:06 P; Radiology Order: Chest, 2 View (pa\E\lat) Test: Chest, 2 View (pa\E\lat) REASON FOR EXAMINATION: near syncope; CHEST, TWO VIEWS:; ; Two views of the chest are performed. There is no acute infiltrate. There is; mild bibasilar fibrotic change. Fissural thickening anteriorly on the lateral; view is unchanged. The heart is not enlarged. There is mild calcification and; tortuosity of the thoracic aorta. Mediastinal silhouette is unchanged. Left; dual lead pacemaker is noted. There are mild degenerative changes of the spine.; ; IMPRESSION:; ; Stable chronic findings without evidence of acute pulmonary disease.; ; ; Signed by; Dat Maynard MD 05/09/2016 04:58 P; Outcome: 15:04 Decision to Hospitalize by Provider. br1 19:13 CT Study completed. ko2 20:02 Discharge Assessment: Patient awake, alert and oriented x 3. No cognitive and/or ko2 functional deficits noted. Patient verbalized understanding of disposition instructions. Discharge Assessment: patient administered narcotics - no. The following High Risk Discharge criteria are identified: None. Admitted to Floor accompanied by tech, via stretcher, with chart. Condition: stable. Admission hand-off: Report Faxed Fax receipt verified by LANE garcia. Property :Personal belongings accompany Pt. 20:37 Patient left the ED. ml3 Signatures: Dispatcher [employer] EDJosafat Gardner, RN RN Juanita Hernandez, RN RN lisa Rodney, [place], Managed Services Consultant Unit ml3 Brandon Ortiz MD MD br1 Josiane Churchill RN RN Evonne Gallegos mm15 Joyce Anna RN RN alma rosa2 Garcia Rowan rn1 Marilou Beaver2 MTDD
--- NOTE | 2016-05-09 20:37 | EDDOCDS ---
Physician Documentation [facility] Name: Nancy Nicolas Age: 89 yrs Sex: Female : 1925 Arrival Date: 05/09/2016 Time: 10:15 Bed 8 Private MD: Tiffany Martell Disposition: 05/09/16 15:04 Hospitalization ordered by Jenna Ramirez for Inpatient Admission. Preliminary diagnosis is Other peripheral vertigo - Intractable Vertigo. - Bed requested for 5 Hatch. - Status is Inpatient Admission. ml3 - Condition is Stable. - Problem is new. - Symptoms are unchanged. Historical: - Allergies: Bees; PENICILLINS; seafood; - Home Meds: 1. Advair Diskus 250-50 mcg/dose Inhl dsdv 1 puff 2 times per day (Last dose: 05/09/2016 02:00) 2. Norvasc 5 mg Oral tab 1 tab once daily (Last dose: 05/09/2016 02:00) 3. omeprazole 40 mg Oral cpDR 1 cap once daily (Last dose: 05/08/2016) 4. Spiriva with HandiHaler 18 mcg Inhl CpDv 1 cap once daily (Last dose: 05/09/2016 02:00) 5. sucralfate 1 gram Oral tab 4 times per day (Last dose: 05/08/2016) 6. Zofran (as hydrochloride) 4 mg Oral tab 3 times per day (Last dose: 05/08/2016) 7. meclizine 25 mg Oral tab 1 tab twice a day (Last dose: 05/09/2016 08:00) 8. Xanax 0.25 mg Oral tab 1 tab 3 times per day (Last dose: 05/09/2016 08:10) - PMHx: Cancer, Colon; COPD; Lyme Disease; Hypertension; GERD; Gout; - PSHx: Hysterectomy; Colon Resection; Pacemaker Insertion (May 2015); - Social history: Smoking status: Patient states former smoker of tobacco. No barriers to communication noted, The patient speaks fluent German, Speaks appropriately for age. - Family history: Not pertinent. - : The pt / caregiver states he / she is not on anticoagulants. Home medication list is obtained from the patient. - Exposure Risk Screening:: None identified. Vital Signs: 05/09 10:18 BP 138 / 82; Pulse 69; Resp 18; Temp 98.4(TE); Pulse Ox 100% on R/A; Weight 55.34 kg / nb2 122 lbs (R); Height 5 ft. 3 in. (160.02 cm) (R); 10:32 BP 130 / 68 (auto/); bcj 10:34 Pulse 66 MON; Pulse Ox 100% ; bcj 10:47 BP 123 / 67 (auto/); bcj 10:47 Pulse 66 MON; Pulse Ox 100% ; bcj 11:02 BP 127 / 82 (auto/); bcj 11:02 Pulse 66 MON; Pulse Ox 100% ; bcj 11:26 BP 108 / 55 Supine; Pulse 71; bcj 11:26 BP 113 / 61 Sitting; Pulse 72; bcj 11:32 BP 114 / 67 (auto/); bcj 11:32 Pulse 74 MON; Pulse Ox 100% ; bcj 11:48 BP 119 / 87 (auto/); bcj 11:48 Pulse 68 MON; Pulse Ox 100% ; bcj 12:30 BP 110 / 71 (auto/); bcj 12:30 Pulse 70 MON; Pulse Ox 96% ; bcj 13:00 BP 100 / 55 (auto/); bcj 13:00 Pulse 74 MON; Pulse Ox 96% ; bcj 17:47 BP 128 / 80; Pulse 88; Resp 16; Temp 98; Pulse Ox 95% on R/A; Pain 0/10; bcj 18:41 BP 141 / 79; Pulse 65; Resp 20; Temp 96.3(O); Pulse Ox 98% on R/A; Pain 0/10; bcj 19:07 Weight 65.6 kg / 144.62 lbs (M); ko2 19:07 Body Mass Index 25.62 (65.60 kg, 160.02 cm) ko2 MDM: 10:23 ECG WITH READING ER PHYS+CARDIAG ordered. EDMS 10:30 Porcelain Enameler/Pulse Ox/q 30 min VS ordered. br1 10:30 IV Saline Lock ordered. br1 10:30 Rhythm Strip to chart ordered. br1 10:30 Undress patient appropriately for examination ordered. br1 10:30 Orthostatic VS ordered. br1 10:30 Basic Metabolic Profile Ordered. EDMS 10:31 CBC with Diff Ordered. EDMS 10:31 Cardiac Injury Profile Ordered. EDMS 10:31 Troponin Ordered. EDMS 11:04 Meclizine 25 mg PO once ordered. br1 11:04 CT Head Without Contrast Ordered. EDMS 11:04 Chest, 2 View (pa\E\lat) Ordered. EDMS 12:16 Financial registration complete. mm15 12:19 [facility] Payment Agreement was scanned into [employer] and attached to record. mm15 14:22 CBC with Diff Reviewed. br1 14:22 Cardiac Injury Profile Reviewed. br1 14:22 Basic Metabolic Profile Reviewed. br1 14:22 Troponin Reviewed. br1 14:22 CT Head Without Contrast Reviewed. br1 14:22 Chest, 2 View (pa\E\lat) Reviewed. br1 14:29 BED REQUEST+ADM ordered. EDMS 16:17 PHYSICAL THERAPY EVAL & TREAT ordered. EDMS 16:18 Admission / Observation Status ordered. EDMS 16:18 REGULAR DIET ordered. EDMS 19:31 CBC WITH DIFFERENTIAL Ordered. EDMS 19:32 BASIC METABOLIC PROFILE Ordered. EDMS Administered Medications: 11:10 Drug: Meclizine 25 mg [meclizine 12.5 mg tablet (2 tabs)] Route: PO; srm Signatures: Dispatcher [employer] EDMS Josafat Horne, RN RN Reece Frey, Farm Equipment Mechanic Unit ml3 Brandon Ortiz MD MD br1 Josiane Churchill,RN RN Evonne Gallegos mm15 Joyce Anna RN RN ko2 Greer Hutchinson RN RN sls2 Juanita Cheatham RN srm The chart was reviewed and I authenticate all verbal orders and agree with the evaluation and treatment provided.Attachments: 12:19 [facility] Payment Agreement mm15 MTDD
[2016-05-09 20:40] VITALS: BP 174/81
[2016-05-09] MEDS: ADVAIR DISKUS 250/50 INH PWD INH SCH (21:00)
[2016-05-09] MEDS: MECLIZINE 12.5 MG TAB PO SCH (21:25)
[2016-05-09] MEDS: ACETAMINOPHEN 500 MG TAB PO PRN (21:26)
[2016-05-10 06:00] VITALS: BP 143/69
[2016-05-10 07:13] LABS: BASO # 0.1 K/mm3 (0.0-0.2); BASO % 0.7 % (0.0-1.0); EOS # 0.2 K/mm3 (0.0-0.50); EOS % 2.5 % (0.0-3.0); LARGE UNSTAINED CELL # 0.1 K/mm3 (0.0-0.4); LARGE UNSTAINED CELL % 1.5 % (0.0-4.0); LYMPH # 2.9 K/mm3 (1.5-4.5); LYMPH % 33.6 % (24.0-44.0); MEAN CORPUSCULAR HEMOGLOBIN 30.8 pg (27.0-33.0); MEAN CORPUSCULAR HGB CONC 33.3 g/dl (32.0-36.5); MEAN CORPUSCULAR VOLUME 92.5 fl (80.0-96.0); MONO # 0.5 K/mm3 (0.0-0.8); MONO % 5.3 % (0.0-5.0); NEUTROPHILS # 4.9 K/mm3 (1.8-7.7); NEUTROPHILS % 56.4 % (36.0-66.0); PLATELET COUNT, AUTOMATED 291 k/mm3 (150-450); RED CELL DISTRIBUTION WIDTH 12.7 % (11.5-14.5); WHITE BLOOD COUNT 8.6 K/mm3 (4.0-10.0)
[2016-05-10 07:33] LABS: CALCIUM LEVEL 8.6 MG/DL (8.8-10.2); CREATININE FOR GFR 1.09 MG/DL (0.55-1.02); GLOMERULAR FILTRATION RATE 50.4 (>32)
[2016-05-10] MEDS: MECLIZINE 12.5 MG TAB PO SCH (07:48)
[2016-05-10] MEDS: TIOTROPIUM INHALER/CAPSULE (SPIRIVA) INH SCH (08:29)
[2016-05-10] MEDS: ADVAIR DISKUS 250/50 INH PWD INH SCH ×2 (08:29→19:54)
[2016-05-10] MEDS: PANTOPRAZOLE 40MG TAB (PROTONIX) PO SCH (08:57)
[2016-05-10] MEDS: SUCRALFATE 1 GM TAB PO SCH ×4 (08:57→20:40)
[2016-05-10] MEDS: ENOXAPARIN 30 MG/0.3 ML SYR (J1650) SC SCH (08:58)
[2016-05-10] MEDS ORDERED: amLODIPine 5 MG TAB PO SCH (09:00)
[2016-05-10 14:00] VITALS: BP 134/72
[2016-05-10] MEDS: MECLIZINE 25 MG TABLET PO SCH ×2 (15:12→20:40)
--- NOTE | 2016-05-10 16:51 | IPNPDOC ---
Text Note Date of Service The patient was seen on 05/10/16. 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 She notes that she began having ear pain and then recently had dizziness. She describes the dizziness as happening multiple times per day and lasting for a few seconds. She has associated nausea, but denies vomiting. Objective: Vitals (See below) General: Lying in bed, no acute distress, comfortable, AAOx3 HEENT: NC, AT, Tympanic membrane appears clear without drainage CVS: RRR, +S1S2 Lungs: Fair air entry b/l, -w/r/r Abdomen: Soft, ND, NT, Colostomy present, +BSx4 Extremities: +PPx4, -Edema, -Calf tenderness Assessment and plan: 1. Vertigo - likely 2/2 labyrinthitis, less likely 2/2 BPPV - reports improvement in dizziness and nausea - physical dose not reveal any infection within canal - CT does not reveal any acute changes - MRI not possible given pacemaker - c/w meclizine 2. HTN - BP well controlled - will c/w amlodipine 3. Dave's esophagus / GERD / Hiatal hernia - c/w PPI and sucralfate 4. COPD - c/w Advair and Spiriva 5. DVT prophylaxis - c/w Lovenox VS,Fishbone, I+O VS, Fishbone, I+O Laboratory Tests 05/10/16 06:58 Calcium Level 8.6 L, Red Blood Count 4.30, Mean Corpuscular Volume 92.5, Mean Corpuscular Hemoglobin 30.8, Mean Corpuscular Hemoglobin Concent 33.3, Red Cell Distribution Width 12.7, Neutrophils (%) (Auto) 56.4, Lymphocytes (%) (Auto) 33.6, Monocytes (%) (Auto) 5.3 H, Eosinophils (%) (Auto) 2.5, Basophils (%) ( Auto) 0.7, Neutrophils # (Auto) 4.9, Lymphocytes # (Auto) 2.9, Monocytes # (Auto ) 0.5, Eosinophils # (Auto) 0.2, Basophils # (Auto) 0.1 Vital Signs Date Time Temp Pulse Resp B/P Pulse Ox O2 Delivery O2 Flow Rate FiO2 05/10/16 14:00 97.8 71 16 134/72 97 05/10/16 10:54 Room Air I&O- Last 24 Hours up to 6 AM 05/10/16 05:59 Intake Total 180 ml Balance 180 ml VANNA PALUMBO MD May 10, 2016 16:51
[2016-05-10 22:00] VITALS: BP 129/71
[2016-05-11] MEDS: ACETAMINOPHEN 500 MG TAB PO PRN (01:18)
[2016-05-11] MEDS: MECLIZINE 25 MG TABLET PO SCH ×2 (05:25→13:56)
[2016-05-11 07:03] LABS: BASO % 0.6 % (0.0-1.0); EOS # 0.3 K/mm3 (0.0-0.50); EOS % 3.8 % (0.0-3.0); LARGE UNSTAINED CELL # 0.1 K/mm3 (0.0-0.4); LARGE UNSTAINED CELL % 1.1 % (0.0-4.0); LYMPH # 2.1 K/mm3 (1.5-4.5); LYMPH % 22.7 % (24.0-44.0); MEAN CORPUSCULAR HEMOGLOBIN 31.5 pg (27.0-33.0); MEAN CORPUSCULAR HGB CONC 33.6 g/dl (32.0-36.5); MEAN CORPUSCULAR VOLUME 93.8 fl (80.0-96.0); MONO # 0.6 K/mm3 (0.0-0.8); MONO % 6.3 % (0.0-5.0); NEUTROPHILS # 5.8 K/mm3 (1.8-7.7); NEUTROPHILS % 65.4 % (36.0-66.0); PLATELET COUNT, AUTOMATED 264 k/mm3 (150-450); RED CELL DISTRIBUTION WIDTH 12.9 % (11.5-14.5); WHITE BLOOD COUNT 8.8 K/mm3 (4.0-10.0)
[2016-05-11 07:20] LABS: CALCIUM LEVEL 8.2 MG/DL (8.8-10.2); CREATININE FOR GFR 1.1 MG/DL (0.55-1.02); GLOMERULAR FILTRATION RATE 49.9 (>32); POTASSIUM SERUM 4.1 MEQ/L (3.5-5.1)
[2016-05-11] MEDS: TIOTROPIUM INHALER/CAPSULE (SPIRIVA) INH SCH (08:02)
[2016-05-11] MEDS: ADVAIR DISKUS 250/50 INH PWD INH SCH (08:02)
[2016-05-11 08:25] VITALS: BP 134/72
[2016-05-11] MEDS: PANTOPRAZOLE 40MG TAB (PROTONIX) PO SCH (08:25)
[2016-05-11] MEDS: SUCRALFATE 1 GM TAB PO SCH ×2 (08:25→11:55)
[2016-05-11] MEDS: ENOXAPARIN 30 MG/0.3 ML SYR (J1650) SC SCH (08:25)
--- NOTE | 2016-05-11 09:44 | ECGEPIP ---
Stationary ECG Study [facility] - ED Test Date: 2016-05-09 Pat Name: JOHNNY LOZADA Department: Room: - Gender: F Adhesive Primer: chantal : 1925 Requested By: AUDRA Curran Order Number: [id number] Reading MD: Roderick Engle Measurements Intervals [place] Rate: 65 P: 60 LA: 168 QRS: -39 QRSD: 138 T: 31 QT: 428 QTc: 448 Interpretive Statements SINUS RHYTHM BORDERLINE RAD RIGHT BUNDLE BRANCH BLOCK SIMILAR TO 04/25/16 Electronically Signed On 05-11-2016 9:44:28 EST by Roderick Engle
[2016-05-11] MEDS ORDERED: MECL-68 PO (11:12)
--- NOTE | 2016-05-11 16:44 | DSES ---
DATE OF ADMISSION: 05/09/2016 DATE OF DISCHARGE: 05/11/2016 PRIMARY CARE PROVIDER: Dr. Laura Posey REFERRING PHYSICIAN: None. CONSULTING PHYSICIAN: None. CONDITION ON DISCHARGE: Stable. FINAL DIAGNOSIS: Vertigo likely secondary to labyrinthitis, less likely secondary to benign paroxysmal positional vertigo (BPPV). PROCEDURES: None. 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 She notes that she has been having ear pain and then recently had dizziness. She describes the dizziness as happening multiple times per day and lasting a few seconds. She has associated nausea but denies any vomiting. HOSPITAL COURSE: 1. Vertigo, likely secondary to labyrinthitis, less likely secondary to benign paroxysmal positional vertigo (BPPV). Reports improvement in dizziness and nausea. Physical does not reveal any signs of infection within the ear canal. CT scan does not reveal any acute changes. MRI is not possible given that she has a pacemaker. She has been started on meclizine which we have increased the dose. 2. Hypertension. Blood pressure remains well-controlled. Continue with amlodipine. 3. Dave's esophagus, gastroesophageal reflux disease (GERD), hiatal hernia. Continue with proton pump inhibitor (PPI) and sucralfate. 4. Chronic obstructive pulmonary disease (COPD). Continue with Advair and Spiriva. 5. Deep vein thrombosis (DVT) prophylaxis. She has put on Lovenox. DISPOSITION: The patient had improvement in her symptoms. She has been doing well with physical therapy and has been able to ambulate throughout the floor without any issues. The patient is being discharged home. DISCHARGE MEDICATIONS: The patient is being discharged home with the following medication list: - Tylenol 650 mg by mouth every four hours as needed for pain - alprazolam 0.25 mg by mouth three times a day as needed for vertigo and dizziness - amlodipine 5 mg by mouth daily - ascorbic acid 500 mg by mouth daily - vitamin D 1000 units by mouth daily - vitamin B12 1000 mcg by mouth daily - loperamide 2 mg by mouth as needed for diarrhea - magnesium 400 mg by mouth daily - omeprazole 40 mg by mouth daily - pyridoxine 50 mg by mouth daily - Advair Diskus 250/50 one puff inhaled twice a day - sucralfate 1 gram by mouth before meals and at bedtime - Spiriva one inhalation daily - Changed medications include meclizine 25 mg by mouth three times a day. DISCHARGE INSTRUCTIONS: The patient has been advised to followup with her primary care provider and ears, nose and throat (ENT) within the next seven days. She has been advised to remain compliant with treatment plan and medications and return to the emergency room if she experiences any problems. TIME SPENT ON DISCHARGE: 35 minutes.
--- NOTE | 2016-05-11 21:37 | EDDOCDS ---
Physician Documentation [facility] Name: Nancy Nicolas Age: 89 yrs Sex: Female : 1925 Arrival Date: 05/09/2016 Time: 10:15 Bed 8 Private MD: Tiffany Martell Disposition: 05/09/16 15:04 Hospitalization ordered by Jenna Ramirez for Inpatient Admission. Preliminary diagnosis is Other peripheral vertigo - Intractable Vertigo. - Bed requested for 5 Hatch. - Status is Inpatient Admission. ml3 - Condition is Stable. - Problem is new. - Symptoms are unchanged. Historical: - Allergies: Bees; PENICILLINS; seafood; - Home Meds: 1. Advair Diskus 250-50 mcg/dose Inhl dsdv 1 puff 2 times per day (Last dose: 05/09/2016 02:00) 2. Norvasc 5 mg Oral tab 1 tab once daily (Last dose: 05/09/2016 02:00) 3. omeprazole 40 mg Oral cpDR 1 cap once daily (Last dose: 05/08/2016) 4. Spiriva with HandiHaler 18 mcg Inhl CpDv 1 cap once daily (Last dose: 05/09/2016 02:00) 5. sucralfate 1 gram Oral tab 4 times per day (Last dose: 05/08/2016) 6. Zofran (as hydrochloride) 4 mg Oral tab 3 times per day (Last dose: 05/08/2016) 7. meclizine 25 mg Oral tab 1 tab twice a day (Last dose: 05/09/2016 08:00) 8. Xanax 0.25 mg Oral tab 1 tab 3 times per day (Last dose: 05/09/2016 08:10) - PMHx: Cancer, Colon; COPD; Lyme Disease; Hypertension; GERD; Gout; - PSHx: Hysterectomy; Colon Resection; Pacemaker Insertion (May 2015); - Social history: Smoking status: Patient states former smoker of tobacco. No barriers to communication noted, The patient speaks fluent Thai, Speaks appropriately for age. - Family history: Not pertinent. - : The pt / caregiver states he / she is not on anticoagulants. Home medication list is obtained from the patient. - Exposure Risk Screening:: None identified. Vital Signs: 05/09 10:18 BP 138 / 82; Pulse 69; Resp 18; Temp 98.4(TE); Pulse Ox 100% on R/A; Weight 55.34 kg / nb2 122 lbs (R); Height 5 ft. 3 in. (160.02 cm) (R); 10:32 BP 130 / 68 (auto/); bcj 10:34 Pulse 66 MON; Pulse Ox 100% ; bcj 10:47 BP 123 / 67 (auto/); bcj 10:47 Pulse 66 MON; Pulse Ox 100% ; bcj 11:02 BP 127 / 82 (auto/); bcj 11:02 Pulse 66 MON; Pulse Ox 100% ; bcj 11:26 BP 108 / 55 Supine; Pulse 71; bcj 11:26 BP 113 / 61 Sitting; Pulse 72; bcj 11:32 BP 114 / 67 (auto/); bcj 11:32 Pulse 74 MON; Pulse Ox 100% ; bcj 11:48 BP 119 / 87 (auto/); bcj 11:48 Pulse 68 MON; Pulse Ox 100% ; bcj 12:30 BP 110 / 71 (auto/); bcj 12:30 Pulse 70 MON; Pulse Ox 96% ; bcj 13:00 BP 100 / 55 (auto/); bcj 13:00 Pulse 74 MON; Pulse Ox 96% ; bcj 17:47 BP 128 / 80; Pulse 88; Resp 16; Temp 98; Pulse Ox 95% on R/A; Pain 0/10; bcj 18:41 BP 141 / 79; Pulse 65; Resp 20; Temp 96.3(O); Pulse Ox 98% on R/A; Pain 0/10; bcj 19:07 Weight 65.6 kg / 144.62 lbs (M); ko2 19:07 Body Mass Index 25.62 (65.60 kg, 160.02 cm) ko2 MDM: 10:23 ECG WITH READING ER PHYS+CARDIAG ordered. EDMS 10:30 Research Compliance Specialist/Pulse Ox/q 30 min VS ordered. br1 10:30 IV Saline Lock ordered. br1 10:30 Rhythm Strip to chart ordered. br1 10:30 Undress patient appropriately for examination ordered. br1 10:30 Orthostatic VS ordered. br1 10:30 Basic Metabolic Profile Ordered. EDMS 10:31 CBC with Diff Ordered. EDMS 10:31 Cardiac Injury Profile Ordered. EDMS 10:31 Troponin Ordered. EDMS 11:04 Meclizine 25 mg PO once ordered. br1 11:04 CT Head Without Contrast Ordered. EDMS 11:04 Chest, 2 View (pa\E\lat) Ordered. EDMS 12:16 Financial registration complete. mm15 12:19 [facility] Payment Agreement was scanned into [employer] and attached to record. mm15 14:22 CBC with Diff Reviewed. br1 14:22 Cardiac Injury Profile Reviewed. br1 14:22 Basic Metabolic Profile Reviewed. br1 14:22 Troponin Reviewed. br1 14:22 CT Head Without Contrast Reviewed. br1 14:22 Chest, 2 View (pa\E\lat) Reviewed. br1 14:29 BED REQUEST+ADM ordered. EDMS 16:17 PHYSICAL THERAPY EVAL & TREAT ordered. EDMS 16:18 Admission / Observation Status ordered. EDMS 16:18 REGULAR DIET ordered. EDMS 19:31 CBC WITH DIFFERENTIAL Ordered. EDMS 19:32 BASIC METABOLIC PROFILE Ordered. EDMS Administered Medications: 11:10 Drug: Meclizine 25 mg [meclizine 12.5 mg tablet (2 tabs)] Route: PO; srm Signatures: Dispatcher [employer] EDMS Josafat Horne, RN RN Reece Frey, Funeral Director/Embalmer Unit ml3 Brandon Ortiz MD MD br1 Josiane Churchill,RN RN Evonne Gallegos mm15 Joyce Anna RN RN ko2 Greer Hutchinson RN RN sls2 Juanita Cheatham RN srm The chart was reviewed and I authenticate all verbal orders and agree with the evaluation and treatment provided.Attachments: 12:19 [facility] Payment Agreement mm15 Chart Complete MTDD
--- NOTE | 2016-05-11 21:37 | EDDOCDS ---
Physician Documentation [facility] Name: Nancy Nicolas Age: 89 yrs Sex: Female : 1925 Arrival Date: 05/09/2016 Time: 10:15 Bed 8 Private MD: Tiffany Martell Disposition: 05/09/16 15:04 Hospitalization ordered by Jenna Ramirez for Inpatient Admission. Preliminary diagnosis is Other peripheral vertigo - Intractable Vertigo. - Bed requested for 5 Hatch. - Status is Inpatient Admission. ml3 - Condition is Stable. - Problem is new. - Symptoms are unchanged. Historical: - Allergies: Bees; PENICILLINS; seafood; - Home Meds: 1. Advair Diskus 250-50 mcg/dose Inhl dsdv 1 puff 2 times per day (Last dose: 05/09/2016 02:00) 2. Norvasc 5 mg Oral tab 1 tab once daily (Last dose: 05/09/2016 02:00) 3. omeprazole 40 mg Oral cpDR 1 cap once daily (Last dose: 05/08/2016) 4. Spiriva with HandiHaler 18 mcg Inhl CpDv 1 cap once daily (Last dose: 05/09/2016 02:00) 5. sucralfate 1 gram Oral tab 4 times per day (Last dose: 05/08/2016) 6. Zofran (as hydrochloride) 4 mg Oral tab 3 times per day (Last dose: 05/08/2016) 7. meclizine 25 mg Oral tab 1 tab twice a day (Last dose: 05/09/2016 08:00) 8. Xanax 0.25 mg Oral tab 1 tab 3 times per day (Last dose: 05/09/2016 08:10) - PMHx: Cancer, Colon; COPD; Lyme Disease; Hypertension; GERD; Gout; - PSHx: Hysterectomy; Colon Resection; Pacemaker Insertion (May 2015); - Social history: Smoking status: Patient states former smoker of tobacco. No barriers to communication noted, The patient speaks fluent Kinyarwanda, Speaks appropriately for age. - Family history: Not pertinent. - : The pt / caregiver states he / she is not on anticoagulants. Home medication list is obtained from the patient. - Exposure Risk Screening:: None identified. Vital Signs: 05/09 10:18 BP 138 / 82; Pulse 69; Resp 18; Temp 98.4(TE); Pulse Ox 100% on R/A; Weight 55.34 kg / nb2 122 lbs (R); Height 5 ft. 3 in. (160.02 cm) (R); 10:32 BP 130 / 68 (auto/); bcj 10:34 Pulse 66 MON; Pulse Ox 100% ; bcj 10:47 BP 123 / 67 (auto/); bcj 10:47 Pulse 66 MON; Pulse Ox 100% ; bcj 11:02 BP 127 / 82 (auto/); bcj 11:02 Pulse 66 MON; Pulse Ox 100% ; bcj 11:26 BP 108 / 55 Supine; Pulse 71; bcj 11:26 BP 113 / 61 Sitting; Pulse 72; bcj 11:32 BP 114 / 67 (auto/); bcj 11:32 Pulse 74 MON; Pulse Ox 100% ; bcj 11:48 BP 119 / 87 (auto/); bcj 11:48 Pulse 68 MON; Pulse Ox 100% ; bcj 12:30 BP 110 / 71 (auto/); bcj 12:30 Pulse 70 MON; Pulse Ox 96% ; bcj 13:00 BP 100 / 55 (auto/); bcj 13:00 Pulse 74 MON; Pulse Ox 96% ; bcj 17:47 BP 128 / 80; Pulse 88; Resp 16; Temp 98; Pulse Ox 95% on R/A; Pain 0/10; bcj 18:41 BP 141 / 79; Pulse 65; Resp 20; Temp 96.3(O); Pulse Ox 98% on R/A; Pain 0/10; bcj 19:07 Weight 65.6 kg / 144.62 lbs (M); ko2 19:07 Body Mass Index 25.62 (65.60 kg, 160.02 cm) ko2 MDM: 10:23 ECG WITH READING ER PHYS+CARDIAG ordered. EDMS 10:30 Body Rolling Machine Tender/Pulse Ox/q 30 min VS ordered. br1 10:30 IV Saline Lock ordered. br1 10:30 Rhythm Strip to chart ordered. br1 10:30 Undress patient appropriately for examination ordered. br1 10:30 Orthostatic VS ordered. br1 10:30 Basic Metabolic Profile Ordered. EDMS 10:31 CBC with Diff Ordered. EDMS 10:31 Cardiac Injury Profile Ordered. EDMS 10:31 Troponin Ordered. EDMS 11:04 Meclizine 25 mg PO once ordered. br1 11:04 CT Head Without Contrast Ordered. EDMS 11:04 Chest, 2 View (pa\E\lat) Ordered. EDMS 12:16 Financial registration complete. mm15 12:19 [facility] Payment Agreement was scanned into [employer] and attached to record. mm15 14:22 CBC with Diff Reviewed. br1 14:22 Cardiac Injury Profile Reviewed. br1 14:22 Basic Metabolic Profile Reviewed. br1 14:22 Troponin Reviewed. br1 14:22 CT Head Without Contrast Reviewed. br1 14:22 Chest, 2 View (pa\E\lat) Reviewed. br1 14:29 BED REQUEST+ADM ordered. EDMS 16:17 PHYSICAL THERAPY EVAL & TREAT ordered. EDMS 16:18 Admission / Observation Status ordered. EDMS 16:18 REGULAR DIET ordered. EDMS 19:31 CBC WITH DIFFERENTIAL Ordered. EDMS 19:32 BASIC METABOLIC PROFILE Ordered. EDMS Administered Medications: 11:10 Drug: Meclizine 25 mg [meclizine 12.5 mg tablet (2 tabs)] Route: PO; srm Signatures: Dispatcher [employer] EDMS Josafat Horne, RN RN Reece Frey, Palliative Care Coordinator Unit ml3 Brandon Ortiz MD MD br1 Josiane Churchill,RN RN Evonne Gallegos mm15 Joyce Anna RN RN ko2 Greer Hutchinson RN RN sls2 Juanita Cheatham RN srm The chart was reviewed and I authenticate all verbal orders and agree with the evaluation and treatment provided.Attachments: 12:19 [facility] Payment Agreement mm15 Chart Complete MTDD
== END 2016-05-11 14:00 | disposition home or self-care (01) ==
LOC: M ED 10:15 → M ED INP 16:13 → M MS5PR 20:30
PROVIDERS: ADMIT Internal Medicine Nephrology; ATTEND Internal Medicine
DX: R42 Dizziness and giddiness (principal); I10 Essential (primary) hypertension; K22.70 Barrett's esophagus without dysplasia; K21.9 Gastro-esophageal reflux disease without esophagitis; K44.9 Diaphragmatic hernia without obstruction or gangrene; J44.9 Chronic obstructive pulmonary disease, unspecified; M10.9 Gout, unspecified; I44.0 Atrioventricular block, first degree; I67.82 Cerebral ischemia; E78.5 Hyperlipidemia, unspecified; K57.30 Diverticulosis of large intestine without perforation or abscess without bleeding; R91.1 Solitary pulmonary nodule; Z85.038 Personal history of other malignant neoplasm of large intestine; Z95.0 Presence of cardiac pacemaker; Z87.891 Personal history of nicotine dependence; Z91.013 Allergy to seafood; Z88.0 Allergy status to penicillin; Z91.030 Bee allergy status; Z79.899 Other long term (current) drug therapy; Z79.51 Long term (current) use of inhaled steroids
CPT/HCPCS: 36415; 70450; 71020; 80048; 82550; 82553; 84484; 85025; 93005; 93041; 94640; 96372; 97161; 99285; G0378; G8978; G8979; G8980; J1650

== ENCOUNTER → 2016-10-04 | Outpatient (REF) | payer MEDICARE, OTHER ==
[~2016-10-04] MED LIST changes: +ALPR0.25 PO; +MECL-68 PO; +MECL-86 PO; +SUCR1TAB56 PO
[2016-10-07 00:07] LABS: Lyme Disease IgG/IgM Antibodie <0.91 ISR (0.00-0.90); Lyme Disease IgM Ab Quantitati <0.80 index (0.00-0.79)
== END ==
LOC: M LAB REF 16:55
PROVIDERS: ATTEND Nurse Practitioner Adult Health
DX: Z11.8 Encounter for screening for other infectious and parasitic diseases (principal)

== ENCOUNTER 2017-08-06 10:01 | Emergency (ER) | payer MEDICARE, OTHER | END 2017-08-06 11:01 | disposition home or self-care (01) | LOC: M ED 10:01 | DX: L03.113 Cellulitis of right upper limb (principal); I12.9 Hypertensive chronic kidney disease with stage 1 through stage 4 chronic kidney disease, or unspecified chronic kidney disease; N18.3 Chronic kidney disease, stage 3 (moderate); F41.9 Anxiety disorder, unspecified; M51.9 Unspecified thoracic, thoracolumbar and lumbosacral intervertebral disc disorder; Z86.718 Personal history of other venous thrombosis and embolism; Z79.899 Other long term (current) drug therapy; Z79.51 Long term (current) use of inhaled steroids; Z88.0 Allergy status to penicillin; Z91.013 Allergy to seafood; Z91.030 Bee allergy status; Z91.018 Allergy to other foods | CPT/HCPCS: 99282 ==